=== PATIENT | female | born 1960 | race Caucasian/White ===

== ENCOUNTER 2019-10-14 15:03 | Emergency (ER) | payer MEDICAID ==
[~2019-10-14] VITALS: Ht 167.6 cm; Wt 88.7 kg
[~2019-10-14 15:03] MED LIST: METF500T20 PO; RISP3TAB11 PO
[2019-10-14 16:07] LABS: BASOPHILS % (AUTO) 0.4 % (0-1); EOSINOPHILS # (AUTO) 0.1 X10'3 (0-0.9); EOSINOPHILS % (AUTO) 1.2 % (0-6); HEMATOCRIT 42.4 % (35.0-45.0); HEMOGLOBIN 14.6 g/dl (12.0-16.0); LYMPHOCYTES # (AUTO) 1.1 X10'3 (1.1-4.8); LYMPHOCYTES % (AUTO) 18.8 % (21-51); MEAN CORPUSCULAR HGB CONC 34.6 g/dL (33.0-36.5); MEAN CORPUSCULAR VOLUME 95.5 FL (78-98); MEAN PLATELET VOLUME 7.4 FL (7.4-10.4); MONOCYTES # (AUTO) 0.6 X10'3 (0-0.9); MONOCYTES % (AUTO) 10.5 % (2-12); NEUTROPHILS # (AUTO) 4.2 X10'3 (1.8-7.7); NEUTROPHILS % (AUTO) 69.1 % (42-75); PLATELET COUNT 136 X10'3 (140-440); RED BLOOD COUNT 4.44 X10'6 (4.20-5.60); RED CELL DISTRIBUTION WIDTH 15.5 % (11.5-14.5); WHITE BLOOD COUNT 6.1 X10'3 (4.5-11.0)
[2019-10-14 16:20] LABS: ALANINE AMINOTRANSFERASE 77 U/L (12-78); ALBUMIN 2.4 G/DL (3.4-5.0); ALBUMIN/GLOBULIN RATIO 0.4 (1.1-1.5); ALKALINE PHOSPHATASE 77 IU/L (46-116); ANION GAP 5 (8-16); ASPARTATE AMINO TRANSFERASE 58 U/L (10-37); BILIRUBIN,TOTAL 1.5 MG/DL (0.1-1.0); BLOOD UREA NITROGEN 15 MG/DL (7-18); BUN/CREATININE RATIO 17.9 (6.6-38.0); CALCIUM 8.3 MG/DL (8.5-10.1); CHLORIDE 100 MMOL/L (99-107); CREATININE 0.84 MG/DL (0.40-0.90); LIPASE 269 U/L (73-393); POTASSIUM 4.6 MMOL/L (3.5-5.1); SODIUM 134 MMOL/L (135-145); TOTAL CARBON DIOXIDE 28.6 MMOL/L (24-32); eGFR 69 ML/MIN
[2019-10-14 16:23] LABS: GLUCOSE 351 MG/DL (70-104)
--- NOTE | 2019-10-14 19:22 | NUR ---
patient tolerated procedure well , patient in bed eyes closed rr even un labored no observable s/s of acute stress or sob at this time will continue to monitor.
--- NOTE | 2019-10-14 20:00 | NUR ---
patients catheter stopped draining after 2 bottles md child aware, waiting for orders
--- NOTE | 2019-10-14 21:18 | NUR ---
dr. steele verbalized to greg paracrickyis catheter
[2019-10-14 21:22] LABS: CLARITY,URINE SLIGHTLY CLOUDY (Clear); COLOR,URINE YELLOW (Yellow); GLUCOSE, URINE >=1000 mg/dl (Neg); KETONES,URINE NEGATIVE (Neg); LEUKOCYTE ESTERASE ,URINE SMALL (Neg); NITRITES, URINE NEGATIVE (Neg); OCCULT BLOOD,URINE SMALL (Neg); PROTEIN,URINE NEGATIVE (Neg); UROBILINOGEN,URINE 0.2 E.U/dL (0.2-1.0)
[2019-10-14 21:33] LABS: UA COLLECTION TYPE CLN CATCH MIDSTREAM
[2019-10-14 21:36] LABS: BACTERIA,URINE 1+ /HPF (Neg); RBC,URINE 0-2 /HPF (0-2); SQUAMOUS EPITHELIAL CELL,UR MANY /LPF (FEW); WBC,URINE 20-30 /HPF (0-4)
[2019-10-14 21:52] VITALS: BP 106/69
== END 2019-10-14 21:56 | disposition home or self-care (01) ==
LOC: ER 15:04
DX: R18.8 Other ascites (principal); K72.90 Hepatic failure, unspecified without coma; E11.9 Type 2 diabetes mellitus without complications; F32.9 Major depressive disorder, single episode, unspecified; F17.200 Nicotine dependence, unspecified, uncomplicated; Z90.49 Acquired absence of other specified parts of digestive tract; Z98.890 Other specified postprocedural states; Z88.0 Allergy status to penicillin; Z88.5 Allergy status to narcotic agent; Z88.8 Allergy status to other drugs, medicaments and biological substances; Z79.899 Other long term (current) drug therapy
CPT/HCPCS: 36415; 49083; 80053; 81001; 83690; 85025; 99285

== ENCOUNTER 2019-10-18 16:34 | Emergency (ER) | payer MEDICAID ==
[~2019-10-18] VITALS: Ht 167.6 cm; Wt 87.0 kg
[2019-10-18 17:52] LABS: BASOPHILS % (AUTO) 0.7 % (0-1); EOSINOPHILS # (AUTO) 0.1 X10'3 (0-0.9); HEMATOCRIT 42.3 % (35.0-45.0); HEMOGLOBIN 14.7 g/dl (12.0-16.0); LYMPHOCYTES # (AUTO) 0.9 X10'3 (1.1-4.8); LYMPHOCYTES % (AUTO) 13.2 % (21-51); MEAN CORPUSCULAR HEMOGLOBIN 33.1 PG (27.0-31.0); MEAN CORPUSCULAR HGB CONC 34.7 g/dL (33.0-36.5); MEAN CORPUSCULAR VOLUME 95.3 FL (78-98); MEAN PLATELET VOLUME 7.6 FL (7.4-10.4); MONOCYTES # (AUTO) 0.6 X10'3 (0-0.9); MONOCYTES % (AUTO) 9.4 % (2-12); NEUTROPHILS # (AUTO) 5.1 X10'3 (1.8-7.7); NEUTROPHILS % (AUTO) 75.7 % (42-75); PLATELET COUNT 153 X10'3 (140-440); RED BLOOD COUNT 4.44 X10'6 (4.20-5.60); RED CELL DISTRIBUTION WIDTH 15.6 % (11.5-14.5); WHITE BLOOD COUNT 6.8 X10'3 (4.5-11.0)
[2019-10-18] MEDS ORDERED: LIDOcaine 1% W/epiNEPHrine 1:200,000 10ml vial IJ ONE (18:20)
[2019-10-18 18:48] LABS: ANION GAP 4 (8-16); BILIRUBIN,TOTAL 1.6 MG/DL (0.1-1.0); BLOOD UREA NITROGEN 13 MG/DL (7-18); BUN/CREATININE RATIO 14.6 (6.6-38.0); CALCIUM 8.1 MG/DL (8.5-10.1); CHLORIDE 97 MMOL/L (99-107); CREATININE 0.89 MG/DL (0.40-0.90); SODIUM 130 MMOL/L (135-145); TOTAL CARBON DIOXIDE 29.5 MMOL/L (24-32); TOTAL PROTEIN 7.6 G/DL (6.4-8.2); eGFR 64 ML/MIN
[2019-10-18 18:49] LABS: ALANINE AMINOTRANSFERASE 74 U/L (12-78); ALBUMIN 2.2 G/DL (3.4-5.0); ALBUMIN/GLOBULIN RATIO 0.4 (1.1-1.5); ALKALINE PHOSPHATASE 85 IU/L (46-116); ASPARTATE AMINO TRANSFERASE 55 U/L (10-37); GLUCOSE 425 MG/DL (70-104); POTASSIUM 4.6 MMOL/L (3.5-5.1)
[2019-10-18] MEDS ORDERED: morphine 2 MG/ML inj. syringe IV ONE (20:45)
--- NOTE | 2019-10-18 21:36 | NUR ---
SAUMYA CARRANZA AT BEDSIDE FOR PARACENTESIS.
[2019-10-18 22:21] VITALS: BP 94/71
== END 2019-10-18 22:25 | disposition home or self-care (01) ==
LOC: ER 16:34
DX: R18.8 Other ascites (principal); E11.9 Type 2 diabetes mellitus without complications; F17.200 Nicotine dependence, unspecified, uncomplicated; Z90.49 Acquired absence of other specified parts of digestive tract; Z98.890 Other specified postprocedural states; Z88.0 Allergy status to penicillin; Z88.5 Allergy status to narcotic agent; Z88.6 Allergy status to analgesic agent
CPT/HCPCS: 36415; 49083; 80053; 85025; 96374; 99285; J2270

== ENCOUNTER 2019-10-25 17:41 | Emergency (ER) | payer MEDICAID ==
[~2019-10-25] VITALS: Ht 170.2 cm; Wt 72.7 kg
--- NOTE | 2019-10-25 18:18 | NUR ---
per md de oliveira, no IV is needed at the moment prior to paracentesis
[2019-10-25] MEDS ORDERED: LIDOcaine 1% W/epiNEPHrine 1:200,000 10ml vial IJ ONE (18:20)
[2019-10-25] MEDS ORDERED: iohexol 300mg/ml 100ml inj. ONE (19:10)
[2019-10-25 19:23] LABS: BASOPHILS # (AUTO) 0.1 X10'3 (0-0.2); BASOPHILS % (AUTO) 1.6 % (0-1); EOSINOPHILS # (AUTO) 0.1 X10'3 (0-0.9); EOSINOPHILS % (AUTO) 1.5 % (0-6); HEMATOCRIT 42.2 % (35.0-45.0); HEMOGLOBIN 14.6 g/dl (12.0-16.0); LYMPHOCYTES # (AUTO) 0.8 X10'3 (1.1-4.8); LYMPHOCYTES % (AUTO) 13.6 % (21-51); MEAN CORPUSCULAR HEMOGLOBIN 33.1 PG (27.0-31.0); MEAN CORPUSCULAR HGB CONC 34.7 g/dL (33.0-36.5); MEAN CORPUSCULAR VOLUME 95.4 FL (78-98); MEAN PLATELET VOLUME 7.6 FL (7.4-10.4); MONOCYTES # (AUTO) 0.6 X10'3 (0-0.9); MONOCYTES % (AUTO) 10.9 % (2-12); NEUTROPHILS # (AUTO) 4.3 X10'3 (1.8-7.7); NEUTROPHILS % (AUTO) 72.4 % (42-75); PLATELET COUNT 133 X10'3 (140-440); RED BLOOD COUNT 4.42 X10'6 (4.20-5.60); RED CELL DISTRIBUTION WIDTH 15.5 % (11.5-14.5); WHITE BLOOD COUNT 5.9 X10'3 (4.5-11.0)
[2019-10-25 19:34] LABS: ALANINE AMINOTRANSFERASE 60 U/L (12-78); ALBUMIN/GLOBULIN RATIO 0.4 (1.1-1.5); ALKALINE PHOSPHATASE 80 IU/L (46-116); ANION GAP 5 (8-16); ASPARTATE AMINO TRANSFERASE 41 U/L (10-37); BILIRUBIN,TOTAL 0.9 MG/DL (0.1-1.0); BLOOD UREA NITROGEN 20 MG/DL (7-18); BUN/CREATININE RATIO 24.4 (6.6-38.0); CALCIUM 8.4 MG/DL (8.5-10.1); CHLORIDE 99 MMOL/L (99-107); CREATININE 0.82 MG/DL (0.40-0.90); GLUCOSE 437 MG/DL (70-104); POTASSIUM 4.5 MMOL/L (3.5-5.1); SODIUM 133 MMOL/L (135-145); TOTAL CARBON DIOXIDE 28.9 MMOL/L (24-32); TOTAL PROTEIN 7.2 G/DL (6.4-8.2); eGFR 71 ML/MIN
--- NOTE | 2019-10-25 19:45 | NUR ---
PT TO CT
--- NOTE | 2019-10-25 19:56 | NUR ---
PT BACK FROM CY. PT UP OUT OF BED AND ABULATED TO THE BATHROOM.
[2019-10-25 20:29] LABS: AMYLASE,BODY FLUID 20 U/L; GLUCOSE,BODY FLUID 491 MG/DL; LDH,BODY FLUID 28 U/L
[2019-10-25 20:35] LABS: BF MESOTHELIAL CELLS FEW; BF RBC COUNT 33 /CU MM; BF WBC COUNT 66 /CU MM (0-1000); BFAPPEAR HAZY; BFCOLOR YELLOW; BFVOLUME 20 ML; LYMPHOCYTES,BODY FLUID 65 %; MONOCYTES,BODY FLUID 12 %; NEUTROPHILS,BODY FLUID 23 %
[2019-10-25 20:41] LABS: ALBUMIN,BODY FLUID < 0.6 G/DL; TOTAL PROTEIN,BODY FLUID < 2.0 G/DL
--- NOTE | 2019-10-25 21:19 | NUR ---
PT AMBULATING WITH [facility] TECH PER CHANO CARRANZA ORDERS
[2019-10-25] MEDS ORDERED: traMADol 50MG tablet PO ONE (21:55)
[2019-10-25] MEDS ORDERED: SIMETHICONE 125 MG CAPSULE PO SCH (21:55)
[2019-10-25 22:14] VITALS: BP 148/99
[2019-10-26] MEDS ORDERED: MESSAGE TO NURSING PO NR (10:00)
[2019-10-27] MEDS ORDERED: METF-436 PO (20:24)
[2019-10-27] MEDS ORDERED: ALBU17AE26 PO (20:25)
[2019-10-27] MEDS ORDERED: FURO20TA4 PO (20:25)
[2019-10-27] MEDS ORDERED: SPIR25TA5 PO (20:25)
== END 2019-10-25 22:16 | disposition home or self-care (01) ==
LOC: ER 17:42
DX: R18.8 Other ascites (principal); J45.909 Unspecified asthma, uncomplicated; E11.9 Type 2 diabetes mellitus without complications; F32.9 Major depressive disorder, single episode, unspecified; F17.200 Nicotine dependence, unspecified, uncomplicated; F10.99 Alcohol use, unspecified with unspecified alcohol-induced disorder; Z86.19 Personal history of other infectious and parasitic diseases; Z90.49 Acquired absence of other specified parts of digestive tract; Z88.0 Allergy status to penicillin; Z88.5 Allergy status to narcotic agent; Z88.8 Allergy status to other drugs, medicaments and biological substances; Z79.84 Long term (current) use of oral hypoglycemic drugs; Z79.899 Other long term (current) drug therapy; Y90.9 Presence of alcohol in blood, level not specified
CPT/HCPCS: 36415; 49083; 74177; 80053; 82042; 82150; 82945; 83605; 83615; 84157; 85025; 85610; 87040; 87070; 89051; 99285; Q9967

== ENCOUNTER 2019-11-04 17:10 | Inpatient (IN) | payer MEDICAID ==
[~2019-11-04] VITALS: Ht 168.9 cm; Wt 88.0 kg
[~2019-11-04 17:10] MED LIST changes: +ALBU17AE26 PO; +FURO20TA4 PO; +LACT10SO32 PO; +LEVO500T2 PO; +METF-436 PO; -METF500T20 PO; +RIFA550T PO; -RISP3TAB11 PO; +SPIR25TA5 PO
[2019-11-04 18:01] LABS: BASOPHILS # (AUTO) 0.1 X10'3 (0-0.2); BASOPHILS % (AUTO) 0.8 % (0-1); EOSINOPHILS # (AUTO) 0.1 X10'3 (0-0.9); HEMATOCRIT 42.7 % (35.0-45.0); HEMOGLOBIN 14.8 g/dl (12.0-16.0); LYMPHOCYTES % (AUTO) 14.9 % (21-51); MEAN CORPUSCULAR HEMOGLOBIN 32.9 PG (27.0-31.0); MEAN CORPUSCULAR HGB CONC 34.7 g/dL (33.0-36.5); MEAN CORPUSCULAR VOLUME 94.9 FL (78-98); MEAN PLATELET VOLUME 7.5 FL (7.4-10.4); MONOCYTES # (AUTO) 0.7 X10'3 (0-0.9); MONOCYTES % (AUTO) 10.6 % (2-12); NEUTROPHILS # (AUTO) 4.7 X10'3 (1.8-7.7); NEUTROPHILS % (AUTO) 72.7 % (42-75); PLATELET COUNT 152 X10'3 (140-440); RED CELL DISTRIBUTION WIDTH 15.4 % (11.5-14.5); WHITE BLOOD COUNT 6.4 X10'3 (4.5-11.0)
[2019-11-04 18:14] LABS: ALANINE AMINOTRANSFERASE 72 U/L (12-78); ALBUMIN 2.1 G/DL (3.4-5.0); ALBUMIN/GLOBULIN RATIO 0.4 (1.1-1.5); ALKALINE PHOSPHATASE 89 IU/L (46-116); ANION GAP 4 (8-16); ASPARTATE AMINO TRANSFERASE 61 U/L (10-37); BILIRUBIN,TOTAL 1.3 MG/DL (0.1-1.0); BLOOD UREA NITROGEN 16 MG/DL (7-18); BUN/CREATININE RATIO 19.3 (6.6-38.0); CALCIUM 8.4 MG/DL (8.5-10.1); CHLORIDE 100 MMOL/L (99-107); CREATININE 0.83 MG/DL (0.40-0.90); GLUCOSE 384 MG/DL (70-104); LIPASE 493 U/L (73-393); POTASSIUM 4.3 MMOL/L (3.5-5.1); SODIUM 130 MMOL/L (135-145); TOTAL CARBON DIOXIDE 26.2 MMOL/L (24-32); TOTAL PROTEIN 7.5 G/DL (6.4-8.2); eGFR 70 ML/MIN
[2019-11-04] MEDS ORDERED: morphine IR (immed. release) 30mg tablet PO ONE (20:15)
[2019-11-04] MEDS ORDERED: TRAM50TA2 PO (21:41)
[2019-11-04] MEDS ORDERED: magnesium 4gm in 100ml NS 100 ML IV PRN (22:20)
[2019-11-04] MEDS ORDERED: acetaminophen 325mg tablet PO PRN (22:20)
[2019-11-04] MEDS ORDERED: dextrose 50%-water 50ml dispensing syringe IV PRN ×2 (22:20)
[2019-11-04] MEDS ORDERED: potassium CL 10mEq/100ml bag 100 ML IV PRN ×2 (22:20)
[2019-11-04] MEDS ORDERED: mag hydrox/Alum hydrox/simeth 30ml oral suspension PO PRN (22:20)
[2019-11-04] MEDS ORDERED: potassium Cl 20 mEq SR tablet PO PRN ×2 (22:20)
[2019-11-04] MEDS ORDERED: glucagon, human recombinant 1mg kit SUBCUT PRN (22:20)
[2019-11-04] MEDS ORDERED: dextrose ORAL solution 15 GM/59 ML bottle PO PRN ×2 (22:20)
[2019-11-04] MEDS ORDERED: ondansetron/PF 4mg/2ml inj IV PRN (22:20)
[2019-11-04] MEDS ORDERED: MESSAGE TO PHARMACY PO ONE (22:20)
[2019-11-04] MEDS ORDERED: albuterol 1.25 MG/3 ML (1/2 strength) nebule NEB PRN (22:20)
[2019-11-04] MEDS ORDERED: magnesium 2GM in 50ml NS 50 ML IV PRN (22:20)
[2019-11-04] MEDS ORDERED: magnesium hydroxide 30ml (MOM) UD suspension PO PRN (22:20)
--- NOTE | 2019-11-04 22:58 | NUR ---
pt placed on hospital bed for comfort.
[2019-11-04 23:37] LABS: CLARITY,URINE CLEAR (Clear); COLOR,URINE YELLOW (Yellow); GLUCOSE, URINE >=1000 mg/dl (Neg); KETONES,URINE NEGATIVE (Neg); LEUKOCYTE ESTERASE ,URINE NEGATIVE (Neg); NITRITES, URINE NEGATIVE (Neg); OCCULT BLOOD,URINE NEGATIVE (Neg); PROTEIN,URINE NEGATIVE (Neg); UROBILINOGEN,URINE 0.2 E.U/dL (0.2-1.0)
[2019-11-04 23:49] LABS: UA COLLECTION TYPE OTHER
[2019-11-04 23:51] LABS: BACTERIA,URINE NONE SEEN /HPF (Neg); RBC,URINE NONE SEEN /HPF (0-2); SQUAMOUS EPITHELIAL CELL,UR MANY /LPF (FEW); WBC,URINE 0-4 /HPF (0-4)
--- NOTE | 2019-11-05 01:04 | NUR ---
HOURLY ROUNDING ON PT, NO NEEDS AT THIS TIME, UPDATTED ON PLAN OF CARE. PT RESTING COMFORTABLY IN BED. WILL CONTINUE TO MONITOR
--- NOTE | 2019-11-05 07:05 | NUR ---
Patient in room YANETH 349. I have received report from Micaela KWONG and had the opportunity to ask questions and assume patient care.
[2019-11-05 07:37] VITALS: BP 108/64
[2019-11-05] MEDS ORDERED: furosemide 20MG tablet PO SCH (08:00)
[2019-11-05] MEDS ORDERED: spironolactone 25 MG tablet PO SCH (08:00)
[2019-11-05] MEDS ORDERED: K and/or MAG REPLACEMENT MC SCH (08:00)
[2019-11-05] MEDS: lactulose 20gm/30ml cup PO SCH ×2 (09:01→12:58)
[2019-11-05] MEDS: insulin Lispro (HumaLOG) vial - multi-dose SQ SCH ×2 (10:13→14:56)
[2019-11-05 10:18] LABS: BASOPHILS # (AUTO) 0.1 X10'3 (0-0.2); BASOPHILS % (AUTO) 1.2 % (0-1); EOSINOPHILS # (AUTO) 0.2 X10'3 (0-0.9); EOSINOPHILS % (AUTO) 2.6 % (0-6); HEMATOCRIT 39.8 % (35.0-45.0); LYMPHOCYTES # (AUTO) 0.8 X10'3 (1.1-4.8); LYMPHOCYTES % (AUTO) 13.1 % (21-51); MEAN CORPUSCULAR HEMOGLOBIN 33.3 PG (27.0-31.0); MEAN CORPUSCULAR HGB CONC 35.1 g/dL (33.0-36.5); MEAN PLATELET VOLUME 7.3 FL (7.4-10.4); MONOCYTES # (AUTO) 0.7 X10'3 (0-0.9); MONOCYTES % (AUTO) 10.8 % (2-12); NEUTROPHILS # (AUTO) 4.7 X10'3 (1.8-7.7); NEUTROPHILS % (AUTO) 72.3 % (42-75); PLATELET COUNT 140 X10'3 (140-440); RED BLOOD COUNT 4.19 X10'6 (4.20-5.60); RED CELL DISTRIBUTION WIDTH 15.8 % (11.5-14.5); WHITE BLOOD COUNT 6.5 X10'3 (4.5-11.0)
[2019-11-05 10:37] LABS: ALANINE AMINOTRANSFERASE 70 U/L (12-78); ALBUMIN 1.9 G/DL (3.4-5.0); ALBUMIN/GLOBULIN RATIO 0.4 (1.1-1.5); ALKALINE PHOSPHATASE 76 IU/L (46-116); ANION GAP 3 (8-16); ASPARTATE AMINO TRANSFERASE 62 U/L (10-37); BILIRUBIN,TOTAL 1.1 MG/DL (0.1-1.0); BLOOD UREA NITROGEN 15 MG/DL (7-18); BUN/CREATININE RATIO 18.1 (6.6-38.0); CALCIUM 8.3 MG/DL (8.5-10.1); CHLORIDE 101 MMOL/L (99-107); CREATININE 0.83 MG/DL (0.40-0.90); GLUCOSE 347 MG/DL (70-104); MAGNESIUM 1.4 MG/DL (1.5-2.4); SODIUM 132 MMOL/L (135-145); TOTAL CARBON DIOXIDE 27.6 MMOL/L (24-32); eGFR 70 ML/MIN
[2019-11-05] MEDS ORDERED: magnesium 4gm in 100ml NS 100 ML IV PRN (11:10)
[2019-11-05] MEDS ORDERED: magnesium Cl slow-release 64mg tablet PO PRN (11:10)
[2019-11-05 11:28] VITALS: BP 109/68
--- NOTE | 2019-11-05 13:10 | NUR ---
here to take pt home for discharge. disagrees with discharge, stating, "Nothing was done for her, her belly is still huge and she is still SOB. I want to talk to the myself." SaO2 91% on RA. Ambulated pt 600ft, pt did not appear to be SOB. paged. Awaiting MD to talk to pt/.
--- NOTE | 2019-11-05 14:49 | NUR ---
Pt with ascites Addendum: 11/05/19 at 1451 by Clarence Cunningham STUDENT -NU Amended: Links added.
--- NOTE | 2019-11-05 15:03 | NUR ---
Student documentation: I have reviewed all interventions, assessments performed and documented by Clarence QUIROZ.
--- NOTE | 2019-11-05 15:05 | NUR ---
Pt's Naif talked to Dr. Decker over the phone to discuss discharge. Pt is still to be discharged. Patient is accepting of discharge, is still upset. Discharge paperwork gone over with pt and signed. IV taken out. W/C to front lobby. Pt sent home with all belongings.
--- NOTE | 2019-11-05 15:17 | NUR ---
DM consult: Pt with A1c 10.0 seen at bedside. Pt reports she checks her BG levels twice a day with resulting numbers generally in the 160s however recently up to 300-340. Pt states she takes her DM medications per rx however hasn't been able to see her PCP d/t transportation issues however reports she is trying to establish a new MD. Pt provided with written and verbal DM education with referral to outpatient DM class. Pt was able to provide teach back method and appears to have a good understanding about education. Pt very emotional during RD interview and expresses desire to better manage her diabetes and overall health. All of patient's questions were answered at this time. RD contact information provided. Pt endorses a good appetite and denies difficulty chewing/swallowing. Will continue to follow. Addendum: 11/05/19 at [address] Amended: Links added.
[2019-11-05] MEDS ORDERED: insulin glargine (Lantus) pen - multi-dose SQ SCH (21:00)
== END 2019-11-05 15:14 | disposition home or self-care (01) | DRG 280 ==
LOC: ER 17:10 → ED HOLD 22:17 → UNDOADMOB 22:47 → ED HOLD 22:47 → EDBEDREQ 11-05 06:31 → ED HOLD 11-05 07:58 → SUR 3N 11-05 07:58 → OBSVTOIN 11-05 08:00
PROVIDERS: ADMIT Family Medicine; ATTEND Family Medicine
DX: K70.31 Alcoholic cirrhosis of liver with ascites (principal); E87.1 Hypo-osmolality and hyponatremia; B18.2 Chronic viral hepatitis C; E11.9 Type 2 diabetes mellitus without complications; F31.9 Bipolar disorder, unspecified; F17.290 Nicotine dependence, other tobacco product, uncomplicated; F12.90 Cannabis use, unspecified, uncomplicated; J44.9 Chronic obstructive pulmonary disease, unspecified; Z82.49 Family history of ischemic heart disease and other diseases of the circulatory system; Z83.3 Family history of diabetes mellitus; Z85.850 Personal history of malignant neoplasm of thyroid; Z88.0 Allergy status to penicillin; Z88.5 Allergy status to narcotic agent; Z90.49 Acquired absence of other specified parts of digestive tract; Z88.8 Allergy status to other drugs, medicaments and biological substances; Z79.899 Other long term (current) drug therapy; Z80.3 Family history of malignant neoplasm of breast
CPT/HCPCS: 36415; 49083; 74176; 76705; 80053; 81001; 82948; 83690; 83735; 85025; 87081; 94760; 99285; G0378; J1815

== ENCOUNTER 2019-11-07 14:12 | Emergency (ER) | payer MEDICAID ==
[~2019-11-07] VITALS: Ht 167.6 cm; Wt 86.4 kg
[~2019-11-07 14:12] MED LIST changes: +TRAM50TA2 PO
[2019-11-07] MEDS ORDERED: LIDOcaine 1% W/epiNEPHrine 1:100,000 20ml vial SQ ONE (17:00)
[2019-11-07] MEDS ORDERED: LORazepam 2 mg/ml vial IV ONE (17:00)
[2019-11-07 17:19] LABS: BASOPHILS % (AUTO) 0.5 % (0-1); EOSINOPHILS # (AUTO) 0.1 X10'3 (0-0.9); EOSINOPHILS % (AUTO) 0.9 % (0-6); HEMATOCRIT 42.3 % (35.0-45.0); HEMOGLOBIN 14.5 g/dl (12.0-16.0); LYMPHOCYTES # (AUTO) 0.7 X10'3 (1.1-4.8); LYMPHOCYTES % (AUTO) 12.7 % (21-51); MEAN CORPUSCULAR HGB CONC 34.3 g/dL (33.0-36.5); MEAN CORPUSCULAR VOLUME 96.2 FL (78-98); MEAN PLATELET VOLUME 7.4 FL (7.4-10.4); MONOCYTES # (AUTO) 0.5 X10'3 (0-0.9); MONOCYTES % (AUTO) 8.8 % (2-12); NEUTROPHILS # (AUTO) 4.6 X10'3 (1.8-7.7); NEUTROPHILS % (AUTO) 77.1 % (42-75); PLATELET COUNT 134 X10'3 (140-440); RED BLOOD COUNT 4.39 X10'6 (4.20-5.60); RED CELL DISTRIBUTION WIDTH 15.4 % (11.5-14.5); WHITE BLOOD COUNT 5.9 X10'3 (4.5-11.0)
[2019-11-07 17:35] LABS: ALANINE AMINOTRANSFERASE 68 U/L (12-78); ALBUMIN 1.9 G/DL (3.4-5.0); ALBUMIN/GLOBULIN RATIO 0.4 (1.1-1.5); ALKALINE PHOSPHATASE 80 IU/L (46-116); ANION GAP 3 (8-16); ASPARTATE AMINO TRANSFERASE 57 U/L (10-37); BILIRUBIN,TOTAL 1.2 MG/DL (0.1-1.0); BLOOD UREA NITROGEN 14 MG/DL (7-18); BUN/CREATININE RATIO 14.6 (6.6-38.0); CALCIUM 8.2 MG/DL (8.5-10.1); CHLORIDE 99 MMOL/L (99-107); CREATININE 0.96 MG/DL (0.40-0.90); GLUCOSE 381 MG/DL (70-104); POTASSIUM 4.4 MMOL/L (3.5-5.1); SODIUM 131 MMOL/L (135-145); TOTAL CARBON DIOXIDE 29.4 MMOL/L (24-32); eGFR 59 ML/MIN
[2019-11-07 20:13] LABS: LDH,BODY FLUID 30 U/L
[2019-11-07 20:16] VITALS: BP 105/61
[2019-11-07 20:36] LABS: BFAPPEAR HAZY; BFCOLOR YELLOW
[2019-11-07 20:37] LABS: BF MESOTHELIAL CELLS MODERATE; BF WBC COUNT 53 /CU MM (0-1000); BFVOLUME 10 ML; LYMPHOCYTES,BODY FLUID 75 %; MONOCYTES,BODY FLUID 9 %; NEUTROPHILS,BODY FLUID 16 %
[2019-11-07 20:38] LABS: BF RBC COUNT 127 /CU MM
[2019-11-07 21:09] LABS: TOTAL PROTEIN,BODY FLUID < 2.0 G/DL
== END 2019-11-07 20:24 | disposition home or self-care (01) ==
LOC: ER 14:14
DX: R18.8 Other ascites (principal); R10.9 Unspecified abdominal pain; J45.909 Unspecified asthma, uncomplicated; E11.9 Type 2 diabetes mellitus without complications; F32.9 Major depressive disorder, single episode, unspecified; Z90.49 Acquired absence of other specified parts of digestive tract; Z88.0 Allergy status to penicillin; Z88.5 Allergy status to narcotic agent; Z88.8 Allergy status to other drugs, medicaments and biological substances; Z79.2 Long term (current) use of antibiotics; Z79.899 Other long term (current) drug therapy; Z72.89 Other problems related to lifestyle
CPT/HCPCS: 36415; 49083; 80053; 83615; 84157; 85025; 85610; 87070; 89051; 96374; 99285; J2060

== ENCOUNTER 2019-11-10 06:50 | Day surgery (SDC) | payer MEDICAID ==
[~2019-11-10] VITALS: Ht 167.6 cm; Wt 87.8 kg
[~2019-11-10 06:50] MED LIST changes: -LEVO500T2 PO
[2019-11-10 07:09] VITALS: BP 115/85
[2019-11-10] MEDS ORDERED: LACT10SO PO (07:21)
[2019-11-10 08:47] VITALS: BP 113/75
[2019-11-10 09:02] VITALS: BP 96/58
[2019-11-10 09:30] VITALS: BP 101/62
[2019-11-10 09:35] VITALS: BP 101/76
[2019-11-10 09:50] VITALS: BP 98/60
== END 2019-11-10 09:55 | disposition home or self-care (01) ==
LOC: SSTAY O 06:50
PROVIDERS: ATTEND Radiology Diagnostic Radiology
DX: R18.8 Other ascites (principal); K74.60 Unspecified cirrhosis of liver; J44.9 Chronic obstructive pulmonary disease, unspecified; E11.9 Type 2 diabetes mellitus without complications; F31.9 Bipolar disorder, unspecified; Z88.0 Allergy status to penicillin; Z88.5 Allergy status to narcotic agent; Z86.19 Personal history of other infectious and parasitic diseases; Z88.8 Allergy status to other drugs, medicaments and biological substances; Z79.84 Long term (current) use of oral hypoglycemic drugs; Z79.899 Other long term (current) drug therapy; Z90.49 Acquired absence of other specified parts of digestive tract
CPT/HCPCS: 49083; C1729; J2001

== ENCOUNTER 2019-11-13 18:02 | Emergency (ER) | payer MEDICAID ==
[~2019-11-13] VITALS: Ht 167.6 cm; Wt 86.4 kg
[~2019-11-13 18:02] MED LIST changes: +LACT10SO PO; -LACT10SO32 PO; -RIFA550T PO
--- NOTE | 2019-11-13 19:20 | NUR ---
ATTEMPTED TO CALL REPORT. BOTH CHARGE AND NURSE TAKINT REPOR WERE TIED UP WITH PATIENTS
[2019-11-13] MEDS ORDERED: LIDOcaine 1% W/epiNEPHrine 1:100,000 20ml vial SQ ONE (19:50)
[2019-11-13 21:06] VITALS: BP 108/66
== END 2019-11-13 21:21 | disposition home or self-care (01) ==
LOC: ER 18:02
DX: R18.8 Other ascites (principal); R14.0 Abdominal distension (gaseous); J45.909 Unspecified asthma, uncomplicated; E11.9 Type 2 diabetes mellitus without complications; Z90.49 Acquired absence of other specified parts of digestive tract; Z98.890 Other specified postprocedural states; Z79.2 Long term (current) use of antibiotics; Z88.0 Allergy status to penicillin; Z88.5 Allergy status to narcotic agent; Z88.6 Allergy status to analgesic agent; Z79.899 Other long term (current) drug therapy
CPT/HCPCS: 49083; 99285

== ENCOUNTER 2019-11-19 08:34 | Day surgery (SDC) | payer MEDICAID ==
[~2019-11-19] VITALS: Ht 167.6 cm; Wt 87.0 kg
[2019-11-19 09:00] VITALS: BP 109/74
[2019-11-19] MEDS ORDERED: albumin 25% 100mL bottle x 1 IV PRN (09:35)
[2019-11-19] MEDS ORDERED: normal saline 1000ml 1,000 ML IV PRN (09:35)
[2019-11-19 09:40] VITALS: BP 122/75
[2019-11-19 10:15] VITALS: BP_SYST 112; BP_SYST 122; BP_DIAS 72; BP_DIAS 75
== END 2019-11-19 10:15 | disposition home or self-care (01) ==
LOC: SSTAY O 08:34
PROVIDERS: ATTEND Radiology Vascular & Interventional Radiology
DX: R18.8 Other ascites (principal); R14.0 Abdominal distension (gaseous); K74.60 Unspecified cirrhosis of liver; J44.9 Chronic obstructive pulmonary disease, unspecified; E11.9 Type 2 diabetes mellitus without complications; F31.9 Bipolar disorder, unspecified; Z86.19 Personal history of other infectious and parasitic diseases; Z88.0 Allergy status to penicillin; Z88.8 Allergy status to other drugs, medicaments and biological substances; Z88.5 Allergy status to narcotic agent; Z79.899 Other long term (current) drug therapy; Z79.84 Long term (current) use of oral hypoglycemic drugs; Z83.3 Family history of diabetes mellitus; Z82.49 Family history of ischemic heart disease and other diseases of the circulatory system; Z80.8 Family history of malignant neoplasm of other organs or systems
CPT/HCPCS: 76705

== ENCOUNTER 2019-11-23 15:24 | Inpatient (IN) | payer MEDICAID ==
[~2019-11-23] VITALS: Ht 167.6 cm; Wt 85.4 kg
[2019-11-23 17:21] LABS: BASOPHILS % (AUTO) 0.4 % (0-1); EOSINOPHILS # (AUTO) 0.1 X10'3 (0-0.9); EOSINOPHILS % (AUTO) 0.7 % (0-6); HEMATOCRIT 45.6 % (35.0-45.0); HEMOGLOBIN 15.7 g/dl (12.0-16.0); LYMPHOCYTES # (AUTO) 0.8 X10'3 (1.1-4.8); LYMPHOCYTES % (AUTO) 10.1 % (21-51); MEAN CORPUSCULAR HEMOGLOBIN 32.8 PG (27.0-31.0); MEAN CORPUSCULAR HGB CONC 34.5 g/dL (33.0-36.5); MEAN PLATELET VOLUME 7.5 FL (7.4-10.4); MONOCYTES # (AUTO) 0.9 X10'3 (0-0.9); MONOCYTES % (AUTO) 11.2 % (2-12); NEUTROPHILS % (AUTO) 77.6 % (42-75); PLATELET COUNT 160 X10'3 (140-440); RED BLOOD COUNT 4.79 X10'6 (4.20-5.60); WHITE BLOOD COUNT 7.8 X10'3 (4.5-11.0)
[2019-11-23 17:38] LABS: ALANINE AMINOTRANSFERASE 76 U/L (12-78); ALBUMIN 2.1 G/DL (3.4-5.0); ALBUMIN/GLOBULIN RATIO 0.4 (1.1-1.5); ALKALINE PHOSPHATASE 101 IU/L (46-116); ANION GAP 3 (8-16); ASPARTATE AMINO TRANSFERASE 52 U/L (10-37); BILIRUBIN,TOTAL 1.2 MG/DL (0.1-1.0); BLOOD UREA NITROGEN 26 MG/DL (7-18); CALCIUM 8.1 MG/DL (8.5-10.1); CHLORIDE 94 MMOL/L (99-107); CREATININE 1.18 MG/DL (0.40-0.90); SODIUM 124 MMOL/L (135-145); TOTAL CARBON DIOXIDE 27.5 MMOL/L (24-32); TOTAL PROTEIN 7.6 G/DL (6.4-8.2); eGFR 47 ML/MIN
[2019-11-23 17:57] LABS: GLUCOSE 506 MG/DL (70-104); LIPASE 1563 U/L (73-393)
--- NOTE | 2019-11-23 18:35 | NUR ---
Israel knowles in [facility] - 11/23/19 at 1924 by BRENDA pt to x ray
--- NOTE | 2019-11-23 18:42 | NUR ---
Israel knowles in [facility] - 11/23/19 at 1924 by ADILIATON pt returned from x ray
[2019-11-23] MEDS ORDERED: calcium chloride inj. 1,000 MG in normal saline 100ml IV soln 90 ML IV ONE (18:50)
[2019-11-23] MEDS ORDERED: insulin regular, human U-100 3ml vial - multi-dose IV ONE (18:50)
[2019-11-23] MEDS ORDERED: normal saline 1000ml 1,000 ML IV ONE (18:55)
--- NOTE | 2019-11-23 19:24 | NUR ---
ASKED PT FOR URINE SPECIMAN PT RESPONDED WITH I DONT HAVE TO GO U BETSY HAVE TO WAIT A LITTLE AWHILE
[2019-11-23] MEDS ORDERED: haloperidol lactate 5mg/ml inj IM PRN (20:35)
[2019-11-23] MEDS ORDERED: mag hydrox/Alum hydrox/simeth 30ml oral suspension PO PRN (20:35)
[2019-11-23] MEDS ORDERED: dextrose 50%-water 50ml dispensing syringe IV PRN (20:35)
[2019-11-23] MEDS ORDERED: magnesium hydroxide 30ml (MOM) UD suspension PO PRN (20:35)
[2019-11-23] MEDS ORDERED: thiamine 100mg/ml 2ml inj. IV ONE (20:35)
[2019-11-23] MEDS ORDERED: diphenhydrAMINE 25mg capsule PO PRN (20:35)
[2019-11-23] MEDS ORDERED: potassium CL 10mEq/100ml bag 100 ML IV PRN ×2 (20:35)
[2019-11-23] MEDS ORDERED: magnesium 2GM in 50ml NS 50 ML IV PRN (20:35)
[2019-11-23] MEDS ORDERED: potassium Cl 20 mEq SR tablet PO PRN ×2 (20:35)
[2019-11-23] MEDS ORDERED: magnesium 4gm in 100ml NS 100 ML IV PRN (20:35)
[2019-11-23] MEDS ORDERED: bisacodyl 10mg suppository rectal RC PRN (20:35)
[2019-11-23] MEDS ORDERED: haloperidol 5mg tablet PO PRN (20:35)
[2019-11-23] MEDS ORDERED: ondansetron/PF 4mg/2ml inj IV PRN (20:35)
--- NOTE | 2019-11-23 21:00 | NUR ---
bedside commode at bedside incouraged pt to void pt refusing at this time " get away from me , i want to sleep "
--- NOTE | 2019-11-23 21:36 | NUR ---
pt puled her iv out undresed herself and was standing at the bedside without her clothing yelling for staff . instructed pt that she nedds to return to bed and get herself dress. envirnomental services called to clean up urine on the floor an dblood from the patient d/c her own iv.
[2019-11-23] MEDS: LORazepam 2 mg/ml vial IV PRN (21:55)
--- NOTE | 2019-11-23 22:02 | NUR ---
Received report from ELENITA Valadez. Awaiting patient arrival to the floor.
--- NOTE | 2019-11-23 22:15 | NUR ---
Patient arrived to the floor via gurney. Placed in room 358B. Awake, but lethargic on room air, in no apparent distress. Denies pain. Irritable and resistive to care. Wants to be left alone. Call light given and items of frequent use within reach. Will continue to monitor.
[2019-11-23 22:20] VITALS: BP 112/75
[2019-11-23] MEDS ORDERED: albuterol 2.5 MG/3 ML nebule NEB PRN (22:40)
--- NOTE | 2019-11-23 23:05 | NUR ---
Patient refused nasal swab; refused to answer admission process DART questions; verbalized "I already answered these questions down there; I need sleep." Skin check only partially done; as patient refused to cooperate; verbalized "I'm COLD! Cover me up and leave me alone" Will continue to monitor.
[2019-11-24] VITALS: BP_SYST 116; BP_SYST 117; BP_DIAS 76; BP_DIAS 80
[2019-11-24] MEDS ORDERED: glucagon, human recombinant 1mg kit SUBCUT PRN (01:50)
[2019-11-24] MEDS ORDERED: MESSAGE TO PHARMACY PO ONE (01:50)
[2019-11-24] MEDS ORDERED: dextrose 50%-water 50ml dispensing syringe IV PRN ×2 (01:50)
[2019-11-24] MEDS ORDERED: dextrose ORAL solution 15 GM/59 ML bottle PO PRN ×2 (01:50)
--- NOTE | 2019-11-24 06:55 | NUR ---
Problems reprioritized. Patient report given, questions answered & plan of care reviewed with ELENITA Bates.
[2019-11-24 07:00] VITALS: BP 104/60
--- NOTE | 2019-11-24 07:11 | NUR ---
Patient in room YANETH 358. I have received report from Fariba KWOGN and had the opportunity to ask questions and assume patient care.
[2019-11-24 07:27] LABS: BASOPHILS # (AUTO) 0.1 X10'3 (0-0.2); BASOPHILS % (AUTO) 0.7 % (0-1); EOSINOPHILS # (AUTO) 0.1 X10'3 (0-0.9); EOSINOPHILS % (AUTO) 1.7 % (0-6); HEMATOCRIT 41.1 % (35.0-45.0); HEMOGLOBIN 14.1 g/dl (12.0-16.0); LYMPHOCYTES % (AUTO) 13.8 % (21-51); MEAN CORPUSCULAR HEMOGLOBIN 32.7 PG (27.0-31.0); MEAN CORPUSCULAR HGB CONC 34.3 g/dL (33.0-36.5); MEAN CORPUSCULAR VOLUME 95.2 FL (78-98); MEAN PLATELET VOLUME 7.4 FL (7.4-10.4); MONOCYTES # (AUTO) 0.9 X10'3 (0-0.9); MONOCYTES % (AUTO) 11.5 % (2-12); NEUTROPHILS # (AUTO) 5.4 X10'3 (1.8-7.7); NEUTROPHILS % (AUTO) 72.3 % (42-75); PLATELET COUNT 147 X10'3 (140-440); RED BLOOD COUNT 4.32 X10'6 (4.20-5.60); RED CELL DISTRIBUTION WIDTH 16.2 % (11.5-14.5); WHITE BLOOD COUNT 7.5 X10'3 (4.5-11.0)
[2019-11-24] MEDS ORDERED: lactulose 20gm/30ml cup PO SCH (08:00)
[2019-11-24] MEDS: K and/or MAG REPLACEMENT MC SCH ×2 (08:00→20:00)
[2019-11-24] MEDS ORDERED: spironolactone 25 MG tablet PO SCH (08:00)
[2019-11-24] MEDS: docusate sod 100mg capsule PO SCH ×2 (08:03→20:52)
[2019-11-24] MEDS: furosemide 10 MG/1 ML 10ml inj IV SCH ×2 (08:04→20:52)
--- NOTE | 2019-11-24 08:09 | NUR ---
Patient is refusing to wear tele and continuously removes it. Pt. educated about the risks. Pt. stated, "i dont care, leave me alone." Will notify .
[2019-11-24 08:21] LABS: ALANINE AMINOTRANSFERASE 67 U/L (12-78); ALBUMIN 1.8 G/DL (3.4-5.0); ALBUMIN/GLOBULIN RATIO 0.4 (1.1-1.5); ALKALINE PHOSPHATASE 93 IU/L (46-116); ANION GAP 5 (8-16); ASPARTATE AMINO TRANSFERASE 50 U/L (10-37); BLOOD UREA NITROGEN 24 MG/DL (7-18); BUN/CREATININE RATIO 24.2 (6.6-38.0); CALCIUM 8.4 MG/DL (8.5-10.1); CHLORIDE 98 MMOL/L (99-107); CREATININE 0.99 MG/DL (0.40-0.90); GLUCOSE 366 MG/DL (70-104); LIPASE 995 U/L (73-393); MAGNESIUM 1.4 MG/DL (1.5-2.4); POTASSIUM 5.3 MMOL/L (3.5-5.1); SODIUM 127 MMOL/L (135-145); TOTAL CARBON DIOXIDE 24.1 MMOL/L (24-32); TOTAL PROTEIN 6.7 G/DL (6.4-8.2); eGFR 57 ML/MIN
[2019-11-24] MEDS: insulin Lispro (HumaLOG) vial - multi-dose SQ SCH ×3 (09:04→18:59)
[2019-11-24] MEDS: magnesium Cl slow-release 64mg tablet PO PRN ×2 (09:47→17:11)
[2019-11-24] MEDS: LORazepam 2 mg/ml vial IV PRN ×2 (09:47→11:33)
[2019-11-24 11:00] VITALS: BP 122/84
[2019-11-24] MEDS ORDERED: sodium polystyrene sulfonate 15gm/60ml oral suspension PO ONE (11:00)
--- NOTE | 2019-11-24 11:40 | NUR ---
New orders for the patient to have a paracentesis done however, she was not following commands and requesting to sit up because she felt she could not breath. At this time, the patient is unable to consent. notified. PRN Ativan given, breathing treatment administered and the patients significant other will be in to consent for her. IR notified. MD aware. New orders for CXR.
--- NOTE | 2019-11-24 11:43 | NUR ---
MD was made aware of her refusals IE: nasal swab, UA, tele monitoring. Eventually, nursing was able to obtain Nasal swab. Pending results.
[2019-11-24] MEDS: lactulose 20gm/30ml cup PO SCH ×2 (15:23→20:52)
--- NOTE | 2019-11-24 15:35 | NUR ---
PAGER ID: [phone] MESSAGE: [id number] - Do you want any cultures drawn prior to 1st dose of Rocephin? Jana KWONGcoffee plantation worker
--- NOTE | 2019-11-24 16:19 | NUR ---
Attempted again to obtain UA via straight cath since she was incontinent on her last void however, pt. became angry and combative with nurse when trying to prep the patient. Nursing trying to avoid Ativan administration to avoid lethargy. Pt. was receptive to taking her Lactulose. Will continue to monitor.
[2019-11-24] MEDS: CefTRIAXone/D5W-Rocephin 1gm 50 ML IV SCH (17:11)
--- NOTE | 2019-11-24 18:07 | NUR ---
Problems reprioritized. Patient report given, questions answered & plan of care reviewed with Fariba KWONG. Patient is resting comfortably, took her last dose of Mag without incident and went back to sleep. Resting on RA at shift change.
--- NOTE | 2019-11-24 18:10 | NUR ---
Patient in room [facility]NAETH 358B. I have received report from ELENITA Bates and had the opportunity to ask questions and assume patient care.
[2019-11-24 20:00] VITALS: BP 108/67
[2019-11-24] MEDS: rifaximin 550mg tablet PO SCH (20:52)
[2019-11-24] MEDS: insulin glargine (Lantus) pen - multi-dose SQ SCH (21:02)
[2019-11-25] VITALS: BP 98/71
[2019-11-25] MEDS: lactulose 20gm/30ml cup PO SCH ×4 (02:46→21:02)
[2019-11-25 05:55] LABS: BASOPHILS # (AUTO) 0.1 X10'3 (0-0.2); BASOPHILS % (AUTO) 1.2 % (0-1); EOSINOPHILS # (AUTO) 0.1 X10'3 (0-0.9); EOSINOPHILS % (AUTO) 1.9 % (0-6); HEMATOCRIT 39.6 % (35.0-45.0); HEMOGLOBIN 13.8 g/dl (12.0-16.0); LYMPHOCYTES % (AUTO) 15.3 % (21-51); MEAN CORPUSCULAR HEMOGLOBIN 33.1 PG (27.0-31.0); MEAN CORPUSCULAR HGB CONC 34.8 g/dL (33.0-36.5); MEAN PLATELET VOLUME 7.5 FL (7.4-10.4); MONOCYTES # (AUTO) 0.8 X10'3 (0-0.9); MONOCYTES % (AUTO) 12.1 % (2-12); NEUTROPHILS # (AUTO) 4.4 X10'3 (1.8-7.7); NEUTROPHILS % (AUTO) 69.5 % (42-75); PLATELET COUNT 136 X10'3 (140-440); RED BLOOD COUNT 4.16 X10'6 (4.20-5.60); WHITE BLOOD COUNT 6.3 X10'3 (4.5-11.0)
--- NOTE | 2019-11-25 06:00 | NUR ---
Patient in room YANETH 358. I have received report from ELENITA Link and had the opportunity to ask questions and assume patient care.
[2019-11-25 06:18] LABS: ALANINE AMINOTRANSFERASE 65 U/L (12-78); ALBUMIN 1.6 G/DL (3.4-5.0); ALBUMIN/GLOBULIN RATIO 0.3 (1.1-1.5); ALKALINE PHOSPHATASE 70 IU/L (46-116); ANION GAP 3 (8-16); ASPARTATE AMINO TRANSFERASE 59 U/L (10-37); BILIRUBIN,TOTAL 1.6 MG/DL (0.1-1.0); BLOOD UREA NITROGEN 22 MG/DL (7-18); BUN/CREATININE RATIO 24.7 (6.6-38.0); CALCIUM 7.9 MG/DL (8.5-10.1); CHLORIDE 100 MMOL/L (99-107); CREATININE 0.89 MG/DL (0.40-0.90); GLUCOSE 190 MG/DL (70-104); MAGNESIUM 1.3 MG/DL (1.5-2.4); POTASSIUM 4.2 MMOL/L (3.5-5.1); SODIUM 130 MMOL/L (135-145); TOTAL CARBON DIOXIDE 27.1 MMOL/L (24-32); TOTAL PROTEIN 6.3 G/DL (6.4-8.2); eGFR 64 ML/MIN
--- NOTE | 2019-11-25 06:35 | NUR ---
Problems reprioritized. Patient report given, questions answered & plan of care reviewed with ELENITA Leal.
[2019-11-25] MEDS: K and/or MAG REPLACEMENT MC SCH ×2 (08:00→20:00)
[2019-11-25] MEDS: docusate sod 100mg capsule PO SCH ×2 (08:00→20:00)
[2019-11-25] MEDS: furosemide 10 MG/1 ML 10ml inj IV SCH ×2 (08:00→20:00)
--- NOTE | 2019-11-25 08:00 | NUR ---
patient refused 8AM vitals.
[2019-11-25] MEDS: insulin Lispro (HumaLOG) vial - multi-dose SQ SCH ×2 (09:17→19:27)
[2019-11-25] MEDS: rifaximin 550mg tablet PO SCH ×2 (09:24→21:03)
--- NOTE | 2019-11-25 10:32 | NUR ---
Pt with A1c 9.0. Pt previously admitted with A1c 10.[address] 11/05 for written and verbal DM education with referral to outpatient CDE course and RD contact information. No further education warranted at this time. Will continue to follow. Addendum: 11/25/19 at [address] Amended: Links added.
[2019-11-25 11:00] VITALS: BP 89/55
[2019-11-25] MEDS: magnesium Cl slow-release 64mg tablet PO PRN ×2 (14:57→21:01)
[2019-11-25] MEDS: CefTRIAXone/D5W-Rocephin 1gm 50 ML IV SCH (14:58)
--- NOTE | 2019-11-25 15:09 | NUR ---
patient resistant to care, refused morning vitals. IV removed and could not provide IV medications until seen by PICC.
[2019-11-25 16:30] VITALS: BP 103/73
[2019-11-25] MEDS ORDERED: albumin (human) 25% 100 ML IV solution IV ONE (17:15)
[2019-11-25 17:21] VITALS: BP 107/62
--- NOTE | 2019-11-25 18:30 | NUR ---
Problems reprioritized. Patient report given, questions answered & plan of care reviewed with ELENITA Betancourt.
[2019-11-25 20:00] VITALS: BP 104/66
[2019-11-25] MEDS ORDERED: LORazepam 2 mg/ml vial IV PRN (20:35)
[2019-11-25] MEDS ORDERED: LORazepam 1 MG tablet PO PRN (20:35)
[2019-11-25] MEDS: lactobacillus rhamnosus 10,000 MMU CELLS/CAPSULE PO SCH (21:04)
[2019-11-25] MEDS: insulin glargine (Lantus) pen - multi-dose SQ SCH (22:04)
[2019-11-26] VITALS: BP 86/54
[2019-11-26] MEDS: lactulose 20gm/30ml cup PO SCH ×3 (02:00→13:50)
[2019-11-26 06:00] VITALS: BP 90/50
[2019-11-26 06:13] LABS: EOSINOPHILS # (AUTO) 0.1 X10'3 (0-0.9); EOSINOPHILS % (AUTO) 2.3 % (0-6); HEMATOCRIT 38.1 % (35.0-45.0); HEMOGLOBIN 13.3 g/dl (12.0-16.0); LYMPHOCYTES # (AUTO) 0.7 X10'3 (1.1-4.8); LYMPHOCYTES % (AUTO) 13.6 % (21-51); MEAN CORPUSCULAR HEMOGLOBIN 32.8 PG (27.0-31.0); MEAN CORPUSCULAR HGB CONC 34.8 g/dL (33.0-36.5); MEAN CORPUSCULAR VOLUME 94.3 FL (78-98); MEAN PLATELET VOLUME 7.2 FL (7.4-10.4); MONOCYTES # (AUTO) 0.6 X10'3 (0-0.9); MONOCYTES % (AUTO) 11.5 % (2-12); NEUTROPHILS # (AUTO) 3.5 X10'3 (1.8-7.7); NEUTROPHILS % (AUTO) 71.6 % (42-75); PLATELET COUNT 114 X10'3 (140-440); RED BLOOD COUNT 4.04 X10'6 (4.20-5.60); RED CELL DISTRIBUTION WIDTH 16.2 % (11.5-14.5); WHITE BLOOD COUNT 4.9 X10'3 (4.5-11.0)
--- NOTE | 2019-11-26 06:16 | NUR ---
Patient in room YANETH 358. I have received report from ELENITA Betancourt and had the opportunity to ask questions and assume patient care.
[2019-11-26 06:32] LABS: ALANINE AMINOTRANSFERASE 58 U/L (12-78); ALBUMIN 2.1 G/DL (3.4-5.0); ALBUMIN/GLOBULIN RATIO 0.5 (1.1-1.5); ALKALINE PHOSPHATASE 64 IU/L (46-116); ANION GAP 3 (8-16); ASPARTATE AMINO TRANSFERASE 53 U/L (10-37); BILIRUBIN,TOTAL 1.9 MG/DL (0.1-1.0); BLOOD UREA NITROGEN 16 MG/DL (7-18); BUN/CREATININE RATIO 22.2 (6.6-38.0); CHLORIDE 101 MMOL/L (99-107); CREATININE 0.72 MG/DL (0.40-0.90); GLUCOSE 174 MG/DL (70-104); MAGNESIUM 1.4 MG/DL (1.5-2.4); PHOSPHORUS 2.7 MG/DL (2.3-4.5); POTASSIUM 3.9 MMOL/L (3.5-5.1); SODIUM 132 MMOL/L (135-145); TOTAL CARBON DIOXIDE 27.6 MMOL/L (24-32); TOTAL PROTEIN 6.2 G/DL (6.4-8.2); eGFR 82 ML/MIN
[2019-11-26] MEDS: K and/or MAG REPLACEMENT MC SCH (06:49)
[2019-11-26] MEDS: furosemide 10 MG/1 ML 10ml inj IV SCH (07:12)
[2019-11-26] MEDS: rifaximin 550mg tablet PO SCH (07:16)
[2019-11-26] MEDS: lactobacillus rhamnosus 10,000 MMU CELLS/CAPSULE PO SCH (07:16)
[2019-11-26] MEDS: docusate sod 100mg capsule PO SCH (07:17)
[2019-11-26] MEDS: magnesium Cl slow-release 64mg tablet PO PRN (07:17)
[2019-11-26] MEDS: insulin Lispro (HumaLOG) vial - multi-dose SQ SCH ×2 (08:31→13:03)
[2019-11-26] MEDS: CefTRIAXone/D5W-Rocephin 1gm 50 ML IV SCH (08:33)
[2019-11-26] MEDS ORDERED: LORazepam 1 MG tablet PO PRN (10:10)
--- NOTE | 2019-11-26 14:40 | NUR ---
Discharged. PIV out. Educated on follow-up, meds, pancreatitis, asicities and hyperkalemia. Patient was wheeled out and left with family member. Stable per Dr Decker for DC.
--- NOTE | 2019-11-26 15:00 | NUR ---
PAGER ID: [phone] MESSAGE: [id number] Karina Rajan: Can you come talk to the he had some concerns. ELENITA Gonzalez Ext [phone] Addendum: 11/26/19 at 1523 by Carlos Carpenter RN Dr Decker gave no new orders. Said it was the same as last DC and if she took her meds and followed up she should be fine. I told the what Dr Decker told me. I said if she gets worse to bring her back to the ER. I explained the diarrhea was from the Lactulose and the lab levels were normal.
[2019-11-27] MEDS ORDERED: LORazepam 2 mg/ml vial IV PRN (20:35)
== END 2019-11-26 14:20 | disposition home or self-care (01) ==
LOC: ER 15:24 → ED HOLD 20:32 → EDBEDREQ 21:35 → SUR 3N 22:10
PROVIDERS: ADMIT Family Medicine; ATTEND Family Medicine
PROC: 0W9G3ZZ Drainage of Peritoneal Cavity, Percutaneous Approach (ICD-10-PCS; principal; 2019-11-25)
DX: R18.8 Other ascites (principal); K85.90 Acute pancreatitis without necrosis or infection, unspecified; K72.90 Hepatic failure, unspecified without coma; E11.65 Type 2 diabetes mellitus with hyperglycemia; K74.60 Unspecified cirrhosis of liver; E87.5 Hyperkalemia; J45.909 Unspecified asthma, uncomplicated; E87.1 Hypo-osmolality and hyponatremia; B19.20 Unspecified viral hepatitis C without hepatic coma; F32.9 Major depressive disorder, single episode, unspecified; Z88.0 Allergy status to penicillin; Z88.5 Allergy status to narcotic agent; Z88.8 Allergy status to other drugs, medicaments and biological substances; Z90.49 Acquired absence of other specified parts of digestive tract; Z79.899 Other long term (current) drug therapy; Z83.3 Family history of diabetes mellitus; Z82.49 Family history of ischemic heart disease and other diseases of the circulatory system
CPT/HCPCS: 36415; 49083; 71045; 76937; 80053; 82140; 82948; 83036; 83690; 83735; 84100; 85025; 87081; 93005; 94640; 94760; 96365; 96375; 97116; 97161; 97530; 99285; G0378; J0696; J1815; J1940; J2060; J3411; J7030; P9047

== ENCOUNTER 2019-11-27 17:18 | Emergency (ER) | payer MEDICAID ==
[~2019-11-27] VITALS: Ht 167.6 cm; Wt 81.8 kg
[2019-11-27 17:37] VITALS: BP 128/72
[2019-11-27 18:49] LABS: BASOPHILS % (AUTO) 0.8 % (0-1); EOSINOPHILS # (AUTO) 0.1 X10'3 (0-0.9); HEMATOCRIT 42.5 % (35.0-45.0); HEMOGLOBIN 14.5 g/dl (12.0-16.0); LYMPHOCYTES # (AUTO) 0.7 X10'3 (1.1-4.8); LYMPHOCYTES % (AUTO) 11.5 % (21-51); MEAN CORPUSCULAR HEMOGLOBIN 32.8 PG (27.0-31.0); MEAN CORPUSCULAR HGB CONC 34.1 g/dL (33.0-36.5); MEAN CORPUSCULAR VOLUME 96.2 FL (78-98); MEAN PLATELET VOLUME 7.2 FL (7.4-10.4); MONOCYTES # (AUTO) 0.8 X10'3 (0-0.9); MONOCYTES % (AUTO) 13.4 % (2-12); NEUTROPHILS # (AUTO) 4.4 X10'3 (1.8-7.7); NEUTROPHILS % (AUTO) 73.3 % (42-75); PLATELET COUNT 122 X10'3 (140-440); RED BLOOD COUNT 4.42 X10'6 (4.20-5.60)
[2019-11-27 19:10] LABS: ALANINE AMINOTRANSFERASE 69 U/L (12-78); ALBUMIN 2.2 G/DL (3.4-5.0); ALBUMIN/GLOBULIN RATIO 0.5 (1.1-1.5); ALKALINE PHOSPHATASE 96 IU/L (46-116); ANION GAP 1 (8-16); ASPARTATE AMINO TRANSFERASE 53 U/L (10-37); BILIRUBIN,TOTAL 1.2 MG/DL (0.1-1.0); BLOOD UREA NITROGEN 15 MG/DL (7-18); BUN/CREATININE RATIO 15.5 (6.6-38.0); CALCIUM 7.8 MG/DL (8.5-10.1); CHLORIDE 97 MMOL/L (99-107); CREATININE 0.97 MG/DL (0.40-0.90); LIPASE 809 U/L (73-393); POTASSIUM 4.9 MMOL/L (3.5-5.1); SODIUM 126 MMOL/L (135-145); TOTAL CARBON DIOXIDE 27.9 MMOL/L (24-32); TOTAL PROTEIN 6.9 G/DL (6.4-8.2); eGFR 58 ML/MIN
[2019-11-27 19:16] LABS: GLUCOSE 489 MG/DL (70-104)
[2019-11-27] MEDS ORDERED: normal saline 1000ML IV soln IVB ONE ×2 (19:20→20:20)
== END 2019-11-27 21:54 | disposition left against medical advice (07) ==
LOC: ER 17:19
DX: R10.9 Unspecified abdominal pain (principal); Z53.21 Procedure and treatment not carried out due to patient leaving prior to being seen by health care provider
CPT/HCPCS: 36415; 80053; 83690; 85025

== ENCOUNTER 2019-12-05 16:37 | Emergency (ER) | payer MEDICAID ==
[~2019-12-05] VITALS: Ht 167.6 cm; Wt 77.3 kg
--- NOTE | 2019-12-05 18:33 | NUR ---
Provider AYAKA Shea is with the patient at this time. Pt is tearful and crying when talking about her situation.
[2019-12-05 19:10] LABS: BASOPHILS # (AUTO) 0.1 X10'3 (0-0.2); BASOPHILS % (AUTO) 0.7 % (0-1); EOSINOPHILS # (AUTO) 0.1 X10'3 (0-0.9); EOSINOPHILS % (AUTO) 1.1 % (0-6); HEMATOCRIT 43.4 % (35.0-45.0); HEMOGLOBIN 14.6 g/dl (12.0-16.0); LYMPHOCYTES # (AUTO) 0.7 X10'3 (1.1-4.8); LYMPHOCYTES % (AUTO) 10.5 % (21-51); MEAN CORPUSCULAR HEMOGLOBIN 32.3 PG (27.0-31.0); MEAN CORPUSCULAR HGB CONC 33.7 g/dL (33.0-36.5); MEAN CORPUSCULAR VOLUME 95.6 FL (78-98); MEAN PLATELET VOLUME 7.4 FL (7.4-10.4); MONOCYTES # (AUTO) 0.8 X10'3 (0-0.9); MONOCYTES % (AUTO) 11.7 % (2-12); NEUTROPHILS # (AUTO) 5.3 X10'3 (1.8-7.7); PLATELET COUNT 115 X10'3 (140-440); RED BLOOD COUNT 4.53 X10'6 (4.20-5.60); RED CELL DISTRIBUTION WIDTH 16.4 % (11.5-14.5)
[2019-12-05 19:15] LABS: ALANINE AMINOTRANSFERASE 48 U/L (12-78); ALBUMIN 1.9 G/DL (3.4-5.0); ALBUMIN/GLOBULIN RATIO 0.4 (1.1-1.5); ALKALINE PHOSPHATASE 85 IU/L (46-116); ANION GAP 5 (8-16); ASPARTATE AMINO TRANSFERASE 37 U/L (10-37); BLOOD UREA NITROGEN 21 MG/DL (7-18); BUN/CREATININE RATIO 25.6 (6.6-38.0); CALCIUM 8.3 MG/DL (8.5-10.1); CHLORIDE 97 MMOL/L (99-107); CREATININE 0.82 MG/DL (0.40-0.90); GLUCOSE 403 MG/DL (70-104); LIPASE 1190 U/L (73-393); POTASSIUM 5.1 MMOL/L (3.5-5.1); SODIUM 127 MMOL/L (135-145); TOTAL CARBON DIOXIDE 25.5 MMOL/L (24-32); TOTAL PROTEIN 6.9 G/DL (6.4-8.2); eGFR 71 ML/MIN
--- NOTE | 2019-12-05 19:17 | NUR ---
PT IN THE ROOM. PT VERY UPSET AND TEARFUL. PT EXPRESSED CONCER THAT HER WOULD LEAVE HER HERE.
--- NOTE | 2019-12-05 19:30 | NUR ---
PT WAS ADAMANT THAT THE PROVIDER TAKE CARE OF HER IMMEDIATELY BECAUSE HER (HER RIDE) NEEDED TO GET HOME AND COULDNT WAIT. PT WAS INFORMED THAT IN THE ER PROVIDERS SAW PATIENTS ACCORDING TO ACUITY. PT STATED SHE UNDERSTOOD, BUT CONTINUED TO ASK STAFF TO TELL THE DOCTOR SHE NEEDED TREATMENT RIGHT AWAY,
--- NOTE | 2019-12-05 19:40 | NUR ---
Explained to Pt and spouse that ED providers did not feel that paracentesis was appropriate at this time. Pt and spouse were encouraged to stay for evaluation by oncoming ED MD for second opinion. Pt and spouse became agitated and stated "nobody is going to do anything. We're going to leave." Pt signed AMA papaerwork and was taken out to POV to care of spouse. Pt was in stable condition upon leaving ED.
[2019-12-05 19:44] VITALS: BP 132/104
== END 2019-12-05 20:00 | disposition left against medical advice (07) ==
LOC: ER 16:39
DX: R18.8 Other ascites (principal); R06.02 Shortness of breath; J45.909 Unspecified asthma, uncomplicated; E11.9 Type 2 diabetes mellitus without complications; F32.9 Major depressive disorder, single episode, unspecified; Z90.49 Acquired absence of other specified parts of digestive tract; Z72.89 Other problems related to lifestyle; Z86.19 Personal history of other infectious and parasitic diseases; Z88.0 Allergy status to penicillin; Z88.5 Allergy status to narcotic agent; Z88.8 Allergy status to other drugs, medicaments and biological substances; Z79.899 Other long term (current) drug therapy
CPT/HCPCS: 36415; 71045; 80053; 82948; 83690; 85025; 99284

== ENCOUNTER 2019-12-07 16:23 | Inpatient (IN) | payer MEDICAID ==
[~2019-12-07] VITALS: Ht 167.6 cm; Wt 77.3 kg
--- NOTE | 2019-12-07 18:32 | NUR ---
PT AWAITING ROOM. PT DEBORA TO HER AND HE STATES "MY IS NOT RIGHT...SHE'S GOT SOMETHING WRONG WITH HER". PA OMAR TALKED WITH HIM AND HE STATED PT USUSLLY GETS HER PARACENTISIS WEEKLY, "BUT SHE FILLS UP BEFORE THE NEXT WEEK...SHE'S NOT ACTING RIGHT...SOMETHING IS REALLY WRONG WITH HER". PA TO ORDER LABS. I WILL UPDATED INDUSTRIAL TRAINER OF PT.
--- NOTE | 2019-12-07 18:40 | NUR ---
TAKEN FOR CXR, NO GETTING LABS DRAWN.
[2019-12-07 19:07] LABS: BASOPHILS % (AUTO) 0.2 % (0-1); EOSINOPHILS % (AUTO) 0.3 % (0-6); HEMATOCRIT 45.4 % (35.0-45.0); HEMOGLOBIN 15.8 g/dl (12.0-16.0); LYMPHOCYTES # (AUTO) 0.6 X10'3 (1.1-4.8); LYMPHOCYTES % (AUTO) 6.4 % (21-51); MEAN CORPUSCULAR HEMOGLOBIN 33.3 PG (27.0-31.0); MEAN CORPUSCULAR HGB CONC 34.8 g/dL (33.0-36.5); MEAN CORPUSCULAR VOLUME 95.8 FL (78-98); MEAN PLATELET VOLUME 7.6 FL (7.4-10.4); MONOCYTES # (AUTO) 0.5 X10'3 (0-0.9); MONOCYTES % (AUTO) 5.1 % (2-12); NEUTROPHILS # (AUTO) 8.9 X10'3 (1.8-7.7); PLATELET COUNT 168 X10'3 (140-440); RED BLOOD COUNT 4.74 X10'6 (4.20-5.60); RED CELL DISTRIBUTION WIDTH 16.7 % (11.5-14.5); WHITE BLOOD COUNT 10.1 X10'3 (4.5-11.0)
[2019-12-07 19:21] LABS: ALANINE AMINOTRANSFERASE 60 U/L (12-78); ALBUMIN 2.1 G/DL (3.4-5.0); ALBUMIN/GLOBULIN RATIO 0.4 (1.1-1.5); ALKALINE PHOSPHATASE 101 IU/L (46-116); ANION GAP 3 (8-16); ASPARTATE AMINO TRANSFERASE 46 U/L (10-37); BILIRUBIN,TOTAL 1.5 MG/DL (0.1-1.0); BLOOD UREA NITROGEN 21 MG/DL (7-18); BUN/CREATININE RATIO 17.9 (6.6-38.0); CALCIUM 8.3 MG/DL (8.5-10.1); CHLORIDE 96 MMOL/L (99-107); CREATININE 1.17 MG/DL (0.40-0.90); ETHANOL < 0.010 GM/DL (0.0-0.010); GLUCOSE 442 MG/DL (70-104); POTASSIUM 5.2 MMOL/L (3.5-5.1); SODIUM 124 MMOL/L (135-145); TOTAL PROTEIN 7.9 G/DL (6.4-8.2); eGFR 47 ML/MIN
[2019-12-07 19:23] LABS: LACTIC SEPSIS 3.9 MMOL/L (0.4-2.0)
[2019-12-07] MEDS ORDERED: lactulose 20gm/30ml cup PO ONE (19:45)
[2019-12-07] MEDS ORDERED: MESSAGE TO PHARMACY PO ONE (19:50)
[2019-12-07] MEDS ORDERED: glucagon, human recombinant 1mg kit SUBCUT PRN (19:50)
[2019-12-07] MEDS ORDERED: mag hydrox/Alum hydrox/simeth 30ml oral suspension PO PRN (19:50)
[2019-12-07] MEDS ORDERED: potassium CL 10mEq/100ml bag 100 ML IV PRN ×2 (19:50)
[2019-12-07] MEDS ORDERED: dextrose ORAL solution 15 GM/59 ML bottle PO PRN ×2 (19:50)
[2019-12-07] MEDS ORDERED: dextrose 50%-water 50ml dispensing syringe IV PRN ×2 (19:50)
[2019-12-07] MEDS ORDERED: magnesium 4gm in 100ml NS 100 ML IV PRN (19:50)
[2019-12-07] MEDS ORDERED: acetaminophen 325mg tablet PO PRN ×2 (19:50)
[2019-12-07] MEDS ORDERED: HYDROcodone/acetaminophen 5mg/325mg tablet PO PRN (19:50)
[2019-12-07] MEDS ORDERED: magnesium 2GM in 50ml NS 50 ML IV PRN (19:50)
[2019-12-07] MEDS ORDERED: HYDROcodone/acetaminophen 10/325mg tab PO PRN (19:50)
[2019-12-07] MEDS ORDERED: ondansetron/PF 4mg/2ml inj IV PRN (19:50)
[2019-12-07] MEDS ORDERED: potassium Cl 20 mEq SR tablet PO PRN ×2 (19:50)
[2019-12-07] MEDS ORDERED: ipratropium/albuterol 3ml nebule NEB PRN (19:50)
--- NOTE | 2019-12-07 19:50 | NUR ---
REJI HAD TO GO HOME TO TEND TO ELDERLY FAMILY MEMBER. IS AVAILABLE BY PHONE # [phone]
[2019-12-07] MEDS: K and/or MAG REPLACEMENT MC SCH (20:00)
[2019-12-07 20:03] LABS: PARTIAL THROMBOPLASTIN TIME 26 SECONDS (22-32)
--- NOTE | 2019-12-07 20:12 | NUR ---
PT BECOMING INCREASINGLY AGITATED AND CONFUSED. TALKED WITH NOA BABCOCK WHO GAVE THIS RN VERBAL ORDER FOR ZYPREXA 5MG IM X1 DOSE NOW. ORDER COMPLETED
[2019-12-07] MEDS ORDERED: OLANZapine **IM** 10 mg inj. IM ONE (20:15)
[2019-12-07] MEDS: lactulose 20gm/30ml cup PO SCH (20:17)
[2019-12-07 20:28] LABS: MAGNESIUM 1.4 MG/DL (1.5-2.4)
--- NOTE | 2019-12-07 20:45 | NUR ---
Received report from BEACH EXPERTELENITA Polanco. Patient to follow shortly.
--- NOTE | 2019-12-07 21:00 | NUR ---
Patient arrived to floor via gurney from ER dept. Pt.transferred over to bed and VS taken.
[2019-12-07 21:45] VITALS: BP 89/55
[2019-12-07] MEDS: insulin Lispro (HumaLOG) vial - multi-dose SQ SCH (22:04)
[2019-12-07] MEDS: insulin glargine (Lantus) pen - multi-dose SQ SCH (22:06)
[2019-12-07] MEDS: normal saline 1000ml 1,000 ML IV SCH (22:08)
[2019-12-08] VITALS (7 sets, daily range): BP systolic 96–158; BP diastolic 56–108
--- NOTE | 2019-12-08 00:14 | NUR ---
Yamileth CARRANZA for restraint order and sitter as patient acting out hitting, kicking, trying to bite and cursing at everyone. Took four people to hold her for dental hygiene teacher to draw blood .
[2019-12-08] MEDS: lactulose 20gm/30ml cup PO SCH ×4 (02:00→19:49)
--- NOTE | 2019-12-08 03:11 | NUR ---
Informed MD of lower BP 89/55. 106 , but unable to get a manual BP as patient too agitated and thrashing out. No new orders for bolus, (patient has NS at 100ml), but lactic lab to be drawn this AM.
--- NOTE | 2019-12-08 03:41 | NUR ---
Patient has been confused and fatigued. Hard to auscultate lungs and abdomen thoroughly d/t agitation on being touched/repositioned. Patient now has restraints PRN for when marlon care needed. Sitter also has been required.
[2019-12-08] MEDS: normal saline 1000ml 1,000 ML IV SCH ×2 (06:50→15:50)
--- NOTE | 2019-12-08 07:06 | NUR ---
Problems reprioritized. Patient report given, questions answered & plan of care reviewed with Brina KWONG.
--- NOTE | 2019-12-08 07:07 | NUR ---
Patient in room YANETH 359. I have received report from Beba KWONG and had the opportunity to ask questions and assume patient care.
--- NOTE | 2019-12-08 07:18 | NUR ---
Patient very confused and combative took 4 Health care workers to change patient who had pooped the bed, Patient tried to bite Lester PCT and was attempting to scratch myself and other PCT Peter. Patient was placed in 3 point restraints per md orders.
[2019-12-08 07:45] LABS: BASOPHILS % (AUTO) 0.4 % (0-1); EOSINOPHILS # (AUTO) 0.1 X10'3 (0-0.9); EOSINOPHILS % (AUTO) 0.8 % (0-6); HEMATOCRIT 41.8 % (35.0-45.0); HEMOGLOBIN 14.3 g/dl (12.0-16.0); LYMPHOCYTES # (AUTO) 0.7 X10'3 (1.1-4.8); LYMPHOCYTES % (AUTO) 8.7 % (21-51); MEAN CORPUSCULAR HEMOGLOBIN 32.7 PG (27.0-31.0); MEAN CORPUSCULAR HGB CONC 34.3 g/dL (33.0-36.5); MEAN CORPUSCULAR VOLUME 95.2 FL (78-98); MEAN PLATELET VOLUME 7.3 FL (7.4-10.4); MONOCYTES # (AUTO) 0.7 X10'3 (0-0.9); MONOCYTES % (AUTO) 8.2 % (2-12); NEUTROPHILS # (AUTO) 6.7 X10'3 (1.8-7.7); NEUTROPHILS % (AUTO) 81.9 % (42-75); PLATELET COUNT 145 X10'3 (140-440); RED BLOOD COUNT 4.39 X10'6 (4.20-5.60); RED CELL DISTRIBUTION WIDTH 16.7 % (11.5-14.5); WHITE BLOOD COUNT 8.2 X10'3 (4.5-11.0)
[2019-12-08] MEDS: K and/or MAG REPLACEMENT MC SCH ×2 (08:00→19:45)
[2019-12-08 08:10] LABS: ALANINE AMINOTRANSFERASE 58 U/L (12-78); ALBUMIN 1.9 G/DL (3.4-5.0); ALBUMIN/GLOBULIN RATIO 0.4 (1.1-1.5); ALKALINE PHOSPHATASE 75 IU/L (46-116); ANION GAP 3 (8-16); ASPARTATE AMINO TRANSFERASE 48 U/L (10-37); BILIRUBIN,TOTAL 2.3 MG/DL (0.1-1.0); BLOOD UREA NITROGEN 20 MG/DL (7-18); BUN/CREATININE RATIO 18.7 (6.6-38.0); CHLORIDE 102 MMOL/L (99-107); CREATININE 1.07 MG/DL (0.40-0.90); GLUCOSE 257 MG/DL (70-104); POTASSIUM 4.6 MMOL/L (3.5-5.1); SODIUM 131 MMOL/L (135-145); TOTAL CARBON DIOXIDE 26.5 MMOL/L (24-32); TOTAL PROTEIN 6.9 G/DL (6.4-8.2); eGFR 52 ML/MIN
--- NOTE | 2019-12-08 08:55 | NUR ---
pt combative. not listening. until to take all vitals Addendum: 12/08/19 at 0856 by Angy Vallecillo RT Amended: Links added.
[2019-12-08] MEDS: insulin Lispro (HumaLOG) vial - multi-dose SQ SCH ×3 (09:47→19:42)
--- NOTE | 2019-12-08 10:00 | NUR ---
Patient very anxious wants a paracentesis patient cant seem to get comfortable. Patient has verbally agreed not to hit, scratch bite staff and I have released her restraints except for her Left lower extremity patient resting better with sitter at bedside will continue to monitor.
--- NOTE | 2019-12-08 10:03 | NUR ---
PAGER ID: [phone] MESSAGE: Brina-[facility] [phone] Re: Rajan [id number] Please call re: anxiety
--- NOTE | 2019-12-08 10:38 | NUR ---
DM consult: Pt recently admitted with A1c 10.[address] 11/05 for written and verbal DM education with referral to outpatient CDE course and RD contact information. Current A1c is 9.0. No further education warranted at this time. Will continue to follow. Addendum: 12/08/19 at [address] Amended: Links added.
[2019-12-08] MEDS: LORazepam 2 mg/ml vial IV PRN ×2 (10:49→19:49)
[2019-12-08] MEDS ORDERED: albumin (human) 25% 100 ML IV solution IV ONE (12:25)
--- NOTE | 2019-12-08 13:00 | NUR ---
Patients restraints are not on at this time patient has sitter at bedside. Patient is appropriate not pulling at lines or being abusive to staff will continue to monitor.
--- NOTE | 2019-12-08 13:16 | NUR ---
PAGER ID: [phone] MESSAGE: Linda_surg [phone] Re: young please call re: Lasix and spironolactone
--- NOTE | 2019-12-08 13:20 | NUR ---
Notified Dr Ang that patients Paracentesis they removed 6600 ml's of fluid, Patients BP was 96/64 and IR ordered 100ml's albumin that was given and now her pressures are 111/[address] Ang ok to given lasix and Spironolactone per orders.
[2019-12-08] MEDS: spironolactone 50 MG tablet PO SCH (13:29)
[2019-12-08] MEDS: furosemide 40mg/4ml inj IV SCH (13:30)
[2019-12-08] MEDS ORDERED: NO HOME MEDS (15:19)
--- NOTE | 2019-12-08 18:40 | NUR ---
Patient in room [facility]AN[facility] 359. I have received report from Brina KWONG and had the opportunity to ask questions and assume patient care.
--- NOTE | 2019-12-08 18:44 | NUR ---
Problems reprioritized. Patient report given, questions answered & plan of care reviewed with Beba KWONG patient sitting up in bed eating dinner sitter at bedside..
[2019-12-08] MEDS: insulin glargine (Lantus) pen - multi-dose SQ SCH (22:00)
[2019-12-08] MEDS ORDERED: HYDROmorphone 1 mg/ml syringe IV PRN (23:45)
[2019-12-09] VITALS: BP 132/61
[2019-12-09] MEDS: normal saline 1000ml 1,000 ML IV SCH (01:32)
[2019-12-09] MEDS: lactulose 20gm/30ml cup PO SCH ×2 (02:00→08:30)
--- NOTE | 2019-12-09 06:08 | NUR ---
Problems reprioritized. Patient report given, questions answered & plan of care reviewed with Amelia Nunn.
--- NOTE | 2019-12-09 06:43 | NUR ---
Patient in room YANETH 359. I have received report from ELENITA Yoder and had the opportunity to ask questions and assume patient care.
[2019-12-09 08:00] VITALS: BP 72/42
[2019-12-09] MEDS: furosemide 40mg/4ml inj IV SCH (08:00)
[2019-12-09] MEDS: spironolactone 50 MG tablet PO SCH (08:30)
[2019-12-09 08:46] LABS: BASOPHILS % (AUTO) 0.6 % (0-1); EOSINOPHILS # (AUTO) 0.1 X10'3 (0-0.9); EOSINOPHILS % (AUTO) 1.3 % (0-6); HEMATOCRIT 38.7 % (35.0-45.0); HEMOGLOBIN 13.3 g/dl (12.0-16.0); LYMPHOCYTES # (AUTO) 0.7 X10'3 (1.1-4.8); LYMPHOCYTES % (AUTO) 9.1 % (21-51); MEAN CORPUSCULAR HGB CONC 34.4 g/dL (33.0-36.5); MEAN PLATELET VOLUME 7.2 FL (7.4-10.4); MONOCYTES # (AUTO) 0.5 X10'3 (0-0.9); NEUTROPHILS # (AUTO) 6.9 X10'3 (1.8-7.7); PLATELET COUNT 133 X10'3 (140-440); RED BLOOD COUNT 4.04 X10'6 (4.20-5.60); RED CELL DISTRIBUTION WIDTH 16.7 % (11.5-14.5); WHITE BLOOD COUNT 8.2 X10'3 (4.5-11.0)
[2019-12-09 08:53] LABS: ALANINE AMINOTRANSFERASE 43 U/L (12-78); ALBUMIN 1.8 G/DL (3.4-5.0); ALBUMIN/GLOBULIN RATIO 0.4 (1.1-1.5); ALKALINE PHOSPHATASE 67 IU/L (46-116); ANION GAP 4 (8-16); ASPARTATE AMINO TRANSFERASE 53 U/L (10-37); BILIRUBIN,TOTAL 1.7 MG/DL (0.1-1.0); BLOOD UREA NITROGEN 19 MG/DL (7-18); BUN/CREATININE RATIO 19.8 (6.6-38.0); CALCIUM 7.5 MG/DL (8.5-10.1); CHLORIDE 105 MMOL/L (99-107); CREATININE 0.96 MG/DL (0.40-0.90); GLUCOSE 125 MG/DL (70-104); MAGNESIUM 1.5 MG/DL (1.5-2.4); POTASSIUM 4.1 MMOL/L (3.5-5.1); SODIUM 135 MMOL/L (135-145); TOTAL CARBON DIOXIDE 26.5 MMOL/L (24-32); TOTAL PROTEIN 6.1 G/DL (6.4-8.2); eGFR 59 ML/MIN
[2019-12-09 10:00] VITALS: BP 97/60
[2019-12-09] MEDS ORDERED: FURO40TA4 PO (11:29)
[2019-12-09] MEDS ORDERED: LACT10SO32 PO (11:29)
[2019-12-09] MEDS ORDERED: SPIR50TA5 PO (11:29)
--- NOTE | 2019-12-09 14:17 | NUR ---
Patient D/C'd home per Dr Ang in stable condition. Medication and discharge instructions given to pt and . Education about disease process and diet given. Pt was escorted to main lobby on w/c. Left the hospital via private vehicle accompanied of .
== END 2019-12-09 12:44 | disposition home or self-care (01) | DRG 279 ==
LOC: ER 16:24 → ED HOLD 19:50 → EDBEDREQ 20:44 → SUR 3N 21:01
PROVIDERS: ADMIT Family Medicine; ATTEND Internal Medicine
PROC: 0W9G3ZZ Drainage of Peritoneal Cavity, Percutaneous Approach (ICD-10-PCS; principal; 2019-12-08)
DX: K72.00 Acute and subacute hepatic failure without coma (principal); E11.649 Type 2 diabetes mellitus with hypoglycemia without coma; R18.8 Other ascites; E87.1 Hypo-osmolality and hyponatremia; K86.1 Other chronic pancreatitis; K74.60 Unspecified cirrhosis of liver; E86.0 Dehydration; B19.20 Unspecified viral hepatitis C without hepatic coma; F32.9 Major depressive disorder, single episode, unspecified; F12.90 Cannabis use, unspecified, uncomplicated; J44.9 Chronic obstructive pulmonary disease, unspecified; Z79.84 Long term (current) use of oral hypoglycemic drugs; Z79.899 Other long term (current) drug therapy; Z82.49 Family history of ischemic heart disease and other diseases of the circulatory system; Z83.3 Family history of diabetes mellitus; Z85.850 Personal history of malignant neoplasm of thyroid; Z91.14 Patient's other noncompliance with medication regimen
CPT/HCPCS: 36415; 49083; 71045; 76705; 80053; 80320; 82140; 82948; 83605; 83690; 83735; 84145; 85025; 85610; 85730; 87040; 87081; 94760; 99285; G0378; J1170; J1815; J1940; J2060; J3475; J3490; J7030; P9047

== ENCOUNTER 2019-12-15 08:54 | Inpatient (IN) | payer MEDICAID ==
[~2019-12-15] VITALS: Ht 167.6 cm; Wt 68.2 kg
[~2019-12-15 08:54] MED LIST changes: -FURO20TA4 PO; +FURO40TA4 PO; -LACT10SO PO; +LACT10SO32 PO; -SPIR25TA5 PO; +SPIR50TA5 PO
[2019-12-15 09:37] LABS: BASOPHILS % (AUTO) 0.3 % (0-1); EOSINOPHILS % (AUTO) 0.4 % (0-6); HEMATOCRIT 43.9 % (35.0-45.0); HEMOGLOBIN 15.1 g/dl (12.0-16.0); LYMPHOCYTES # (AUTO) 0.6 X10'3 (1.1-4.8); LYMPHOCYTES % (AUTO) 5.7 % (21-51); MEAN CORPUSCULAR HEMOGLOBIN 33.1 PG (27.0-31.0); MEAN CORPUSCULAR HGB CONC 34.4 g/dL (33.0-36.5); MEAN CORPUSCULAR VOLUME 96.4 FL (78-98); MEAN PLATELET VOLUME 7.2 FL (7.4-10.4); MONOCYTES # (AUTO) 0.7 X10'3 (0-0.9); NEUTROPHILS # (AUTO) 9.5 X10'3 (1.8-7.7); NEUTROPHILS % (AUTO) 87.6 % (42-75); PLATELET COUNT 180 X10'3 (140-440); RED BLOOD COUNT 4.56 X10'6 (4.20-5.60); RED CELL DISTRIBUTION WIDTH 17.3 % (11.5-14.5); WHITE BLOOD COUNT 10.9 X10'3 (4.5-11.0)
--- NOTE | 2019-12-15 09:40 | NUR ---
provider in room
[2019-12-15] MEDS ORDERED: furosemide 10 MG/1 ML 10ml inj IV ONE (09:45)
--- NOTE | 2019-12-15 09:50 | NUR ---
attempted a straight cath for a UA, unable to obtain, provider made aware
[2019-12-15 09:52] LABS: PARTIAL THROMBOPLASTIN TIME 26 SECONDS (22-32)
[2019-12-15 10:00] LABS: POTASSIUM 4.6 MMOL/L (3.5-5.1); SODIUM 128 MMOL/L (135-145)
[2019-12-15 10:01] LABS: ALANINE AMINOTRANSFERASE 46 U/L (12-78); ALBUMIN 1.9 G/DL (3.4-5.0); ALBUMIN/GLOBULIN RATIO 0.3 (1.1-1.5); ALKALINE PHOSPHATASE 96 IU/L (46-116); ANION GAP 6 (8-16); ASPARTATE AMINO TRANSFERASE 35 U/L (10-37); BILIRUBIN,TOTAL 1.5 MG/DL (0.1-1.0); BLOOD UREA NITROGEN 22 MG/DL (7-18); BUN/CREATININE RATIO 19.8 (6.6-38.0); CALCIUM 8.4 MG/DL (8.5-10.1); CHLORIDE 98 MMOL/L (99-107); CREATININE 1.11 MG/DL (0.40-0.90); TOTAL CARBON DIOXIDE 23.7 MMOL/L (24-32); TOTAL PROTEIN 7.6 G/DL (6.4-8.2); eGFR 50 ML/MIN
[2019-12-15 10:03] LABS: GLUCOSE 459 MG/DL (70-104)
[2019-12-15] MEDS ORDERED: insulin regular, human 10 units/0.1 ml syringe IV ONE (10:45)
[2019-12-15] MEDS ORDERED: insulin regular, human U-100 3ml vial - multi-dose IV ONE (10:50)
--- NOTE | 2019-12-15 12:08 | NUR ---
ct is on hold due to patietn not able to stay still, solution architect talked to provider and is ok with waiting on CT untill pt is more corroperative
[2019-12-15] MEDS ORDERED: mag hydrox/Alum hydrox/simeth 30ml oral suspension PO PRN (12:20)
[2019-12-15] MEDS ORDERED: ondansetron/PF 4mg/2ml inj IV PRN (12:20)
[2019-12-15] MEDS ORDERED: magnesium hydroxide 30ml (MOM) UD suspension PO PRN (12:20)
[2019-12-15] MEDS ORDERED: acetaminophen 325mg tablet PO PRN (12:20)
[2019-12-15] MEDS ORDERED: lactulose 20gm/30ml cup PO ONE (12:20)
[2019-12-15] MEDS: normal saline 1000ml 1,000 ML IV SCH (12:25)
--- NOTE | 2019-12-15 12:36 | NUR ---
checked in on patient started fluids and tried to give lactulose, patient couldnt swallow,awaiting new orders
[2019-12-15] MEDS ORDERED: LACT10SO PO (12:39)
[2019-12-15] MEDS ORDERED: SPIR100T PO (12:39)
[2019-12-15] MEDS ORDERED: FURO20TA4 PO (12:39)
--- NOTE | 2019-12-15 12:49 | NUR ---
PER VIGNESH PARTS SPECIALIST SPOKE WITH HELEN CARRANZA AND IF PT UNABLE TO DRINK LACTULOSE, PLACE NG TUBE AND GIVE LACTULOSE PER ORDERS
--- NOTE | 2019-12-15 13:55 | NUR ---
Discussed pt's agitation with Dr Decker; new order for Ativan 0.5 q4hPRN received.
[2019-12-15] MEDS ORDERED: lactulose 20gm/30ml cup PO SCH (14:00)
[2019-12-15] MEDS: LORazepam 2 mg/ml vial IV PRN ×3 (14:17→23:29)
[2019-12-15 17:00] VITALS: BP 93/61
[2019-12-15] MEDS: lactulose 20gm/30ml cup PO SCH (19:04)
[2019-12-15] MEDS: rifaximin 550mg tablet PO SCH (19:04)
[2019-12-15] MEDS ORDERED: dextrose 50%-water 50ml dispensing syringe IV PRN ×2 (21:40)
[2019-12-15] MEDS ORDERED: MESSAGE TO PHARMACY PO ONE (21:40)
[2019-12-15] MEDS ORDERED: dextrose ORAL solution 15 GM/59 ML bottle PO PRN (21:40)
[2019-12-15] MEDS ORDERED: glucagon, human recombinant 1mg kit SUBCUT PRN (21:40)
[2019-12-15] MEDS: insulin Lispro (HumaLOG) vial - multi-dose SQ SCH (22:23)
[2019-12-15] MEDS: insulin glargine (Lantus) pen - multi-dose SQ SCH (22:24)
[2019-12-16] MEDS: normal saline 1000ml 1,000 ML IV SCH ×3 (01:31→22:01)
[2019-12-16] MEDS: lactulose 20gm/30ml cup PO SCH ×4 (03:19→19:45)
[2019-12-16] MEDS: insulin Lispro (HumaLOG) vial - multi-dose SQ SCH ×4 (03:19→20:24)
[2019-12-16 06:30] LABS: BASOPHILS % (AUTO) 0.2 % (0-1); EOSINOPHILS % (AUTO) 0.4 % (0-6); HEMATOCRIT 38.8 % (35.0-45.0); HEMOGLOBIN 13.3 g/dl (12.0-16.0); LYMPHOCYTES # (AUTO) 0.6 X10'3 (1.1-4.8); LYMPHOCYTES % (AUTO) 4.9 % (21-51); MEAN CORPUSCULAR HEMOGLOBIN 32.6 PG (27.0-31.0); MEAN CORPUSCULAR HGB CONC 34.2 g/dL (33.0-36.5); MEAN CORPUSCULAR VOLUME 95.3 FL (78-98); MEAN PLATELET VOLUME 7.2 FL (7.4-10.4); MONOCYTES # (AUTO) 0.3 X10'3 (0-0.9); MONOCYTES % (AUTO) 2.7 % (2-12); NEUTROPHILS # (AUTO) 11.3 X10'3 (1.8-7.7); NEUTROPHILS % (AUTO) 91.8 % (42-75); PLATELET COUNT 170 X10'3 (140-440); RED BLOOD COUNT 4.07 X10'6 (4.20-5.60); RED CELL DISTRIBUTION WIDTH 17.3 % (11.5-14.5); WHITE BLOOD COUNT 12.3 X10'3 (4.5-11.0)
--- NOTE | 2019-12-16 06:37 | NUR ---
Patient in room [facility] 357. I have received report from ELENITA Zazueta and had the opportunity to ask questions and assume patient care.
[2019-12-16 06:39] LABS: ALANINE AMINOTRANSFERASE 48 U/L (12-78); ALBUMIN 1.7 G/DL (3.4-5.0); ALBUMIN/GLOBULIN RATIO 0.3 (1.1-1.5); ALKALINE PHOSPHATASE 84 IU/L (46-116); ANION GAP 7 (8-16); ASPARTATE AMINO TRANSFERASE 36 U/L (10-37); BILIRUBIN,TOTAL 1.9 MG/DL (0.1-1.0); BLOOD UREA NITROGEN 22 MG/DL (7-18); BUN/CREATININE RATIO 20.4 (6.6-38.0); CALCIUM 8.3 MG/DL (8.5-10.1); CHLORIDE 103 MMOL/L (99-107); CREATININE 1.08 MG/DL (0.40-0.90); GLUCOSE 303 MG/DL (70-104); POTASSIUM 3.7 MMOL/L (3.5-5.1); SODIUM 135 MMOL/L (135-145); TOTAL CARBON DIOXIDE 24.7 MMOL/L (24-32); TOTAL PROTEIN 6.7 G/DL (6.4-8.2); eGFR 52 ML/MIN
[2019-12-16 07:17] VITALS: BP 112/64
[2019-12-16] MEDS: LORazepam 2 mg/ml vial IV PRN ×4 (07:29→23:33)
--- NOTE | 2019-12-16 09:28 | NUR ---
Pt transferred to room 356B from room 357A
[2019-12-16] MEDS: rifaximin 550mg tablet PO SCH ×2 (09:45→19:45)
--- NOTE | 2019-12-16 10:16 | NUR ---
Pt with low Agustin of 11. Per physical assessment pt with BLE 2+ edema and bruising/skin tear to left forearm. Pt admit with hepatic encephalopathy with elevated ammonia of 159 on admit. Pt currently NPO with NG tube in place and receiving Lactulose. Pt with T2DM with A1c 9.0, pt provided with DM education with referral to outpatient CDE course and RD contact information at previous recent admission, no further education warranted at this time. Will continue to follow. Addendum: 12/16/19 at [address] Amended: Links added.
[2019-12-16 11:00] VITALS: BP 118/71
[2019-12-16] MEDS ORDERED: pantoprazole 40 MG vial IV ONE (13:05)
--- NOTE | 2019-12-16 14:52 | NUR ---
Pt not following commands and pulling at NG tube and IV line. Orders received for soft restraints from hospitalist. Restraints applied to bilateral wrists. Will continue to monitor.
--- NOTE | 2019-12-16 18:29 | NUR ---
Patient in room [facility]AN[facility] 356. I have received report from ELENITA Lorenzo and had the opportunity to ask questions and assume patient care. Addendum: 12/16/19 at 1830 by Pallavi Barrientos RN Amended: Links added.
--- NOTE | 2019-12-16 18:45 | NUR ---
Problems reprioritized. Patient report given, questions answered & plan of care reviewed with Chiquis Gonzalez RN.
[2019-12-16 19:00] VITALS: BP 118/87
[2019-12-16] MEDS: lactobacillus rhamnosus 10,000 MMU CELLS/CAPSULE PO SCH (19:45)
[2019-12-16] MEDS: insulin glargine (Lantus) pen - multi-dose SQ SCH (23:08)
[2019-12-17] VITALS: BP 116/77
--- NOTE | 2019-12-17 01:25 | NUR ---
spoke with Dr. parekh about patients fluids which was 100ml/hr, pt was npo, her abdomen was swollen and distended and hasnt had paracentesis, pt is diabetic and on protocol, Dr. Parekh ordered to decrease fluids to 25ml/hr, carried out.
[2019-12-17] MEDS: lactulose 20gm/30ml cup PO SCH ×4 (02:00→20:59)
--- NOTE | 2019-12-17 02:50 | NUR ---
pt pulled NG, lactulose dose not given at this time, will try to put new NG
[2019-12-17] MEDS: LORazepam 2 mg/ml vial IV PRN ×4 (04:56→20:58)
--- NOTE | 2019-12-17 05:32 | NUR ---
NG tube placed on rt. nares
[2019-12-17 06:19] LABS: BASOPHILS % (AUTO) 0.2 % (0-1); EOSINOPHILS # (AUTO) 0.1 X10'3 (0-0.9); EOSINOPHILS % (AUTO) 1.1 % (0-6); HEMATOCRIT 40.3 % (35.0-45.0); HEMOGLOBIN 13.5 g/dl (12.0-16.0); LYMPHOCYTES # (AUTO) 0.8 X10'3 (1.1-4.8); LYMPHOCYTES % (AUTO) 8.4 % (21-51); MEAN CORPUSCULAR HEMOGLOBIN 32.5 PG (27.0-31.0); MEAN CORPUSCULAR HGB CONC 33.6 g/dL (33.0-36.5); MEAN CORPUSCULAR VOLUME 96.8 FL (78-98); MEAN PLATELET VOLUME 7.1 FL (7.4-10.4); MONOCYTES # (AUTO) 0.3 X10'3 (0-0.9); MONOCYTES % (AUTO) 2.9 % (2-12); NEUTROPHILS # (AUTO) 8.6 X10'3 (1.8-7.7); NEUTROPHILS % (AUTO) 87.4 % (42-75); PLATELET COUNT 138 X10'3 (140-440); RED BLOOD COUNT 4.16 X10'6 (4.20-5.60); RED CELL DISTRIBUTION WIDTH 17.4 % (11.5-14.5); WHITE BLOOD COUNT 9.8 X10'3 (4.5-11.0)
--- NOTE | 2019-12-17 06:23 | NUR ---
Problems reprioritized. Patient report given, questions answered & plan of care reviewed with ELENITA Cho.
--- NOTE | 2019-12-17 06:28 | NUR ---
Patient in room YAN[facility] 356. I have received report from Chiquis Gonzalez RN and had the opportunity to ask questions and assume patient care.
[2019-12-17 06:35] LABS: ALANINE AMINOTRANSFERASE 51 U/L (12-78); ALBUMIN 1.7 G/DL (3.4-5.0); ALBUMIN/GLOBULIN RATIO 0.3 (1.1-1.5); ALKALINE PHOSPHATASE 91 IU/L (46-116); ANION GAP 7 (8-16); ASPARTATE AMINO TRANSFERASE 56 U/L (10-37); BLOOD UREA NITROGEN 22 MG/DL (7-18); BUN/CREATININE RATIO 24.4 (6.6-38.0); CALCIUM 8.4 MG/DL (8.5-10.1); CHLORIDE 107 MMOL/L (99-107); GLUCOSE 84 MG/DL (70-104); POTASSIUM 3.7 MMOL/L (3.5-5.1); SODIUM 138 MMOL/L (135-145); TOTAL CARBON DIOXIDE 24.1 MMOL/L (24-32); eGFR 64 ML/MIN
[2019-12-17 07:00] VITALS: BP 108/75
[2019-12-17] MEDS: lactobacillus rhamnosus 10,000 MMU CELLS/CAPSULE PO SCH ×2 (07:56→20:59)
[2019-12-17] MEDS: pantoprazole 40 MG vial IV SCH (07:56)
[2019-12-17] MEDS: rifaximin 550mg tablet PO SCH ×2 (07:56→20:59)
[2019-12-17] MEDS: ketorolac tromethamine 15mg/ml inj. IM PRN ×2 (10:00→19:42)
--- NOTE | 2019-12-17 10:26 | NUR ---
restraint removed from left wrist. skin to left wrist intact and non-reddened. sitter remains at bedside
[2019-12-17] MEDS ORDERED: albuterol 2.5 MG/3 ML nebule NEB PRN (10:55)
[2019-12-17 11:00] VITALS: BP 120/76
--- NOTE | 2019-12-17 11:20 | NUR ---
restraint removed from right wrist. pt is not pulling at NG or IV tubing at this time. sitter remains at bedside. will continue to monitor.
--- NOTE | 2019-12-17 11:32 | NUR ---
IR team to patient bedside for Paracentesis, Patient not in restraints with sitter at bedside not consent able Nurse and charge Nurse at bedside with Patrick MARLEY and informed that paracentesis will not happen today
--- NOTE | 2019-12-17 11:50 | NUR ---
Pt partially pulled NG tube from right nare. NG tube replaced and restraints to bilateral wrists reapplied. Will continue to monitor.
[2019-12-17] MEDS: dextrose ORAL solution 15 GM/59 ML bottle PO PRN (13:48)
--- NOTE | 2019-12-17 13:51 | NUR ---
Blood sugar checked 69. patient given 15gms glucose shot. will continue to monitor.
[2019-12-17 18:00] VITALS: BP 117/68
--- NOTE | 2019-12-17 18:01 | NUR ---
NG tube partially pulled by pt. Replaced by RN. Sitter remains at bedside. Will continue to monitor.
--- NOTE | 2019-12-17 18:44 | NUR ---
Patient in room [facility]AN[facility] 356. I have received report from Tammie KWONG and had the opportunity to ask questions and assume patient care.
--- NOTE | 2019-12-17 18:47 | NUR ---
Problems reprioritized. Patient report given, questions answered & plan of care reviewed with ELENITA Cramer.
[2019-12-18] MEDS: LORazepam 2 mg/ml vial IV PRN ×4 (01:03→21:06)
[2019-12-18] MEDS: lactulose 20gm/30ml cup PO SCH ×4 (02:56→21:14)
[2019-12-18 06:10] LABS: ALANINE AMINOTRANSFERASE 54 U/L (12-78); ALBUMIN 1.6 G/DL (3.4-5.0); ALBUMIN/GLOBULIN RATIO 0.3 (1.1-1.5); ALKALINE PHOSPHATASE 92 IU/L (46-116); ANION GAP 6 (8-16); ASPARTATE AMINO TRANSFERASE 77 U/L (10-37); BILIRUBIN,TOTAL 1.7 MG/DL (0.1-1.0); BLOOD UREA NITROGEN 22 MG/DL (7-18); BUN/CREATININE RATIO 26.2 (6.6-38.0); CALCIUM 8.2 MG/DL (8.5-10.1); CHLORIDE 107 MMOL/L (99-107); CREATININE 0.84 MG/DL (0.40-0.90); GLUCOSE 94 MG/DL (70-104); POTASSIUM 3.6 MMOL/L (3.5-5.1); SODIUM 139 MMOL/L (135-145); TOTAL CARBON DIOXIDE 26.4 MMOL/L (24-32); TOTAL PROTEIN 6.7 G/DL (6.4-8.2); eGFR 69 ML/MIN
[2019-12-18 06:19] LABS: BASOPHILS % (AUTO) 0.4 % (0-1); EOSINOPHILS # (AUTO) 0.1 X10'3 (0-0.9); EOSINOPHILS % (AUTO) 2.3 % (0-6); HEMATOCRIT 39.1 % (35.0-45.0); HEMOGLOBIN 13.4 g/dl (12.0-16.0); LYMPHOCYTES # (AUTO) 0.5 X10'3 (1.1-4.8); LYMPHOCYTES % (AUTO) 10.6 % (21-51); MEAN CORPUSCULAR HGB CONC 34.2 g/dL (33.0-36.5); MEAN CORPUSCULAR VOLUME 96.5 FL (78-98); MEAN PLATELET VOLUME 6.9 FL (7.4-10.4); MONOCYTES # (AUTO) 0.3 X10'3 (0-0.9); MONOCYTES % (AUTO) 5.6 % (2-12); NEUTROPHILS # (AUTO) 4.2 X10'3 (1.8-7.7); NEUTROPHILS % (AUTO) 81.1 % (42-75); PLATELET COUNT 123 X10'3 (140-440); RED BLOOD COUNT 4.05 X10'6 (4.20-5.60); RED CELL DISTRIBUTION WIDTH 17.4 % (11.5-14.5); WHITE BLOOD COUNT 5.2 X10'3 (4.5-11.0)
--- NOTE | 2019-12-18 07:07 | NUR ---
Patient in room [facility]ANETH 356. I have received report from ELENITA Cramer and had the opportunity to ask questions and assume patient care.
[2019-12-18 07:16] VITALS: BP 111/72
[2019-12-18] MEDS: pantoprazole 40 MG vial IV SCH (08:23)
[2019-12-18] MEDS: rifaximin 550mg tablet PO SCH ×2 (08:32→21:09)
[2019-12-18] MEDS: lactobacillus rhamnosus 10,000 MMU CELLS/CAPSULE PO SCH ×2 (08:33→21:08)
[2019-12-18] MEDS ORDERED: albumin (human) 25% 100 ML IV solution IV ONE (09:35)
[2019-12-18 09:37] VITALS: BP 112/73
[2019-12-18 09:38] VITALS: BP 96/61
[2019-12-18 12:15] VITALS: BP 110/72
[2019-12-18] MEDS: normal saline 1000ml 1,000 ML IV SCH (14:12)
[2019-12-18 18:00] VITALS: BP 104/64
--- NOTE | 2019-12-18 18:41 | NUR ---
Problems reprioritized. Patient report given, questions answered & plan of care reviewed with ELENITA Cramer. pt tolerating clear liquid diet well. More alert and talkative this shift. sitter at bedside.
--- NOTE | 2019-12-18 19:36 | NUR ---
Patient in room [facility]AN[facility] 356. I have received report from Gloria KWONG and had the opportunity to ask questions and assume patient care.
[2019-12-18 20:13] LABS: COLOR,URINE YELLOW (Yellow); GLUCOSE, URINE 100 mg/dl (Neg); KETONES,URINE TRACE mg/dl (Neg); LEUKOCYTE ESTERASE ,URINE NEGATIVE (Neg); NITRITES, URINE NEGATIVE (Neg); OCCULT BLOOD,URINE TRACE-INTACT (Neg); PROTEIN,URINE NEGATIVE (Neg)
[2019-12-18 20:21] LABS: CLARITY,URINE SLIGHTLY CLOUDY (Clear); UA COLLECTION TYPE NON-SPECIFIED
[2019-12-18 20:22] LABS: BACTERIA,URINE FEW /HPF (Neg); RBC,URINE 0-2 /HPF (0-2); SQUAMOUS EPITHELIAL CELL,UR FEW /LPF (FEW)
[2019-12-18] MEDS: insulin glargine (Lantus) pen - multi-dose SQ SCH (21:05)
[2019-12-18] MEDS: ketorolac tromethamine 15mg/ml inj. IM PRN (21:07)
[2019-12-18] MEDS: insulin Lispro (HumaLOG) vial - multi-dose SQ SCH (21:08)
[2019-12-19] MEDS: lactulose 20gm/30ml cup PO SCH ×4 (02:00→19:51)
[2019-12-19] MEDS: LORazepam 2 mg/ml vial IV PRN ×3 (04:41→19:51)
[2019-12-19 05:39] LABS: BASOPHILS % (AUTO) 0.5 % (0-1); EOSINOPHILS # (AUTO) 0.1 X10'3 (0-0.9); EOSINOPHILS % (AUTO) 2.1 % (0-6); HEMATOCRIT 39.4 % (35.0-45.0); HEMOGLOBIN 13.4 g/dl (12.0-16.0); LYMPHOCYTES # (AUTO) 0.5 X10'3 (1.1-4.8); LYMPHOCYTES % (AUTO) 11.6 % (21-51); MEAN CORPUSCULAR HEMOGLOBIN 32.7 PG (27.0-31.0); MEAN CORPUSCULAR VOLUME 96.3 FL (78-98); MEAN PLATELET VOLUME 6.9 FL (7.4-10.4); MONOCYTES # (AUTO) 0.3 X10'3 (0-0.9); MONOCYTES % (AUTO) 7.2 % (2-12); NEUTROPHILS # (AUTO) 3.4 X10'3 (1.8-7.7); NEUTROPHILS % (AUTO) 78.6 % (42-75); PLATELET COUNT 124 X10'3 (140-440); RED BLOOD COUNT 4.09 X10'6 (4.20-5.60); RED CELL DISTRIBUTION WIDTH 17.4 % (11.5-14.5); WHITE BLOOD COUNT 4.3 X10'3 (4.5-11.0)
--- NOTE | 2019-12-19 06:30 | NUR ---
Problems reprioritized. Patient report given, questions answered & plan of care reviewed with Gloria KWONG.Patient is now resting. She is restless at times and the sitter is by her bedside.
[2019-12-19 06:33] LABS: ALANINE AMINOTRANSFERASE 64 U/L (12-78); ALBUMIN 1.9 G/DL (3.4-5.0); ALBUMIN/GLOBULIN RATIO 0.4 (1.1-1.5); ALKALINE PHOSPHATASE 94 IU/L (46-116); ANION GAP 7 (8-16); ASPARTATE AMINO TRANSFERASE 85 U/L (10-37); BILIRUBIN,TOTAL 1.8 MG/DL (0.1-1.0); BLOOD UREA NITROGEN 18 MG/DL (7-18); BUN/CREATININE RATIO 17.5 (6.6-38.0); CALCIUM 8.1 MG/DL (8.5-10.1); CHLORIDE 105 MMOL/L (99-107); CREATININE 1.03 MG/DL (0.40-0.90); GLUCOSE 179 MG/DL (70-104); POTASSIUM 3.8 MMOL/L (3.5-5.1); SODIUM 137 MMOL/L (135-145); TOTAL CARBON DIOXIDE 25.3 MMOL/L (24-32); TOTAL PROTEIN 6.8 G/DL (6.4-8.2); eGFR 54 ML/MIN
--- NOTE | 2019-12-19 06:48 | NUR ---
Patient in room [facility]ANETH 356. I have received report from ELENITA Cramer and had the opportunity to ask questions and assume patient care.
[2019-12-19] MEDS: pantoprazole 40 MG vial IV SCH (08:45)
[2019-12-19] MEDS: lactobacillus rhamnosus 10,000 MMU CELLS/CAPSULE PO SCH ×2 (08:49→19:52)
[2019-12-19] MEDS: rifaximin 550mg tablet PO SCH ×2 (08:49→19:52)
[2019-12-19 12:00] VITALS: BP 109/77
[2019-12-19] MEDS: insulin Lispro (HumaLOG) vial - multi-dose SQ SCH ×2 (13:30→18:33)
[2019-12-19 18:00] VITALS: BP 109/67
--- NOTE | 2019-12-19 18:34 | NUR ---
Problems reprioritized. Patient report given, questions answered & plan of care reviewed with ELENITA Cramer.
[2019-12-19] MEDS: ketorolac tromethamine 15mg/ml inj. IM PRN (19:52)
[2019-12-19] MEDS: insulin glargine (Lantus) pen - multi-dose SQ SCH (21:00)
[2019-12-20] MEDS: LORazepam 2 mg/ml vial IV PRN ×4 (00:35→21:00)
[2019-12-20] MEDS: lactulose 20gm/30ml cup PO SCH ×4 (02:00→20:53)
[2019-12-20] MEDS: normal saline 1000ml 1,000 ML IV SCH (05:22)
[2019-12-20 05:32] LABS: BASOPHILS % (AUTO) 0.7 % (0-1); EOSINOPHILS # (AUTO) 0.1 X10'3 (0-0.9); EOSINOPHILS % (AUTO) 2.1 % (0-6); HEMATOCRIT 38.4 % (35.0-45.0); HEMOGLOBIN 13.2 g/dl (12.0-16.0); LYMPHOCYTES # (AUTO) 0.7 X10'3 (1.1-4.8); LYMPHOCYTES % (AUTO) 12.4 % (21-51); MEAN CORPUSCULAR HEMOGLOBIN 32.8 PG (27.0-31.0); MEAN CORPUSCULAR HGB CONC 34.3 g/dL (33.0-36.5); MEAN CORPUSCULAR VOLUME 95.6 FL (78-98); MEAN PLATELET VOLUME 7.3 FL (7.4-10.4); MONOCYTES # (AUTO) 0.5 X10'3 (0-0.9); MONOCYTES % (AUTO) 8.9 % (2-12); NEUTROPHILS % (AUTO) 75.9 % (42-75); PLATELET COUNT 112 X10'3 (140-440); RED BLOOD COUNT 4.02 X10'6 (4.20-5.60); RED CELL DISTRIBUTION WIDTH 17.6 % (11.5-14.5); WHITE BLOOD COUNT 5.3 X10'3 (4.5-11.0)
[2019-12-20 06:18] LABS: ALANINE AMINOTRANSFERASE 63 U/L (12-78); ALBUMIN 1.7 G/DL (3.4-5.0); ALBUMIN/GLOBULIN RATIO 0.4 (1.1-1.5); ALKALINE PHOSPHATASE 90 IU/L (46-116); ANION GAP 6 (8-16); ASPARTATE AMINO TRANSFERASE 72 U/L (10-37); BILIRUBIN,TOTAL 1.5 MG/DL (0.1-1.0); BLOOD UREA NITROGEN 11 MG/DL (7-18); BUN/CREATININE RATIO 13.1 (6.6-38.0); CALCIUM 7.6 MG/DL (8.5-10.1); CHLORIDE 104 MMOL/L (99-107); CREATININE 0.84 MG/DL (0.40-0.90); GLUCOSE 198 MG/DL (70-104); POTASSIUM 3.9 MMOL/L (3.5-5.1); SODIUM 133 MMOL/L (135-145); TOTAL CARBON DIOXIDE 22.8 MMOL/L (24-32); TOTAL PROTEIN 6.4 G/DL (6.4-8.2); eGFR 69 ML/MIN
--- NOTE | 2019-12-20 06:20 | NUR ---
Patient in room [facility] 358. I have received report from ELENITA Cramer and had the opportunity to ask questions and assume patient care.
--- NOTE | 2019-12-20 06:25 | NUR ---
Problems reprioritized. Patient report given, questions answered & plan of care reviewed with Nany RN.
[2019-12-20 06:30] VITALS: BP 94/54
[2019-12-20] MEDS: rifaximin 550mg tablet PO SCH ×2 (09:24→20:54)
[2019-12-20] MEDS: pantoprazole 40 MG vial IV SCH (09:25)
[2019-12-20] MEDS: lactobacillus rhamnosus 10,000 MMU CELLS/CAPSULE PO SCH ×2 (09:25→20:54)
[2019-12-20] MEDS: insulin Lispro (HumaLOG) vial - multi-dose SQ SCH ×3 (09:33→18:36)
[2019-12-20 11:00] VITALS: BP 107/61
[2019-12-20 11:21] VITALS: BP 107/61
--- NOTE | 2019-12-20 17:06 | NUR ---
Initial: Pt admit w/ hepatic encephalopathy, end stage liver disease, hyponatremia, massive ascites s/p 5500ml paracentesis, and thrombocytopenic per MD. PO 100% avg carb controlled/mechanical soft diet meeting needs. LBM 12/18. Will continue to monitor. Rec: 1. continue carb controlled/mechanical soft diet per MD 2. bowel care as needed 3. wt per rx Addendum: 12/20/19 at [address] Amended: Links added.
[2019-12-20] MEDS: dextrose ORAL solution 15 GM/59 ML bottle PO PRN (17:25)
--- NOTE | 2019-12-20 18:40 | NUR ---
Problems reprioritized. Patient report given, questions answered & plan of care reviewed with ELENITA Montejo.
[2019-12-20 19:49] VITALS: BP 133/86
[2019-12-20] MEDS: insulin glargine (Lantus) pen - multi-dose SQ SCH (20:56)
[2019-12-21] VITALS: BP 93/49
[2019-12-21] MEDS: lactulose 20gm/30ml cup PO SCH ×4 (02:41→19:39)
--- NOTE | 2019-12-21 06:30 | NUR ---
I have received report from Gustabo KWONG and had the opportunity to ask questions and assume patient care.
[2019-12-21 07:24] VITALS: BP 88/52
[2019-12-21] MEDS: pantoprazole 40mg Tablet.DR PO SCH (08:03)
[2019-12-21] MEDS: rifaximin 550mg tablet PO SCH ×2 (08:03→19:39)
[2019-12-21] MEDS: lactobacillus rhamnosus 10,000 MMU CELLS/CAPSULE PO SCH ×2 (08:03→19:39)
[2019-12-21] MEDS: insulin Lispro (HumaLOG) vial - multi-dose SQ SCH ×3 (08:25→18:59)
[2019-12-21 13:00] VITALS: BP 103/70
--- NOTE | 2019-12-21 16:49 | NUR ---
Attempted to call patients , no answer.
--- NOTE | 2019-12-21 18:09 | NUR ---
Problems reprioritized. Patient report given, questions answered & plan of care reviewed with Gustabo KWONG.
--- NOTE | 2019-12-21 19:11 | NUR ---
spoke with pt's on phone, answered question about "what can cause her ammonia to go up like that" educate on importance of taken home medication of lactulose as prescribed to have regular BM's to help keep ammonia levels low
[2019-12-21 19:36] VITALS: BP 115/73
[2019-12-21] MEDS: normal saline 1000ml 1,000 ML IV SCH (21:20)
[2019-12-21] MEDS: insulin glargine (Lantus) pen - multi-dose SQ SCH (21:46)
[2019-12-22] MEDS: ketorolac tromethamine 15mg/ml inj. IM PRN (00:10)
[2019-12-22] MEDS: lactulose 20gm/30ml cup PO SCH ×3 (01:32→14:57)
[2019-12-22 06:00] VITALS: BP 95/56
[2019-12-22 06:44] LABS: BASOPHILS # (AUTO) 0.1 X10'3 (0-0.2); BASOPHILS % (AUTO) 0.7 % (0-1); EOSINOPHILS # (AUTO) 0.1 X10'3 (0-0.9); EOSINOPHILS % (AUTO) 1.8 % (0-6); HEMATOCRIT 36.5 % (35.0-45.0); HEMOGLOBIN 12.3 g/dl (12.0-16.0); LYMPHOCYTES # (AUTO) 0.7 X10'3 (1.1-4.8); MEAN CORPUSCULAR HEMOGLOBIN 32.4 PG (27.0-31.0); MEAN CORPUSCULAR HGB CONC 33.7 g/dL (33.0-36.5); MEAN CORPUSCULAR VOLUME 96.1 FL (78-98); MEAN PLATELET VOLUME 7.4 FL (7.4-10.4); MONOCYTES # (AUTO) 0.5 X10'3 (0-0.9); MONOCYTES % (AUTO) 7.5 % (2-12); NEUTROPHILS # (AUTO) 5.9 X10'3 (1.8-7.7); PLATELET COUNT 94 X10'3 (140-440); RED CELL DISTRIBUTION WIDTH 17.4 % (11.5-14.5); WHITE BLOOD COUNT 7.3 X10'3 (4.5-11.0)
[2019-12-22 06:53] LABS: ALANINE AMINOTRANSFERASE 50 U/L (12-78); ALBUMIN 1.6 G/DL (3.4-5.0); ALBUMIN/GLOBULIN RATIO 0.3 (1.1-1.5); ALKALINE PHOSPHATASE 93 IU/L (46-116); ANION GAP 3 (8-16); ASPARTATE AMINO TRANSFERASE 52 U/L (10-37); BILIRUBIN,TOTAL 1.9 MG/DL (0.1-1.0); BLOOD UREA NITROGEN 13 MG/DL (7-18); BUN/CREATININE RATIO 14.1 (6.6-38.0); CALCIUM 7.4 MG/DL (8.5-10.1); CHLORIDE 105 MMOL/L (99-107); CREATININE 0.92 MG/DL (0.40-0.90); POTASSIUM 3.9 MMOL/L (3.5-5.1); SODIUM 134 MMOL/L (135-145); TOTAL CARBON DIOXIDE 25.8 MMOL/L (24-32); TOTAL PROTEIN 6.4 G/DL (6.4-8.2); eGFR 62 ML/MIN
--- NOTE | 2019-12-22 06:53 | NUR ---
Patient in room [facility] 358. I have received report from ELENITA Montejo and had the opportunity to ask questions and assume patient care.
[2019-12-22 06:55] LABS: GLUCOSE 171 MG/DL (70-104)
[2019-12-22] MEDS: rifaximin 550mg tablet PO SCH (08:35)
[2019-12-22] MEDS: lactobacillus rhamnosus 10,000 MMU CELLS/CAPSULE PO SCH (08:35)
[2019-12-22] MEDS: pantoprazole 40mg Tablet.DR PO SCH (08:36)
[2019-12-22] MEDS: insulin Lispro (HumaLOG) vial - multi-dose SQ SCH (08:40)
[2019-12-22] MEDS ORDERED: RIFA550T PO (10:17)
[2019-12-22 11:00] VITALS: BP 105/69
--- NOTE | 2019-12-22 11:19 | NUR ---
PAGER ID: [phone] MESSAGE: pt. [id number]. pt. Karina Rajan. I see the discharge orders are in. do you have an ETA of when you'll see the pt. so I can let the know? thank you. ELENITA Harmon [phone]
--- NOTE | 2019-12-22 15:27 | NUR ---
Problems reprioritized. Patient report given, questions answered & plan of care reviewed with ELENITA Carver.
--- NOTE | 2019-12-22 15:29 | NUR ---
RECEIVED REPORT FROM ELENITA PATRICIA
--- NOTE | 2019-12-22 17:21 | NUR ---
PATIENT STABLE AND APPROPRIATE FOR DISCHARGE, IV TAKEN OUT, ALL BELONGINGS SENT WITH PATIENT, EDUCATION GIVEN TO PATIENT AND SIGNIFICANT OTHER, MEDS E-SCRIPTED TO PREFERRED PHARMACY, PATIENT TAKEN TO LOBBY IN WHEELCHAIR TO AN AWAITING CAR WHERE SIGNIFICANT OTHER WILL TAKE PATIENT HOME
== END 2019-12-22 17:21 | disposition home or self-care (01) | DRG 279 ==
LOC: ER 08:54 → ED HOLD 12:16 → SUR 3N 14:42
PROVIDERS: ADMIT Family Medicine; ATTEND Internal Medicine
PROC: 0W9G3ZZ Drainage of Peritoneal Cavity, Percutaneous Approach (ICD-10-PCS; principal; 2019-12-18)
DX: K72.90 Hepatic failure, unspecified without coma (principal); D69.6 Thrombocytopenia, unspecified; E11.65 Type 2 diabetes mellitus with hyperglycemia; E87.1 Hypo-osmolality and hyponatremia; J44.9 Chronic obstructive pulmonary disease, unspecified; M25.512 Pain in left shoulder; B19.20 Unspecified viral hepatitis C without hepatic coma; F32.9 Major depressive disorder, single episode, unspecified; K70.31 Alcoholic cirrhosis of liver with ascites; Z88.5 Allergy status to narcotic agent; Z88.0 Allergy status to penicillin; Z88.8 Allergy status to other drugs, medicaments and biological substances; Z83.3 Family history of diabetes mellitus; Z82.49 Family history of ischemic heart disease and other diseases of the circulatory system; Z90.49 Acquired absence of other specified parts of digestive tract; Z80.3 Family history of malignant neoplasm of breast; Z80.8 Family history of malignant neoplasm of other organs or systems; Z91.19 Patient's noncompliance with other medical treatment and regimen; Z90.89 Acquired absence of other organs; Z79.4 Long term (current) use of insulin
CPT/HCPCS: 36415; 49083; 71045; 80053; 81001; 82140; 82948; 85025; 85610; 85730; 87081; 87088; 93005; 96374; 96375; 97110; 97116; 97161; 97530; 99285; C9113; G0378; J1815; J1885; J1940; J2060; J7030; P9047

== ENCOUNTER 2019-12-28 07:53 | Day surgery (SDC) | payer MEDICAID ==
[2019-12-28] VITALS (8 sets, daily range): BP systolic 102–127; BP diastolic 52–74
[~2019-12-28] VITALS: Ht 167.6 cm; Wt 84.8 kg
[~2019-12-28 07:53] MED LIST changes: +ALBU17AE26 IH; -ALBU17AE26 PO; +FURO20TA4 PO; -FURO40TA4 PO; +LACT10SO PO; -LACT10SO32 PO; +RIFA550T PO; +SPIR100T PO; -SPIR50TA5 PO
[2019-12-28] MEDS ORDERED: albumin 25% 100mL bottle x 1 IV PRN (08:15)
[2019-12-28] MEDS ORDERED: normal saline 1000ml 1,000 ML IV PRN (08:15)
[2019-12-29] MEDS ORDERED: METF-516 PO (12:22)
== END 2019-12-28 11:00 | disposition home or self-care (01) ==
LOC: SSTAY O 07:53 → MED 3N 07:57 → SSTAY O 11:00
PROVIDERS: ATTEND Radiology Diagnostic Radiology
DX: R18.8 Other ascites (principal); K74.60 Unspecified cirrhosis of liver; K72.90 Hepatic failure, unspecified without coma; E11.9 Type 2 diabetes mellitus without complications; J44.9 Chronic obstructive pulmonary disease, unspecified; Z90.49 Acquired absence of other specified parts of digestive tract; Z98.890 Other specified postprocedural states; B19.20 Unspecified viral hepatitis C without hepatic coma; Z88.5 Allergy status to narcotic agent; Z88.0 Allergy status to penicillin; Z88.8 Allergy status to other drugs, medicaments and biological substances; Z79.899 Other long term (current) drug therapy; Z79.84 Long term (current) use of oral hypoglycemic drugs; Z82.49 Family history of ischemic heart disease and other diseases of the circulatory system; Z83.3 Family history of diabetes mellitus
CPT/HCPCS: 49083; C1729; P9047; 76937

== ENCOUNTER 2019-12-29 05:36 | Inpatient (IN) | payer MEDICAID ==
[~2019-12-29] VITALS: Ht 170.2 cm; Wt 90.9 kg
[~2019-12-29 05:36] MED LIST changes: -LACT10SO PO; -RIFA550T PO
[2019-12-29 06:04] LABS: BASOPHILS % (AUTO) 0.4 % (0-1); EOSINOPHILS # (AUTO) 0.1 X10'3 (0-0.9); EOSINOPHILS % (AUTO) 0.7 % (0-6); HEMOGLOBIN 11.2 g/dl (12.0-16.0); LYMPHOCYTES # (AUTO) 0.6 X10'3 (1.1-4.8); LYMPHOCYTES % (AUTO) 5.9 % (21-51); MEAN CORPUSCULAR HEMOGLOBIN 32.6 PG (27.0-31.0); MEAN PLATELET VOLUME 7.3 FL (7.4-10.4); MONOCYTES # (AUTO) 0.7 X10'3 (0-0.9); MONOCYTES % (AUTO) 7.3 % (2-12); NEUTROPHILS # (AUTO) 8.5 X10'3 (1.8-7.7); NEUTROPHILS % (AUTO) 85.7 % (42-75); PLATELET COUNT 106 X10'3 (140-440); RED BLOOD COUNT 3.43 X10'6 (4.20-5.60); RED CELL DISTRIBUTION WIDTH 18.3 % (11.5-14.5)
[2019-12-29 06:11] LABS: PARTIAL THROMBOPLASTIN TIME 30 SECONDS (22-32)
--- NOTE | 2019-12-29 06:12 | NUR ---
PT ATTEMPTED TO PROVIDE URINE SAMPLE. ASSISTED PT TO BEDSIDE COMMODE. PT UNABLE TO VOID. WILL CONTINUE TO ENCOURAGE UA SAMPLE AND MONITOR PT.
[2019-12-29 06:13] LABS: ALANINE AMINOTRANSFERASE 33 U/L (12-78); ALBUMIN 1.8 G/DL (3.4-5.0); ALBUMIN/GLOBULIN RATIO 0.3 (1.1-1.5); ALKALINE PHOSPHATASE 87 IU/L (46-116); ANION GAP 5 (8-16); ASPARTATE AMINO TRANSFERASE 30 U/L (10-37); BILIRUBIN,TOTAL 1.8 MG/DL (0.1-1.0); BLOOD UREA NITROGEN 11 MG/DL (7-18); BUN/CREATININE RATIO 13.1 (6.6-38.0); CALCIUM 7.6 MG/DL (8.5-10.1); CHLORIDE 100 MMOL/L (99-107); CREATININE 0.84 MG/DL (0.40-0.90); GLUCOSE 356 MG/DL (70-104); LIPASE 350 U/L (73-393); POTASSIUM 3.8 MMOL/L (3.5-5.1); SODIUM 132 MMOL/L (135-145); TOTAL PROTEIN 7.3 G/DL (6.4-8.2); eGFR 69 ML/MIN
[2019-12-29] MEDS ORDERED: CLINDAMYCIN/D5W 900mg/50ml 50 ML IV ONE (06:25)
[2019-12-29] MEDS ORDERED: normal saline 1000ML IV soln IV ONE (06:25)
[2019-12-29] MEDS ORDERED: ketorolac trometh. 30mg/ml inj. IV ONE (08:25)
[2019-12-29] MEDS ORDERED: glucagon, human recombinant 1mg kit SUBCUT PRN (10:40)
[2019-12-29] MEDS ORDERED: dextrose 50%-water 50ml dispensing syringe IV PRN ×2 (10:40)
[2019-12-29] MEDS ORDERED: mag hydrox/Alum hydrox/simeth 30ml oral suspension PO PRN (10:40)
[2019-12-29] MEDS ORDERED: MESSAGE TO PHARMACY PO ONE (10:40)
[2019-12-29] MEDS ORDERED: dextrose ORAL solution 15 GM/59 ML bottle PO PRN (10:40)
[2019-12-29] MEDS ORDERED: magnesium hydroxide 30ml (MOM) UD suspension PO PRN (10:40)
[2019-12-29] MEDS ORDERED: HYDROcodone/acetaminophen 5mg/325mg tablet PO PRN (10:40)
[2019-12-29] MEDS ORDERED: morphine 2 MG/ML inj. syringe IV PRN (10:40)
[2019-12-29] MEDS ORDERED: acetaminophen 325mg tablet PO PRN (10:40)
[2019-12-29] MEDS ORDERED: ondansetron/PF 4mg/2ml inj IV PRN (10:40)
[2019-12-29] MEDS ORDERED: METF-516 PO (12:22)
[2019-12-29] MEDS ORDERED: traMADol 50MG tablet PO PRN (13:00)
[2019-12-29] MEDS: lactulose 20gm/30ml cup PO SCH ×2 (13:35→20:36)
[2019-12-29] MEDS: metroNIDAZOLE 500mg tablet PO SCH ×2 (13:35→20:37)
[2019-12-29] MEDS: HYDROcodone/acetaminophen 10/325mg tab PO PRN ×2 (13:36→20:39)
[2019-12-29] MEDS: CefTRIAXone/D5W-Rocephin 1gm 50 ML IV SCH (14:34)
[2019-12-29] MEDS: insulin Lispro (HumaLOG) vial - multi-dose SQ SCH ×2 (14:38→19:09)
[2019-12-29 15:23] VITALS: BP 103/69
[2019-12-29] MEDS ORDERED: metFORMIN 500mg tablet PO SCH (17:30)
--- NOTE | 2019-12-29 18:03 | NUR ---
Problems reprioritized. Patient report given, questions answered & plan of care reviewed with Chiquis Gonzalez RN.
--- NOTE | 2019-12-29 19:07 | NUR ---
Patient in room [facility]AN[facility] 356. I have received report from ELENITA Jernigan and had the opportunity to ask questions and assume patient care. Addendum: 12/29/19 at 1907 by Pallavi Barrientos RN Amended: Links added.
[2019-12-29 20:00] VITALS: BP 107/65
[2019-12-29] MEDS: insulin glargine (Lantus) pen - multi-dose SQ SCH (21:13)
[2019-12-30] VITALS: BP 116/85
--- NOTE | 2019-12-30 05:35 | NUR ---
RT. FOOT POSTERIO TIBIAL WOUND PICTURE TAKEN
[2019-12-30 06:11] LABS: BASOPHILS % (AUTO) 0.2 % (0-1); EOSINOPHILS # (AUTO) 0.1 X10'3 (0-0.9); EOSINOPHILS % (AUTO) 1.2 % (0-6); HEMATOCRIT 34.2 % (35.0-45.0); HEMOGLOBIN 11.7 g/dl (12.0-16.0); LYMPHOCYTES # (AUTO) 0.8 X10'3 (1.1-4.8); MEAN CORPUSCULAR HEMOGLOBIN 32.9 PG (27.0-31.0); MEAN CORPUSCULAR HGB CONC 34.1 g/dL (33.0-36.5); MEAN CORPUSCULAR VOLUME 96.4 FL (78-98); MEAN PLATELET VOLUME 7.3 FL (7.4-10.4); MONOCYTES # (AUTO) 0.7 X10'3 (0-0.9); MONOCYTES % (AUTO) 7.5 % (2-12); NEUTROPHILS # (AUTO) 7.9 X10'3 (1.8-7.7); NEUTROPHILS % (AUTO) 83.1 % (42-75); PLATELET COUNT 119 X10'3 (140-440); RED BLOOD COUNT 3.55 X10'6 (4.20-5.60); RED CELL DISTRIBUTION WIDTH 18.9 % (11.5-14.5); WHITE BLOOD COUNT 9.5 X10'3 (4.5-11.0)
[2019-12-30 06:29] LABS: ALBUMIN 1.7 G/DL (3.4-5.0); ANION GAP 4 (8-16); BLOOD UREA NITROGEN 15 MG/DL (7-18); CALCIUM 7.9 MG/DL (8.5-10.1); CHLORIDE 102 MMOL/L (99-107); CREATININE 0.79 MG/DL (0.40-0.90); GLUCOSE 164 MG/DL (70-104); POTASSIUM 4.1 MMOL/L (3.5-5.1); SODIUM 134 MMOL/L (135-145); TOTAL CARBON DIOXIDE 27.7 MMOL/L (24-32); eGFR 74 ML/MIN
--- NOTE | 2019-12-30 06:30 | NUR ---
Problems reprioritized. Patient report given, questions answered & plan of care reviewed with ELENITA MEDRANO.
[2019-12-30 07:00] VITALS: BP 115/68
[2019-12-30 07:43] LABS: PLATELET ESTIMATE DECREASED
[2019-12-30 07:46] LABS: ACANTHOCYTES FEW; ANISOCYTOSIS 2+; POLYCHROMASIA FEW
[2019-12-30] MEDS: CefTRIAXone/D5W-Rocephin 1gm 50 ML IV SCH (08:55)
[2019-12-30] MEDS: lactulose 20gm/30ml cup PO SCH ×3 (08:56→21:37)
[2019-12-30] MEDS: furosemide 20MG tablet PO SCH (08:56)
[2019-12-30] MEDS: metroNIDAZOLE 500mg tablet PO SCH ×2 (08:56→21:37)
[2019-12-30] MEDS: spironolactone 25 MG tablet PO SCH (08:56)
[2019-12-30] MEDS: HYDROcodone/acetaminophen 10/325mg tab PO PRN ×3 (08:57→16:52)
[2019-12-30] MEDS: insulin Lispro (HumaLOG) vial - multi-dose SQ SCH ×3 (09:13→18:57)
[2019-12-30] MEDS: morphine 2 MG/ML inj. syringe IV PRN ×2 (10:35→18:03)
[2019-12-30] MEDS ORDERED: vancomycin/NS 1 GM ADD-VANTAGE 250 ML IV SCH (11:35)
[2019-12-30 12:00] VITALS: BP 113/77
[2019-12-30] MEDS: VANCOmycin 1250MG/NS 250ml Bag 250 ML IV SCH (12:38)
[2019-12-30] MEDS: albuterol 2.5 MG/3 ML nebule NEB PRN (17:17)
[2019-12-30 18:00] VITALS: BP 133/82
--- NOTE | 2019-12-30 18:55 | NUR ---
Gave report to Carlita KWONG.
[2019-12-30] MEDS: insulin glargine (Lantus) pen - multi-dose SQ SCH (21:34)
[2019-12-30] MEDS: lactobacillus rhamnosus 10,000 MMU CELLS/CAPSULE PO SCH (21:37)
[2019-12-31] VITALS: BP 90/57
[2019-12-31] MEDS: VANCOmycin 1250MG/NS 250ml Bag 250 ML IV SCH ×3 (01:25→23:52)
[2019-12-31 06:12] LABS: BASOPHILS # (AUTO) 0.1 X10'3 (0-0.2); BASOPHILS % (AUTO) 0.7 % (0-1); EOSINOPHILS # (AUTO) 0.1 X10'3 (0-0.9); EOSINOPHILS % (AUTO) 1.4 % (0-6); HEMOGLOBIN 11.4 g/dl (12.0-16.0); LYMPHOCYTES # (AUTO) 0.7 X10'3 (1.1-4.8); LYMPHOCYTES % (AUTO) 9.1 % (21-51); MEAN CORPUSCULAR HEMOGLOBIN 33.5 PG (27.0-31.0); MEAN CORPUSCULAR HGB CONC 34.6 g/dL (33.0-36.5); MEAN CORPUSCULAR VOLUME 96.7 FL (78-98); MEAN PLATELET VOLUME 7.4 FL (7.4-10.4); MONOCYTES # (AUTO) 0.8 X10'3 (0-0.9); MONOCYTES % (AUTO) 10.3 % (2-12); NEUTROPHILS # (AUTO) 6.1 X10'3 (1.8-7.7); NEUTROPHILS % (AUTO) 78.5 % (42-75); PLATELET COUNT 120 X10'3 (140-440); RED BLOOD COUNT 3.41 X10'6 (4.20-5.60); RED CELL DISTRIBUTION WIDTH 18.7 % (11.5-14.5); WHITE BLOOD COUNT 7.8 X10'3 (4.5-11.0)
[2019-12-31 06:15] LABS: ALBUMIN 1.5 G/DL (3.4-5.0); ANION GAP 1 (8-16); BLOOD UREA NITROGEN 17 MG/DL (7-18); BUN/CREATININE RATIO 19.3 (6.6-38.0); CALCIUM 7.6 MG/DL (8.5-10.1); CHLORIDE 102 MMOL/L (99-107); CREATININE 0.88 MG/DL (0.40-0.90); GLUCOSE 216 MG/DL (70-104); POTASSIUM 4.1 MMOL/L (3.5-5.1); SODIUM 131 MMOL/L (135-145); TOTAL CARBON DIOXIDE 28.5 MMOL/L (24-32); eGFR 65 ML/MIN
--- NOTE | 2019-12-31 06:44 | NUR ---
Patient in room [facility]. I have received report from ELENITA Zazueta and had the opportunity to ask questions and assume patient care.
[2019-12-31] MEDS: HYDROcodone/acetaminophen 10/325mg tab PO PRN ×2 (06:52→17:07)
[2019-12-31 07:02] VITALS: BP 131/95
[2019-12-31 07:19] LABS: ANISOCYTOSIS 2+; PLATELET ESTIMATE DECREASED
[2019-12-31] MEDS: lactobacillus rhamnosus 10,000 MMU CELLS/CAPSULE PO SCH ×2 (08:09→19:42)
[2019-12-31] MEDS: metroNIDAZOLE 500mg tablet PO SCH ×2 (08:09→19:42)
[2019-12-31] MEDS: furosemide 20MG tablet PO SCH (08:09)
[2019-12-31] MEDS: spironolactone 25 MG tablet PO SCH (08:10)
[2019-12-31] MEDS: lactulose 20gm/30ml cup PO SCH ×3 (08:14→20:29)
[2019-12-31] MEDS: CefTRIAXone/D5W-Rocephin 1gm 50 ML IV SCH (08:14)
[2019-12-31] MEDS: insulin Lispro (HumaLOG) vial - multi-dose SQ SCH ×3 (08:14→19:02)
[2019-12-31] MEDS: morphine 2 MG/ML inj. syringe IV PRN ×3 (09:40→22:00)
[2019-12-31 11:00] VITALS: BP 101/57
--- NOTE | 2019-12-31 17:25 | NUR ---
Dressing to right lower extremity changed per written orders
--- NOTE | 2019-12-31 18:00 | NUR ---
Patient in room [facility] 354. I have received report from Tammie KWONG and had the opportunity to ask questions and assume patient care.
--- NOTE | 2019-12-31 18:50 | NUR ---
Problems reprioritized. Patient report given, questions answered & plan of care reviewed with ELENITA Shipman.
[2019-12-31 20:00] VITALS: BP 101/44
[2019-12-31] MEDS: insulin glargine (Lantus) pen - multi-dose SQ SCH (21:50)
[2019-12-31] MEDS ORDERED: VANCOMYCIN LEVEL IV ONE (23:30)
[2020-01-01] VITALS (9 sets, daily range): BP systolic 91–121; BP diastolic 52–78
--- NOTE | 2020-01-01 06:00 | NUR ---
Patient in room [facility] 354. I have received report from ELENITA Patton and had the opportunity to ask questions and assume patient care.
[2020-01-01 06:04] LABS: ALBUMIN 1.5 G/DL (3.4-5.0); ANION GAP 3 (8-16); BLOOD UREA NITROGEN 17 MG/DL (7-18); BUN/CREATININE RATIO 18.1 (6.6-38.0); CALCIUM 8.1 MG/DL (8.5-10.1); CHLORIDE 100 MMOL/L (99-107); CREATININE 0.94 MG/DL (0.40-0.90); POTASSIUM 4.2 MMOL/L (3.5-5.1); SODIUM 131 MMOL/L (135-145); TOTAL CARBON DIOXIDE 28.4 MMOL/L (24-32); eGFR 61 ML/MIN
[2020-01-01 06:05] LABS: BASOPHILS % (AUTO) 0.7 % (0-1); EOSINOPHILS # (AUTO) 0.1 X10'3 (0-0.9); EOSINOPHILS % (AUTO) 1.7 % (0-6); HEMATOCRIT 33.2 % (35.0-45.0); HEMOGLOBIN 11.3 g/dl (12.0-16.0); LYMPHOCYTES # (AUTO) 0.6 X10'3 (1.1-4.8); LYMPHOCYTES % (AUTO) 8.7 % (21-51); MEAN CORPUSCULAR HEMOGLOBIN 33.2 PG (27.0-31.0); MEAN CORPUSCULAR HGB CONC 34.1 g/dL (33.0-36.5); MEAN CORPUSCULAR VOLUME 97.4 FL (78-98); MONOCYTES # (AUTO) 0.8 X10'3 (0-0.9); MONOCYTES % (AUTO) 11.2 % (2-12); NEUTROPHILS # (AUTO) 5.7 X10'3 (1.8-7.7); NEUTROPHILS % (AUTO) 77.7 % (42-75); PLATELET COUNT 118 X10'3 (140-440); RED BLOOD COUNT 3.41 X10'6 (4.20-5.60); RED CELL DISTRIBUTION WIDTH 19.4 % (11.5-14.5); WHITE BLOOD COUNT 7.3 X10'3 (4.5-11.0)
--- NOTE | 2020-01-01 06:13 | NUR ---
Problems reprioritized. Patient report given, questions answered & plan of care reviewed with Elvis KWONG.
[2020-01-01 06:15] LABS: GLUCOSE 215 MG/DL (70-104)
[2020-01-01] MEDS: CefTRIAXone/D5W-Rocephin 1gm 50 ML IV SCH (07:24)
[2020-01-01] MEDS: spironolactone 25 MG tablet PO SCH (07:25)
[2020-01-01] MEDS: HYDROcodone/acetaminophen 10/325mg tab PO PRN ×2 (07:25→15:40)
[2020-01-01] MEDS: lactobacillus rhamnosus 10,000 MMU CELLS/CAPSULE PO SCH ×2 (07:25→19:49)
[2020-01-01] MEDS: furosemide 20MG tablet PO SCH (07:25)
[2020-01-01] MEDS: lactulose 20gm/30ml cup PO SCH ×3 (07:26→21:09)
[2020-01-01] MEDS: metroNIDAZOLE 500mg tablet PO SCH ×2 (07:26→19:49)
[2020-01-01] MEDS: albuterol 2.5 MG/3 ML nebule NEB PRN ×2 (07:41)
[2020-01-01 07:47] LABS: ANISOCYTOSIS 2+; PLATELET ESTIMATE DECREASED
[2020-01-01] MEDS: insulin Lispro (HumaLOG) vial - multi-dose SQ SCH ×3 (09:43→19:53)
[2020-01-01] MEDS ORDERED: albumin (human) 25% 100 ML IV solution IV ONE (10:55)
[2020-01-01] MEDS: morphine 2 MG/ML inj. syringe IV PRN ×3 (11:14→22:17)
--- NOTE | 2020-01-01 12:43 | NUR ---
Initial: Pt admitted with RLE cellulitis. Per [facility] notes pt with necrotic venous ulcer to right calf and DM ulcer to right great toe with stable soft black eschar. Pt currently on a CHO controlled diet and receiving double protein TID documented with 100% PO intake throughout LOS meeting nutrient needs with adequate protein to support wound healing and skin integrity. Pt with hx ESLD and cirrhosis, currently documented with ascites. Pt s/p paracentesis 12/27 with 5000 mL fluid removed and 12/31 with 6050 mL fluid removed. Wt likely to fluctuate d/t changes in fluid status. Pt with hx T2DM, most recent A1c is 9.0%. Pt previously admitted with A1c of 10.0% and was seen by RD for written and verbal DM education with referral to outpatient CDE course and RD contact information. No further education warranted at this time. LBM 12/30. Pt receiving routine Lactulose which may cause diarrhea. Will continue to follow. Recommendations: 1) Continue CHO controlled diet 2) Double eggs q breakfast, double meat BIDLD 3) Wt per rx Addendum: 01/01/20 at [address] Amended: Links added.
--- NOTE | 2020-01-01 18:00 | NUR ---
Problems reprioritized. Patient report given, questions answered & plan of care reviewed with ELENITA Amin.
--- NOTE | 2020-01-01 18:10 | NUR ---
Patient in room [facility]. I have received report from Elvis KWONG and had the opportunity to ask questions and assume patient care.
[2020-01-01] MEDS: insulin glargine (Lantus) pen - multi-dose SQ SCH (21:15)
[2020-01-01] MEDS: LORazepam 2 mg/ml vial IV PRN (22:42)
[2020-01-02] VITALS: BP 94/53
[2020-01-02] MEDS: morphine 2 MG/ML inj. syringe IV PRN ×2 (05:45→10:17)
[2020-01-02 06:30] VITALS: BP 112/71
--- NOTE | 2020-01-02 06:30 | NUR ---
Dr. Shields notified of patients Arterial Ultrasound showing 100 % arterial occlusion. MD stated to report to morning .
--- NOTE | 2020-01-02 06:51 | NUR ---
Problems reprioritized. Patient report given, questions answered & plan of care reviewed with Miya KWONG.
[2020-01-02] MEDS: albuterol 2.5 MG/3 ML nebule NEB PRN (07:25)
[2020-01-02 07:46] LABS: BASOPHILS # (AUTO) 0.1 X10'3 (0-0.2); BASOPHILS % (AUTO) 0.8 % (0-1); EOSINOPHILS # (AUTO) 0.1 X10'3 (0-0.9); EOSINOPHILS % (AUTO) 1.3 % (0-6); HEMOGLOBIN 11.8 g/dl (12.0-16.0); LYMPHOCYTES # (AUTO) 0.6 X10'3 (1.1-4.8); LYMPHOCYTES % (AUTO) 9.1 % (21-51); MEAN CORPUSCULAR HGB CONC 33.8 g/dL (33.0-36.5); MEAN CORPUSCULAR VOLUME 97.8 FL (78-98); MONOCYTES # (AUTO) 0.8 X10'3 (0-0.9); MONOCYTES % (AUTO) 11.5 % (2-12); NEUTROPHILS # (AUTO) 5.5 X10'3 (1.8-7.7); NEUTROPHILS % (AUTO) 77.3 % (42-75); PLATELET COUNT 125 X10'3 (140-440); RED BLOOD COUNT 3.58 X10'6 (4.20-5.60); RED CELL DISTRIBUTION WIDTH 19.7 % (11.5-14.5); WHITE BLOOD COUNT 7.1 X10'3 (4.5-11.0)
[2020-01-02 07:50] LABS: ALBUMIN 1.8 G/DL (3.4-5.0); ANION GAP -2 (8-16); BLOOD UREA NITROGEN 19 MG/DL (7-18); BUN/CREATININE RATIO 19.6 (6.6-38.0); CALCIUM 7.8 MG/DL (8.5-10.1); CHLORIDE 100 MMOL/L (99-107); CREATININE 0.97 MG/DL (0.40-0.90); GLUCOSE 187 MG/DL (70-104); POTASSIUM 4.5 MMOL/L (3.5-5.1); SODIUM 131 MMOL/L (135-145); TOTAL CARBON DIOXIDE 33.2 MMOL/L (24-32); eGFR 58 ML/MIN
[2020-01-02] MEDS: CefTRIAXone/D5W-Rocephin 1gm 50 ML IV SCH (07:59)
[2020-01-02] MEDS: lactulose 20gm/30ml cup PO SCH ×3 (07:59→21:42)
[2020-01-02] MEDS: metroNIDAZOLE 500mg tablet PO SCH ×2 (07:59→19:31)
[2020-01-02] MEDS: furosemide 20MG tablet PO SCH (07:59)
[2020-01-02] MEDS: lactobacillus rhamnosus 10,000 MMU CELLS/CAPSULE PO SCH ×2 (07:59→19:31)
[2020-01-02] MEDS: HYDROcodone/acetaminophen 10/325mg tab PO PRN (08:00)
[2020-01-02] MEDS: spironolactone 25 MG tablet PO SCH (08:00)
[2020-01-02] MEDS: insulin Lispro (HumaLOG) vial - multi-dose SQ SCH ×3 (08:12→19:35)
--- NOTE | 2020-01-02 10:10 | NUR ---
PAGER ID: [phone] MESSAGE: PANCHITO ANDREW 354A PT. HAS 2 100% ARTERIAL OCCLUSIONS IN R LEG. PT. PAIN UNCONTROLED WITH NORCO 10 AND MS 2MG. 07/02 PAIN. PATRICK [id number]
--- NOTE | 2020-01-02 10:18 | NUR ---
DM consult: Pt with A1c 9.0% which has already been addressed by RD, see below. Initial: Pt admitted with RLE cellulitis. Per [facility] notes pt with necrotic venous ulcer to right calf and DM ulcer to right great toe with stable soft black eschar. Pt currently on a CHO controlled diet and receiving double protein TID documented with 100% PO intake throughout LOS meeting nutrient needs with adequate protein to support wound healing and skin integrity. Pt with hx ESLD and cirrhosis, currently documented with ascites. Pt s/p paracentesis 12/27 with 5000 mL fluid removed and 12/31 with 6050 mL fluid removed. Wt likely to fluctuate d/t changes in fluid status. Pt with hx T2DM, most recent A1c is 9.0%. Pt previously admitted with A1c of 10.0% and was seen by RD for written and verbal DM education with referral to outpatient CDE course and RD contact information. No further education warranted at this time. LBM 12/30. Pt receiving routine Lactulose which may cause diarrhea. Will continue to follow. Recommendations: 1) Continue CHO controlled diet 2) Double eggs q breakfast, double meat BIDLD 3) Wt per rx Addendum: 01/02/20 at [address] Amended: Links added.
[2020-01-02 11:00] VITALS: BP 95/58
[2020-01-02] MEDS: VANCOMYCIN 1,500MG inj. 1,500 MG in normal saline 500ml IV soln 500 ML IV SCH (12:05)
[2020-01-02] MEDS: HYDROmorphone inj. 0.5 MG/0.5 ML DISP.SYRIN IV PRN ×2 (12:06→21:25)
--- NOTE | 2020-01-02 14:45 | NUR ---
Patient in room [facility]. I have received report from ELENITA Holliday and had the opportunity to ask questions and assume patient care.
--- NOTE | 2020-01-02 15:26 | NUR ---
Gave report to Nany RN.
--- NOTE | 2020-01-02 18:15 | NUR ---
Problems reprioritized. Patient report given, questions answered & plan of care reviewed with ELENITA Amin.
--- NOTE | 2020-01-02 18:33 | NUR ---
Patient in room [facility]. I have received report from Nany KWONG and had the opportunity to ask questions and assume patient care.
[2020-01-02 20:00] VITALS: BP 116/83
[2020-01-02] MEDS: insulin glargine (Lantus) pen - multi-dose SQ SCH (21:44)
--- NOTE | 2020-01-02 22:30 | NUR ---
Clarified with Nursing Catalyst Unit Operator Michele that patient does is not scheduled for surgery tomorrow. Addendum: 01/03/20 at 0504 by Eloisa Johnson RN Incorrect patient.
[2020-01-02] MEDS: LORazepam 2 mg/ml vial IV PRN (22:50)
[2020-01-02] MEDS ORDERED: VANCOMYCIN LEVEL IV ONE (23:30)
[2020-01-03] VITALS: BP 91/56
[2020-01-03] MEDS: VANCOMYCIN 1,500MG inj. 1,500 MG in normal saline 500ml IV soln 500 ML IV SCH (00:34)
[2020-01-03 05:18] LABS: ALBUMIN 1.6 G/DL (3.4-5.0); ANION GAP 2 (8-16); BLOOD UREA NITROGEN 20 MG/DL (7-18); BUN/CREATININE RATIO 24.1 (6.6-38.0); CALCIUM 7.3 MG/DL (8.5-10.1); CHLORIDE 100 MMOL/L (99-107); CREATININE 0.83 MG/DL (0.40-0.90); POTASSIUM 4.3 MMOL/L (3.5-5.1); SODIUM 131 MMOL/L (135-145); TOTAL CARBON DIOXIDE 29.3 MMOL/L (24-32); eGFR 70 ML/MIN
[2020-01-03 05:19] LABS: GLUCOSE 159 MG/DL (70-104)
[2020-01-03 05:30] LABS: BASOPHILS % (AUTO) 0.5 % (0-1); EOSINOPHILS # (AUTO) 0.1 X10'3 (0-0.9); HEMOGLOBIN 10.8 g/dl (12.0-16.0); LYMPHOCYTES # (AUTO) 0.7 X10'3 (1.1-4.8); LYMPHOCYTES % (AUTO) 9.9 % (21-51); MEAN CORPUSCULAR HEMOGLOBIN 33.3 PG (27.0-31.0); MEAN CORPUSCULAR HGB CONC 33.7 g/dL (33.0-36.5); MEAN CORPUSCULAR VOLUME 98.9 FL (78-98); MEAN PLATELET VOLUME 7.2 FL (7.4-10.4); MONOCYTES # (AUTO) 0.9 X10'3 (0-0.9); MONOCYTES % (AUTO) 12.4 % (2-12); NEUTROPHILS # (AUTO) 5.5 X10'3 (1.8-7.7); NEUTROPHILS % (AUTO) 75.2 % (42-75); PLATELET COUNT 119 X10'3 (140-440); RED BLOOD COUNT 3.23 X10'6 (4.20-5.60); RED CELL DISTRIBUTION WIDTH 20.1 % (11.5-14.5); WHITE BLOOD COUNT 7.3 X10'3 (4.5-11.0)
--- NOTE | 2020-01-03 06:53 | NUR ---
Problems reprioritized. Patient report given, questions answered & plan of care reviewed with Roselyn KWONG.
--- NOTE | 2020-01-03 06:54 | NUR ---
Patient in room [facility]. I have received report from Eloisa KWONG and had the opportunity to ask questions and assume patient care.
[2020-01-03 07:00] VITALS: BP 103/75
[2020-01-03 07:14] LABS: PLATELET ESTIMATE DECREASED
[2020-01-03 07:15] LABS: ANISOCYTOSIS 3+; BURR CELLS 2+; HYPOCHROMASIA 1+; POLYCHROMASIA 1+
[2020-01-03] MEDS: lactulose 20gm/30ml cup PO SCH ×3 (07:49→21:00)
[2020-01-03] MEDS: lactobacillus rhamnosus 10,000 MMU CELLS/CAPSULE PO SCH ×2 (07:49→19:30)
[2020-01-03] MEDS: metroNIDAZOLE 500mg tablet PO SCH ×2 (07:49→19:30)
[2020-01-03] MEDS: spironolactone 25 MG tablet PO SCH (07:50)
[2020-01-03] MEDS: LORazepam 2 mg/ml vial IV PRN (07:50)
[2020-01-03] MEDS: furosemide 20MG tablet PO SCH (07:50)
[2020-01-03] MEDS: CefTRIAXone/D5W-Rocephin 1gm 50 ML IV SCH (07:56)
[2020-01-03] MEDS: HYDROcodone/acetaminophen 10/325mg tab PO PRN ×2 (09:06→13:46)
[2020-01-03] MEDS: insulin Lispro (HumaLOG) vial - multi-dose SQ SCH ×3 (09:14→19:29)
[2020-01-03] MEDS: HYDROmorphone inj. 0.5 MG/0.5 ML DISP.SYRIN IV PRN ×2 (09:43→17:35)
[2020-01-03] MEDS ORDERED: heparin 10,000 units/1 ML INJ IV ONE (16:20)
[2020-01-03] MEDS: heparin 25,000 UNIT/250ml bag 250 ML IV SCH (17:25)
[2020-01-03] MEDS: VANCOmycin 1250MG/NS 250ml Bag 250 ML IV SCH ×2 (17:40→23:57)
[2020-01-03 18:00] VITALS: BP 109/66
--- NOTE | 2020-01-03 19:17 | NUR ---
Much time spent with patient. Seen by DR Azul, heparin drip ordered. Labs drawn. Heparin drip initiated 1724. patient also seen by DR Ang, Pictures done of wounds, redressed. Dilaudid and norco given for pain with effect. Good caplllary refil in right foot, but very swollen and painful.
--- NOTE | 2020-01-03 19:19 | NUR ---
Problems reprioritized. Patient report given, questions answered & plan of care reviewed with Fariba KWONG.
[2020-01-03] MEDS: insulin glargine (Lantus) pen - multi-dose SQ SCH (21:04)
[2020-01-03 21:06] LABS: PARTIAL THROMBOPLASTIN TIME 31 SECONDS (22-32)
[2020-01-03] MEDS ORDERED: VANCOMYCIN LEVEL IV ONE (23:30)
[2020-01-04] VITALS (12 sets, daily range): BP systolic 83–119; BP diastolic 56–84
--- NOTE | 2020-01-04 00:20 | NUR ---
Critical DVT PTT: 133. Lab advised to redraw PTT. Heparin infusion stopped to redraw at this moment.
--- NOTE | 2020-01-04 01:16 | NUR ---
Critical DVT PTT 139. Heparin infusion stopped per protocol.
[2020-01-04] MEDS: HYDROmorphone inj. 0.5 MG/0.5 ML DISP.SYRIN IV PRN ×2 (02:06→12:20)
[2020-01-04] MEDS: heparin 25,000 UNIT/250ml bag 250 ML IV SCH ×2 (04:01→16:54)
[2020-01-04 04:18] LABS: BASOPHILS # (AUTO) 0.1 X10'3 (0-0.2); BASOPHILS % (AUTO) 0.7 % (0-1); EOSINOPHILS # (AUTO) 0.2 X10'3 (0-0.9); HEMATOCRIT 35.5 % (35.0-45.0); LYMPHOCYTES # (AUTO) 0.9 X10'3 (1.1-4.8); LYMPHOCYTES % (AUTO) 10.8 % (21-51); MEAN CORPUSCULAR HEMOGLOBIN 33.1 PG (27.0-31.0); MEAN CORPUSCULAR HGB CONC 33.8 g/dL (33.0-36.5); MEAN PLATELET VOLUME 7.1 FL (7.4-10.4); MONOCYTES # (AUTO) 1.1 X10'3 (0-0.9); MONOCYTES % (AUTO) 12.7 % (2-12); NEUTROPHILS # (AUTO) 6.2 X10'3 (1.8-7.7); NEUTROPHILS % (AUTO) 73.8 % (42-75); PLATELET COUNT 151 X10'3 (140-440); RED BLOOD COUNT 3.63 X10'6 (4.20-5.60); RED CELL DISTRIBUTION WIDTH 20.4 % (11.5-14.5); WHITE BLOOD COUNT 8.4 X10'3 (4.5-11.0)
[2020-01-04 04:57] LABS: ANISOCYTOSIS 3+; PLATELET ESTIMATE NORMAL; POLYCHROMASIA 1+
--- NOTE | 2020-01-04 06:15 | NUR ---
Problems reprioritized. Patient report given, questions answered & plan of care reviewed with ELENITA Beal.
[2020-01-04] MEDS: heparin 10,000 units/1 ML INJ IV PRN (07:27)
[2020-01-04] MEDS: lactulose 20gm/30ml cup PO SCH ×3 (08:00→20:18)
[2020-01-04] MEDS: CefTRIAXone/D5W-Rocephin 1gm 50 ML IV SCH (08:00)
[2020-01-04] MEDS: furosemide 20MG tablet PO SCH (08:00)
[2020-01-04] MEDS: VANCOmycin 1250MG/NS 250ml Bag 250 ML IV SCH ×3 (08:07→23:10)
[2020-01-04] MEDS: lactobacillus rhamnosus 10,000 MMU CELLS/CAPSULE PO SCH ×2 (08:42→20:18)
[2020-01-04] MEDS: metroNIDAZOLE 500mg tablet PO SCH ×2 (08:42→20:18)
[2020-01-04] MEDS: spironolactone 25 MG tablet PO SCH (08:44)
[2020-01-04] MEDS: LORazepam 2 mg/ml vial IV PRN (08:44)
[2020-01-04] MEDS: HYDROcodone/acetaminophen 10/325mg tab PO PRN (10:33)
--- NOTE | 2020-01-04 13:55 | NUR ---
Critical calue aPtt of 122. Protocol followed, heparin stopped, will be restarted at 1600 <3units/kg. New rate at 1100units/hr. Charge nurse notified of critical.
[2020-01-04] MEDS ORDERED: midazolam 2 mg/2 ml injection IV PRN (14:35)
[2020-01-04] MEDS ORDERED: LIDOcaine 1%/PF 5ML 10 MG/ML VIAL SQ ONE (14:35)
[2020-01-04] MEDS ORDERED: heparin 1,000 UNITS/NS 500ml 500 ML ICATH ONE (14:35)
[2020-01-04] MEDS ORDERED: fentaNYL/PF 50MCG/1 ML 2ML syringe IV PRN (14:35)
--- NOTE | 2020-01-04 14:45 | NUR ---
Pt going to IR for intervention, attempting to remove DVT on right leg. Pt NPO since midnight, pt very upset because of it. Dr Ang aware of the issues with pt. Pt cussing, angry and threatening to leave. Jaime ly IR came to get her for procedure. Pt A & O x4.
--- NOTE | 2020-01-04 16:45 | NUR ---
Pr returning from IR, pt's DVT too large to remove, Dr Cordova will do the consult for the surgery. Pt can eat and must lay flat for [address] Ang called and he is aware of events.
--- NOTE | 2020-01-04 18:17 | NUR ---
Received report from ELENITA Beal. Patient resting comfortably on room air, in no apparent distress. Call light and items of frequent use within reach. Will continue to monitor.
--- NOTE | 2020-01-04 18:20 | NUR ---
Problems reprioritized. Patient report given, questions answered & plan of care reviewed with Fariba KWONG.
[2020-01-04] MEDS: insulin Lispro (HumaLOG) vial - multi-dose SQ SCH (18:43)
[2020-01-04] MEDS: insulin glargine (Lantus) pen - multi-dose SQ SCH (20:26)
--- NOTE | 2020-01-04 23:20 | NUR ---
PTT result 53; within therapeutic range. No changes made on Heparin infusion. Will continue to monitor.
[2020-01-05] VITALS: BP 93/52
[2020-01-05] MEDS: HYDROmorphone inj. 0.5 MG/0.5 ML DISP.SYRIN IV PRN ×3 (02:37→14:01)
[2020-01-05 05:52] LABS: BASOPHILS # (AUTO) 0.1 X10'3 (0-0.2); BASOPHILS % (AUTO) 1.3 % (0-1); EOSINOPHILS # (AUTO) 0.1 X10'3 (0-0.9); EOSINOPHILS % (AUTO) 1.5 % (0-6); HEMATOCRIT 32.4 % (35.0-45.0); LYMPHOCYTES # (AUTO) 0.7 X10'3 (1.1-4.8); LYMPHOCYTES % (AUTO) 10.5 % (21-51); MEAN CORPUSCULAR HEMOGLOBIN 32.9 PG (27.0-31.0); MEAN CORPUSCULAR HGB CONC 33.8 g/dL (33.0-36.5); MEAN CORPUSCULAR VOLUME 97.1 FL (78-98); MEAN PLATELET VOLUME 7.1 FL (7.4-10.4); MONOCYTES # (AUTO) 0.8 X10'3 (0-0.9); MONOCYTES % (AUTO) 11.9 % (2-12); NEUTROPHILS % (AUTO) 74.8 % (42-75); PLATELET COUNT 148 X10'3 (140-440); RED BLOOD COUNT 3.33 X10'6 (4.20-5.60); RED CELL DISTRIBUTION WIDTH 20.2 % (11.5-14.5); WHITE BLOOD COUNT 6.7 X10'3 (4.5-11.0)
[2020-01-05] MEDS: heparin 10,000 units/1 ML INJ IV PRN (06:34)
[2020-01-05] MEDS: heparin 25,000 UNIT/250ml bag 250 ML IV SCH ×3 (06:36→18:23)
--- NOTE | 2020-01-05 06:38 | NUR ---
Patient in room [facility]. I have received report from ELENITA Link and had the opportunity to ask questions and assume patient care.
--- NOTE | 2020-01-05 06:40 | NUR ---
Problems reprioritized. Patient report given, questions answered & plan of care reviewed with ELENITA Lopez.
[2020-01-05] MEDS: VANCOmycin 1250MG/NS 250ml Bag 250 ML IV SCH ×3 (07:32→23:17)
[2020-01-05 07:33] LABS: ANISOCYTOSIS 3+; PLATELET ESTIMATE NORMAL
[2020-01-05] MEDS: lactulose 20gm/30ml cup PO SCH ×3 (07:33→21:03)
[2020-01-05] MEDS: spironolactone 25 MG tablet PO SCH (07:33)
[2020-01-05] MEDS: furosemide 20MG tablet PO SCH (07:33)
[2020-01-05] MEDS: lactobacillus rhamnosus 10,000 MMU CELLS/CAPSULE PO SCH ×2 (07:33→19:19)
[2020-01-05] MEDS: metroNIDAZOLE 500mg tablet PO SCH ×2 (07:33→19:19)
[2020-01-05 07:35] LABS: POLYCHROMASIA FEW
[2020-01-05 08:00] VITALS: BP 122/84
[2020-01-05] MEDS: insulin Lispro (HumaLOG) vial - multi-dose SQ SCH ×3 (08:52→18:37)
--- NOTE | 2020-01-05 10:00 | NUR ---
Paged Dr Agn to find out if patient can eat breakfast or is she having a procedure today. Per Dr Ang call Dr Jorgensen to see what the plan is. Called Dr Jorgensen he will be by to see patient today ok to let her eat. Dr Jorgensen aware patient threatening to leave AMA if she does not get to eat.
[2020-01-05] MEDS: CefTRIAXone/D5W-Rocephin 1gm 50 ML IV SCH (10:19)
[2020-01-05 11:27] VITALS: BP 111/77
[2020-01-05] MEDS: LORazepam 2 mg/ml vial IV PRN (12:06)
--- NOTE | 2020-01-05 12:38 | NUR ---
WOUND INFECTION EDUCATION PROVIDED BY WOUND CARE 1. Patient instructed to call their primary doctor, or go the ED immediately if any of the following symptoms occur: * Increased pain in wound * Increase in drainage from the wound * Redness in the skin surrounding the wound * Warmth in the skin surrounding the wound * Bleeding from the wound * Temperature of 101 or greater 2. If any of these occur while in the hospital tell a nurse immediately. Addendum: 01/05/20 at 1238 by Lawrence Helms RN Amended: Links added.
--- NOTE | 2020-01-05 14:14 | NUR ---
DM Consult: Pt placed on 2g Na restriction in addition to carb controlled diet, requests double proteins TIDWM, and carb controlled snacks between meals. Pt is receiving double proteins TIDWM meeting nutrient needs w/ 100% PO intake and requesting snacks. 01/02 consuming 2140kcals and 135g protein meeting RD recs below. Pt is noted to have wounds making lower carb strawberry Roland smoothie ONS supplementation appropriate at this time; to send BIDBL once approved and could serve as carb controlled snacks. MD notified. Floor pantry contains sugar free snack and protein options which can be provided to pt on PRN basis if continues requesting additional foods. LBM 01/03. No nutrition concerns at this time. Will continue to monitor. Pt DM has already been addressed; see prior RD note. Recommendations: 1) Continue CHO controlled/2 gram Na-restricted diet per MD 2) Double eggs q breakfast, double meat BIDLD 3) [place] Roland smoothie BIDBL; pending MD verification 4) bowel care as needed 5) Wt per rx Addendum: 01/05/20 at [address] Amended: Links added.
[2020-01-05] MEDS: Dakins solution (1/4 strength) 473ml solution TP SCH (17:06)
--- NOTE | 2020-01-05 18:24 | NUR ---
Problems reprioritized. Patient report given, questions answered & plan of care reviewed with ELENITA Link.
--- NOTE | 2020-01-05 18:25 | NUR ---
Received report from ELENITA Lopez. Patient awake and alert on room air, in no apparent distress. Call light and items of frequent use within reach. Will continue to monitor.
[2020-01-05] MEDS: HYDROcodone/acetaminophen 10/325mg tab PO PRN (19:23)
--- NOTE | 2020-01-05 19:47 | NUR ---
Heparin DVT PTT 45. Within therapeutic range. Will continue to monitor.
[2020-01-05 20:00] VITALS: BP 111/65
[2020-01-05] MEDS: insulin glargine (Lantus) pen - multi-dose SQ SCH (21:01)
--- NOTE | 2020-01-05 21:40 | NUR ---
Dr Smith at bedside
[2020-01-05] MEDS ORDERED: metoprolol tartrate 1mg/ml inj IV PRN (21:50)
[2020-01-05] MEDS ORDERED: aminophylline 250mg/10ml inj. IV PRN (21:50)
[2020-01-05] MEDS ORDERED: nitroGLYCERIN 0.4mg SUBLingual tab SL PRN (21:50)
[2020-01-05] MEDS ORDERED: regadenoson 0.4mg/5ml syringe IV ONE (21:50)
--- NOTE | 2020-01-05 23:00 | NUR ---
Attempted calling back; did not pick up man.
[2020-01-06] VITALS (11 sets, daily range): BP systolic 86–121; BP diastolic 47–89
--- NOTE | 2020-01-06 00:45 | NUR ---
Patient refused to have wound care done on right posterior knee.
[2020-01-06 01:31] LABS: BASOPHILS % (AUTO) 0.3 % (0-1); EOSINOPHILS # (AUTO) 0.1 X10'3 (0-0.9); EOSINOPHILS % (AUTO) 1.7 % (0-6); HEMOGLOBIN 10.2 g/dl (12.0-16.0); LYMPHOCYTES # (AUTO) 0.9 X10'3 (1.1-4.8); MEAN CORPUSCULAR HEMOGLOBIN 33.7 PG (27.0-31.0); MEAN PLATELET VOLUME 6.8 FL (7.4-10.4); MONOCYTES # (AUTO) 0.8 X10'3 (0-0.9); MONOCYTES % (AUTO) 10.7 % (2-12); NEUTROPHILS # (AUTO) 5.3 X10'3 (1.8-7.7); NEUTROPHILS % (AUTO) 74.3 % (42-75); PLATELET COUNT 147 X10'3 (140-440); RED BLOOD COUNT 3.03 X10'6 (4.20-5.60); RED CELL DISTRIBUTION WIDTH 20.5 % (11.5-14.5); WHITE BLOOD COUNT 7.1 X10'3 (4.5-11.0)
--- NOTE | 2020-01-06 01:35 | NUR ---
Heparin DVT PTT result 54. Within therapeutic range. No Heparin infusion rate change needed. Will continue to monitor.
[2020-01-06 03:54] LABS: PLATELET ESTIMATE NORMAL
[2020-01-06 03:55] LABS: ANISOCYTOSIS 2+
--- NOTE | 2020-01-06 04:20 | NUR ---
Walked in to patient's room as she was screaming "help!" Upon asking, patient said she wants to drink something. Reminded her again that she is NPO for a procedure in the morning (she has been asking for food and drinks almost every hour, and she is aware that she is NPO past midnight). Patient tried to convince me that Dr. Smith okayed her to have drinks, but that is not true as his orders said she is to be NPO. I was present in the room whole time Luis was at bedside. Noticed that her wound dressings and linens are soiled. Informed her I need to change the dressings and linens and that its not good for her to stay soiled. Patient blatantly refused saying " I dont want nothing. No drinks, no changing, nothing. Leave me alone!" Will continue to monitor.
[2020-01-06] MEDS: HYDROmorphone inj. 0.5 MG/0.5 ML DISP.SYRIN IV PRN ×4 (04:30→21:51)
--- NOTE | 2020-01-06 06:24 | NUR ---
Problems reprioritized. Patient report given, questions answered & plan of care reviewed with ELENITA Briseno.
[2020-01-06] MEDS: JUVEN Smoothie Arginine/Glut./Ca2+Bmb (Juven 19.3pkt) 240ml cup PO SCH ×2 (07:30→12:30)
[2020-01-06] MEDS: CefTRIAXone/D5W-Rocephin 1gm 50 ML IV SCH (07:40)
[2020-01-06] MEDS: metroNIDAZOLE 500mg tablet PO SCH ×2 (07:40→21:27)
[2020-01-06 07:49] LABS: ALBUMIN 1.6 G/DL (3.4-5.0); ANION GAP 1 (8-16); BLOOD UREA NITROGEN 16 MG/DL (7-18); BUN/CREATININE RATIO 15.1 (6.6-38.0); CHLORIDE 100 MMOL/L (99-107); CREATININE 1.06 MG/DL (0.40-0.90); POTASSIUM 4.7 MMOL/L (3.5-5.1); SODIUM 132 MMOL/L (135-145); TOTAL CARBON DIOXIDE 31.3 MMOL/L (24-32); eGFR 53 ML/MIN
[2020-01-06 07:52] LABS: GLUCOSE 133 MG/DL (70-104)
[2020-01-06] MEDS: lactobacillus rhamnosus 10,000 MMU CELLS/CAPSULE PO SCH ×2 (07:53→21:26)
[2020-01-06] MEDS: lactulose 20gm/30ml cup PO SCH ×3 (07:53→21:26)
[2020-01-06] MEDS: spironolactone 25 MG tablet PO SCH (09:02)
[2020-01-06] MEDS: furosemide 20MG tablet PO SCH (09:02)
[2020-01-06] MEDS: Dakins solution (1/4 strength) 473ml solution TP SCH ×2 (09:06→21:26)
[2020-01-06] MEDS: VANCOmycin 1250MG/NS 250ml Bag 250 ML IV SCH ×2 (09:06→16:14)
[2020-01-06] MEDS: insulin Lispro (HumaLOG) vial - multi-dose SQ SCH ×3 (09:37→19:32)
[2020-01-06] MEDS ORDERED: morphine 4 MG/ML inj SYRINge IV PRN (10:20)
[2020-01-06] MEDS: LORazepam 2 mg/ml vial IV PRN (15:21)
--- NOTE | 2020-01-06 18:30 | NUR ---
Patient in room [facility]. I have received report from ELENITA Briseno and had the opportunity to ask questions and assume patient care. Addendum: 01/07/20 at 0153 by Mike Caal RN Amended: Links added.
--- NOTE | 2020-01-06 18:30 | NUR ---
all dressing changed by ARLINE Briseno @ [phone], per Arline Briseno Addendum: 01/07/20 at 0154 by Mike Caal RN Amended: Links added.
--- NOTE | 2020-01-06 19:33 | NUR ---
TURNS SELF, LABS DRAWN, PT EATING SECOND DINNER. Addendum: 01/06/20 at 1934 by Mike Caal RN Amended: Links added.
[2020-01-06] MEDS: insulin glargine (Lantus) pen - multi-dose SQ SCH (21:34)
[2020-01-06] MEDS: heparin 25,000 UNIT/250ml bag 250 ML IV SCH ×2 (21:38→22:24)
[2020-01-06] MEDS: albuterol 2.5 MG/3 ML nebule NEB PRN (23:14)
[2020-01-07] MEDS: VANCOmycin 1250MG/NS 250ml Bag 250 ML IV SCH ×3 (00:28→16:27)
[2020-01-07 00:30] VITALS: BP 110/72
[2020-01-07 02:03] LABS: BASOPHILS # (AUTO) 0.1 X10'3 (0-0.2); BASOPHILS % (AUTO) 1.5 % (0-1); EOSINOPHILS # (AUTO) 0.1 X10'3 (0-0.9); EOSINOPHILS % (AUTO) 1.6 % (0-6); HEMATOCRIT 32.5 % (35.0-45.0); LYMPHOCYTES % (AUTO) 11.8 % (21-51); MEAN CORPUSCULAR HEMOGLOBIN 33.6 PG (27.0-31.0); MEAN CORPUSCULAR HGB CONC 33.9 g/dL (33.0-36.5); MEAN CORPUSCULAR VOLUME 99.3 FL (78-98); MEAN PLATELET VOLUME 6.8 FL (7.4-10.4); MONOCYTES # (AUTO) 1.1 X10'3 (0-0.9); MONOCYTES % (AUTO) 13.1 % (2-12); NEUTROPHILS # (AUTO) 6.1 X10'3 (1.8-7.7); PLATELET COUNT 188 X10'3 (140-440); RED BLOOD COUNT 3.27 X10'6 (4.20-5.60); RED CELL DISTRIBUTION WIDTH 20.5 % (11.5-14.5); WHITE BLOOD COUNT 8.4 X10'3 (4.5-11.0)
[2020-01-07 03:06] LABS: PLATELET ESTIMATE NORMAL
[2020-01-07 03:08] LABS: ANISOCYTOSIS 2+
[2020-01-07] MEDS: HYDROmorphone inj. 0.5 MG/0.5 ML DISP.SYRIN IV PRN ×4 (05:00→23:14)
--- NOTE | 2020-01-07 05:00 | NUR ---
awake c/o pain, crying, dilauded iv given poc with pillows. pt refuses to turn with nursing, states turns self. Addendum: 01/07/20 at 0521 by Mike Caal RN Amended: Links added.
--- NOTE | 2020-01-07 06:23 | NUR ---
Problems reprioritized. Patient report given, questions answered & plan of care reviewed with ELENITA Briseno. Addendum: 01/07/20 at 0624 by Mike Caal RN Amended: Links added.
[2020-01-07] MEDS: albuterol 2.5 MG/3 ML nebule NEB PRN ×2 (06:49→11:14)
[2020-01-07 07:00] VITALS: BP 107/64
[2020-01-07] MEDS: spironolactone 25 MG tablet PO SCH (07:59)
[2020-01-07] MEDS: furosemide 20MG tablet PO SCH (07:59)
[2020-01-07] MEDS: CefTRIAXone/D5W-Rocephin 1gm 50 ML IV SCH (07:59)
[2020-01-07] MEDS: metroNIDAZOLE 500mg tablet PO SCH ×2 (07:59→19:23)
[2020-01-07] MEDS: lactobacillus rhamnosus 10,000 MMU CELLS/CAPSULE PO SCH ×2 (07:59→19:23)
[2020-01-07] MEDS: lactulose 20gm/30ml cup PO SCH ×3 (07:59→19:29)
[2020-01-07] MEDS: Dakins solution (1/4 strength) 473ml solution TP SCH ×2 (08:00→19:35)
[2020-01-07] MEDS: insulin Lispro (HumaLOG) vial - multi-dose SQ SCH ×3 (09:16→19:27)
[2020-01-07 12:00] VITALS: BP 112/65
[2020-01-07] MEDS: JUVEN Smoothie Arginine/Glut./Ca2+Bmb (Juven 19.3pkt) 240ml cup PO SCH (12:30)
[2020-01-07] MEDS: LORazepam 2 mg/ml vial IV PRN (18:05)
--- NOTE | 2020-01-07 18:30 | NUR ---
Patient in room [facility]. I have received report from ELENITA BRAN and had the opportunity to ask questions and assume patient care. Addendum: 01/07/20 at 1902 by Mike Caal RN Amended: Links added.
[2020-01-07 19:00] VITALS: BP 109/70
--- NOTE | 2020-01-07 19:03 | NUR ---
PT STILL EATING DINNER, TALKING ON PHONE, HAD REQ EXTRA FOOD. UNABLE TO GIVE INSULIN AT THIS TIME. Addendum: 01/07/20 at 1903 by Mike Caal RN Amended: Links added.
--- NOTE | 2020-01-07 19:30 | NUR ---
PT HAS VEIN MAPPING BILAT LEGS, SLIGHT FADED UPPER THIGHS, PT HAS BEEN INC OF URINE. Addendum: 01/08/20 at 0159 by Mike Caal RN Amended: Links added.
--- NOTE | 2020-01-07 19:30 | NUR ---
PT TAKES OXYGEN OFF. Addendum: 01/08/20 at 0217 by Mike Caal RN Amended: Links added.
--- NOTE | 2020-01-07 19:30 | NUR ---
UNABLE TO LOCATE DOPPLER TO ASSESS PEDAL PULSE. Addendum: 01/08/20 at 0217 by Mike Caal RN Amended: Links added.
--- NOTE | 2020-01-07 20:36 | NUR ---
found pt sleeping on room air. Pt did not appear to be in distress. I did vitals check and SpO2 was 78%. I awoke pt who was groggy and became emotional. Pt was placed on 4L NC and saturations climbed to 94%. I educated pt on the risks of not wearing O2 and asked if she wears O2 at home. She states that she does not but would like home O2 before falling back to sleep. Pt has moderate/severe digital clubbing
[2020-01-07] MEDS: insulin glargine (Lantus) pen - multi-dose SQ SCH (21:46)
[2020-01-07] MEDS: heparin 25,000 UNIT/250ml bag 250 ML IV SCH (22:49)
--- NOTE | 2020-01-07 23:00 | NUR ---
PRE OP BATH GIVEN, VEIN MAPPING REMAINS UNCHANGED. Addendum: 01/08/20 at 0104 by Mike Caal RN Amended: Links added.
[2020-01-08] VITALS: BP 90/57
[2020-01-08] MEDS: VANCOmycin 1250MG/NS 250ml Bag 250 ML IV SCH ×3 (00:37→16:35)
[2020-01-08 02:28] LABS: BASOPHILS # (AUTO) 0.1 X10'3 (0-0.2); BASOPHILS % (AUTO) 1.2 % (0-1); EOSINOPHILS # (AUTO) 0.2 X10'3 (0-0.9); EOSINOPHILS % (AUTO) 2.2 % (0-6); HEMATOCRIT 30.1 % (35.0-45.0); HEMOGLOBIN 10.3 g/dl (12.0-16.0); LYMPHOCYTES # (AUTO) 0.8 X10'3 (1.1-4.8); LYMPHOCYTES % (AUTO) 10.6 % (21-51); MEAN CORPUSCULAR HEMOGLOBIN 33.9 PG (27.0-31.0); MEAN CORPUSCULAR HGB CONC 34.3 g/dL (33.0-36.5); MEAN CORPUSCULAR VOLUME 98.8 FL (78-98); MONOCYTES # (AUTO) 1.1 X10'3 (0-0.9); MONOCYTES % (AUTO) 14.2 % (2-12); NEUTROPHILS # (AUTO) 5.5 X10'3 (1.8-7.7); NEUTROPHILS % (AUTO) 71.8 % (42-75); PLATELET COUNT 177 X10'3 (140-440); RED BLOOD COUNT 3.05 X10'6 (4.20-5.60); WHITE BLOOD COUNT 7.6 X10'3 (4.5-11.0)
[2020-01-08 03:04] LABS: PLATELET ESTIMATE NORMAL
[2020-01-08 03:06] LABS: ANISOCYTOSIS 2+
--- NOTE | 2020-01-08 04:30 | NUR ---
PT YELLED AND SWUNG ARM WHEN IV FLUSHED, STATES TO "LEAVE IT ALONE", YELLING WHEN NOT TOUCHED AND STATES IT HURTS. EXPLAINED TO PT IF IT IS NOT WORKING WE NEED TO TAKE IT OUT, PT REFUSES TO HAVE REMOVED OR ASSESSED AT THIS TIME. Addendum: 01/08/20 at 0507 by Mike Caal RN Amended: Links added.
[2020-01-08] MEDS: HYDROmorphone inj. 0.5 MG/0.5 ML DISP.SYRIN IV PRN ×3 (04:31→18:39)
--- NOTE | 2020-01-08 06:28 | NUR ---
Problems reprioritized. Patient report given, questions answered & plan of care reviewed with ELENITA BRAN. Addendum: 01/08/20 at 0629 by Mike Caal RN Amended: Links added.
[2020-01-08 08:00] VITALS: BP 92/59
[2020-01-08] MEDS: Dakins solution (1/4 strength) 473ml solution TP SCH ×2 (08:00→19:37)
[2020-01-08] MEDS: furosemide 20MG tablet PO SCH (08:00)
[2020-01-08] MEDS: lactulose 20gm/30ml cup PO SCH ×3 (08:54→21:10)
[2020-01-08] MEDS: metroNIDAZOLE 500mg tablet PO SCH ×2 (08:54→19:37)
[2020-01-08] MEDS: lactobacillus rhamnosus 10,000 MMU CELLS/CAPSULE PO SCH ×2 (08:54→19:37)
[2020-01-08] MEDS: spironolactone 25 MG tablet PO SCH (08:54)
[2020-01-08] MEDS: insulin Lispro (HumaLOG) vial - multi-dose SQ SCH ×2 (09:27→18:52)
[2020-01-08 12:00] VITALS: BP 115/69
[2020-01-08] MEDS: CefTRIAXone/D5W-Rocephin 1gm 50 ML IV SCH (12:00)
[2020-01-08] MEDS: heparin 25,000 UNIT/250ml bag 250 ML IV SCH ×2 (12:58→22:07)
[2020-01-08] MEDS ORDERED: ringers solution, lacted 1,000 ML IV ONE (14:12)
[2020-01-08] MEDS: LORazepam 2 mg/ml vial IV PRN ×2 (14:21→21:28)
[2020-01-08] MEDS: JUVEN Smoothie Arginine/Glut./Ca2+Bmb (Juven 19.3pkt) 240ml cup PO SCH ×2 (14:22→14:23)
--- NOTE | 2020-01-08 17:22 | NUR ---
patient has removed wound care dressings x2 today. Educated patient on the importance or proper wound care. She stated that she did not care she was going to scratch her wounds.
--- NOTE | 2020-01-08 18:30 | NUR ---
Received report from primary care nurse Suzanna KWONG. Assumed patient care with Justyna KWONG. Patient is awake and alert on room air. In no apparent distress eating her dinner. Call light and items of frequent use within reach. Will continue to monitor for changes.
[2020-01-08 19:01] VITALS: BP 100/65
[2020-01-08] MEDS: insulin glargine (Lantus) pen - multi-dose SQ SCH (21:00)
--- NOTE | 2020-01-08 21:05 | NUR ---
Patient with blood sugar of 66 followed protocol and per MD Amin. Hold lantus
[2020-01-08] MEDS: dextrose ORAL solution 15 GM/59 ML bottle PO PRN ×2 (21:10→21:23)
[2020-01-09] VITALS (18 sets, daily range): BP systolic 90–140; BP diastolic 46–72
[2020-01-09] MEDS: HYDROmorphone inj. 0.5 MG/0.5 ML DISP.SYRIN IV PRN ×2 (00:02→05:53)
[2020-01-09] MEDS: VANCOmycin 1250MG/NS 250ml Bag 250 ML IV SCH ×4 (01:22→23:51)
--- NOTE | 2020-01-09 06:33 | NUR ---
Patient in room [facility]. I have received report from ELENITA Jacob and had the opportunity to ask questions and assume patient care.
[2020-01-09] MEDS: CefTRIAXone/D5W-Rocephin 1gm 50 ML IV SCH (07:21)
[2020-01-09] MEDS: metroNIDAZOLE 500mg tablet PO SCH ×2 (07:21→20:53)
[2020-01-09] MEDS: JUVEN Smoothie Arginine/Glut./Ca2+Bmb (Juven 19.3pkt) 240ml cup PO SCH ×2 (07:30→14:31)
[2020-01-09 07:32] LABS: BASOPHILS # (AUTO) 0.1 X10'3 (0-0.2); BASOPHILS % (AUTO) 1.4 % (0-1); EOSINOPHILS # (AUTO) 0.1 X10'3 (0-0.9); EOSINOPHILS % (AUTO) 1.1 % (0-6); HEMATOCRIT 33.1 % (35.0-45.0); LYMPHOCYTES # (AUTO) 0.5 X10'3 (1.1-4.8); LYMPHOCYTES % (AUTO) 8.5 % (21-51); MEAN CORPUSCULAR HEMOGLOBIN 33.1 PG (27.0-31.0); MEAN CORPUSCULAR HGB CONC 33.2 g/dL (33.0-36.5); MEAN CORPUSCULAR VOLUME 99.6 FL (78-98); MEAN PLATELET VOLUME 6.9 FL (7.4-10.4); MONOCYTES # (AUTO) 0.7 X10'3 (0-0.9); MONOCYTES % (AUTO) 11.2 % (2-12); NEUTROPHILS # (AUTO) 4.9 X10'3 (1.8-7.7); NEUTROPHILS % (AUTO) 77.8 % (42-75); PLATELET COUNT 178 X10'3 (140-440); RED BLOOD COUNT 3.32 X10'6 (4.20-5.60); RED CELL DISTRIBUTION WIDTH 21.3 % (11.5-14.5); WHITE BLOOD COUNT 6.3 X10'3 (4.5-11.0)
[2020-01-09 07:35] LABS: ALBUMIN 1.6 G/DL (3.4-5.0); BLOOD UREA NITROGEN 20 MG/DL (7-18); CHLORIDE 100 MMOL/L (99-107); CREATININE 1.33 MG/DL (0.40-0.90); POTASSIUM 5.2 MMOL/L (3.5-5.1); eGFR 41 ML/MIN
[2020-01-09 07:40] LABS: SODIUM 130 MMOL/L (135-145); TOTAL CARBON DIOXIDE 32.3 MMOL/L (24-32)
[2020-01-09 07:41] LABS: GLUCOSE 178 MG/DL (70-104)
[2020-01-09 07:45] LABS: ANION GAP -2 (8-16)
[2020-01-09] MEDS: lactulose 20gm/30ml cup PO SCH ×3 (08:00→20:53)
[2020-01-09] MEDS: Dakins solution (1/4 strength) 473ml solution TP SCH ×2 (08:00→20:53)
[2020-01-09] MEDS: spironolactone 25 MG tablet PO SCH (08:00)
[2020-01-09] MEDS: lactobacillus rhamnosus 10,000 MMU CELLS/CAPSULE PO SCH ×2 (08:00→20:53)
[2020-01-09] MEDS: furosemide 20MG tablet PO SCH (08:00)
[2020-01-09] MEDS ORDERED: fentaNYL /PF 50mcg/ml 5ml ampule ONE (08:04)
[2020-01-09] MEDS ORDERED: MIDAZolam 5mg/5ml vial ONE (08:04)
[2020-01-09] MEDS ORDERED: rocuronium 10mg/ml inj IV ONE ×4 (08:06→09:24)
[2020-01-09] MEDS ORDERED: albumin (Human) 5% 250ml 250 ML IV ONE ×5 (08:06→17:55)
[2020-01-09] MEDS ORDERED: etomidate 2mg/ml inj. ONE (08:06)
[2020-01-09] MEDS ORDERED: ringers solution, lacted 1,000 ML IV SCH ×2 (08:14→11:30)
[2020-01-09] MEDS ORDERED: morphine 4 MG/ML inj SYRINge IV PRN ×2 (08:15→11:30)
[2020-01-09] MEDS ORDERED: ondansetron/PF 4mg/2ml inj IV PRN ×2 (08:15→11:30)
[2020-01-09] MEDS ORDERED: fentaNYL/PF 50MCG/1 ML 2ML syringe IV PRN ×4 (08:15→11:30)
[2020-01-09] MEDS ORDERED: enalaprilat dihydrate 2.5mg/2ml vial IV PRN ×2 (08:15→11:30)
[2020-01-09] MEDS ORDERED: labetalol 20mg/4ml (5mg/ml) syringe IV PRN ×2 (08:15→11:30)
[2020-01-09] MEDS ORDERED: morphine 2 MG/ML inj. syringe IV PRN ×2 (08:15→11:30)
--- NOTE | 2020-01-09 08:16 | NUR ---
Pt transported to OR via hospital bed. All belongings sent to ICU. notified per pt request.
--- NOTE | 2020-01-09 08:20 | NUR ---
Report called to OR
[2020-01-09] MEDS ORDERED: heparin 1,000 units/ml 10ml inj ONE (08:30)
[2020-01-09] MEDS ORDERED: sevoflurane 250ml liquid IH ONE (08:30)
[2020-01-09] MEDS ORDERED: phenylephrine 10mg/ml inj. ONE (08:30)
[2020-01-09] MEDS ORDERED: DOPamine/D5W 400mg/250ml bag IV ONE (08:30)
[2020-01-09] MEDS ORDERED: FENTANYL-0.9 % NACL/PF 100 ML IV PRN (10:05)
[2020-01-09] MEDS ORDERED: midazolam 100mg in NS 100ml 100 ML IV SCH (10:05)
[2020-01-09 10:16] LABS: PARTIAL THROMBOPLASTIN TIME 32 SECONDS (22-32)
[2020-01-09 12:45] LABS: PARTIAL THROMBOPLASTIN TIME > 139 SECONDS (22-32)
--- NOTE | 2020-01-09 12:57 | NUR ---
4+ PITTING EDEMA B LE'S, DOPPLERS TO BILAT DP AND PT ALL + AND MARKED. VAC AT 75 MM HG RIGHT LE. LARGE, ROUND AND DISTENDED. VENT ON AND TUBE IN PER ANESTHESIA. MEDICATED FOR PAIN. APPROPRIATE WITH HEAD NODS TO QUESTIONING. Addendum: 01/09/20 at 1259 by Vern Bird RN, RN Amended: Links added.
[2020-01-09 13:06] LABS: ABG BASE EXCESS 3.4 mmol/L (-2.0-3.0); ABG HCO3 29.2 mmol/L (22.0-26.0); ABG OXYGEN SATURATION 96.5 % (95-98); ABG PCO2 (T) 50.2 mmHg (35.0-45.0); ABG PH (T) 7.383 (7.350-7.450); ABG PO2 (T) 91.6 mmHg (83-108); FCOHb 0.5 % (0.5-1.5); FMetHb 0.3 % (0.3-1.12); FO2Hb 95.7 % (94-100); PEEP 5 cm H2O; RESPIRATORY RATE 16 b/min; TIDAL VOLUME 450 mL; TOTAL HEMOGLOBIN 11.3 G/dl (12.0-16.0)
--- NOTE | 2020-01-09 13:12 | NUR ---
REPORT GIVEN TO NURSE GENERAL DUTYELENITA BUSTAMANTE, IV INTACT TO RIGHT NECK. VSS. DRIPS RUNNING. PATIENT MAINTAINING SATURATIONS ON VENT AND PAIN CONTROLLED VIA DRIP. BP WNL. VAC PULLING WITH NO AUDIBLE LEAKS, SILVER FOAM ON RIGHT LE IS SUCTIONED DOWN AT 75 MM HG. REPORT GIVEN TO ROBBY KWONG. ALL QUESTIONS ANSWERED. Addendum: 01/09/20 at 1331 by Vern Bird RN, RN Amended: Links added.
[2020-01-09 14:58] LABS: PARTIAL THROMBOPLASTIN TIME 62 SECONDS (22-32)
[2020-01-09] MEDS ORDERED: DOPamine 400mg/D5W 250ml 250 ML IV PRN (14:59)
--- NOTE | 2020-01-09 20:25 | NUR ---
RN Note -MD Communication Called September Edgar regarding insulin coverage now that pt is NPO. OK to start pt back at level 2 coverage and 12 units of Lantus
[2020-01-09] MEDS: insulin glargine (Lantus) pen - multi-dose SQ SCH (21:20)
[2020-01-10] VITALS (24 sets, daily range): BP systolic 83–127; BP diastolic 47–106
[2020-01-10] MEDS ORDERED: midazolam 100mg in NS 100ml 100 ML IV SCH (01:30)
[2020-01-10] MEDS ORDERED: FENTANYL-0.9 % NACL/PF 100 ML IV PRN ×2 (01:30→10:05)
[2020-01-10 03:12] LABS: BASOPHILS % (AUTO) 0.6 % (0-1); EOSINOPHILS # (AUTO) 0.1 X10'3 (0-0.9); EOSINOPHILS % (AUTO) 1.5 % (0-6); HEMATOCRIT 27.4 % (35.0-45.0); HEMOGLOBIN 9.3 g/dl (12.0-16.0); LYMPHOCYTES # (AUTO) 0.4 X10'3 (1.1-4.8); LYMPHOCYTES % (AUTO) 6.8 % (21-51); MEAN CORPUSCULAR HEMOGLOBIN 33.6 PG (27.0-31.0); MEAN CORPUSCULAR HGB CONC 33.8 g/dL (33.0-36.5); MEAN CORPUSCULAR VOLUME 99.5 FL (78-98); MEAN PLATELET VOLUME 6.9 FL (7.4-10.4); MONOCYTES # (AUTO) 0.7 X10'3 (0-0.9); MONOCYTES % (AUTO) 10.7 % (2-12); NEUTROPHILS # (AUTO) 5.1 X10'3 (1.8-7.7); NEUTROPHILS % (AUTO) 80.4 % (42-75); PLATELET COUNT 152 X10'3 (140-440); RED BLOOD COUNT 2.75 X10'6 (4.20-5.60); RED CELL DISTRIBUTION WIDTH 21.4 % (11.5-14.5); WHITE BLOOD COUNT 6.4 X10'3 (4.5-11.0)
[2020-01-10 03:27] LABS: ALBUMIN 2.1 G/DL (3.4-5.0); ANION GAP 0 (8-16); BLOOD UREA NITROGEN 17 MG/DL (7-18); BUN/CREATININE RATIO 17.9 (6.6-38.0); CALCIUM 8.4 MG/DL (8.5-10.1); CHLORIDE 102 MMOL/L (99-107); CREATININE 0.95 MG/DL (0.40-0.90); GLUCOSE 139 MG/DL (70-104); POTASSIUM 4.5 MMOL/L (3.5-5.1); SODIUM 133 MMOL/L (135-145); TOTAL CARBON DIOXIDE 31.2 MMOL/L (24-32); eGFR 60 ML/MIN
[2020-01-10 03:50] LABS: ABG BASE EXCESS 4.3 mmol/L (-2.0-3.0); ABG HCO3 28.3 mmol/L (22.0-26.0); ABG OXYGEN SATURATION 93.3 % (95-98); ABG PCO2 (T) 41.9 mmHg (35.0-45.0); ABG PH (T) 7.452 (7.350-7.450); ABG PO2 (T) 72.2 mmHg (83-108); FCOHb 0.5 % (0.5-1.5); FMetHb 0.1 % (0.3-1.12); FO2Hb 92.7 % (94-100); PEEP 5 cm H2O; RESPIRATORY RATE 16 b/min; TIDAL VOLUME 500 mL; TOTAL HEMOGLOBIN 10.3 G/dl (12.0-16.0)
[2020-01-10] MEDS ORDERED: VANCOMYCIN LEVEL IV ONE ×2 (07:30→15:30)
[2020-01-10] MEDS: JUVEN Smoothie Arginine/Glut./Ca2+Bmb (Juven 19.3pkt) 240ml cup PO SCH ×2 (07:30→12:30)
[2020-01-10] MEDS: VANCOmycin 1250MG/NS 250ml Bag 250 ML IV SCH (07:57)
[2020-01-10] MEDS: lactobacillus rhamnosus 10,000 MMU CELLS/CAPSULE PO SCH ×2 (08:05→20:24)
[2020-01-10] MEDS: furosemide 20MG tablet PO SCH (08:05)
[2020-01-10] MEDS: metroNIDAZOLE 500mg tablet PO SCH ×2 (08:05→20:25)
[2020-01-10] MEDS: spironolactone 25 MG tablet PO SCH (08:06)
[2020-01-10] MEDS: lactulose 20gm/30ml cup PO SCH ×3 (08:06→20:25)
[2020-01-10] MEDS: insulin Lispro (HumaLOG) vial - multi-dose SQ SCH ×3 (08:17→20:37)
[2020-01-10] MEDS: CefTRIAXone/D5W-Rocephin 1gm 50 ML IV SCH (08:18)
[2020-01-10] MEDS: Dakins solution (1/4 strength) 473ml solution TP SCH ×2 (08:18→20:25)
[2020-01-10] MEDS: nicotine 14mg patch - 24hr TD SCH (10:25)
[2020-01-10] MEDS: HYDROmorphone 1 mg/ml syringe IV PRN ×4 (12:17→23:41)
[2020-01-10] MEDS ORDERED: albumin (Human) 5% 250ml 250 ML IV ONE ×2 (13:25→14:25)
[2020-01-10] MEDS ORDERED: HYDROcodone/acetaminophen 10/325mg tab PO PRN (13:45)
--- NOTE | 2020-01-10 15:30 | NUR ---
Vanc Trough 34.4, pharmacy updated.
[2020-01-10] MEDS: furosemide 10 MG/1 ML 10ml inj IV SCH ×2 (16:17→23:42)
--- NOTE | 2020-01-10 18:23 | NUR ---
Problems reprioritized. Patient report given Ranulfo, questions answered & plan of care reviewed with .
[2020-01-10] MEDS: HYDROcodone/acetaminophen 10/325mg tab PO PRN (20:25)
[2020-01-10] MEDS: insulin glargine (Lantus) pen - multi-dose SQ SCH (20:40)
[2020-01-10] MEDS: vancomycin/NS 1 GM ADD-VANTAGE 250 ML X 1 DOSE IV SCH (23:47)
[2020-01-11] VITALS (24 sets, daily range): BP systolic 90–111; BP diastolic 48–80
[2020-01-11 04:20] LABS: BASOPHILS # (AUTO) 0.1 X10'3 (0-0.2); BASOPHILS % (AUTO) 1.5 % (0-1); EOSINOPHILS # (AUTO) 0.1 X10'3 (0-0.9); EOSINOPHILS % (AUTO) 2.1 % (0-6); HEMATOCRIT 28.9 % (35.0-45.0); HEMOGLOBIN 9.7 g/dl (12.0-16.0); LYMPHOCYTES # (AUTO) 0.4 X10'3 (1.1-4.8); LYMPHOCYTES % (AUTO) 6.9 % (21-51); MEAN CORPUSCULAR HGB CONC 33.7 g/dL (33.0-36.5); MEAN CORPUSCULAR VOLUME 100.9 FL (78-98); MEAN PLATELET VOLUME 6.7 FL (7.4-10.4); MONOCYTES # (AUTO) 0.7 X10'3 (0-0.9); MONOCYTES % (AUTO) 10.9 % (2-12); NEUTROPHILS % (AUTO) 78.6 % (42-75); PLATELET COUNT 137 X10'3 (140-440); RED BLOOD COUNT 2.87 X10'6 (4.20-5.60); RED CELL DISTRIBUTION WIDTH 21.7 % (11.5-14.5); WHITE BLOOD COUNT 6.4 X10'3 (4.5-11.0)
[2020-01-11 04:25] LABS: CREATININE 0.87 MG/DL (0.40-0.90); eGFR 66 ML/MIN
[2020-01-11] MEDS: HYDROmorphone 1 mg/ml syringe IV PRN ×2 (04:45→22:18)
--- NOTE | 2020-01-11 06:30 | NUR ---
Patient in room ICU 2044. I have received report from ELENITA Winchester and had the opportunity to ask questions and assume patient care.
[2020-01-11 07:05] LABS: ALBUMIN 2.2 G/DL (3.4-5.0); ANION GAP 5 (8-16); BLOOD UREA NITROGEN 15 MG/DL (7-18); BUN/CREATININE RATIO 17.2 (6.6-38.0); CALCIUM 8.3 MG/DL (8.5-10.1); CHLORIDE 102 MMOL/L (99-107); GLUCOSE 120 MG/DL (70-104); MAGNESIUM 1.2 MG/DL (1.5-2.4); PHOSPHORUS 3.1 MG/DL (2.3-4.5); POTASSIUM 3.8 MMOL/L (3.5-5.1); SODIUM 138 MMOL/L (135-145); TOTAL CARBON DIOXIDE 31.5 MMOL/L (24-32)
[2020-01-11] MEDS: JUVEN Smoothie Arginine/Glut./Ca2+Bmb (Juven 19.3pkt) 240ml cup PO SCH ×2 (08:03→12:45)
[2020-01-11] MEDS: CefTRIAXone/D5W-Rocephin 1gm 50 ML IV SCH (08:04)
[2020-01-11] MEDS: clopidogrel 75mg tablet PO SCH (08:06)
[2020-01-11] MEDS: lactulose 20gm/30ml cup PO SCH ×3 (08:06→20:19)
[2020-01-11] MEDS: metroNIDAZOLE 500mg tablet PO SCH ×2 (08:06→20:18)
[2020-01-11] MEDS: spironolactone 25 MG tablet PO SCH (08:07)
[2020-01-11] MEDS: lactobacillus rhamnosus 10,000 MMU CELLS/CAPSULE PO SCH ×2 (08:07→20:17)
[2020-01-11] MEDS: nicotine 14mg patch - 24hr TD SCH (08:09)
[2020-01-11] MEDS: Dakins solution (1/4 strength) 473ml solution TP SCH ×2 (08:09→20:20)
[2020-01-11] MEDS: furosemide 10 MG/1 ML 10ml inj IV SCH (08:09)
[2020-01-11] MEDS: vancomycin/NS 1 GM ADD-VANTAGE 250 ML X 1 DOSE IV SCH ×2 (08:45→16:13)
[2020-01-11] MEDS: insulin Lispro (HumaLOG) vial - multi-dose SQ SCH ×2 (08:49→13:35)
[2020-01-11] MEDS: HYDROcodone/acetaminophen 10/325mg tab PO PRN ×3 (10:54→20:19)
--- NOTE | 2020-01-11 11:55 | NUR ---
PAGED PT, ORDER RENEWED PER DR. ALVAREZ.
[2020-01-11] MEDS: nystatin 15 GM powder TP SCH ×2 (12:55→20:19)
[2020-01-11] MEDS: albuterol 2.5 MG/3 ML nebule NEB PRN (16:54)
--- NOTE | 2020-01-11 18:00 | NUR ---
Problems reprioritized. Patient report given, questions answered & plan of care reviewed with ELENITA Gaming.
[2020-01-11] MEDS: insulin glargine (Lantus) pen - multi-dose SQ SCH (20:28)
[2020-01-11] MEDS: furosemide 40mg/4ml inj IV SCH (20:34)
[2020-01-11] MEDS ORDERED: VANCOMYCIN LEVEL IV ONE (23:30)
[2020-01-12] VITALS (25 sets, daily range): BP systolic 89–107; BP diastolic 42–81
[2020-01-12] MEDS: vancomycin/NS 1 GM ADD-VANTAGE 250 ML X 1 DOSE IV SCH
[2020-01-12] MEDS: HYDROcodone/acetaminophen 10/325mg tab PO PRN ×4 (00:29→20:24)
[2020-01-12 03:12] LABS: BASOPHILS # (AUTO) 0.1 X10'3 (0-0.2); EOSINOPHILS # (AUTO) 0.1 X10'3 (0-0.9); MONOCYTES # (AUTO) 0.7 X10'3 (0-0.9); PARTIAL THROMBOPLASTIN TIME 33 SECONDS (22-32); PLATELET COUNT 137 X10'3 (140-440); RED BLOOD COUNT 2.72 X10'6 (4.20-5.60); WHITE BLOOD COUNT 5.8 X10'3 (4.5-11.0)
[2020-01-12 03:14] LABS: BASOPHILS % (AUTO) 2.6 % (0-1); EOSINOPHILS % (AUTO) 1.6 % (0-6); HEMATOCRIT 27.2 % (35.0-45.0); HEMOGLOBIN 9.2 g/dl (12.0-16.0); LYMPHOCYTES # (AUTO) 0.6 X10'3 (1.1-4.8); LYMPHOCYTES % (AUTO) 9.8 % (21-51); MEAN CORPUSCULAR HEMOGLOBIN 33.8 PG (27.0-31.0); MEAN CORPUSCULAR HGB CONC 33.8 g/dL (33.0-36.5); MEAN PLATELET VOLUME 7.1 FL (7.4-10.4); MONOCYTES % (AUTO) 11.9 % (2-12); NEUTROPHILS # (AUTO) 4.3 X10'3 (1.8-7.7); NEUTROPHILS % (AUTO) 74.1 % (42-75); RED CELL DISTRIBUTION WIDTH 21.2 % (11.5-14.5)
[2020-01-12 03:18] LABS: ALANINE AMINOTRANSFERASE 17 U/L (12-78); ALBUMIN/GLOBULIN RATIO 0.5 (1.1-1.5); ALKALINE PHOSPHATASE 66 IU/L (46-116); ANION GAP 1 (8-16); ASPARTATE AMINO TRANSFERASE 47 U/L (10-37); BLOOD UREA NITROGEN 17 MG/DL (7-18); BUN/CREATININE RATIO 14.5 (6.6-38.0); CALCIUM 7.7 MG/DL (8.5-10.1); CHLORIDE 100 MMOL/L (99-107); CREATININE 1.17 MG/DL (0.40-0.90); MAGNESIUM 1.2 MG/DL (1.5-2.4); PHOSPHORUS 3.4 MG/DL (2.3-4.5); SODIUM 133 MMOL/L (135-145); TOTAL PROTEIN 6.4 G/DL (6.4-8.2); eGFR 47 ML/MIN
[2020-01-12 03:20] LABS: GLUCOSE 169 MG/DL (70-104)
[2020-01-12 04:27] LABS: PLATELET ESTIMATE DECREASED
[2020-01-12 04:28] LABS: ANISOCYTOSIS 2+
--- NOTE | 2020-01-12 06:10 | NUR ---
Patient in room ICU 2044. I have received report from ELENITA Gaming and had the opportunity to ask questions and assume patient care.
[2020-01-12] MEDS: JUVEN Smoothie Arginine/Glut./Ca2+Bmb (Juven 19.3pkt) 240ml cup PO SCH ×2 (07:30→12:40)
[2020-01-12] MEDS: CefTRIAXone/D5W-Rocephin 1gm 50 ML IV SCH (07:37)
[2020-01-12] MEDS: lactulose 20gm/30ml cup PO SCH ×3 (07:37→20:24)
[2020-01-12] MEDS: nystatin 15 GM powder TP SCH ×3 (07:37→20:25)
[2020-01-12] MEDS: metroNIDAZOLE 500mg tablet PO SCH ×2 (07:40→20:24)
[2020-01-12] MEDS: nicotine 14mg patch - 24hr TD SCH (07:40)
[2020-01-12] MEDS: spironolactone 25 MG tablet PO SCH (07:41)
[2020-01-12] MEDS: pantoprazole 40mg Tablet.DR PO SCH (07:41)
[2020-01-12] MEDS: clopidogrel 75mg tablet PO SCH (07:41)
[2020-01-12] MEDS: lactobacillus rhamnosus 10,000 MMU CELLS/CAPSULE PO SCH ×2 (07:42→20:24)
[2020-01-12] MEDS: furosemide 40mg/4ml inj IV SCH ×2 (07:44→20:24)
[2020-01-12] MEDS: Dakins solution (1/4 strength) 473ml solution TP SCH ×2 (08:00→20:25)
[2020-01-12] MEDS: insulin Lispro (HumaLOG) vial - multi-dose SQ SCH ×3 (09:33→19:06)
[2020-01-12] MEDS ORDERED: albumin (human) 25% 100 ML IV solution IV ONE (10:20)
--- NOTE | 2020-01-12 12:50 | NUR ---
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 Intubated post-op and now extubated advanced to pureed/carb controlled/heart healthy diet per MD. Pt previously tolerating solids w/ 100% meals prior to surgery and reports eats solids at home. Receiving Roland ONS for wound healing needs BIDBL. RD recommended OBSTETRICAL NURSE BSS to determine proper consistency and liquid recs. Pt PO 100% meals meeting needs. LBM 01/10. No nutrition concerns at this time. Will continue to monitor. Recommendations: 1) Continue CHO controlled/heart healthy diet per MD; texture per OBSTETRICAL NURSE recs 2) Double eggs q breakfast, double meat BIDLD 3) [place] Roland smoothie BIDBL; pending MD verification 4) bowel care as needed 5) Wt per rx Addendum: 01/12/20 at [address] Amended: Links added.
--- NOTE | 2020-01-12 14:35 | NUR ---
Attempts made for Swapna Hendricks, on ICU bed 2044. Needs PIV to transfer to med/surg. Very Difficult stick. Thank you, Darryn Callahan RN [phone]
--- NOTE | 2020-01-12 15:00 | NUR ---
New PIV placed by the PICC nurse. Right IJk central line d/c. Patient tolerated well.
--- NOTE | 2020-01-12 18:21 | NUR ---
Problems reprioritized. Patient report given, questions answered & plan of care reviewed with ELENITA Chapa.
[2020-01-12] MEDS: insulin glargine (Lantus) pen - multi-dose SQ SCH (20:36)
--- NOTE | 2020-01-12 21:45 | NUR ---
pt arrived to PCU unit from ICU, pt is alert and oriented, pt does not seem to be in any respiratory distress, wound vac suction hooked up, will cotinue to monitor
[2020-01-13] VITALS (7 sets, daily range): BP systolic 86–117; BP diastolic 48–73
[2020-01-13] MEDS: HYDROcodone/acetaminophen 10/325mg tab PO PRN ×3 (02:52→10:53)
[2020-01-13] MEDS ORDERED: VANCOMYCIN LEVEL IV ONE (03:00)
[2020-01-13 05:45] LABS: HEMATOCRIT 27.8 % (35.0-45.0); HEMOGLOBIN 9.4 g/dl (12.0-16.0); MEAN CORPUSCULAR VOLUME 101.4 FL (78-98); MEAN PLATELET VOLUME 6.9 FL (7.4-10.4); RED BLOOD COUNT 2.74 X10'6 (4.20-5.60)
[2020-01-13 05:48] LABS: MEAN CORPUSCULAR HEMOGLOBIN 34.4 PG (27.0-31.0); MEAN CORPUSCULAR HGB CONC 33.9 g/dL (33.0-36.5); PLATELET COUNT 131 X10'3 (140-440); RED CELL DISTRIBUTION WIDTH 21.7 % (11.5-14.5); WHITE BLOOD COUNT 3.9 X10'3 (4.5-11.0)
[2020-01-13 06:02] LABS: PARTIAL THROMBOPLASTIN TIME 33 SECONDS (22-32)
[2020-01-13 06:33] LABS: ALANINE AMINOTRANSFERASE 24 U/L (12-78); ALBUMIN 2.2 G/DL (3.4-5.0); ALBUMIN/GLOBULIN RATIO 0.5 (1.1-1.5); ALKALINE PHOSPHATASE 57 IU/L (46-116); ANION GAP 2 (8-16); ASPARTATE AMINO TRANSFERASE 47 U/L (10-37); BILIRUBIN,TOTAL 1.6 MG/DL (0.1-1.0); BLOOD UREA NITROGEN 18 MG/DL (7-18); BUN/CREATININE RATIO 15.4 (6.6-38.0); CHLORIDE 102 MMOL/L (99-107); CREATININE 1.17 MG/DL (0.40-0.90); GLUCOSE 134 MG/DL (70-104); MAGNESIUM 1.3 MG/DL (1.5-2.4); PHOSPHORUS 3.3 MG/DL (2.3-4.5); POTASSIUM 3.9 MMOL/L (3.5-5.1); SODIUM 136 MMOL/L (135-145); TOTAL CARBON DIOXIDE 31.9 MMOL/L (24-32); TOTAL PROTEIN 6.6 G/DL (6.4-8.2); VANCOMYCIN,RANDOM 15.2 UG/ML; eGFR 47 ML/MIN
--- NOTE | 2020-01-13 06:33 | NUR ---
Problems reprioritized. Patient report given, questions answered & plan of care reviewed with Naldo KWONG.
[2020-01-13 06:55] LABS: ANISOCYTOSIS 3+; PLATELET ESTIMATE DECREASED; TOTAL CELLS COUNTED 100
[2020-01-13 06:56] LABS: HYPOCHROMASIA 1+
[2020-01-13] MEDS: lactobacillus rhamnosus 10,000 MMU CELLS/CAPSULE PO SCH ×2 (07:19→19:43)
[2020-01-13] MEDS: lactulose 20gm/30ml cup PO SCH ×3 (07:19→20:31)
[2020-01-13] MEDS: metroNIDAZOLE 500mg tablet PO SCH ×2 (07:19→19:43)
[2020-01-13] MEDS: pantoprazole 40mg Tablet.DR PO SCH (07:20)
[2020-01-13] MEDS: spironolactone 25 MG tablet PO SCH (07:20)
[2020-01-13] MEDS: clopidogrel 75mg tablet PO SCH (07:20)
[2020-01-13] MEDS: nystatin 15 GM powder TP SCH ×3 (07:21→20:12)
[2020-01-13] MEDS: nicotine 14mg patch - 24hr TD SCH (07:21)
[2020-01-13] MEDS: JUVEN Smoothie Arginine/Glut./Ca2+Bmb (Juven 19.3pkt) 240ml cup PO SCH ×2 (07:42→12:30)
[2020-01-13] MEDS: CefTRIAXone/D5W-Rocephin 1gm 50 ML IV SCH (08:10)
[2020-01-13] MEDS: insulin Lispro (HumaLOG) vial - multi-dose SQ SCH ×2 (08:31→19:48)
[2020-01-13] MEDS: furosemide 40mg/4ml inj IV SCH ×2 (09:10→19:44)
[2020-01-13] MEDS ORDERED: magnesium 2GM in 50ml NS 50 ML IV PRN (09:30)
[2020-01-13] MEDS ORDERED: magnesium 4gm in 100ml NS 100 ML IV PRN (09:30)
[2020-01-13] MEDS: magnesium Cl slow-release 64mg tablet PO PRN ×2 (09:39→19:43)
[2020-01-13] MEDS: vancomycin inj 500 MG in normal saline 100ml IV soln 100 ML IV SCH ×2 (10:43→20:32)
--- NOTE | 2020-01-13 11:40 | NUR ---
Patient had new onset seizure, called.
[2020-01-13] MEDS: LORazepam 2 mg/ml vial IV PRN (11:45)
--- NOTE | 2020-01-13 11:50 | NUR ---
Called [facility] on patient.
--- NOTE | 2020-01-13 12:00 | NUR ---
Patient back to baseline.
--- NOTE | 2020-01-13 12:00 | NUR ---
MD Decker arrived, ordered for ammonia level and EEG
--- NOTE | 2020-01-13 12:10 | NUR ---
Paged EEG, EEG ordered per MD Decker
--- NOTE | 2020-01-13 15:24 | NUR ---
Paged MD Decker PAGER ID: [phone] MESSAGE: 22 Patricia Rajan- Patient BP low 86/48 Map 64, HR 77, 93% 2L, 97.6. Alicia [phone]
--- NOTE | 2020-01-13 18:27 | NUR ---
Problems reprioritized. Patient report given, questions answered & plan of care reviewed with Sadie KWONG.
--- NOTE | 2020-01-13 18:36 | NUR ---
Patient in room PCU 3022. I have received report from Alicia KWONG and had the opportunity to ask questions and assume patient care.
[2020-01-13] MEDS: albuterol 2.5 MG/3 ML nebule NEB PRN (20:04)
[2020-01-13] MEDS: insulin glargine (Lantus) pen - multi-dose SQ SCH (21:24)
[2020-01-14] MEDS: HYDROcodone/acetaminophen 10/325mg tab PO PRN (01:15)
[2020-01-14 02:00] VITALS: BP 104/60
[2020-01-14 05:53] LABS: WHITE BLOOD COUNT 4.1 X10'3 (4.5-11.0)
[2020-01-14 05:55] LABS: HEMATOCRIT 26.4 % (35.0-45.0); MEAN CORPUSCULAR HEMOGLOBIN 34.4 PG (27.0-31.0); MEAN CORPUSCULAR VOLUME 101.3 FL (78-98); PLATELET COUNT 128 X10'3 (140-440); RED BLOOD COUNT 2.61 X10'6 (4.20-5.60); RED CELL DISTRIBUTION WIDTH 20.9 % (11.5-14.5)
[2020-01-14 06:00] VITALS: BP 88/55
[2020-01-14 06:07] LABS: ALANINE AMINOTRANSFERASE 22 U/L (12-78); ALBUMIN/GLOBULIN RATIO 0.4 (1.1-1.5); ALKALINE PHOSPHATASE 62 IU/L (46-116); ANION GAP -1 (8-16); ASPARTATE AMINO TRANSFERASE 38 U/L (10-37); BILIRUBIN,TOTAL 0.9 MG/DL (0.1-1.0); BLOOD UREA NITROGEN 19 MG/DL (7-18); BUN/CREATININE RATIO 16.8 (6.6-38.0); CALCIUM 8.1 MG/DL (8.5-10.1); CHLORIDE 103 MMOL/L (99-107); CREATININE 1.13 MG/DL (0.40-0.90); GLUCOSE 234 MG/DL (70-104); MAGNESIUM 1.7 MG/DL (1.5-2.4); PHOSPHORUS 3.2 MG/DL (2.3-4.5); SODIUM 134 MMOL/L (135-145); TOTAL PROTEIN 6.5 G/DL (6.4-8.2); eGFR 49 ML/MIN
[2020-01-14 06:08] LABS: PARTIAL THROMBOPLASTIN TIME 31 SECONDS (22-32)
--- NOTE | 2020-01-14 06:19 | NUR ---
Problems reprioritized. Patient report given, questions answered & plan of care reviewed with SHRADDHA KWONG.
--- NOTE | 2020-01-14 06:41 | NUR ---
Patient in room PCU 3022. I have received report from CLAUDY KWONG and had the opportunity to ask questions and assume patient care.
[2020-01-14 07:21] LABS: ANISOCYTOSIS 3+; PLATELET ESTIMATE DECREASED; TOTAL CELLS COUNTED 100
[2020-01-14] MEDS: lactulose 20gm/30ml cup PO SCH ×2 (07:35→13:21)
[2020-01-14] MEDS: pantoprazole 40mg Tablet.DR PO SCH (07:35)
[2020-01-14] MEDS: metroNIDAZOLE 500mg tablet PO SCH (07:36)
[2020-01-14] MEDS: lactobacillus rhamnosus 10,000 MMU CELLS/CAPSULE PO SCH (07:36)
[2020-01-14] MEDS: nicotine 14mg patch - 24hr TD SCH (07:36)
[2020-01-14] MEDS: clopidogrel 75mg tablet PO SCH (07:36)
[2020-01-14] MEDS: spironolactone 25 MG tablet PO SCH (07:37)
[2020-01-14] MEDS: CefTRIAXone/D5W-Rocephin 1gm 50 ML IV SCH (07:38)
[2020-01-14] MEDS: nystatin 15 GM powder TP SCH ×2 (07:38→13:21)
[2020-01-14] MEDS: LORazepam 2 mg/ml vial IV PRN (07:39)
[2020-01-14] MEDS: furosemide 40mg/4ml inj IV SCH (08:00)
[2020-01-14] MEDS: JUVEN Smoothie Arginine/Glut./Ca2+Bmb (Juven 19.3pkt) 240ml cup PO SCH ×2 (08:03→12:46)
[2020-01-14] MEDS: vancomycin inj 500 MG in normal saline 100ml IV soln 100 ML IV SCH (09:39)
[2020-01-14] MEDS: insulin Lispro (HumaLOG) vial - multi-dose SQ SCH ×3 (09:47→18:52)
[2020-01-14 11:00] VITALS: BP 121/87
--- NOTE | 2020-01-14 11:23 | NUR ---
PAGER ID: [phone] MESSAGE: [phone] Pete Rajan Found random surgical staple on R calf. Attempted to remove but it is firmly wedged into skin. OK to proceed with removal? Keke [phone]
--- NOTE | 2020-01-14 12:46 | NUR ---
PAGER ID: [phone] MESSAGE: [phone] Rissa Rajan for the miscommunication doctor, I intended to inform you that the does not want an update from me, rather he wants it from the doctor. It seems he got a hold of Melanie and she asks that you call him. [phone]
[2020-01-14 15:00] VITALS: BP 97/61
[2020-01-14 18:00] VITALS: BP 98/49
--- NOTE | 2020-01-14 18:32 | NUR ---
Patient in room PCU 3022. I have received report from ELENITA Davies and had the opportunity to ask questions and assume patient care.
--- NOTE | 2020-01-14 18:37 | NUR ---
Problems reprioritized. Patient report given, questions answered & plan of care reviewed with Machelle KWONG.
--- NOTE | 2020-01-14 19:00 | NUR ---
Two [facility] ambulance personnel have left with the patient who was stable for transfer. Patient was transferred to [facility] with SL PIV, Wound Vac, and Garcia Cath.
[2020-01-14] MEDS ORDERED: VANCOMYCIN LEVEL IV ONE (20:30)
== END 2020-01-14 19:00 | DRG 181 ==
LOC: ER 05:36 → ED HOLD 10:37 → SUR 3N 15:22 → ICU 2S 01-09 11:11 → PCU 3S 01-12 21:20
PROVIDERS: ADMIT Internal Medicine; ATTEND Internal Medicine
PROC: 0W9G3ZZ Drainage of Peritoneal Cavity, Percutaneous Approach (ICD-10-PCS; 2020-01-01)
PROC: 4A02XM4 Measurement of Cardiac Total Activity, External Approach (ICD-10-PCS; 2020-01-06)
PROC: 3E033HZ Introduction of Radioactive Substance into Peripheral Vein, Percutaneous Approach (ICD-10-PCS; 2020-01-06)
PROC: 06BP0ZZ Excision of Right Saphenous Vein, Open Approach (ICD-10-PCS; 2020-01-09)
PROC: 04CR0ZZ Extirpation of Matter from Right Posterior Tibial Artery, Open Approach (ICD-10-PCS; 2020-01-09)
PROC: 04CT0ZZ Extirpation of Matter from Right Peroneal Artery, Open Approach (ICD-10-PCS; 2020-01-09)
PROC: 02HV33Z Insertion of Infusion Device into Superior Vena Cava, Percutaneous Approach (ICD-10-PCS; 2020-01-09)
PROC: B548ZZA Ultrasonography of Superior Vena Cava, Guidance (ICD-10-PCS; 2020-01-09)
PROC: 041 Lower Arteries, Bypass (ICD-10-PCS; principal; 2020-01-09 08:30)
PROC: 0W9G3ZZ Drainage of Peritoneal Cavity, Percutaneous Approach (ICD-10-PCS; 2020-01-12)
PROC: 4A00X4Z Measurement of Central Nervous Electrical Activity, External Approach (ICD-10-PCS; 2020-01-13)
DX: E11.52 Type 2 diabetes mellitus with diabetic peripheral angiopathy with gangrene (principal); J96.90 Respiratory failure, unspecified, unspecified whether with hypoxia or hypercapnia; I96 Gangrene, not elsewhere classified; G93.89 Other specified disorders of brain; R18.8 Other ascites; L03.115 Cellulitis of right lower limb; E87.1 Hypo-osmolality and hyponatremia; R56.9 Unspecified convulsions; F12.90 Cannabis use, unspecified, uncomplicated; J44.9 Chronic obstructive pulmonary disease, unspecified; K74.60 Unspecified cirrhosis of liver; I70.291 Other atherosclerosis of native arteries of extremities, right leg; S91.301A Unspecified open wound, right foot, initial encounter; Z72.0 Tobacco use; Z82.49 Family history of ischemic heart disease and other diseases of the circulatory system; Z88.0 Allergy status to penicillin; Z83.3 Family history of diabetes mellitus; X58.XXXA Exposure to other specified factors, initial encounter; Y93.89 Activity, other specified; Y92.89 Other specified places as the place of occurrence of the external cause; Y99.8 Other external cause status
CPT/HCPCS: 36245; 36415; 36600; 49083; 70450; 71045; 75710; 76937; 78452; 80048; 80053; 80202; 82140; 82803; 82948; 83605; 83690; 83735; 83880; 84100; 84145; 85018; 85025; 85610; 85730; 86885; 86900; 86901; 87040; 87070; 87075; 87081; 87102; 92508; 92616; 93005; 93017; 93306; 93925; 93970; 93971; 94002; 94003; 94640; 94760; 95816; 96365; 96375; 97110; 97112; 97116; 97161; 97162; 97530; 97535; 99152; 99153; 99285; A4618; A6213; A6258; A6455; A6550; A7000; A9500; C1757; C1758; C1760; C1769; C1894; G0269; G0378; J0696; J1170; J1265; J1644; J1815; J1885; J1940; J2060; J2250; J2270; J2370; J2405; J2785; J3010; J3370; J3490; J7030; J7040; J7120; P9045; P9047; Q9967

== ENCOUNTER 2020-02-01 17:28 | Emergency (ER) | payer MEDICAID ==
[~2020-02-01] VITALS: Ht 167.6 cm; Wt 60.0 kg
[~2020-02-01 17:28] MED LIST changes: -METF-436 PO; +METF-516 PO
[2020-02-01 17:36] VITALS: BP 135/97
--- NOTE | 2020-02-01 18:59 | NUR ---
REJI /[facility] [id number]
--- NOTE | 2020-02-01 19:11 | NUR ---
Patient stated that she needed to go talk to her about, "going to the radiation oncology nurse shop" to get her toe removed. I asked the patient to wait in her room so that she could be seen by the provider as no decisions about her toe had been made yet. She insisted that she go speak with him. I offered to go speak to him on her behalf and she declines. Patient left out the front of the ER lobby despite warning that she could potentially . Eloisa Cespedes notified and an attempt was made to contact the patient. The phone numbers listed were not functioning. Patient to be left on the ER tracker for a short time in case she does return.
== END 2020-02-01 19:55 | disposition left against medical advice (07) ==
LOC: ER 17:29
DX: M79.676 Pain in unspecified toe(s) (principal); J45.909 Unspecified asthma, uncomplicated; E11.9 Type 2 diabetes mellitus without complications; F32.9 Major depressive disorder, single episode, unspecified; Z90.49 Acquired absence of other specified parts of digestive tract; Z53.21 Procedure and treatment not carried out due to patient leaving prior to being seen by health care provider; Z86.19 Personal history of other infectious and parasitic diseases; Z72.89 Other problems related to lifestyle; Z88.0 Allergy status to penicillin; Z88.5 Allergy status to narcotic agent; Z88.8 Allergy status to other drugs, medicaments and biological substances; Z79.899 Other long term (current) drug therapy

== ENCOUNTER 2020-02-07 17:41 | Emergency (ER) | payer MEDICAID ==
[~2020-02-07] VITALS: Ht 198.1 cm; Wt 67.0 kg
[2020-02-07 17:55] VITALS: BP 133/82
--- NOTE | 2020-02-07 18:06 | NUR ---
PT WAS UNCOOPERATIVE AND DIFFICULT IN TRIAGE, NOT WANTING TO STAY AND BE TREATED. PT WAS OBSERVED AMBULATING OUT OF THE ER LOBBY BY SCREENER.
--- NOTE | 2020-02-07 19:45 | NUR ---
Patient Returned to ED with after falling outside.Patient was agitated and couldn't understand why patient discharged in her condition. The was advised of the patient's rights when she is aox4 which she still was upon her return. The patient was advised that it would be in her best interest to be treated, but she refused. the verbalized understanding of her rights by stating that he wish she would , "be foolish". patient left before triage.
[2020-02-07] MEDS ORDERED: UNABLE TO OBTAIN (23:26)
[2020-02-08] MEDS ORDERED: RIFA550T PO (07:57)
[2020-02-08] MEDS ORDERED: LACT10SO74 PO (07:57)
== END 2020-02-07 18:21 | disposition left against medical advice (07) ==
LOC: ER 17:42
DX: M79.674 Pain in right toe(s) (principal); Z53.21 Procedure and treatment not carried out due to patient leaving prior to being seen by health care provider
CPT/HCPCS: 82948

== ENCOUNTER 2020-02-07 20:02 | Inpatient (IN) | payer MEDICAID ==
[~2020-02-07] VITALS: Ht 167.6 cm; Wt 72.7 kg
--- NOTE | 2020-02-07 21:04 | NUR ---
PT REF EKG, PT WOULDNT ROLL OVER ONTO HER BACK FOR TEST AND YELLED AT STAFF "COVER ME UP!" WHEN WE UNCOVERED HER FOR AN EKG
[2020-02-07 21:40] LABS: BASOPHILS % (AUTO) 0.4 % (0-1); EOSINOPHILS % (AUTO) 0.1 % (0-6); HEMATOCRIT 31.1 % (35.0-45.0); HEMOGLOBIN 10.6 g/dl (12.0-16.0); LYMPHOCYTES # (AUTO) 0.5 X10'3 (1.1-4.8); LYMPHOCYTES % (AUTO) 5.7 % (21-51); MEAN CORPUSCULAR HEMOGLOBIN 33.9 PG (27.0-31.0); MEAN CORPUSCULAR VOLUME 99.5 FL (78-98); MEAN PLATELET VOLUME 7.9 FL (7.4-10.4); MONOCYTES # (AUTO) 0.3 X10'3 (0-0.9); MONOCYTES % (AUTO) 3.8 % (2-12); NEUTROPHILS # (AUTO) 7.8 X10'3 (1.8-7.7); PLATELET COUNT 121 X10'3 (140-440); RED BLOOD COUNT 3.13 X10'6 (4.20-5.60); RED CELL DISTRIBUTION WIDTH 16.7 % (11.5-14.5); WHITE BLOOD COUNT 8.6 X10'3 (4.5-11.0)
[2020-02-07 21:48] LABS: PARTIAL THROMBOPLASTIN TIME 27 SECONDS (22-32)
[2020-02-07 22:04] LABS: ALANINE AMINOTRANSFERASE 31 U/L (12-78); ALBUMIN 2.6 G/DL (3.4-5.0); ALBUMIN/GLOBULIN RATIO 0.4 (1.1-1.5); ALKALINE PHOSPHATASE 90 IU/L (46-116); ANION GAP 8 (8-16); ASPARTATE AMINO TRANSFERASE 39 U/L (10-37); BLOOD UREA NITROGEN 14 MG/DL (7-18); BUN/CREATININE RATIO 13.7 (6.6-38.0); CALCIUM 8.2 MG/DL (8.5-10.1); CHLORIDE 99 MMOL/L (99-107); CREATININE 1.02 MG/DL (0.40-0.90); ETHANOL < 0.010 GM/DL (0.0-0.010); MAGNESIUM 1.4 MG/DL (1.5-2.4); POTASSIUM 4.1 MMOL/L (3.5-5.1); SODIUM 132 MMOL/L (135-145); TOTAL CARBON DIOXIDE 25.3 MMOL/L (24-32); TOTAL PROTEIN 8.4 G/DL (6.4-8.2); eGFR 55 ML/MIN
[2020-02-07 22:06] LABS: GLUCOSE 335 MG/DL (70-104)
[2020-02-07] MEDS ORDERED: normal saline 1000ml 1,000 ML IV ONE (22:10)
--- NOTE | 2020-02-07 22:41 | NUR ---
PTS , REJI, . HE REPORTS THAT THE PT WAS JUST DISCHARGED FROM [facility] AND THAT SHE HAD SPENT 2 WEEKS THERE AND WAS DISCHARGED FROM OUR HOS[facility] DIRECTLY TO [facility]. I AWOKE PT TO HAVE HER SPEAK TO HER BUT SHE WAS IRRITABLE AND WOULD NOT OPEN HER EYES AND SAID THAT SHE DID NOT WANT TO TALK TO HIM. REJI REPORTS SHE WAS MAD AT HIM BECAUSE HE MADE HER COME TO THE HOSPITAL. HE IS CONCERNED ABOUT HER GANGRENOUOS LEFT GREAT TOE. STATES PT WALKS ON IT FINE WITHOUT PAIN. BUT THAT PT IS A FALL RISK.
[2020-02-07] MEDS ORDERED: vancomycin/NS 1 GM ADD-VANTAGE 250 ML IV ONE (23:10)
[2020-02-07] MEDS ORDERED: glucagon, human recombinant 1mg kit SUBCUT PRN (23:20)
[2020-02-07] MEDS ORDERED: dextrose ORAL solution 15 GM/59 ML bottle PO PRN ×2 (23:20)
[2020-02-07] MEDS ORDERED: docusate sod 100mg capsule PO PRN (23:20)
[2020-02-07] MEDS ORDERED: acetaminophen 325mg tablet PO PRN (23:20)
[2020-02-07] MEDS ORDERED: MESSAGE TO PHARMACY PO ONE (23:20)
[2020-02-07] MEDS ORDERED: ipratropium/albuterol 3ml nebule NEB PRN (23:20)
[2020-02-07] MEDS ORDERED: ondansetron/PF 4mg/2ml inj IV PRN (23:20)
[2020-02-07] MEDS ORDERED: potassium CL 10mEq/100ml bag 100 ML IV PRN ×2 (23:20)
[2020-02-07] MEDS ORDERED: magnesium 4gm in 100ml NS 100 ML IV PRN (23:20)
[2020-02-07] MEDS ORDERED: dextrose 50%-water 50ml dispensing syringe IV PRN ×2 (23:20)
[2020-02-07] MEDS ORDERED: magnesium 2GM in 50ml NS 50 ML IV PRN (23:20)
[2020-02-07] MEDS ORDERED: potassium Cl 20 mEq SR tablet PO PRN ×2 (23:20)
[2020-02-07] MEDS ORDERED: UNABLE TO OBTAIN (23:26)
[2020-02-08] MEDS: normal saline 1000ml 1,000 ML IV SCH ×4 (00:09→23:30)
--- NOTE | 2020-02-08 00:13 | NUR ---
temp 101.6, tylenol suppository ordered as pt lethargic and will not stay awake to take any oral meds. dr. ivey notified of temp. pt has had episode of incontinence of stool. Has room assignment now.
[2020-02-08] MEDS ORDERED: acetaminophen 650mg rectal suppository RC ONE (00:15)
[2020-02-08] MEDS ORDERED: acetaminophen 1,000mg/100ml IV 100 ML IV PRN (00:55)
[2020-02-08] MEDS: heparin, porcine 5000 units/ml vial SQ SCH ×4 (01:17→23:36)
--- NOTE | 2020-02-08 01:30 | NUR ---
Received patient report from Yoli. Pt brought to floor. 2 RN skin assessment done and pictures taken for chart. Pt is hard to arouse and will not wake up for assessment or to answer any questions. She does not appear to be in any distress. Patient is sleeping and does not want to wake up.
[2020-02-08 01:34] VITALS: BP 95/50
--- NOTE | 2020-02-08 02:06 | NUR ---
Could not get left arm skin tear wound care pictures. All other pictures taken and printed for chart.
--- NOTE | 2020-02-08 04:07 | NUR ---
Patient woke up and tried to get out of bed. Told patient that she is in the hospital and needed to stay in the bed and she said she was going to go home. Patient laid back down after and fell asleep. Tabs alarm on patient.
--- NOTE | 2020-02-08 04:15 | NUR ---
Patient got out of bed and started walking out into the hallway. IV was pulled out. Patient redirected back into her room. Switched patients bed to a sammamish bed so that she would have a bed alarm.
[2020-02-08 06:24] LABS: EOSINOPHILS % (AUTO) 0.2 % (0-6); LYMPHOCYTES # (AUTO) 0.7 X10'3 (1.1-4.8)
--- NOTE | 2020-02-08 06:32 | NUR ---
Problems reprioritized. Patient report given, questions answered & plan of care reviewed with Milli KWONG.
[2020-02-08 06:40] LABS: BASOPHILS % (AUTO) 0.2 % (0-1); HEMATOCRIT 29.5 % (35.0-45.0); HEMOGLOBIN 10.2 g/dl (12.0-16.0); LYMPHOCYTES % (AUTO) 7.8 % (21-51); MEAN CORPUSCULAR HGB CONC 34.7 g/dL (33.0-36.5); MEAN CORPUSCULAR VOLUME 98.1 FL (78-98); MEAN PLATELET VOLUME 7.5 FL (7.4-10.4); MONOCYTES # (AUTO) 0.8 X10'3 (0-0.9); MONOCYTES % (AUTO) 8.2 % (2-12); NEUTROPHILS % (AUTO) 83.6 % (42-75); PLATELET COUNT 97 X10'3 (140-440); RED BLOOD COUNT 3.01 X10'6 (4.20-5.60); RED CELL DISTRIBUTION WIDTH 16.1 % (11.5-14.5); WHITE BLOOD COUNT 9.6 X10'3 (4.5-11.0)
[2020-02-08 06:50] LABS: ALANINE AMINOTRANSFERASE 29 U/L (12-78); ALBUMIN 2.3 G/DL (3.4-5.0); ALBUMIN/GLOBULIN RATIO 0.5 (1.1-1.5); ALKALINE PHOSPHATASE 70 IU/L (46-116); ANION GAP 5 (8-16); ASPARTATE AMINO TRANSFERASE 34 U/L (10-37); BILIRUBIN,TOTAL 2.5 MG/DL (0.1-1.0); BLOOD UREA NITROGEN 13 MG/DL (7-18); BUN/CREATININE RATIO 14.8 (6.6-38.0); CALCIUM 7.5 MG/DL (8.5-10.1); CHLORIDE 103 MMOL/L (99-107); CREATININE 0.88 MG/DL (0.40-0.90); MAGNESIUM 1.3 MG/DL (1.5-2.4); POTASSIUM 3.4 MMOL/L (3.5-5.1); SODIUM 133 MMOL/L (135-145); TOTAL CARBON DIOXIDE 24.9 MMOL/L (24-32); TOTAL PROTEIN 7.2 G/DL (6.4-8.2); eGFR 65 ML/MIN
[2020-02-08 06:51] LABS: GLUCOSE 201 MG/DL (70-104)
[2020-02-08 07:00] VITALS: BP 90/46
[2020-02-08] MEDS ORDERED: LACT10SO74 PO (07:57)
[2020-02-08] MEDS ORDERED: RIFA550T PO (07:57)
[2020-02-08 08:00] VITALS: BP 90/46
[2020-02-08] MEDS: K and/or MAG REPLACEMENT MC SCH ×2 (08:00→20:00)
[2020-02-08] MEDS: nicotine 21mg patch - 24 hr TD SCH (08:00)
[2020-02-08] MEDS ORDERED: vancomycin/NS 1 GM ADD-VANTAGE 250 ML IV SCH (08:00)
[2020-02-08] MEDS: lactulose 20gm/30ml cup PO SCH ×2 (08:00→20:00)
--- NOTE | 2020-02-08 09:21 | NUR ---
Patient refused IV and all medication. Told us to "shut up and get the out. The doctor is aware of the patient's refusal.
--- NOTE | 2020-02-08 09:38 | NUR ---
Patient stated that she wants to go home. Patient. told us to get the F%^k out of her room she wants her to come get her. informed Dr. Decker of the situation
--- NOTE | 2020-02-08 09:38 | NUR ---
Patient refused all mediction and will not let us put a new IV inb her
--- NOTE | 2020-02-08 11:04 | NUR ---
Patient in room [facility] 340. I have received report from Milli KWONG and had the opportunity to ask questions and assume patient care.
--- NOTE | 2020-02-08 11:06 | NUR ---
Gave report to Mary KWONG
[2020-02-08] MEDS: cefepime 1GM in D5W 50mL 50 ML IV SCH ×2 (11:50→20:07)
[2020-02-08] MEDS ORDERED: magnesium Cl slow-release 64mg tablet PO PRN (12:30)
--- NOTE | 2020-02-08 12:35 | NUR ---
Cardiac Diet Consult: Likely supposed to be DM consult w/ A1C 7.7 down from 9.0 in November and no lipid panel at this time. Pt advanced to pureed/thin/carb controlled meals r/t lack of teeth per FIELD ARTILLERY SENIOR SERGEANT/MD hx homeless as well as PVD s/p prior fem-pop bypass last admit December 2019 per MD. Pt admit w/ metabolic encephalopathy AOx2 drowsy and not appropriate for DM ed at this time. 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 PO pending at this time. Agustin 13 w/ no current open wounds but necrotic toe. Ensure high protein TIDWM added given pt additional protein needs given DX and hx; MD notified. Will continue to monitor for additional protein needs this admit. Rec: 1. continue carb controlled/pureed/thin liquid diet per FIELD ARTILLERY SENIOR SERGEANT/MD 2. ensure high protein TIDWM; MD notified 3. routine bowel care 4. monitor for additional protein needs 5. weekly wts Addendum: 02/08/20 at [address] Amended: Links added.
[2020-02-08 12:38] VITALS: BP 92/53
[2020-02-08] MEDS: vancomycin/NS 1 GM ADD-VANTAGE 250 ML IV SCH (13:13)
[2020-02-08] MEDS: insulin Lispro (HumaLOG) vial - multi-dose SQ SCH ×2 (14:18→20:36)
--- NOTE | 2020-02-08 15:52 | NUR ---
IR to bedside to chicken picker patient for ultrasound guided seroma drainage. Patient climbing out of bed and refusing to get back in bed to be taken downstairs. Patient uncooperative, refusing to follow basic commands. Appears to be agitated and intermittently confused. Patient does not appear to be safe for the procedure at this time. Dr Somers notified, and stated that this procedure is not emergent and can be reevaluated tomorrow.
[2020-02-08] MEDS ORDERED: non-formulary drug (Albuterol 2 PUFFS) IH PRN (16:10)
[2020-02-08] MEDS ORDERED: metFORMIN 500mg tablet PO SCH (17:30)
--- NOTE | 2020-02-08 19:10 | NUR ---
Problems reprioritized. Patient report given, questions answered & plan of care reviewed with Helen KWONG.
--- NOTE | 2020-02-08 19:12 | NUR ---
Patient in room [facility] 340. I have received report from CICI KWONG and had the opportunity to ask questions and assume patient care.
[2020-02-08 20:00] VITALS: BP 101/61
[2020-02-08] MEDS ORDERED: lactulose 20gm/30ml cup PO SCH (20:00)
[2020-02-08] MEDS: rifaximin 550mg tablet PO SCH (20:28)
[2020-02-08] MEDS: lactobacillus rhamnosus 10,000 MMU CELLS/CAPSULE PO SCH (20:28)
[2020-02-08] MEDS: insulin glargine (Lantus) pen - multi-dose SQ SCH (22:23)
[2020-02-08] MEDS: traMADol 50MG tablet PO PRN (23:17)
[2020-02-09] VITALS (11 sets, daily range): BP systolic 85–118; BP diastolic 59–79
[2020-02-09] MEDS: vancomycin/NS 1 GM ADD-VANTAGE 250 ML IV SCH ×2 (01:01→14:38)
[2020-02-09 06:08] LABS: BASOPHILS % (AUTO) 0.3 % (0-1); EOSINOPHILS # (AUTO) 0.1 X10'3 (0-0.9); EOSINOPHILS % (AUTO) 1.3 % (0-6); HEMATOCRIT 27.3 % (35.0-45.0); HEMOGLOBIN 9.5 g/dl (12.0-16.0); LYMPHOCYTES # (AUTO) 0.7 X10'3 (1.1-4.8); LYMPHOCYTES % (AUTO) 9.1 % (21-51); MEAN CORPUSCULAR HGB CONC 34.6 g/dL (33.0-36.5); MEAN PLATELET VOLUME 7.5 FL (7.4-10.4); MONOCYTES # (AUTO) 0.8 X10'3 (0-0.9); MONOCYTES % (AUTO) 9.4 % (2-12); NEUTROPHILS # (AUTO) 6.5 X10'3 (1.8-7.7); NEUTROPHILS % (AUTO) 79.9 % (42-75); PLATELET COUNT 94 X10'3 (140-440); RED BLOOD COUNT 2.78 X10'6 (4.20-5.60); RED CELL DISTRIBUTION WIDTH 16.3 % (11.5-14.5); WHITE BLOOD COUNT 8.1 X10'3 (4.5-11.0)
[2020-02-09 06:23] LABS: ALANINE AMINOTRANSFERASE 25 U/L (12-78); ALBUMIN/GLOBULIN RATIO 0.4 (1.1-1.5); ALKALINE PHOSPHATASE 65 IU/L (46-116); ANION GAP 6 (8-16); ASPARTATE AMINO TRANSFERASE 31 U/L (10-37); BILIRUBIN,TOTAL 1.8 MG/DL (0.1-1.0); BLOOD UREA NITROGEN 14 MG/DL (7-18); BUN/CREATININE RATIO 18.2 (6.6-38.0); CALCIUM 7.3 MG/DL (8.5-10.1); CHLORIDE 104 MMOL/L (99-107); CREATININE 0.77 MG/DL (0.40-0.90); MAGNESIUM 1.4 MG/DL (1.5-2.4); POTASSIUM 3.5 MMOL/L (3.5-5.1); SODIUM 135 MMOL/L (135-145); TOTAL CARBON DIOXIDE 24.7 MMOL/L (24-32); eGFR 76 ML/MIN
[2020-02-09 06:26] LABS: GLUCOSE 104 MG/DL (70-104)
--- NOTE | 2020-02-09 06:30 | NUR ---
Problems reprioritized. Patient report given, questions answered & plan of care reviewed with SHANEL KWONG.
[2020-02-09] MEDS: heparin, porcine 5000 units/ml vial SQ SCH ×2 (06:49→14:30)
[2020-02-09] MEDS: lactulose 20gm/30ml cup PO SCH ×3 (07:03→21:33)
[2020-02-09] MEDS: lactobacillus rhamnosus 10,000 MMU CELLS/CAPSULE PO SCH ×2 (07:03→18:57)
[2020-02-09] MEDS: rifaximin 550mg tablet PO SCH ×2 (07:03→18:57)
[2020-02-09] MEDS: furosemide 20MG tablet PO SCH (07:03)
[2020-02-09] MEDS: spironolactone 25 MG tablet PO SCH (07:03)
[2020-02-09] MEDS: nicotine 21mg patch - 24 hr TD SCH (07:03)
[2020-02-09] MEDS: K and/or MAG REPLACEMENT MC SCH ×2 (07:04→18:39)
--- NOTE | 2020-02-09 07:12 | NUR ---
PAGER ID: [phone] MESSAGE: Swapna MORALES 340A: REQUESTING PAIN MEDICATION 07/02. NO PRN ORDERS. ERIC [id number]
[2020-02-09] MEDS: cefepime 1GM in D5W 50mL 50 ML IV SCH ×2 (08:07→20:29)
[2020-02-09] MEDS ORDERED: fentaNYL/PF 50MCG/1 ML 2ML syringe ONE (08:26)
[2020-02-09] MEDS ORDERED: midazolam 2 mg/2 ml injection ONE (08:26)
--- NOTE | 2020-02-09 10:26 | NUR ---
PAGER ID: [phone] MESSAGE: Satinder B 340A: para and seroma drainage completed can patient eat? jakub [phone]
[2020-02-09] MEDS ORDERED: iohexol 350MG/ML 100ml bottle IV ONE (11:20)
[2020-02-09] MEDS ORDERED: VANCOMYCIN LEVEL IV ONE (12:30)
[2020-02-09] MEDS: normal saline 1000ml 1,000 ML IV SCH (13:27)
[2020-02-09 14:15] LABS: PARTIAL THROMBOPLASTIN TIME 30 SECONDS (22-32)
[2020-02-09] MEDS ORDERED: MESSAGE TO NURSING PO ONE (14:15)
--- NOTE | 2020-02-09 15:31 | NUR ---
PAGER ID: [phone] MESSAGE: Swapna Rajan 360A: CTA has resulted can patient eat dinner ? jakub [phone]
--- NOTE | 2020-02-09 18:20 | NUR ---
Problems reprioritized. Patient report given, questions answered & plan of care reviewed with ELENITA Cervantes.
--- NOTE | 2020-02-09 18:30 | NUR ---
Patient in room [facility] 340. I have received report from SHANEL KWONG and had the opportunity to ask questions and assume patient care.
[2020-02-09] MEDS: traMADol 50MG tablet PO PRN (18:57)
[2020-02-09] MEDS: insulin Lispro (HumaLOG) vial - multi-dose SQ SCH ×2 (19:15→20:43)
[2020-02-09] MEDS: insulin glargine (Lantus) pen - multi-dose SQ SCH (20:42)
[2020-02-09] MEDS: HYDROcodone/acetaminophen 5mg/325mg tablet PO PRN (21:32)
[2020-02-10] VITALS (20 sets, daily range): BP systolic 85–132; BP diastolic 50–74
[2020-02-10] MEDS: vancomycin/NS 1 GM ADD-VANTAGE 250 ML IV SCH (01:00)
[2020-02-10] MEDS: VANCOmycin 1250MG/NS 250ml Bag 250 ML IV SCH ×2 (01:45→15:15)
[2020-02-10] MEDS: traMADol 50MG tablet PO PRN ×2 (02:42→23:26)
[2020-02-10] MEDS: normal saline 1000ml 1,000 ML IV SCH ×2 (04:32→11:17)
[2020-02-10 06:19] LABS: BASOPHILS % (AUTO) 0.9 % (0-1); EOSINOPHILS # (AUTO) 0.1 X10'3 (0-0.9); EOSINOPHILS % (AUTO) 2.6 % (0-6); HEMATOCRIT 27.3 % (35.0-45.0); HEMOGLOBIN 9.3 g/dl (12.0-16.0); LYMPHOCYTES # (AUTO) 0.5 X10'3 (1.1-4.8); LYMPHOCYTES % (AUTO) 11.8 % (21-51); MEAN CORPUSCULAR HEMOGLOBIN 33.8 PG (27.0-31.0); MEAN CORPUSCULAR HGB CONC 34.2 g/dL (33.0-36.5); MEAN CORPUSCULAR VOLUME 99.1 FL (78-98); MEAN PLATELET VOLUME 7.8 FL (7.4-10.4); MONOCYTES # (AUTO) 0.6 X10'3 (0-0.9); MONOCYTES % (AUTO) 12.3 % (2-12); NEUTROPHILS # (AUTO) 3.3 X10'3 (1.8-7.7); NEUTROPHILS % (AUTO) 72.4 % (42-75); PLATELET COUNT 97 X10'3 (140-440); RED BLOOD COUNT 2.75 X10'6 (4.20-5.60); RED CELL DISTRIBUTION WIDTH 16.6 % (11.5-14.5); WHITE BLOOD COUNT 4.5 X10'3 (4.5-11.0)
[2020-02-10 06:28] LABS: ALANINE AMINOTRANSFERASE 25 U/L (12-78); ALBUMIN 1.9 G/DL (3.4-5.0); ALBUMIN/GLOBULIN RATIO 0.4 (1.1-1.5); ALKALINE PHOSPHATASE 73 IU/L (46-116); ANION GAP 2 (8-16); ASPARTATE AMINO TRANSFERASE 33 U/L (10-37); BILIRUBIN,TOTAL 1.3 MG/DL (0.1-1.0); BLOOD UREA NITROGEN 20 MG/DL (7-18); BUN/CREATININE RATIO 23.5 (6.6-38.0); CALCIUM 7.2 MG/DL (8.5-10.1); CHLORIDE 107 MMOL/L (99-107); CREATININE 0.85 MG/DL (0.40-0.90); GLUCOSE 276 MG/DL (70-104); MAGNESIUM 1.8 MG/DL (1.5-2.4); POTASSIUM 3.7 MMOL/L (3.5-5.1); SODIUM 137 MMOL/L (135-145); TOTAL CARBON DIOXIDE 27.9 MMOL/L (24-32); TOTAL PROTEIN 6.9 G/DL (6.4-8.2); eGFR 68 ML/MIN
--- NOTE | 2020-02-10 06:30 | NUR ---
Problems reprioritized. Patient report given, questions answered & plan of care reviewed with JUAN KWONG.
[2020-02-10] MEDS: K and/or MAG REPLACEMENT MC SCH ×2 (08:00→20:00)
[2020-02-10] MEDS: rifaximin 550mg tablet PO SCH ×2 (08:00→20:25)
[2020-02-10] MEDS: lactulose 20gm/30ml cup PO SCH ×3 (08:00→20:26)
[2020-02-10] MEDS: nicotine 21mg patch - 24 hr TD SCH (08:00)
[2020-02-10] MEDS: cefepime 1GM in D5W 50mL 50 ML IV SCH ×2 (08:21→20:26)
[2020-02-10] MEDS: spironolactone 25 MG tablet PO SCH (08:22)
[2020-02-10] MEDS: furosemide 20MG tablet PO SCH (08:23)
[2020-02-10] MEDS: lactobacillus rhamnosus 10,000 MMU CELLS/CAPSULE PO SCH ×2 (08:28→20:25)
[2020-02-10] MEDS: HYDROcodone/acetaminophen 5mg/325mg tablet PO PRN ×2 (08:35→20:25)
--- NOTE | 2020-02-10 10:30 | NUR ---
Reassessment: Pt with cellulitis and abscess of right thigh and calf per MD notes. Pt with active diet order however NPO at this time, per BIOMATERIALS ENGINEER notes pt pending TMA to right foot today. Pt documented as A/O x 4 however agitated and resistive to care at times. Pt would benefit from protein education as well as DM education s/p surgery once appropriate. Pt s/p paracentesis 02/08 with 1450 cc fluid removed. Noted that pureed diet order was completed by RN despite recommending pureed diet, d/w RN recommendation to resume pureed diet per recs and that pt may benefit from f/u BSS. Pt documented with 100% PO intake meeting nutrient needs. LBM 02/08. Will continue to follow closely. Rec: 1. continue carb controlled/pureed/thin liquid diet per recs; may benefit from f/u BSS 2. ensure high protein TIDWM; pending MD verification, MD notified 3. routine bowel care 4. monitor for additional protein needs 5. DM and protein educations once stable 6. Scaled wt per rx Addendum: 02/10/20 at [address] Amended: Links added.
[2020-02-10] MEDS ORDERED: ringers solution, lacted 1,000 ML IV SCH (14:16)
[2020-02-10] MEDS ORDERED: fentaNYL/PF 50MCG/1 ML 2ML syringe IV PRN ×2 (14:20)
[2020-02-10] MEDS ORDERED: morphine 2 MG/ML inj. syringe IV PRN ×3 (14:20→22:20)
[2020-02-10] MEDS ORDERED: ondansetron/PF 4mg/2ml inj IV PRN (14:20)
[2020-02-10] MEDS ORDERED: morphine 4 MG/ML inj SYRINge IV PRN ×2 (14:20→21:50)
[2020-02-10] MEDS ORDERED: labetalol 20mg/4ml (5mg/ml) syringe IV PRN (14:20)
[2020-02-10] MEDS ORDERED: hydrALAZINE 20mg/ml inj. IV PRN (14:20)
--- NOTE | 2020-02-10 14:30 | NUR ---
Report called to Wen KWONG and all questions answered.
[2020-02-10] MEDS ORDERED: ceFAZolin 1000mg inj ONE (15:24)
[2020-02-10] MEDS ORDERED: MIDAZolam 1mg/ml 10ml vial ONE (15:44)
[2020-02-10] MEDS ORDERED: fentaNYL/PF 50MCG/1 ML 2ML syringe ONE (15:44)
[2020-02-10] MEDS ORDERED: phenylephrine 10mg/ml inj. ONE (15:50)
[2020-02-10] MEDS ORDERED: albumin (Human) 5% 250ml 250 ML IV ONE ×2 (16:12→16:35)
--- NOTE | 2020-02-10 17:49 | NUR ---
Report called to receiving nurse. Transferred via surgical bed. Belongings remain in patient room. Pt continues to state she is in no pain and does not want pain meds at this time. Special Issues communicated to receiving nurse who is at bedside to receive patient. Reviewed wounds/dressings/wound vac with RN. Post op VS stable.
--- NOTE | 2020-02-10 18:30 | NUR ---
Patient in room [facility] 340. I have received report from JUAN KWONG and had the opportunity to ask questions and assume patient care.
[2020-02-10] MEDS: insulin glargine (Lantus) pen - multi-dose SQ SCH (21:53)
[2020-02-10] MEDS: insulin Lispro (HumaLOG) vial - multi-dose SQ SCH (21:54)
[2020-02-11] VITALS: BP 95/56
[2020-02-11] MEDS: HYDROcodone/acetaminophen 5mg/325mg tablet PO PRN (00:41)
[2020-02-11] MEDS: VANCOmycin 1250MG/NS 250ml Bag 250 ML IV SCH ×2 (00:44→12:47)
[2020-02-11] MEDS: morphine 4 MG/ML inj SYRINge IV PRN ×2 (03:44→08:24)
[2020-02-11 04:22] LABS: BASOPHILS % (AUTO) 1.1 % (0-1); EOSINOPHILS # (AUTO) 0.1 X10'3 (0-0.9); HEMATOCRIT 26.3 % (35.0-45.0); LYMPHOCYTES # (AUTO) 0.6 X10'3 (1.1-4.8); LYMPHOCYTES % (AUTO) 13.7 % (21-51); MEAN CORPUSCULAR HGB CONC 34.3 g/dL (33.0-36.5); MEAN CORPUSCULAR VOLUME 99.2 FL (78-98); MEAN PLATELET VOLUME 7.5 FL (7.4-10.4); MONOCYTES # (AUTO) 0.6 X10'3 (0-0.9); MONOCYTES % (AUTO) 13.7 % (2-12); NEUTROPHILS % (AUTO) 68.5 % (42-75); PLATELET COUNT 106 X10'3 (140-440); RED BLOOD COUNT 2.65 X10'6 (4.20-5.60); WHITE BLOOD COUNT 4.3 X10'3 (4.5-11.0)
[2020-02-11 04:37] LABS: ALANINE AMINOTRANSFERASE 15 U/L (12-78); ALBUMIN 2.3 G/DL (3.4-5.0); ALBUMIN/GLOBULIN RATIO 0.5 (1.1-1.5); ALKALINE PHOSPHATASE 81 IU/L (46-116); ANION GAP 5 (8-16); ASPARTATE AMINO TRANSFERASE 54 U/L (10-37); BILIRUBIN,TOTAL 1.2 MG/DL (0.1-1.0); BLOOD UREA NITROGEN 14 MG/DL (7-18); BUN/CREATININE RATIO 17.7 (6.6-38.0); CALCIUM 7.2 MG/DL (8.5-10.1); CHLORIDE 106 MMOL/L (99-107); CREATININE 0.79 MG/DL (0.40-0.90); GLUCOSE 228 MG/DL (70-104); MAGNESIUM 1.6 MG/DL (1.5-2.4); POTASSIUM 3.7 MMOL/L (3.5-5.1); SODIUM 138 MMOL/L (135-145); TOTAL CARBON DIOXIDE 26.7 MMOL/L (24-32); eGFR 74 ML/MIN
--- NOTE | 2020-02-11 06:15 | NUR ---
Patient in room [facility] 340. I have received report from JAMES RAMIREZ RN and had the opportunity to ask questions and assume patient care.
--- NOTE | 2020-02-11 06:30 | NUR ---
Problems reprioritized. Patient report given, questions answered & plan of care reviewed with UJAN KWONG.
[2020-02-11 07:00] VITALS: BP 109/72
[2020-02-11] MEDS: nicotine 21mg patch - 24 hr TD SCH (08:00)
[2020-02-11] MEDS: lactulose 20gm/30ml cup PO SCH (08:00)
[2020-02-11] MEDS: furosemide 20MG tablet PO SCH (08:00)
[2020-02-11] MEDS ORDERED: FLUoxetine 20mg capsule PO SCH (08:00)
[2020-02-11] MEDS: K and/or MAG REPLACEMENT MC SCH (08:00)
[2020-02-11] MEDS: lactobacillus rhamnosus 10,000 MMU CELLS/CAPSULE PO SCH (08:02)
[2020-02-11] MEDS: rifaximin 550mg tablet PO SCH (08:04)
[2020-02-11] MEDS: cefepime 1GM in D5W 50mL 50 ML IV SCH (08:04)
[2020-02-11] MEDS: spironolactone 25 MG tablet PO SCH (08:04)
[2020-02-11] MEDS: insulin Lispro (HumaLOG) vial - multi-dose SQ SCH ×2 (10:34→13:01)
[2020-02-11 11:00] VITALS: BP 105/69
--- NOTE | 2020-02-11 11:46 | NUR ---
WOUND VAC EDUCATION PROVIDED BY WOUND CARE 1. Patient instructed to call the Wound Center or their Home Health Agency immediately if: * They notice a change in the color or amount of the fluid in the canister. * Their wound looks more red than usual or has a foul smell. * The skin around their wound looks reddened or irritated. * The dressing feels loose or appears to be loose. * They experience any increase or changes in their pain. * The alarm will not turn off. 2. Patient instructed that they should not be disconnected from suction for more than 2 hours at a time. * If they are not able to get the suction back on, they need to remove the dressing and take all of the foam out of the wound. * Then moisten sterile gauze with normal saline and place on/in the wound. * Change the dressing once a day until arrangements have been made to replace the wound vac dressing. 3. Patient instructed to turn the wound vac machine OFF and call 911 or go to the ED immediately if their canister fills rapidly with blood. 4. If any of these occur while in the hospital tell a nurse immediately. Addendum: 02/11/20 at 1147 by Clary Funez RN Amended: Links added.
[2020-02-11] MEDS ORDERED: VANCOMYCIN LEVEL IV ONE (12:30)
[2020-02-11] MEDS ORDERED: LINE600T12 PO (13:07)
[2020-02-11] MEDS ORDERED: LACT1CAP26 PO (13:07)
--- NOTE | 2020-02-11 13:23 | NUR ---
Reassessment: Pt seen by RD for written/verbal high protein/DM diet eds w/ RD contact information provided. PO mostly 100% avg heart healthy/carb controlled meals s/p R great toe 1st ray resection per MD w/ wound vac present. Pt is agreeable to double meats BIDLD and eggs at breakfast for additional proteins and dislikes fish; dietary notified. Pt reports has no teeth but is able to "gum" all foods and declines texture modifications. LBM 02/08. No nutrition concerns at this time. Will continue to monitor. Rec: 1. continue carb controlled/heart healthy diet pending further GANG INVESTIGATOR recs 2. double eggs at breakfast; double meats BIDLD 3. routine bowel care 4. Scaled wt per rx Addendum: 02/11/20 at [address] Amended: Links added.
--- NOTE | 2020-02-11 16:50 | NUR ---
PATIENT STABLE AND APPROPRIATE FOR DISCHARGE, IV TAKEN OUT, EDUCATION GIVEN, PORTABLE WOUND VAC SENT WITH PATIENT, PRESCRIPTION E-SCRIPTED TO PREFERRED PHARMACY, ALL BELONGINGS SENT WITH PATIENT, PATIENT TAKEN TO LOBBY BY WHEELCHAIR TO AN AWAITING CAR WHERE WILL TAKE PATIENT HOME
== END 2020-02-11 17:03 | disposition home health service (06) | DRG 305 ==
LOC: ER 20:03 → ED HOLD 23:17 → SUR 3N 02-08 01:30
PROVIDERS: ADMIT Family Medicine; ATTEND Family Medicine
PROC: 0W9G3ZZ Drainage of Peritoneal Cavity, Percutaneous Approach (ICD-10-PCS; 2020-02-09)
PROC: 0S993ZX Drainage of Right Hip Joint, Percutaneous Approach, Diagnostic (ICD-10-PCS; 2020-02-09)
PROC: 0Y6M0Z9 Detachment at Right Foot, Partial 1st Ray, Open Approach (ICD-10-PCS; principal; 2020-02-10 15:50)
DX: L03.115 Cellulitis of right lower limb (principal); E11.52 Type 2 diabetes mellitus with diabetic peripheral angiopathy with gangrene; G93.41 Metabolic encephalopathy; R18.8 Other ascites; E11.65 Type 2 diabetes mellitus with hyperglycemia; E83.42 Hypomagnesemia; E87.1 Hypo-osmolality and hyponatremia; K72.90 Hepatic failure, unspecified without coma; D64.9 Anemia, unspecified; L02.415 Cutaneous abscess of right lower limb; F17.210 Nicotine dependence, cigarettes, uncomplicated; J44.9 Chronic obstructive pulmonary disease, unspecified; K74.60 Unspecified cirrhosis of liver; X58.XXXA Exposure to other specified factors, initial encounter; S09.8XXA Other specified injuries of head, initial encounter; Z91.19 Patient's noncompliance with other medical treatment and regimen; Z89.411 Acquired absence of right great toe; Z83.3 Family history of diabetes mellitus; Z82.49 Family history of ischemic heart disease and other diseases of the circulatory system; Y93.89 Activity, other specified; Y92.89 Other specified places as the place of occurrence of the external cause; Y99.8 Other external cause status
CPT/HCPCS: 10160; 36415; 49083; 70450; 71045; 73630; 73700; 73706; 76937; 80053; 80202; 80320; 82140; 82948; 83036; 83605; 83735; 84145; 85025; 85610; 85730; 87040; 87070; 87081; 92508; 92616; 93005; 93922; 94760; 97110; 97116; 97161; 97162; 97530; 99152; 99153; 99285; A4215; A6253; A6446; A6449; A7000; G0378; J0131; J0690; J0692; J1644; J1815; J2250; J2270; J2370; J3010; J3370; J3475; J7030; P9045; Q9967

== ENCOUNTER 2020-02-12 15:30 | Day surgery (SDC) | payer MEDICAID ==
[~2020-02-12 15:30] MED LIST changes: +LACT10SO74 PO; +LACT1CAP26 PO; +LINE600T12 PO; +RIFA550T PO
[2020-02-12] MEDS ORDERED: LIDOcaine 2% 5ml jelly ONE (16:04)
== END 2020-02-12 17:12 | disposition home or self-care (01) ==
LOC: WOUND CARE 15:30
PROVIDERS: ATTEND Nurse Practitioner
DX: T87.89 Other complications of amputation stump (principal); E11.621 Type 2 diabetes mellitus with foot ulcer; L97.513 Non-pressure chronic ulcer of other part of right foot with necrosis of muscle; L97.812 Non-pressure chronic ulcer of other part of right lower leg with fat layer exposed; E11.622 Type 2 diabetes mellitus with other skin ulcer; L97.111 Non-pressure chronic ulcer of right thigh limited to breakdown of skin; E11.52 Type 2 diabetes mellitus with diabetic peripheral angiopathy with gangrene; I96 Gangrene, not elsewhere classified; E11.65 Type 2 diabetes mellitus with hyperglycemia; J44.9 Chronic obstructive pulmonary disease, unspecified; F32.9 Major depressive disorder, single episode, unspecified; Z72.0 Tobacco use; Z90.49 Acquired absence of other specified parts of digestive tract; Z89.411 Acquired absence of right great toe; Z88.5 Allergy status to narcotic agent; Z88.8 Allergy status to other drugs, medicaments and biological substances; Z88.0 Allergy status to penicillin; Z79.899 Other long term (current) drug therapy; Z79.84 Long term (current) use of oral hypoglycemic drugs; Z98.890 Other specified postprocedural states; Z79.4 Long term (current) use of insulin; Y83.5 Amputation of limb(s) as the cause of abnormal reaction of the patient, or of later complication, without mention of misadventure at the time of the procedure
CPT/HCPCS: 36416; 82948; 97597; 97605

== ENCOUNTER 2020-02-16 13:10 | Inpatient (IN) | payer MEDICAID ==
[~2020-02-16] VITALS: Ht 167.6 cm; Wt 72.7 kg
--- NOTE | 2020-02-16 16:00 | NUR ---
Patient in room [facility] 360. I have received report from ELENITA Hinojosa and had the opportunity to ask questions and assume patient care.
--- NOTE | 2020-02-16 17:00 | NUR ---
Patient arrived on unit, in room 360B. No s/sx of distress. Resting comfortably.
[2020-02-16 17:34] VITALS: BP 113/66
[2020-02-16] MEDS ORDERED: dextrose ORAL solution 15 GM/59 ML bottle PO PRN (18:15)
[2020-02-16] MEDS ORDERED: magnesium 2GM in 50ml NS 50 ML IV PRN (18:15)
[2020-02-16] MEDS ORDERED: HYDROcodone/acetaminophen 5mg/325mg tablet PO PRN (18:15)
[2020-02-16] MEDS ORDERED: acetaminophen 325mg tablet PO PRN ×2 (18:15)
[2020-02-16] MEDS ORDERED: magnesium 4gm in 100ml NS 100 ML IV PRN (18:15)
[2020-02-16] MEDS ORDERED: potassium CL 10mEq/100ml bag 100 ML IV PRN ×2 (18:15)
[2020-02-16] MEDS ORDERED: mag hydrox/Alum hydrox/simeth 30ml oral suspension PO PRN (18:15)
[2020-02-16] MEDS ORDERED: bisacodyl 10mg suppository rectal RC PRN (18:15)
[2020-02-16] MEDS ORDERED: potassium Cl 20 mEq SR tablet PO PRN ×2 (18:15)
[2020-02-16] MEDS ORDERED: magnesium hydroxide 30ml (MOM) UD suspension PO PRN (18:15)
[2020-02-16] MEDS ORDERED: diphenhydrAMINE 25mg capsule PO PRN (18:15)
[2020-02-16] MEDS ORDERED: ondansetron/PF 4mg/2ml inj IV PRN (18:15)
[2020-02-16] MEDS ORDERED: morphine 2 MG/ML inj. syringe IV PRN (18:15)
[2020-02-16] MEDS ORDERED: dextrose 50%-water 50ml dispensing syringe IV PRN ×2 (18:15)
[2020-02-16] MEDS ORDERED: acetaminophen 650mg rectal suppository RC PRN (18:15)
[2020-02-16] MEDS ORDERED: glucagon, human recombinant 1mg kit SUBCUT PRN (18:15)
[2020-02-16] MEDS ORDERED: MESSAGE TO PHARMACY PO ONE (18:15)
--- NOTE | 2020-02-16 18:15 | NUR ---
Patient in room [facility] 360. I have received report from Anai KWONG and had the opportunity to ask questions and assume patient care.
--- NOTE | 2020-02-16 18:25 | NUR ---
Problems reprioritized. Patient report given, questions answered & plan of care reviewed with ELENITA Patton.
[2020-02-16 18:49] LABS: BASOPHILS # (AUTO) 0.1 X10'3 (0-0.2); BASOPHILS % (AUTO) 1.1 % (0-1); EOSINOPHILS # (AUTO) 0.1 X10'3 (0-0.9); EOSINOPHILS % (AUTO) 1.7 % (0-6); HEMATOCRIT 29.1 % (35.0-45.0); LYMPHOCYTES # (AUTO) 0.7 X10'3 (1.1-4.8); MEAN CORPUSCULAR HEMOGLOBIN 33.8 PG (27.0-31.0); MEAN CORPUSCULAR HGB CONC 34.3 g/dL (33.0-36.5); MEAN CORPUSCULAR VOLUME 98.6 FL (78-98); MEAN PLATELET VOLUME 6.5 FL (7.4-10.4); MONOCYTES # (AUTO) 0.5 X10'3 (0-0.9); MONOCYTES % (AUTO) 7.9 % (2-12); NEUTROPHILS # (AUTO) 4.4 X10'3 (1.8-7.7); NEUTROPHILS % (AUTO) 77.3 % (42-75); PLATELET COUNT 112 X10'3 (140-440); RED BLOOD COUNT 2.95 X10'6 (4.20-5.60); WHITE BLOOD COUNT 5.7 X10'3 (4.5-11.0)
[2020-02-16] MEDS: normal saline 1000ml 1,000 ML IV SCH (18:49)
[2020-02-16] MEDS: cefepime 1GM in D5W 50mL 50 ML IV SCH (18:50)
[2020-02-16 19:05] LABS: ALANINE AMINOTRANSFERASE 30 U/L (12-78); ALBUMIN 2.4 G/DL (3.4-5.0); ALBUMIN/GLOBULIN RATIO 0.4 (1.1-1.5); ALKALINE PHOSPHATASE 93 IU/L (46-116); ANION GAP 3 (8-16); ASPARTATE AMINO TRANSFERASE 28 U/L (10-37); BILIRUBIN,TOTAL 1.3 MG/DL (0.1-1.0); BLOOD UREA NITROGEN 11 MG/DL (7-18); BUN/CREATININE RATIO 11.7 (6.6-38.0); CALCIUM 8.2 MG/DL (8.5-10.1); CHLORIDE 102 MMOL/L (99-107); CREATININE 0.94 MG/DL (0.40-0.90); GLUCOSE 412 MG/DL (70-104); MAGNESIUM 1.4 MG/DL (1.5-2.4); PHOSPHORUS 3.1 MG/DL (2.3-4.5); POTASSIUM 3.6 MMOL/L (3.5-5.1); SODIUM 135 MMOL/L (135-145); TOTAL CARBON DIOXIDE 29.6 MMOL/L (24-32); eGFR 61 ML/MIN
[2020-02-16] MEDS ORDERED: traMADol 50MG tablet PO PRN (19:10)
[2020-02-16] MEDS ORDERED: albuterol 2.5 MG/3 ML nebule NEB PRN (19:20)
[2020-02-16 20:00] VITALS: BP 116/95
[2020-02-16] MEDS ORDERED: lactulose 20gm/30ml cup PO SCH (20:00)
[2020-02-16] MEDS: K and/or MAG REPLACEMENT MC SCH (20:00)
[2020-02-16] MEDS: insulin Lispro (HumaLOG) vial - multi-dose SQ SCH ×2 (20:01→21:29)
[2020-02-16] MEDS: heparin, porcine 5000 units/ml vial SQ SCH (20:04)
[2020-02-16] MEDS: vancomycin/NS 1 GM ADD-VANTAGE 250 ML IV SCH (21:18)
[2020-02-16] MEDS: insulin glargine (Lantus) pen - multi-dose SQ SCH (21:20)
[2020-02-16] MEDS: rifaximin 550mg tablet PO SCH (21:25)
[2020-02-16] MEDS: HYDROcodone/acetaminophen 10/325mg tab PO PRN (21:26)
[2020-02-16] MEDS: lactulose 20gm/30ml cup PO SCH (22:22)
[2020-02-17] VITALS: BP 97/54
[2020-02-17] MEDS: cefepime 1GM in D5W 50mL 50 ML IV SCH ×3 (00:07→15:43)
[2020-02-17] MEDS: morphine 2 MG/ML inj. syringe IV PRN ×3 (00:24→23:19)
--- NOTE | 2020-02-17 06:00 | NUR ---
Patient in room [facility] 360. I have received report from ELENITA Patton and had the opportunity to ask questions and assume patient care.
--- NOTE | 2020-02-17 06:05 | NUR ---
Problems reprioritized. Patient report given, questions answered & plan of care reviewed with Elvis KWONG.
[2020-02-17 07:28] LABS: BASOPHILS # (AUTO) 0.1 X10'3 (0-0.2); BASOPHILS % (AUTO) 0.6 % (0-1); EOSINOPHILS # (AUTO) 0.2 X10'3 (0-0.9); EOSINOPHILS % (AUTO) 2.1 % (0-6); HEMATOCRIT 27.4 % (35.0-45.0); HEMOGLOBIN 9.5 g/dl (12.0-16.0); LYMPHOCYTES # (AUTO) 0.7 X10'3 (1.1-4.8); LYMPHOCYTES % (AUTO) 7.8 % (21-51); MEAN CORPUSCULAR HEMOGLOBIN 34.3 PG (27.0-31.0); MEAN CORPUSCULAR HGB CONC 34.7 g/dL (33.0-36.5); MEAN CORPUSCULAR VOLUME 98.6 FL (78-98); MEAN PLATELET VOLUME 6.7 FL (7.4-10.4); MONOCYTES # (AUTO) 0.7 X10'3 (0-0.9); MONOCYTES % (AUTO) 7.6 % (2-12); NEUTROPHILS # (AUTO) 7.3 X10'3 (1.8-7.7); NEUTROPHILS % (AUTO) 81.9 % (42-75); PLATELET COUNT 119 X10'3 (140-440); RED BLOOD COUNT 2.78 X10'6 (4.20-5.60); RED CELL DISTRIBUTION WIDTH 15.9 % (11.5-14.5); WHITE BLOOD COUNT 8.9 X10'3 (4.5-11.0)
[2020-02-17 07:37] LABS: ALANINE AMINOTRANSFERASE 27 U/L (12-78); ALBUMIN 2.1 G/DL (3.4-5.0); ALBUMIN/GLOBULIN RATIO 0.4 (1.1-1.5); ALKALINE PHOSPHATASE 84 IU/L (46-116); ANION GAP 3 (8-16); ASPARTATE AMINO TRANSFERASE 34 U/L (10-37); BILIRUBIN,TOTAL 1.4 MG/DL (0.1-1.0); BLOOD UREA NITROGEN 9 MG/DL (7-18); BUN/CREATININE RATIO 10.5 (6.6-38.0); CALCIUM 7.6 MG/DL (8.5-10.1); CHLORIDE 103 MMOL/L (99-107); CREATININE 0.86 MG/DL (0.40-0.90); MAGNESIUM 1.5 MG/DL (1.5-2.4); PHOSPHORUS 2.8 MG/DL (2.3-4.5); POTASSIUM 3.9 MMOL/L (3.5-5.1); SODIUM 135 MMOL/L (135-145); TOTAL CARBON DIOXIDE 28.8 MMOL/L (24-32); TOTAL PROTEIN 7.3 G/DL (6.4-8.2); eGFR 67 ML/MIN
[2020-02-17 07:41] LABS: GLUCOSE 329 MG/DL (70-104)
[2020-02-17] MEDS: rifaximin 550mg tablet PO SCH ×2 (07:42→20:50)
[2020-02-17] MEDS: lactulose 20gm/30ml cup PO SCH ×4 (07:42→20:00)
[2020-02-17] MEDS: heparin, porcine 5000 units/ml vial SQ SCH (07:42)
[2020-02-17] MEDS: spironolactone 25 MG tablet PO SCH (07:43)
[2020-02-17 08:00] VITALS: BP 111/70
[2020-02-17] MEDS: K and/or MAG REPLACEMENT MC SCH ×2 (08:00→20:00)
[2020-02-17] MEDS: insulin Lispro (HumaLOG) vial - multi-dose SQ SCH ×3 (08:09→18:57)
--- NOTE | 2020-02-17 10:59 | NUR ---
DM consult: Pt admitted with right foot amputation site infection with possible underlying osteomyelitis. Pt with A1c 7.7% recently admitted and seen by RD 02/10 for written and verbal protein and DM educations and RD contact information. No further education warranted at this time. Pt currently on a heart healthy CHO controlled diet, mechanical soft grind all per ST recs, pending documentation of PO intake. At last visit pt agreed to double protein TID and states she dislikes fish. Recommend continuing double protein for increased protein needs, d/w dietary. LBM 02/15 documented as diarrhea, likely r/t Lactulose. Will continue to follow and monitor need for further nutrition intervention. Recommendations: 1) Continue heart healthy CHO controlled diet, mechanical soft grind all per ST recs 2) Double eggs q breakfast, double protein BIDLD 3) Bowel care PRN 4) Scaled wt per rx Addendum: 02/17/20 at [address] Amended: Links added.
[2020-02-17 11:00] VITALS: BP 120/75
[2020-02-17] MEDS: vancomycin/NS 1 GM ADD-VANTAGE 250 ML IV SCH ×2 (11:52→20:48)
[2020-02-17] MEDS: furosemide 20MG tablet PO SCH (11:52)
[2020-02-17] MEDS: metroNIDAZOLE 500mg tablet PO SCH ×2 (13:19→20:50)
[2020-02-17] MEDS: Dakins solution (1/4 strength) 473ml solution TP SCH ×2 (15:44→20:00)
--- NOTE | 2020-02-17 18:00 | NUR ---
Problems reprioritized. Patient report given, questions answered & plan of care reviewed with ELENITA Cloud.
--- NOTE | 2020-02-17 18:30 | NUR ---
Patient in room [facility] 360. I have received report from ELENITA Leal and had the opportunity to ask questions and assume patient care with ELENITA Jansen. Addendum: 02/17/20 at 1940 by Mike Caal RN Amended: Links added.
--- NOTE | 2020-02-17 18:46 | NUR ---
Patient in room [facility] 360. I have received report from Jarad RN and had the opportunity to ask questions and assume patient care.
[2020-02-17 20:00] VITALS: BP 94/58
[2020-02-17] MEDS: lactobacillus rhamnosus 10,000 MMU CELLS/CAPSULE PO SCH (20:49)
[2020-02-17] MEDS: HYDROcodone/acetaminophen 10/325mg tab PO PRN (20:50)
[2020-02-17] MEDS: insulin glargine (Lantus) pen - multi-dose SQ SCH (20:53)
--- NOTE | 2020-02-17 22:30 | NUR ---
called to check on his . He said his was "very upset and the told her she was going to ." I told the i was not there when the MD came earlier in the day and the pt was not upset when I had checked on her earlier. Checked on the pt and she was upset. Pt calmed down and was given a bed bath. the pt did not want to talk to her .
[2020-02-18] VITALS: BP 98/55
--- NOTE | 2020-02-18 | NUR ---
pt linens were soiled. I tried to change the linens but the pt refused because she stated she "was sleeping". I also tried to change the pts dressing on right foot and right knee but pt also refused. She stated she "wanted to change the dressings in the morning because she wanted to sleep." and she stated she "wouldnt if they werent changed tonight"
[2020-02-18] MEDS: cefepime 1GM in D5W 50mL 50 ML IV SCH ×3 (01:19→16:23)
[2020-02-18] MEDS: lactulose 20gm/30ml cup PO SCH ×4 (02:20→19:34)
--- NOTE | 2020-02-18 06:33 | NUR ---
Agree with nursing assessment Addendum: 02/18/20 at 0633 by Mike Caal RN Amended: Links added.
--- NOTE | 2020-02-18 06:33 | NUR ---
Problems reprioritized. Patient report given, questions answered & plan of care reviewed with Jasmin RN.
[2020-02-18] MEDS ORDERED: VANCOMYCIN LEVEL IV ONE (07:30)
[2020-02-18 08:00] VITALS: BP 93/49
[2020-02-18] MEDS: K and/or MAG REPLACEMENT MC SCH ×2 (08:00→20:00)
[2020-02-18 08:29] LABS: BASOPHILS # (AUTO) 0.1 X10'3 (0-0.2); BASOPHILS % (AUTO) 1.1 % (0-1); EOSINOPHILS # (AUTO) 0.1 X10'3 (0-0.9); EOSINOPHILS % (AUTO) 2.3 % (0-6); HEMATOCRIT 26.8 % (35.0-45.0); HEMOGLOBIN 9.2 g/dl (12.0-16.0); LYMPHOCYTES # (AUTO) 0.6 X10'3 (1.1-4.8); LYMPHOCYTES % (AUTO) 10.9 % (21-51); MEAN CORPUSCULAR HEMOGLOBIN 33.8 PG (27.0-31.0); MEAN CORPUSCULAR HGB CONC 34.2 g/dL (33.0-36.5); MEAN CORPUSCULAR VOLUME 98.9 FL (78-98); MEAN PLATELET VOLUME 6.8 FL (7.4-10.4); MONOCYTES # (AUTO) 0.5 X10'3 (0-0.9); MONOCYTES % (AUTO) 8.5 % (2-12); NEUTROPHILS # (AUTO) 4.6 X10'3 (1.8-7.7); NEUTROPHILS % (AUTO) 77.2 % (42-75); PLATELET COUNT 108 X10'3 (140-440); RED BLOOD COUNT 2.71 X10'6 (4.20-5.60); WHITE BLOOD COUNT 5.9 X10'3 (4.5-11.0)
[2020-02-18 08:30] VITALS: BP 109/75
[2020-02-18 08:47] LABS: ALANINE AMINOTRANSFERASE 25 U/L (12-78); ALBUMIN 1.9 G/DL (3.4-5.0); ALBUMIN/GLOBULIN RATIO 0.4 (1.1-1.5); ALKALINE PHOSPHATASE 77 IU/L (46-116); ANION GAP 2 (8-16); ASPARTATE AMINO TRANSFERASE 41 U/L (10-37); BILIRUBIN,TOTAL 0.9 MG/DL (0.1-1.0); BLOOD UREA NITROGEN 12 MG/DL (7-18); BUN/CREATININE RATIO 13.6 (6.6-38.0); CALCIUM 7.3 MG/DL (8.5-10.1); CHLORIDE 102 MMOL/L (99-107); CREATININE 0.88 MG/DL (0.40-0.90); GLUCOSE 223 MG/DL (70-104); MAGNESIUM 1.4 MG/DL (1.5-2.4); PHOSPHORUS 3.1 MG/DL (2.3-4.5); POTASSIUM 3.7 MMOL/L (3.5-5.1); SODIUM 134 MMOL/L (135-145); TOTAL CARBON DIOXIDE 30.5 MMOL/L (24-32); TOTAL PROTEIN 6.7 G/DL (6.4-8.2); VANCOMYCIN,TROUGH 11.9 UG/ML (6.0-14.0); eGFR 65 ML/MIN
[2020-02-18] MEDS: metroNIDAZOLE 500mg tablet PO SCH ×3 (09:19→22:45)
[2020-02-18] MEDS: lactobacillus rhamnosus 10,000 MMU CELLS/CAPSULE PO SCH ×2 (09:20→19:34)
[2020-02-18] MEDS: spironolactone 25 MG tablet PO SCH (09:20)
[2020-02-18] MEDS: rifaximin 550mg tablet PO SCH ×2 (09:20→19:34)
[2020-02-18] MEDS: morphine 2 MG/ML inj. syringe IV PRN ×4 (09:21→23:56)
[2020-02-18] MEDS: furosemide 20MG tablet PO SCH (09:29)
[2020-02-18] MEDS: insulin Lispro (HumaLOG) vial - multi-dose SQ SCH ×3 (09:37→19:37)
[2020-02-18] MEDS: Dakins solution (1/4 strength) 473ml solution TP SCH ×2 (10:35→20:00)
[2020-02-18] MEDS: VANCOmycin 1250MG/NS 250ml Bag 250 ML IV SCH ×2 (11:28→22:44)
[2020-02-18 12:00] VITALS: BP 141/80
[2020-02-18] MEDS: magnesium Cl slow-release 64mg tablet PO PRN ×2 (13:08→23:57)
[2020-02-18 18:00] VITALS: BP 113/76
--- NOTE | 2020-02-18 18:35 | NUR ---
Patient in room [facility] 360. I have received report from SHAVONNE KWONG and had the opportunity to ask questions and assume patient care.
--- NOTE | 2020-02-18 18:37 | NUR ---
Problems reprioritized. Patient report given, questions answered & plan of care reviewed with ELENITA Jansen.
--- NOTE | 2020-02-18 21:30 | NUR ---
pt wanted me to call her . I called and spoke to her , he stated he would like to know when pt will be discharged to [facility].
[2020-02-18] MEDS: dextrose ORAL solution 15 GM/59 ML bottle PO PRN ×3 (21:50→22:41)
[2020-02-18] MEDS: normal saline 1000ml 1,000 ML IV SCH (22:30)
[2020-02-18] MEDS: insulin glargine (Lantus) pen - multi-dose SQ SCH (23:45)
[2020-02-19] VITALS: BP 99/46
--- NOTE | 2020-02-19 | NUR ---
pt BG was checked at 150 and was 58. pt was symptomatic. pt was treated with DEX4 X3 until BG was. MD was notified and Natalee was help per MD orders.
[2020-02-19] MEDS: cefepime 1GM in D5W 50mL 50 ML IV SCH ×2 (01:59→08:37)
[2020-02-19] MEDS: lactulose 20gm/30ml cup PO SCH ×2 (02:00→08:37)
[2020-02-19] MEDS: HYDROcodone/acetaminophen 10/325mg tab PO PRN ×2 (02:51→10:57)
[2020-02-19 06:09] LABS: BASOPHILS % (AUTO) 0.6 % (0-1); EOSINOPHILS # (AUTO) 0.1 X10'3 (0-0.9); HEMATOCRIT 28.8 % (35.0-45.0); HEMOGLOBIN 9.9 g/dl (12.0-16.0); LYMPHOCYTES # (AUTO) 0.6 X10'3 (1.1-4.8); LYMPHOCYTES % (AUTO) 8.7 % (21-51); MEAN CORPUSCULAR HEMOGLOBIN 33.9 PG (27.0-31.0); MEAN CORPUSCULAR HGB CONC 34.4 g/dL (33.0-36.5); MEAN CORPUSCULAR VOLUME 98.5 FL (78-98); MEAN PLATELET VOLUME 6.7 FL (7.4-10.4); MONOCYTES # (AUTO) 0.5 X10'3 (0-0.9); MONOCYTES % (AUTO) 7.2 % (2-12); NEUTROPHILS # (AUTO) 5.3 X10'3 (1.8-7.7); NEUTROPHILS % (AUTO) 82.5 % (42-75); PLATELET COUNT 112 X10'3 (140-440); RED BLOOD COUNT 2.93 X10'6 (4.20-5.60); WHITE BLOOD COUNT 6.4 X10'3 (4.5-11.0)
[2020-02-19 06:26] LABS: ALANINE AMINOTRANSFERASE 26 U/L (12-78); ALBUMIN/GLOBULIN RATIO 0.4 (1.1-1.5); ALKALINE PHOSPHATASE 80 IU/L (46-116); ANION GAP 3 (8-16); ASPARTATE AMINO TRANSFERASE 42 U/L (10-37); BLOOD UREA NITROGEN 16 MG/DL (7-18); CHLORIDE 100 MMOL/L (99-107); GLUCOSE 304 MG/DL (70-104); MAGNESIUM 1.4 MG/DL (1.5-2.4); PHOSPHORUS 3.1 MG/DL (2.3-4.5); SODIUM 132 MMOL/L (135-145); TOTAL CARBON DIOXIDE 29.5 MMOL/L (24-32); TOTAL PROTEIN 7.5 G/DL (6.4-8.2); eGFR 56 ML/MIN
--- NOTE | 2020-02-19 06:28 | NUR ---
Problems reprioritized. Patient report given, questions answered & plan of care reviewed with Nany RN.
[2020-02-19 06:30] VITALS: BP 114/74
--- NOTE | 2020-02-19 06:50 | NUR ---
Patient in room [facility] 360. I have received report from Justyna RN & Ro RN and had the opportunity to ask questions and assume patient care.
[2020-02-19] MEDS: K and/or MAG REPLACEMENT MC SCH (08:16)
[2020-02-19] MEDS: magnesium Cl slow-release 64mg tablet PO PRN (08:37)
[2020-02-19] MEDS: rifaximin 550mg tablet PO SCH (08:37)
[2020-02-19] MEDS: lactobacillus rhamnosus 10,000 MMU CELLS/CAPSULE PO SCH (08:38)
[2020-02-19] MEDS: spironolactone 25 MG tablet PO SCH (08:38)
[2020-02-19] MEDS: metroNIDAZOLE 500mg tablet PO SCH ×2 (08:38→13:27)
[2020-02-19] MEDS: furosemide 20MG tablet PO SCH (08:38)
[2020-02-19] MEDS: Dakins solution (1/4 strength) 473ml solution TP SCH (08:52)
[2020-02-19] MEDS: insulin Lispro (HumaLOG) vial - multi-dose SQ SCH (08:52)
[2020-02-19] MEDS: VANCOmycin 1250MG/NS 250ml Bag 250 ML IV SCH (10:58)
[2020-02-19 11:00] VITALS: BP 118/73
--- NOTE | 2020-02-19 14:15 | NUR ---
Pt transferred to [facility] via EMS. IV DC'd, tip intact. Pt refused wound care & photos. All belongings sent w/pt.
[2020-02-19] MEDS ORDERED: VANCOMYCIN LEVEL IV ONE (20:30)
== END 2020-02-19 14:14 | DRG 349 ==
LOC: WOUND CARE 13:10 → UNDOADMIN 16:50 → SUR 3N 16:50
PROVIDERS: ADMIT Family Medicine; ATTEND Family Medicine
PROC: 0JBQ0ZZ Excision of Right Foot Subcutaneous Tissue and Fascia, Open Approach (ICD-10-PCS; principal; 2020-02-18)
DX: T87.43 Infection of amputation stump, right lower extremity (principal); E43 Unspecified severe protein-calorie malnutrition; D69.6 Thrombocytopenia, unspecified; E11.621 Type 2 diabetes mellitus with foot ulcer; E11.51 Type 2 diabetes mellitus with diabetic peripheral angiopathy without gangrene; E11.69 Type 2 diabetes mellitus with other specified complication; K76.6 Portal hypertension; R18.8 Other ascites; B18.2 Chronic viral hepatitis C; D53.9 Nutritional anemia, unspecified; F17.200 Nicotine dependence, unspecified, uncomplicated; J44.9 Chronic obstructive pulmonary disease, unspecified; K72.90 Hepatic failure, unspecified without coma; K74.60 Unspecified cirrhosis of liver; M86.8X7 Other osteomyelitis, ankle and foot; L97.519 Non-pressure chronic ulcer of other part of right foot with unspecified severity; Y83.5 Amputation of limb(s) as the cause of abnormal reaction of the patient, or of later complication, without mention of misadventure at the time of the procedure; Z82.49 Family history of ischemic heart disease and other diseases of the circulatory system; Z89.411 Acquired absence of right great toe; Z91.14 Patient's other noncompliance with medication regimen; Z91.19 Patient's noncompliance with other medical treatment and regimen; Y92.89 Other specified places as the place of occurrence of the external cause; Z90.49 Acquired absence of other specified parts of digestive tract; Z88.0 Allergy status to penicillin; Z88.5 Allergy status to narcotic agent; Z68.25 Body mass index [BMI] 25.0-25.9, adult
CPT/HCPCS: 36415; 36416; 76705; 80053; 80202; 82948; 83605; 83735; 84100; 84145; 85025; 87040; 87070; 87075; 87076; 87077; 87081; 87185; 87186; 92508; 92616; 94640; 94760; 97110; 97116; 97161; 97530; 97535; G0378; G0463; J0692; J1644; J1815; J2270; J3370; J3490; J7030

== ENCOUNTER 2020-04-15 07:15 | Day surgery (SDC) | payer MEDICAID ==
[~2020-04-15] VITALS: Ht 167.6 cm; Wt 70.3 kg
[~2020-04-15 07:15] MED LIST changes: -LACT1CAP26 PO; -LINE600T12 PO
[2020-04-15] MEDS ORDERED: normal saline 1000ml 1,000 ML IV PRN (07:40)
[2020-04-15] MEDS ORDERED: albumin 25% 100mL bottle x 1 IV PRN (07:40)
[2020-04-15 08:00] VITALS: BP 92/66
[2020-04-15] MEDS ORDERED: FURO40TA4 PO (08:44)
--- NOTE | 2020-04-15 09:00 | NUR ---
ULTRASOUND DONE BY Niecy Browning NO PARACENTESIS DONE PER Niecy Browning WAITING FOR HER RIDE HOME AT THIS TIME
== END 2020-04-15 10:20 | disposition home or self-care (01) ==
LOC: SSTAY O 07:15
PROVIDERS: ATTEND Radiology Vascular & Interventional Radiology
DX: R18.8 Other ascites (principal); R14.0 Abdominal distension (gaseous); K74.60 Unspecified cirrhosis of liver; Z89.421 Acquired absence of other right toe(s); Z86.19 Personal history of other infectious and parasitic diseases; J44.9 Chronic obstructive pulmonary disease, unspecified; E11.9 Type 2 diabetes mellitus without complications; K72.90 Hepatic failure, unspecified without coma; Z88.0 Allergy status to penicillin; Z88.5 Allergy status to narcotic agent; Z88.8 Allergy status to other drugs, medicaments and biological substances; Z98.890 Other specified postprocedural states; Z90.49 Acquired absence of other specified parts of digestive tract; Z79.84 Long term (current) use of oral hypoglycemic drugs; Z79.899 Other long term (current) drug therapy; Z80.8 Family history of malignant neoplasm of other organs or systems; Z82.49 Family history of ischemic heart disease and other diseases of the circulatory system; Z83.3 Family history of diabetes mellitus
CPT/HCPCS: 76705

== ENCOUNTER 2020-04-29 06:55 | Day surgery (SDC) | payer MEDICAID ==
[~2020-04-29] VITALS: Ht 167.6 cm; Wt 68.9 kg
[~2020-04-29 06:55] MED LIST changes: -FURO20TA4 PO; +FURO40TA4 PO; -METF-516 PO
[2020-04-29] MEDS ORDERED: normal saline 1000ml 1,000 ML IV PRN (07:15)
[2020-04-29 07:16] VITALS: BP 103/68
== END 2020-04-29 09:40 | disposition home or self-care (01) ==
LOC: SSTAY O 06:55
PROVIDERS: ATTEND Radiology Vascular & Interventional Radiology
DX: R18.8 Other ascites (principal); E11.9 Type 2 diabetes mellitus without complications; K72.90 Hepatic failure, unspecified without coma; J44.9 Chronic obstructive pulmonary disease, unspecified; Z88.0 Allergy status to penicillin; Z88.5 Allergy status to narcotic agent; Z88.8 Allergy status to other drugs, medicaments and biological substances; Z86.19 Personal history of other infectious and parasitic diseases; Z90.49 Acquired absence of other specified parts of digestive tract; Z98.890 Other specified postprocedural states; Z83.3 Family history of diabetes mellitus; Z82.49 Family history of ischemic heart disease and other diseases of the circulatory system; Z80.8 Family history of malignant neoplasm of other organs or systems
CPT/HCPCS: 76705

== ENCOUNTER 2020-05-20 18:38 | Emergency (ER) | payer MEDICAID ==
[~2020-05-20] VITALS: Ht 167.6 cm; Wt 145.0 kg
[2020-05-20 18:57] VITALS: BP 129/81
== END 2020-05-20 22:05 | disposition left against medical advice (07) ==
LOC: ER 18:39
DX: M79.671 Pain in right foot (principal); M79.89 Other specified soft tissue disorders; Z53.21 Procedure and treatment not carried out due to patient leaving prior to being seen by health care provider

== ENCOUNTER 2020-05-22 14:26 | Emergency (ER) | payer MEDICAID ==
[~2020-05-22] VITALS: Ht 167.6 cm; Wt 67.7 kg
[2020-05-22] MEDS ORDERED: CLIN-97 PO (15:59)
[2020-05-22 16:15] VITALS: BP 121/70
== END 2020-05-22 16:32 | disposition home or self-care (01) ==
LOC: ER 14:26
DX: L03.115 Cellulitis of right lower limb (principal); J45.909 Unspecified asthma, uncomplicated; E11.9 Type 2 diabetes mellitus without complications; F32.9 Major depressive disorder, single episode, unspecified; Z90.49 Acquired absence of other specified parts of digestive tract; Z98.890 Other specified postprocedural states; Z88.0 Allergy status to penicillin; Z88.5 Allergy status to narcotic agent; Z88.8 Allergy status to other drugs, medicaments and biological substances; Z79.2 Long term (current) use of antibiotics; Z79.899 Other long term (current) drug therapy
CPT/HCPCS: 99284

== ENCOUNTER 2020-05-26 19:49 | Inpatient (IN) | payer MEDICAID ==
[~2020-05-26] VITALS: Ht 167.6 cm; Wt 75.0 kg
[~2020-05-26 19:49] MED LIST changes: +CLIN-97 PO
[2020-05-26] MEDS ORDERED: fentaNYL/PF 50MCG/1 ML 2ML syringe IV ONE (23:00)
[2020-05-26] MEDS ORDERED: normal saline 1000ML IV soln IVB ONE (23:00)
[2020-05-26] MEDS ORDERED: ondansetron/PF 4mg/2ml inj IV ONE (23:00)
[2020-05-26 23:24] LABS: BASOPHILS # (AUTO) 0.1 X10'3 (0-0.2); BASOPHILS % (AUTO) 0.8 % (0-1); EOSINOPHILS % (AUTO) 0.4 % (0-6); HEMATOCRIT 33.1 % (35.0-45.0); HEMOGLOBIN 11.3 g/dl (12.0-16.0); LYMPHOCYTES # (AUTO) 0.6 X10'3 (1.1-4.8); LYMPHOCYTES % (AUTO) 7.5 % (21-51); MEAN CORPUSCULAR HEMOGLOBIN 31.3 PG (27.0-31.0); MEAN CORPUSCULAR HGB CONC 34.3 g/dL (33.0-36.5); MEAN CORPUSCULAR VOLUME 91.3 FL (78-98); MEAN PLATELET VOLUME 7.2 FL (7.4-10.4); MONOCYTES # (AUTO) 0.6 X10'3 (0-0.9); MONOCYTES % (AUTO) 7.8 % (2-12); NEUTROPHILS # (AUTO) 6.5 X10'3 (1.8-7.7); NEUTROPHILS % (AUTO) 83.5 % (42-75); PLATELET COUNT 141 X10'3 (140-440); RED BLOOD COUNT 3.62 X10'6 (4.20-5.60); RED CELL DISTRIBUTION WIDTH 16.9 % (11.5-14.5); WHITE BLOOD COUNT 7.8 X10'3 (4.5-11.0)
[2020-05-26 23:32] LABS: ALANINE AMINOTRANSFERASE 37 U/L (12-78); ALBUMIN/GLOBULIN RATIO 0.3 (1.1-1.5); ALKALINE PHOSPHATASE 83 IU/L (46-116); ANION GAP 3 (8-16); ASPARTATE AMINO TRANSFERASE 40 U/L (10-37); BILIRUBIN,TOTAL 1.2 MG/DL (0.1-1.0); BLOOD UREA NITROGEN 13 MG/DL (7-18); BUN/CREATININE RATIO 14.6 (6.6-38.0); CALCIUM 7.4 MG/DL (8.5-10.1); CHLORIDE 94 MMOL/L (99-107); CREATININE 0.89 MG/DL (0.40-0.90); POTASSIUM 4.3 MMOL/L (3.5-5.1); SODIUM 126 MMOL/L (135-145); TOTAL CARBON DIOXIDE 28.9 MMOL/L (24-32); TOTAL PROTEIN 7.9 G/DL (6.4-8.2); eGFR 64 ML/MIN
[2020-05-26 23:35] LABS: CREATINE KINASE 71 U/L (26-192); TROPONIN I < 0.04 NG/ML (0.0-0.05)
[2020-05-26 23:36] LABS: GLUCOSE 410 MG/DL (70-104)
[2020-05-27] VITALS (11 sets, daily range): BP systolic 97–151; BP diastolic 52–97
[2020-05-27 00:38] LABS: CLARITY,URINE CLEAR (Clear); COLOR,URINE YELLOW (Yellow); GLUCOSE, URINE >=1000 mg/dl (Neg); KETONES,URINE NEGATIVE (Neg); LEUKOCYTE ESTERASE ,URINE NEGATIVE (Neg); NITRITES, URINE NEGATIVE (Neg); OCCULT BLOOD,URINE MODERATE (Neg); PROTEIN,URINE NEGATIVE (Neg)
[2020-05-27 00:39] LABS: UA COLLECTION TYPE FOLEY CATH
[2020-05-27 00:45] LABS: BACTERIA,URINE NONE SEEN /HPF (Neg); SQUAMOUS EPITHELIAL CELL,UR FEW /LPF (FEW); WBC,URINE NONE SEEN /HPF (0-4)
[2020-05-27] MEDS: normal saline 1000ml 1,000 ML IV SCH (01:27)
[2020-05-27] MEDS ORDERED: potassium Cl 20 mEq SR tablet PO PRN ×2 (01:30)
[2020-05-27] MEDS ORDERED: acetaminophen 325mg tablet PO PRN (01:30)
[2020-05-27] MEDS ORDERED: magnesium 4gm in 100ml NS 100 ML IV PRN (01:30)
[2020-05-27] MEDS ORDERED: potassium CL 10mEq/100ml bag 100 ML IV PRN ×2 (01:30)
[2020-05-27] MEDS ORDERED: magnesium 2GM in 50ml NS 50 ML IV PRN (01:30)
[2020-05-27] MEDS ORDERED: magnesium Cl slow-release 64mg tablet PO PRN (01:30)
[2020-05-27] MEDS ORDERED: ondansetron/PF 4mg/2ml inj IV PRN ×2 (01:30→21:10)
--- NOTE | 2020-05-27 01:33 | NUR ---
Lola and I went in to clean up the patients periarea and change her bedsheets. She did not appreciate it. It hurt. Immediately when done she said she was hot. She started to pull off her gown. Assisted the pt and placed a wet cool washclothe to her head. She fell asleep. Lights dimmed.
--- NOTE | 2020-05-27 01:35 | NUR ---
pt has a large scab to her right deltoid area. Her marlon area is red.
[2020-05-27] MEDS: morphine 2 MG/ML inj. syringe IV PRN ×2 (01:44→04:51)
--- NOTE | 2020-05-27 05:01 | NUR ---
Pt screaming out in pain, adm. morphine. Covered her up with 2 warmed blankets per her request. IV infusing WNLs and dukes is draining. She fell asleep immediately again.
--- NOTE | 2020-05-27 05:56 | NUR ---
she had her oxygen off and under her chin. This is the second time I have found this. Her spo2 was 91%, replaced it to her nares and her sat went up.
[2020-05-27] MEDS: K and/or MAG REPLACEMENT MC SCH ×2 (07:21→20:00)
[2020-05-27] MEDS ORDERED: dextrose 50%-water 50ml dispensing syringe IV PRN ×2 (08:45)
[2020-05-27] MEDS ORDERED: MESSAGE TO PHARMACY PO ONE (08:45)
[2020-05-27] MEDS ORDERED: glucagon, human recombinant 1mg kit SUBCUT PRN (08:45)
[2020-05-27] MEDS ORDERED: dextrose ORAL solution 15 GM/59 ML bottle PO PRN ×2 (08:45)
[2020-05-27] MEDS ORDERED: LACT10SO PO (08:46)
[2020-05-27] MEDS ORDERED: FURO-150 PO (08:46)
[2020-05-27] MEDS: insulin Lispro (HumaLOG) vial - multi-dose SQ SCH ×2 (13:02→17:43)
[2020-05-27] MEDS ORDERED: CLIN300C63 PO (14:04)
[2020-05-27] MEDS ORDERED: INSU100C10 SQ (14:13)
[2020-05-27] MEDS ORDERED: INSU100V9 SQ (14:13)
[2020-05-27] MEDS ORDERED: ARIP2TAB37 PO (14:13)
[2020-05-27 14:25] LABS: ALBUMIN 1.8 G/DL (3.4-5.0); ANION GAP 1 (8-16); BLOOD UREA NITROGEN 11 MG/DL (7-18); BUN/CREATININE RATIO 14.9 (6.6-38.0); CALCIUM 7.3 MG/DL (8.5-10.1); CHLORIDE 98 MMOL/L (99-107); CREATININE 0.74 MG/DL (0.40-0.90); GLUCOSE 297 MG/DL (70-104); POTASSIUM 4.2 MMOL/L (3.5-5.1); SODIUM 128 MMOL/L (135-145); TOTAL CARBON DIOXIDE 29.4 MMOL/L (24-32); eGFR 80 ML/MIN
[2020-05-27 14:42] LABS: PARTIAL THROMBOPLASTIN TIME 28 SECONDS (22-32)
[2020-05-27] MEDS ORDERED: albuterol 2.5 MG/3 ML nebule NEB PRN (16:50)
[2020-05-27] MEDS ORDERED: LORazepam 2 mg/ml vial IV ONE (16:55)
--- NOTE | 2020-05-27 17:06 | NUR ---
Called OR to let them know patient ate some food that she snuck in her bag. Patient will not let us go through her bag.
--- NOTE | 2020-05-27 18:07 | NUR ---
Problems reprioritized. Patient report given, questions answered & plan of care reviewed with ELENITA Pabon.
--- NOTE | 2020-05-27 18:24 | NUR ---
Patient in room [facility] 4022. I have received report from geno KWONG and had the opportunity to ask questions and assume patient care.
--- NOTE | 2020-05-27 19:06 | NUR ---
Patient being taken to surgery now.
[2020-05-27] MEDS: rifaximin 550mg tablet PO SCH (20:00)
[2020-05-27] MEDS: lactulose 20gm/30ml cup PO SCH (20:00)
[2020-05-27] MEDS ORDERED: midazolam 2 mg/2 ml injection ONE (20:05)
[2020-05-27] MEDS ORDERED: tranexamic acid 1gm/0.7% sal. 100 ML IV ONE (20:45)
[2020-05-27] MEDS ORDERED: LIDOcaine 2% (20mg/ml) 5ml vial ONE (20:48)
[2020-05-27] MEDS ORDERED: LIDOcaine 2% 5ml jelly ONE (20:48)
[2020-05-27] MEDS ORDERED: fentaNYL /PF 50mcg/ml 5ml ampule ONE (20:48)
[2020-05-27] MEDS ORDERED: ceFAZolin 1000mg inj ONE ×3 (20:48→21:07)
[2020-05-27] MEDS ORDERED: vancomycin 1,000mg inj ONE ×2 (20:48→21:45)
[2020-05-27] MEDS ORDERED: rocuronium 10mg/ml inj IV ONE (20:48)
[2020-05-27] MEDS ORDERED: propofol inj 20 ML IV ONE (20:48)
[2020-05-27] MEDS ORDERED: ringers solution, lacted 1,000 ML IV SCH (21:08)
[2020-05-27] MEDS ORDERED: meperidine/PF 25mg/ml syringe IV PRN ×3 (21:10)
[2020-05-27] MEDS ORDERED: morphine 4 MG/ML inj SYRINge IV PRN (21:10)
[2020-05-27] MEDS ORDERED: proCHLORperazine 10 MG/2 ml inj IV PRN (21:10)
[2020-05-27] MEDS ORDERED: morphine 2 MG/ML inj. syringe IV PRN (21:10)
[2020-05-27] MEDS ORDERED: morphine 10mg/ml inj. ONE (21:29)
[2020-05-27] MEDS ORDERED: dexamethasone sod phosphate 4mg/ml inj. ONE (21:30)
[2020-05-27] MEDS ORDERED: ondansetron/PF 4mg/2ml inj ONE (21:30)
[2020-05-27] MEDS ORDERED: neostigmine methylsulfate 1 MG/ML 10ml vial ONE (22:01)
[2020-05-27] MEDS ORDERED: glycopyrrolate 0.2mg/ml inj ONE (22:02)
--- NOTE | 2020-05-27 22:30 | NUR ---
ADMITTED TO PACU FROM OR ACCOMPANIED BY ANESTHESIA. INTIAL PHYSICAL ASSESSMENT DONE AND RECORDED. REPORT RECEIVED FROM ANESTHESIA.
--- NOTE | 2020-05-27 23:23 | NUR ---
Received report from Nuris KWONG in recovery, patient being brought to ortho floor.
--- NOTE | 2020-05-27 23:30 | NUR ---
PACU DISCHARGE CRITERIA MET, REPORT GIVEN TO FLOOR. DENIES PAIN OR DISCOMFORT, TRANSFERRED TO ROOM IN STABLE GOOD CONDITION.
[2020-05-28] VITALS (9 sets, daily range): BP systolic 115–145; BP diastolic 69–96
[2020-05-28] MEDS: insulin glargine (Lantus) pen - multi-dose SQ SCH ×2 (00:05→20:55)
--- NOTE | 2020-05-28 00:30 | NUR ---
Insulin given late due to patient being in the OR. Checked BG when patient got back from surgery and covered her with insulin.
[2020-05-28] MEDS: lactulose 20gm/30ml cup PO SCH ×4 (01:44→19:03)
[2020-05-28] MEDS: morphine 2 MG/ML inj. syringe IV PRN (04:53)
--- NOTE | 2020-05-28 06:23 | NUR ---
Patient in room [facility] 4022. I have received report from ELENITA Pabon and had the opportunity to ask questions and assume patient care.
--- NOTE | 2020-05-28 06:27 | NUR ---
Problems reprioritized. Patient report given, questions answered & plan of care reviewed with Carlos KWONG.
[2020-05-28] MEDS: normal saline 1000ml 1,000 ML IV SCH ×2 (07:28→20:21)
[2020-05-28 07:38] LABS: BASOPHILS % (AUTO) 0.2 % (0-1); EOSINOPHILS % (AUTO) 0 % (0-6); HEMATOCRIT 35.4 % (35.0-45.0); HEMOGLOBIN 11.8 g/dl (12.0-16.0); LYMPHOCYTES # (AUTO) 0.6 X10'3 (1.1-4.8); LYMPHOCYTES % (AUTO) 6.1 % (21-51); MEAN CORPUSCULAR HEMOGLOBIN 30.9 PG (27.0-31.0); MEAN CORPUSCULAR HGB CONC 33.4 g/dL (33.0-36.5); MEAN CORPUSCULAR VOLUME 92.2 FL (78-98); MEAN PLATELET VOLUME 7.3 FL (7.4-10.4); MONOCYTES # (AUTO) 0.1 X10'3 (0-0.9); MONOCYTES % (AUTO) 1.3 % (2-12); NEUTROPHILS # (AUTO) 9.7 X10'3 (1.8-7.7); NEUTROPHILS % (AUTO) 92.4 % (42-75); PLATELET COUNT 114 X10'3 (140-440); RED BLOOD COUNT 3.83 X10'6 (4.20-5.60); WHITE BLOOD COUNT 10.5 X10'3 (4.5-11.0)
[2020-05-28 07:57] LABS: ALBUMIN 1.8 G/DL (3.4-5.0); ANION GAP 3 (8-16); BLOOD UREA NITROGEN 15 MG/DL (7-18); BUN/CREATININE RATIO 21.7 (6.6-38.0); CALCIUM 7.6 MG/DL (8.5-10.1); CHLORIDE 99 MMOL/L (99-107); CREATININE 0.69 MG/DL (0.40-0.90); MAGNESIUM 1.5 MG/DL (1.5-2.4); SODIUM 130 MMOL/L (135-145); TOTAL CARBON DIOXIDE 27.9 MMOL/L (24-32); eGFR 86 ML/MIN
[2020-05-28 07:58] LABS: GLUCOSE 322 MG/DL (70-104); POTASSIUM 5.2 MMOL/L (3.5-5.1)
[2020-05-28] MEDS ORDERED: lactulose 20gm/30ml cup PO SCH ×2 (08:00→14:00)
[2020-05-28] MEDS ORDERED: spironolactone 25 MG tablet PO SCH (08:00)
[2020-05-28] MEDS: K and/or MAG REPLACEMENT MC SCH ×2 (08:00→19:03)
[2020-05-28] MEDS: rifaximin 550mg tablet PO SCH ×2 (08:08→19:03)
[2020-05-28] MEDS: furosemide 20MG tablet PO SCH (08:08)
[2020-05-28] MEDS ORDERED: vancomycin/NS 1 GM ADD-VANTAGE 250 ML IV ONE (09:00)
[2020-05-28] MEDS: insulin Lispro (HumaLOG) vial - multi-dose SQ SCH ×3 (09:02→18:50)
[2020-05-28] MEDS ORDERED: HYDROcodone/acetaminophen 5mg/325mg tablet PO PRN (12:15)
[2020-05-28] MEDS: HYDROcodone/acetaminophen 10/325mg tab PO PRN ×2 (12:41→18:46)
[2020-05-28] MEDS: LORazepam 0.5 MG tablet PO PRN ×2 (13:20→19:03)
--- NOTE | 2020-05-28 15:05 | NUR ---
DM consult: Pt with A1c 9.9%, up from 7.7% in January of this year per records. Pt s/p SIGIFREDO this admit. Attempted visit with pt at bedside however pt sleeping and did not wake with verbal cues. Written DM and protein educations left at bedside with RD contact information. Pt provided with DM education on multiple occasions at past admits. Patient's diet has been advanced to regular and pt documented with 100% PO intake. D/w RN recommendation for diet change to CHO controlled with physician approval given hx DM and elevated BG levels since admit. D/w dietary to send double protein TID for increased protein needs and satiety, which pt has agreed to at most past visits. Recommend BSS with ST since PO diet has been advanced and pt has required texture modifications in the past. D/w dietary to send mechanical soft grind all food in the mean time given ST recs at last admit 02/16. Will continue to follow and monitor need for f/u verbal educations. Addendum: 05/28/20 at [address] Amended: Links added.
--- NOTE | 2020-05-28 18:07 | NUR ---
Patient in room [facility] 4022. I have received report from Carlos KWONG and had the opportunity to ask questions and assume patient care.
--- NOTE | 2020-05-28 18:18 | NUR ---
Problems reprioritized. Patient report given, questions answered & plan of care reviewed with ELENITA Pabon.
--- NOTE | 2020-05-28 21:25 | NUR ---
PAGER ID: [phone] MESSAGE: Pepper Beth. Pt Rajan in [id number]. Dr. Gong said for hospitalist to address right foot cellulitis as it is not related to her surgery. She had her right toe amputated 1 month ago and her foot is red & swollen. Not currently on antibiotics
--- NOTE | 2020-05-28 21:46 | NUR ---
Dr. Gong came in and saw patient at bedside. No new orders or concerns in regards to the patients hip at this time. In regards to her right foot being red and swollen he stated for the hospitalist to follow that because it is not related to her hip surgery. Contacted Dr. Griffin and got an order for a wound culture and to start the patient on vanco.
[2020-05-28] MEDS: vancomycin/NS 1 GM ADD-VANTAGE 250 ML IV SCH (21:56)
[2020-05-29] MEDS: HYDROcodone/acetaminophen 10/325mg tab PO PRN ×3 (00:13→19:38)
[2020-05-29] MEDS: lactulose 20gm/30ml cup PO SCH ×4 (01:46→19:37)
[2020-05-29 02:00] VITALS: BP 127/74
[2020-05-29] MEDS: LORazepam 0.5 MG tablet PO PRN (05:33)
[2020-05-29 06:00] VITALS: BP 125/68
--- NOTE | 2020-05-29 06:32 | NUR ---
Problems reprioritized. Patient report given, questions answered & plan of care reviewed with Rachael KWONG.
[2020-05-29 06:53] LABS: BASOPHILS % (AUTO) 0.1 % (0-1); EOSINOPHILS # (AUTO) 0.1 X10'3 (0-0.9); EOSINOPHILS % (AUTO) 0.6 % (0-6); HEMATOCRIT 30.3 % (35.0-45.0); LYMPHOCYTES # (AUTO) 0.8 X10'3 (1.1-4.8); LYMPHOCYTES % (AUTO) 6.8 % (21-51); MEAN CORPUSCULAR HEMOGLOBIN 30.3 PG (27.0-31.0); MEAN CORPUSCULAR HGB CONC 33.1 g/dL (33.0-36.5); MEAN CORPUSCULAR VOLUME 91.5 FL (78-98); MEAN PLATELET VOLUME 6.8 FL (7.4-10.4); MONOCYTES # (AUTO) 0.8 X10'3 (0-0.9); MONOCYTES % (AUTO) 7.4 % (2-12); NEUTROPHILS # (AUTO) 9.6 X10'3 (1.8-7.7); NEUTROPHILS % (AUTO) 85.1 % (42-75); PLATELET COUNT 151 X10'3 (140-440); RED BLOOD COUNT 3.31 X10'6 (4.20-5.60); RED CELL DISTRIBUTION WIDTH 17.1 % (11.5-14.5); WHITE BLOOD COUNT 11.3 X10'3 (4.5-11.0)
[2020-05-29 07:17] LABS: ALBUMIN 1.8 G/DL (3.4-5.0); ANION GAP 2 (8-16); BLOOD UREA NITROGEN 16 MG/DL (7-18); BUN/CREATININE RATIO 20.5 (6.6-38.0); CALCIUM 7.8 MG/DL (8.5-10.1); CHLORIDE 101 MMOL/L (99-107); CREATININE 0.78 MG/DL (0.40-0.90); GLUCOSE 309 MG/DL (70-104); MAGNESIUM 1.7 MG/DL (1.5-2.4); POTASSIUM 4.4 MMOL/L (3.5-5.1); SODIUM 132 MMOL/L (135-145); TOTAL CARBON DIOXIDE 28.6 MMOL/L (24-32); eGFR 75 ML/MIN
[2020-05-29] MEDS: K and/or MAG REPLACEMENT MC SCH ×2 (08:00→20:00)
[2020-05-29] MEDS: furosemide 20MG tablet PO SCH (08:00)
[2020-05-29] MEDS: rifaximin 550mg tablet PO SCH ×2 (08:00→19:38)
[2020-05-29 10:00] VITALS: BP 138/85
[2020-05-29] MEDS: vancomycin/NS 1 GM ADD-VANTAGE 250 ML IV SCH (10:00)
[2020-05-29] MEDS: insulin Lispro (HumaLOG) vial - multi-dose SQ SCH ×2 (13:51→19:49)
[2020-05-29 18:00] VITALS: BP 120/80
--- NOTE | 2020-05-29 18:30 | NUR ---
Patient in room [facility] 4022. I have received report from Rachael KWONG and had the opportunity to ask questions and assume patient care.
[2020-05-29] MEDS: CefTRIAXone 2gm/D5W 50ml 50 ML IV SCH (19:36)
[2020-05-29] MEDS: lactobacillus rhamnosus 10,000 MMU CELLS/CAPSULE PO SCH (19:38)
[2020-05-29] MEDS: insulin glargine (Lantus) pen - multi-dose SQ SCH (21:38)
[2020-05-30] MEDS: vancomycin/NS 1 GM ADD-VANTAGE 250 ML IV SCH ×2 (00:36→09:50)
[2020-05-30] MEDS: lactulose 20gm/30ml cup PO SCH ×4 (03:39→19:18)
[2020-05-30] MEDS: LORazepam 0.5 MG tablet PO PRN ×2 (04:11→21:36)
[2020-05-30] MEDS: HYDROcodone/acetaminophen 10/325mg tab PO PRN ×4 (04:11→23:23)
[2020-05-30 06:00] VITALS: BP 108/63
--- NOTE | 2020-05-30 06:21 | NUR ---
Problems reprioritized. Patient report given, questions answered & plan of care reviewed with Rachael KWONG.
[2020-05-30 06:24] LABS: BASOPHILS % (AUTO) 0.3 % (0-1); EOSINOPHILS # (AUTO) 0.1 X10'3 (0-0.9); EOSINOPHILS % (AUTO) 0.8 % (0-6); HEMATOCRIT 28.8 % (35.0-45.0); HEMOGLOBIN 9.8 g/dl (12.0-16.0); LYMPHOCYTES # (AUTO) 0.7 X10'3 (1.1-4.8); LYMPHOCYTES % (AUTO) 7.7 % (21-51); MEAN CORPUSCULAR HEMOGLOBIN 31.2 PG (27.0-31.0); MEAN CORPUSCULAR HGB CONC 34.1 g/dL (33.0-36.5); MEAN CORPUSCULAR VOLUME 91.4 FL (78-98); MEAN PLATELET VOLUME 6.6 FL (7.4-10.4); MONOCYTES # (AUTO) 0.7 X10'3 (0-0.9); NEUTROPHILS # (AUTO) 7.9 X10'3 (1.8-7.7); NEUTROPHILS % (AUTO) 84.2 % (42-75); PLATELET COUNT 133 X10'3 (140-440); RED BLOOD COUNT 3.15 X10'6 (4.20-5.60); RED CELL DISTRIBUTION WIDTH 17.2 % (11.5-14.5); WHITE BLOOD COUNT 9.4 X10'3 (4.5-11.0)
[2020-05-30 06:38] LABS: ALBUMIN 1.7 G/DL (3.4-5.0); ANION GAP 1 (8-16); BLOOD UREA NITROGEN 13 MG/DL (7-18); BUN/CREATININE RATIO 21.7 (6.6-38.0); CALCIUM 8.3 MG/DL (8.5-10.1); CHLORIDE 101 MMOL/L (99-107); GLUCOSE 142 MG/DL (70-104); MAGNESIUM 1.4 MG/DL (1.5-2.4); POTASSIUM 4.1 MMOL/L (3.5-5.1); SODIUM 132 MMOL/L (135-145); TOTAL CARBON DIOXIDE 30.3 MMOL/L (24-32); eGFR > 90 ML/MIN
[2020-05-30] MEDS: K and/or MAG REPLACEMENT MC SCH ×3 (08:00→20:00)
[2020-05-30] MEDS: furosemide 20MG tablet PO SCH (09:16)
[2020-05-30] MEDS: rifaximin 550mg tablet PO SCH ×2 (09:16→19:18)
[2020-05-30] MEDS: lactobacillus rhamnosus 10,000 MMU CELLS/CAPSULE PO SCH ×2 (09:16→19:18)
[2020-05-30] MEDS: CefTRIAXone 2gm/D5W 50ml 50 ML IV SCH (09:28)
[2020-05-30] MEDS ORDERED: VANCOMYCIN LEVEL IV ONE (09:30)
[2020-05-30] MEDS: insulin Lispro (HumaLOG) vial - multi-dose SQ SCH ×3 (09:39→21:43)
[2020-05-30 10:00] VITALS: BP 118/71
[2020-05-30] MEDS ORDERED: potassium Cl 20 mEq SR tablet PO PRN ×2 (15:00)
[2020-05-30] MEDS ORDERED: potassium CL 10mEq/100ml bag 100 ML IV PRN (15:00)
[2020-05-30] MEDS ORDERED: magnesium 4gm in 100ml NS 100 ML IV PRN (15:00)
[2020-05-30] MEDS: magnesium Cl slow-release 64mg tablet PO PRN ×2 (15:08→23:26)
--- NOTE | 2020-05-30 18:30 | NUR ---
Patient in room [facility] 4022. I have received report from Rachael KWONG and had the opportunity to ask questions and assume patient care.
[2020-05-30] MEDS: insulin glargine (Lantus) pen - multi-dose SQ SCH (21:41)
[2020-05-30 22:00] VITALS: BP 114/72
[2020-05-30] MEDS: VANCOmycin 1250MG/NS 250ml Bag 250 ML IV SCH (22:00)
[2020-05-31] MEDS: lactulose 20gm/30ml cup PO SCH ×4 (02:00→19:46)
[2020-05-31 05:47] LABS: BASOPHILS % (AUTO) 0.5 % (0-1); EOSINOPHILS # (AUTO) 0.1 X10'3 (0-0.9); EOSINOPHILS % (AUTO) 2.2 % (0-6); HEMATOCRIT 26.8 % (35.0-45.0); HEMOGLOBIN 9.3 g/dl (12.0-16.0); LYMPHOCYTES # (AUTO) 0.7 X10'3 (1.1-4.8); LYMPHOCYTES % (AUTO) 10.8 % (21-51); MEAN CORPUSCULAR HEMOGLOBIN 31.6 PG (27.0-31.0); MEAN CORPUSCULAR HGB CONC 34.7 g/dL (33.0-36.5); MEAN CORPUSCULAR VOLUME 91.1 FL (78-98); MEAN PLATELET VOLUME 6.7 FL (7.4-10.4); MONOCYTES # (AUTO) 0.6 X10'3 (0-0.9); MONOCYTES % (AUTO) 8.8 % (2-12); NEUTROPHILS # (AUTO) 5.1 X10'3 (1.8-7.7); NEUTROPHILS % (AUTO) 77.7 % (42-75); PLATELET COUNT 124 X10'3 (140-440); RED BLOOD COUNT 2.94 X10'6 (4.20-5.60); RED CELL DISTRIBUTION WIDTH 17.4 % (11.5-14.5); WHITE BLOOD COUNT 6.5 X10'3 (4.5-11.0)
[2020-05-31 05:57] LABS: ALBUMIN 1.6 G/DL (3.4-5.0); ANION GAP 0 (8-16); BLOOD UREA NITROGEN 12 MG/DL (7-18); BUN/CREATININE RATIO 18.2 (6.6-38.0); CALCIUM 8.1 MG/DL (8.5-10.1); CHLORIDE 102 MMOL/L (99-107); CREATININE 0.66 MG/DL (0.40-0.90); GLUCOSE 134 MG/DL (70-104); MAGNESIUM 1.5 MG/DL (1.5-2.4); SODIUM 134 MMOL/L (135-145); TOTAL CARBON DIOXIDE 32.3 MMOL/L (24-32); eGFR > 90 ML/MIN
[2020-05-31] MEDS: HYDROcodone/acetaminophen 10/325mg tab PO PRN ×3 (05:57→22:13)
[2020-05-31 06:00] VITALS: BP 104/64
[2020-05-31] MEDS: K and/or MAG REPLACEMENT MC SCH ×4 (08:00→20:00)
[2020-05-31] MEDS: CefTRIAXone 2gm/D5W 50ml 50 ML IV SCH (09:56)
[2020-05-31] MEDS: insulin Lispro (HumaLOG) vial - multi-dose SQ SCH ×4 (10:14→22:31)
[2020-05-31] MEDS: rifaximin 550mg tablet PO SCH ×2 (10:20→19:45)
[2020-05-31] MEDS: lactobacillus rhamnosus 10,000 MMU CELLS/CAPSULE PO SCH ×2 (10:22→19:45)
[2020-05-31] MEDS: furosemide 20MG tablet PO SCH (10:22)
[2020-05-31] MEDS: VANCOmycin 1250MG/NS 250ml Bag 250 ML IV SCH ×2 (10:54→22:34)
[2020-05-31 11:07] VITALS: BP 120/71
[2020-05-31 18:00] VITALS: BP 120/84
[2020-05-31] MEDS: LORazepam 0.5 MG tablet PO PRN (19:46)
[2020-05-31 22:00] VITALS: BP 120/84
[2020-05-31] MEDS: insulin glargine (Lantus) pen - multi-dose SQ SCH (22:30)
[2020-05-31] MEDS: piperacillin/tazo 3.375gm/50ml 50 ML IV SCH (23:52)
[2020-06-01] VITALS (19 sets, daily range): BP systolic 111–159; BP diastolic 65–95
[2020-06-01] MEDS: lactulose 20gm/30ml cup PO SCH ×4 (02:00→19:59)
[2020-06-01] MEDS: HYDROcodone/acetaminophen 10/325mg tab PO PRN ×3 (06:01→20:13)
[2020-06-01 06:05] LABS: ALBUMIN 1.6 G/DL (3.4-5.0); ANION GAP 3 (8-16); BLOOD UREA NITROGEN 12 MG/DL (7-18); BUN/CREATININE RATIO 19.7 (6.6-38.0); CALCIUM 8.1 MG/DL (8.5-10.1); CHLORIDE 101 MMOL/L (99-107); CREATININE 0.61 MG/DL (0.40-0.90); GLUCOSE 244 MG/DL (70-104); MAGNESIUM 1.4 MG/DL (1.5-2.4); POTASSIUM 4.2 MMOL/L (3.5-5.1); SODIUM 133 MMOL/L (135-145); TOTAL CARBON DIOXIDE 28.8 MMOL/L (24-32); eGFR > 90 ML/MIN
[2020-06-01 06:10] LABS: BASOPHILS % (AUTO) 0.7 % (0-1); EOSINOPHILS # (AUTO) 0.1 X10'3 (0-0.9); EOSINOPHILS % (AUTO) 2.7 % (0-6); HEMATOCRIT 28.3 % (35.0-45.0); HEMOGLOBIN 9.5 g/dl (12.0-16.0); LYMPHOCYTES # (AUTO) 0.6 X10'3 (1.1-4.8); LYMPHOCYTES % (AUTO) 10.9 % (21-51); MEAN CORPUSCULAR HEMOGLOBIN 31.1 PG (27.0-31.0); MEAN CORPUSCULAR HGB CONC 33.7 g/dL (33.0-36.5); MEAN CORPUSCULAR VOLUME 92.4 FL (78-98); MEAN PLATELET VOLUME 7.1 FL (7.4-10.4); MONOCYTES # (AUTO) 0.5 X10'3 (0-0.9); MONOCYTES % (AUTO) 9.1 % (2-12); NEUTROPHILS # (AUTO) 4.1 X10'3 (1.8-7.7); NEUTROPHILS % (AUTO) 76.6 % (42-75); PLATELET COUNT 117 X10'3 (140-440); RED BLOOD COUNT 3.06 X10'6 (4.20-5.60); RED CELL DISTRIBUTION WIDTH 17.8 % (11.5-14.5); WHITE BLOOD COUNT 5.3 X10'3 (4.5-11.0)
--- NOTE | 2020-06-01 06:19 | NUR ---
Problems reprioritized. Patient report given, questions answered & plan of care reviewed with Katarzyna KWONG.
[2020-06-01] MEDS: K and/or MAG REPLACEMENT MC SCH ×3 (08:00→20:00)
[2020-06-01] MEDS: rifaximin 550mg tablet PO SCH ×2 (08:10→20:00)
[2020-06-01] MEDS: lactobacillus rhamnosus 10,000 MMU CELLS/CAPSULE PO SCH ×2 (08:11→20:00)
[2020-06-01] MEDS: furosemide 20MG tablet PO SCH (08:11)
[2020-06-01] MEDS: piperacillin/tazo 3.375gm/50ml 50 ML IV SCH ×3 (08:15→23:43)
[2020-06-01] MEDS: magnesium Cl slow-release 64mg tablet PO PRN ×2 (08:39→20:00)
[2020-06-01] MEDS ORDERED: VANCOMYCIN LEVEL IV ONE (09:30)
[2020-06-01] MEDS: insulin Lispro (HumaLOG) vial - multi-dose SQ SCH ×2 (09:54→19:54)
[2020-06-01 10:50] LABS: PARTIAL THROMBOPLASTIN TIME 29 SECONDS (22-32)
[2020-06-01] MEDS: VANCOmycin 1250MG/NS 250ml Bag 250 ML IV SCH ×2 (11:45→22:02)
[2020-06-01] MEDS ORDERED: lactose-reduced food (Ensure High Protein) 237ml bottle PO SCH (13:00)
[2020-06-01] MEDS ORDERED: ceFAZolin 1000mg inj ONE (13:27)
[2020-06-01] MEDS ORDERED: bacitracin 15gm ointment TP ONE (13:27)
--- NOTE | 2020-06-01 13:30 | NUR ---
Called report to Malu in recovery
[2020-06-01] MEDS ORDERED: fentaNYL/PF 50MCG/1 ML 2ML syringe ONE ×2 (14:04→14:41)
[2020-06-01] MEDS ORDERED: etomidate 2mg/ml inj. ONE (14:05)
[2020-06-01] MEDS ORDERED: succinylcholine 20mg/ml inj IV ONE (14:05)
[2020-06-01] MEDS ORDERED: sevoflurane 250ml liquid IH ONE (14:08)
[2020-06-01] MEDS ORDERED: ringers solution, lacted 1,000 ML IV SCH (14:08)
[2020-06-01] MEDS ORDERED: morphine 2 MG/ML inj. syringe IV PRN (14:10)
[2020-06-01] MEDS ORDERED: labetalol 20mg/4ml (5mg/ml) syringe IV PRN (14:10)
[2020-06-01] MEDS ORDERED: ondansetron/PF 4mg/2ml inj IV PRN (14:10)
[2020-06-01] MEDS ORDERED: morphine 4 MG/ML inj SYRINge IV PRN (14:10)
[2020-06-01] MEDS ORDERED: hydrALAZINE 20mg/ml inj. IV PRN (14:10)
[2020-06-01] MEDS ORDERED: fentaNYL/PF 50MCG/1 ML 2ML syringe IV PRN ×2 (14:10)
[2020-06-01] MEDS ORDERED: albumin (Human) 5% 250ml 250 ML IV ONE (14:27)
[2020-06-01] MEDS ORDERED: vancomycin 1,000mg inj ONE (15:04)
--- NOTE | 2020-06-01 15:24 | NUR ---
Initial: Pt PO 75-100% avg MM5/regular diet per AIRPORT PLANNER recs. DX R leg/foot cellulitis w/ R foot abscess, cirrhosis, hyponatremia improving per MD and SOCIAL SERVICES ANALYST notes. Pending I&D R foot abscess currently NPO today. Glu remains high 200's not on carb controlled diet w/ hx DM; BARBER d/w RN regarding carb controlled diet this admit if MD agreeable given DM hx. Receiving electrolyte replacement per protocol. PO 75-100% avg meals though RD recommended ensure high protein TIDWM for additional protein needs given wound healing; SOCIAL SERVICES ANALYST notified. Will continue to monitor. Rec: 1. carb controlled/MM5 diet per AIRPORT PLANNER/MD recs 2. ensure high protein TIDWM for wound 3. routine bowel care 4. wt per rx Addendum: 06/01/20 at [address] Amended: Links added.
--- NOTE | 2020-06-01 16:43 | NUR ---
Report called to receiving nurse. Transferred via BED, NO Belongings, RECEIVING RN AT BEDSIDE TO RECEIVE PT, BLL, CALL LIGHT GIVEN, SIDE RAILS UP X 2. Special Issues communicated to receiving nurse. YES. Addendum: 06/01/20 at 1705 by Malu Bravo RN Amended: Links added.
--- NOTE | 2020-06-01 17:24 | NUR ---
Sent SOC request for tele neuro follow up
--- NOTE | 2020-06-01 18:37 | NUR ---
Problems reprioritized. Patient report given, questions answered & plan of care reviewed with Pooja KWONG.
--- NOTE | 2020-06-01 18:41 | NUR ---
Spoke with Dr. Gong about patient saturated right hip dressing and lack of accumulation in the TANJA drain. Per Dr. Gong change TANJA to a hemovac drainage canister and change dressing PRN soiled.
--- NOTE | 2020-06-01 18:48 | NUR ---
Celso Patton RN of new orders received from
--- NOTE | 2020-06-01 18:54 | NUR ---
Patient in room [facility]TH[facility] 4022. I have received report from Alicia KWONG and had the opportunity to ask questions and assume patient care.
[2020-06-01] MEDS: LORazepam 0.5 MG tablet PO PRN (22:02)
[2020-06-01] MEDS: insulin glargine (Lantus) pen - multi-dose SQ SCH (22:02)
[2020-06-02] VITALS (7 sets, daily range): BP systolic 111–130; BP diastolic 63–76
[2020-06-02] MEDS: lactulose 20gm/30ml cup PO SCH ×5 (02:00→19:03)
[2020-06-02] MEDS: HYDROcodone/acetaminophen 10/325mg tab PO PRN ×5 (04:56→23:40)
--- NOTE | 2020-06-02 06:15 | NUR ---
Problems reprioritized. Patient report given, questions answered & plan of care reviewed with Patria KWONG.
[2020-06-02] MEDS: K and/or MAG REPLACEMENT MC SCH ×2 (08:00→19:03)
[2020-06-02] MEDS: insulin Lispro (HumaLOG) vial - multi-dose SQ SCH ×3 (08:43→18:58)
[2020-06-02] MEDS: piperacillin/tazo 3.375gm/50ml 50 ML IV SCH (08:55)
[2020-06-02] MEDS: furosemide 20MG tablet PO SCH (08:56)
[2020-06-02] MEDS: rifaximin 550mg tablet PO SCH ×2 (08:56→19:03)
[2020-06-02] MEDS: lactobacillus rhamnosus 10,000 MMU CELLS/CAPSULE PO SCH ×2 (08:56→19:03)
[2020-06-02] MEDS ORDERED: VANCOMYCIN LEVEL IV ONE (09:30)
--- NOTE | 2020-06-02 15:09 | NUR ---
REMOVED DRAIN PER DR HUMPHREYS'S ORDER. PT TOLERATED WELL. WOUND CARE AT BEDSIDE TO FIX THE WOUND VAC TO COVER THE DRAIN SITE.
[2020-06-02] MEDS: LORazepam 0.5 MG tablet PO PRN ×2 (17:33→23:40)
[2020-06-02] MEDS: insulin glargine (Lantus) pen - multi-dose SQ SCH (21:06)
[2020-06-03] MEDS: lactulose 20gm/30ml cup PO SCH ×4 (01:49→19:16)
[2020-06-03] MEDS: HYDROcodone/acetaminophen 10/325mg tab PO PRN ×4 (05:15→22:15)
[2020-06-03] MEDS: LORazepam 0.5 MG tablet PO PRN ×3 (05:15→19:13)
[2020-06-03 06:00] VITALS: BP 106/67
--- NOTE | 2020-06-03 06:10 | NUR ---
Problems reprioritized. Patient report given, questions answered & plan of care reviewed with Alicia KWONG.
[2020-06-03] MEDS: rifaximin 550mg tablet PO SCH ×2 (07:25→19:13)
[2020-06-03] MEDS: furosemide 20MG tablet PO SCH (07:26)
[2020-06-03] MEDS: lactobacillus rhamnosus 10,000 MMU CELLS/CAPSULE PO SCH ×2 (07:26→19:14)
[2020-06-03] MEDS: levoFLOXACIN 500mg tablet PO SCH (07:26)
[2020-06-03] MEDS: K and/or MAG REPLACEMENT MC SCH ×2 (08:00→19:16)
[2020-06-03] MEDS: insulin Lispro (HumaLOG) vial - multi-dose SQ SCH ×3 (08:47→19:12)
[2020-06-03 09:51] VITALS: BP 98/55
[2020-06-03 18:00] VITALS: BP 117/67
--- NOTE | 2020-06-03 18:16 | NUR ---
Problems reprioritized. Patient report given, questions answered & plan of care reviewed with Pepper KWONG.
--- NOTE | 2020-06-03 18:19 | NUR ---
Patient in room [facility]TH[facility] 4022. I have received report from Alicia KWONG and had the opportunity to ask questions and assume patient care.
[2020-06-03] MEDS: insulin glargine (Lantus) pen - multi-dose SQ SCH (21:15)
[2020-06-03 22:00] VITALS: BP 131/84
[2020-06-04] MEDS: lactulose 20gm/30ml cup PO SCH ×4 (02:00→19:09)
[2020-06-04] MEDS: LORazepam 0.5 MG tablet PO PRN ×3 (03:00→20:09)
[2020-06-04] MEDS: HYDROcodone/acetaminophen 10/325mg tab PO PRN ×3 (03:01→21:12)
[2020-06-04 06:00] VITALS: BP 120/57
--- NOTE | 2020-06-04 06:37 | NUR ---
Problems reprioritized. Patient report given, questions answered & plan of care reviewed with Gloria KWONG.
--- NOTE | 2020-06-04 07:04 | NUR ---
Patient in room [facility]TH[facility] 4022. I have received report from bridger Pabon and had the opportunity to ask questions and assume patient care.
[2020-06-04] MEDS: K and/or MAG REPLACEMENT MC SCH ×2 (08:00→20:00)
[2020-06-04] MEDS: levoFLOXACIN 500mg tablet PO SCH (08:03)
[2020-06-04] MEDS: lactobacillus rhamnosus 10,000 MMU CELLS/CAPSULE PO SCH ×2 (08:03→19:09)
[2020-06-04] MEDS: rifaximin 550mg tablet PO SCH ×2 (08:03→19:09)
[2020-06-04] MEDS: furosemide 20MG tablet PO SCH (08:03)
[2020-06-04] MEDS: insulin Lispro (HumaLOG) vial - multi-dose SQ SCH ×3 (08:15→18:50)
[2020-06-04 10:33] VITALS: BP 128/83
[2020-06-04] MEDS ORDERED: PHENYLEPH/MIN OIL/PETROLAT hemorrhoid oint 57GM tube RC PRN (14:30)
[2020-06-04 18:00] VITALS: BP 106/64
--- NOTE | 2020-06-04 18:15 | NUR ---
Problems reprioritized. Patient report given, questions answered & plan of care reviewed with ELENITA Silver.
--- NOTE | 2020-06-04 19:57 | NUR ---
Paged Dr. Tran. PAGER ID: [phone] MESSAGE: This is ELENITA Silver from Ortho. Pt is 4022A Rajan, B. 59 F Dx Right hip Fx has Mg level of 1.4. Would you like to order a Mag supplement (Slow-Mag)? Thanks! x [phone]
--- NOTE | 2020-06-04 20:19 | NUR ---
Lab for Mg was 06/01. No new order received.
[2020-06-04] MEDS: insulin glargine (Lantus) pen - multi-dose SQ SCH (21:22)
[2020-06-04 22:00] VITALS: BP 115/67
[2020-06-05] MEDS: lactulose 20gm/30ml cup PO SCH ×4 (01:23→20:43)
[2020-06-05] MEDS: HYDROcodone/acetaminophen 10/325mg tab PO PRN ×4 (01:54→23:07)
[2020-06-05] MEDS: LORazepam 0.5 MG tablet PO PRN ×3 (05:38→18:54)
[2020-06-05 06:00] VITALS: BP 125/71
--- NOTE | 2020-06-05 06:17 | NUR ---
Problems reprioritized. Patient report given, questions answered & plan of care reviewed with ELENITA Rooney.
--- NOTE | 2020-06-05 06:25 | NUR ---
Patient in room ORTHO 4022A. I have received report from ELENITA Hollingsworth and had the opportunity to ask questions and assume patient care.
[2020-06-05] MEDS: K and/or MAG REPLACEMENT MC SCH ×2 (08:00→20:00)
[2020-06-05] MEDS: rifaximin 550mg tablet PO SCH (08:19)
[2020-06-05] MEDS: levoFLOXACIN 500mg tablet PO SCH (08:19)
[2020-06-05] MEDS: furosemide 20MG tablet PO SCH (08:19)
[2020-06-05] MEDS: lactobacillus rhamnosus 10,000 MMU CELLS/CAPSULE PO SCH ×2 (08:19→20:44)
[2020-06-05] MEDS: insulin Lispro (HumaLOG) vial - multi-dose SQ SCH ×3 (09:06→18:50)
[2020-06-05 10:00] VITALS: BP 122/72
--- NOTE | 2020-06-05 11:19 | NUR ---
Student documentation: I have reviewed all interventions, assessments performed and documented by Neal Campos
[2020-06-05 12:05] LABS: ALBUMIN 1.8 G/DL (3.4-5.0); ANION GAP 1 (8-16); BLOOD UREA NITROGEN 19 MG/DL (7-18); BUN/CREATININE RATIO 24.7 (6.6-38.0); CALCIUM 8.1 MG/DL (8.5-10.1); CHLORIDE 101 MMOL/L (99-107); CREATININE 0.77 MG/DL (0.40-0.90); GLUCOSE 118 MG/DL (70-104); POTASSIUM 3.8 MMOL/L (3.5-5.1); SODIUM 133 MMOL/L (135-145); TOTAL CARBON DIOXIDE 30.7 MMOL/L (24-32); eGFR 76 ML/MIN
--- NOTE | 2020-06-05 12:37 | NUR ---
Reassessment: Pt PO 100% avg meals w/ double proteins TID per pt request meeting needs. ONS not verified though given good PO hx likely not indicated at this time; BARBER d/w RN. Pending labs this AM. LBM 06/05 refusing lactulose this AM. Will continue to monitor. Rec: 1. carb controlled/MM5 diet per OFFICE SYSTEMS TECHNOLOGY INSTRUCTOR/MD recs 2. double proteins TIDWM per pt request 3. routine bowel care 4. wt per rx Addendum: 06/05/20 at [address] Amended: Links added.
--- NOTE | 2020-06-05 15:17 | NUR ---
Page Sent PAGER ID: [phone] MESSAGE: SHEYLA 5430-RE: PANCHITO MORALES 1302A...PTS LABIA IS RED, SWOLLEN, & ITCHY. CAN I GET AN ORDER FOR NYSTATIN CREAM OR POWDER?
--- NOTE | 2020-06-05 17:13 | NUR ---
Student documentation: I have reviewed assessments performed and documented by Yani QUIROZ [facility].
[2020-06-05 18:00] VITALS: BP 109/73
--- NOTE | 2020-06-05 18:01 | NUR ---
Went into pts room, smelled like cigarette smoke, asked pt, stated she has some in purse, pt gave me the cigarettes and I put them into the med room with a furnace caretaker.
--- NOTE | 2020-06-05 18:28 | NUR ---
Problems reprioritized. Patient report given, questions answered & plan of care reviewed with bridger Marsh.
[2020-06-05] MEDS: insulin glargine (Lantus) pen - multi-dose SQ SCH (20:43)
[2020-06-05] MEDS: nystatin 15 GM powder TP SCH (20:44)
[2020-06-05 22:00] VITALS: BP 120/81
[2020-06-06] MEDS: LORazepam 0.5 MG tablet PO PRN ×3 (00:38→20:06)
[2020-06-06] MEDS: lactulose 20gm/30ml cup PO SCH ×4 (02:00→20:06)
[2020-06-06] MEDS: HYDROcodone/acetaminophen 10/325mg tab PO PRN ×3 (05:58→21:47)
--- NOTE | 2020-06-06 06:00 | NUR ---
Patient in room ORTHO 4022. I have received report from [facility] nurse with Nevin and had the opportunity to ask questions and assume patient care.
--- NOTE | 2020-06-06 06:27 | NUR ---
Problems reprioritized. Patient report given, questions answered & plan of care reviewed with ELENITA CARRION.
--- NOTE | 2020-06-06 06:44 | NUR ---
Patient in room ORTHO 4022A. I have received report from ELENITA Marsh and had the opportunity to ask questions and assume patient care.
[2020-06-06 07:09] LABS: BASOPHILS # (AUTO) 0.1 X10'3 (0-0.2); EOSINOPHILS # (AUTO) 0.1 X10'3 (0-0.9); HEMOGLOBIN 9.2 g/dl (12.0-16.0); LYMPHOCYTES # (AUTO) 0.7 X10'3 (1.1-4.8); MONOCYTES # (AUTO) 0.6 X10'3 (0-0.9); NEUTROPHILS # (AUTO) 2.3 X10'3 (1.8-7.7)
[2020-06-06 07:11] LABS: BASOPHILS % (AUTO) 1.8 % (0-1); EOSINOPHILS % (AUTO) 3.2 % (0-6); MEAN CORPUSCULAR HEMOGLOBIN 31.6 PG (27.0-31.0); MEAN PLATELET VOLUME 6.7 FL (7.4-10.4); MONOCYTES % (AUTO) 15.3 % (2-12); NEUTROPHILS % (AUTO) 60.7 % (42-75); PLATELET COUNT 139 X10'3 (140-440); WHITE BLOOD COUNT 3.7 X10'3 (4.5-11.0)
[2020-06-06] MEDS: lactobacillus rhamnosus 10,000 MMU CELLS/CAPSULE PO SCH ×2 (07:43→20:06)
[2020-06-06] MEDS: furosemide 20MG tablet PO SCH (07:44)
[2020-06-06] MEDS: levoFLOXACIN 500mg tablet PO SCH (07:44)
[2020-06-06] MEDS: nystatin 15 GM powder TP SCH ×3 (07:50→20:15)
[2020-06-06] MEDS: K and/or MAG REPLACEMENT MC SCH ×2 (08:00→20:00)
[2020-06-06 09:53] LABS: ANISOCYTOSIS 2+; PLATELET ESTIMATE DECREASED; TOTAL CELLS COUNTED 100
[2020-06-06] MEDS: insulin Lispro (HumaLOG) vial - multi-dose SQ SCH ×3 (10:38→20:17)
--- NOTE | 2020-06-06 11:00 | NUR ---
NOVOLOG, INSULIN WAS GIVEN LATE DUE TO NOT ENOUGH INSULIN IN OMNICELL. HAD TO WAIT FOR MORE FROM PHARMACY.
--- NOTE | 2020-06-06 12:01 | NUR ---
Problems reprioritized. Patient report given, questions answered & plan of care reviewed with
[2020-06-06 13:38] LABS: ALBUMIN 1.7 G/DL (3.4-5.0); ANION GAP 1 (8-16); BLOOD UREA NITROGEN 18 MG/DL (7-18); CHLORIDE 101 MMOL/L (99-107); CREATININE 0.72 MG/DL (0.40-0.90); GLUCOSE 165 MG/DL (70-104); SODIUM 135 MMOL/L (135-145); TOTAL CARBON DIOXIDE 32.8 MMOL/L (24-32); eGFR 82 ML/MIN
--- NOTE | 2020-06-06 15:43 | NUR ---
call to Dr. Gong Re: wound vac. no output in 24 hrs. orders: DC wound vac and place dressing on incision site. If no drainage tomorrow, pt can go home.
[2020-06-06 18:00] VITALS: BP 106/70
--- NOTE | 2020-06-06 18:30 | NUR ---
Patient in room ORTHO 4022. I have received report from Nevin KWONG and had the opportunity to ask questions and assume patient care.
--- NOTE | 2020-06-06 18:59 | NUR ---
Problems reprioritized. Patient report given, questions answered & plan of care reviewed with ELENITA Castro.
[2020-06-06] MEDS: insulin glargine (Lantus) pen - multi-dose SQ SCH (21:52)
[2020-06-06 22:00] VITALS: BP 125/67
[2020-06-07] MEDS: lactulose 20gm/30ml cup PO SCH ×3 (02:20→13:31)
[2020-06-07] MEDS: HYDROcodone/acetaminophen 10/325mg tab PO PRN ×2 (02:20→09:03)
[2020-06-07 06:42] VITALS: BP 107/60
--- NOTE | 2020-06-07 06:51 | NUR ---
Problems reprioritized. Patient report given, questions answered & plan of care reviewed with Jasmin RN.
--- NOTE | 2020-06-07 06:53 | NUR ---
Patient in room ORTHO 4022. I have received report from Mo ARNDT RN and had the opportunity to ask questions and assume patient care.
[2020-06-07 06:56] LABS: BASOPHILS # (AUTO) 0.1 X10'3 (0-0.2); BASOPHILS % (AUTO) 1.4 % (0-1); EOSINOPHILS # (AUTO) 0.1 X10'3 (0-0.9); HEMATOCRIT 27.1 % (35.0-45.0); HEMOGLOBIN 9.1 g/dl (12.0-16.0); LYMPHOCYTES # (AUTO) 0.7 X10'3 (1.1-4.8); MEAN CORPUSCULAR HEMOGLOBIN 31.2 PG (27.0-31.0); MEAN CORPUSCULAR HGB CONC 33.6 g/dL (33.0-36.5); MEAN CORPUSCULAR VOLUME 93.1 FL (78-98); MEAN PLATELET VOLUME 6.5 FL (7.4-10.4); MONOCYTES # (AUTO) 0.5 X10'3 (0-0.9); MONOCYTES % (AUTO) 12.8 % (2-12); NEUTROPHILS # (AUTO) 2.9 X10'3 (1.8-7.7); NEUTROPHILS % (AUTO) 67.8 % (42-75); PLATELET COUNT 132 X10'3 (140-440); RED BLOOD COUNT 2.91 X10'6 (4.20-5.60); WHITE BLOOD COUNT 4.3 X10'3 (4.5-11.0)
[2020-06-07] MEDS: K and/or MAG REPLACEMENT MC SCH (08:00)
[2020-06-07] MEDS: levoFLOXACIN 500mg tablet PO SCH (08:04)
[2020-06-07] MEDS: lactobacillus rhamnosus 10,000 MMU CELLS/CAPSULE PO SCH (08:05)
[2020-06-07] MEDS: furosemide 20MG tablet PO SCH (08:06)
[2020-06-07] MEDS: nystatin 15 GM powder TP SCH ×2 (08:07→13:30)
[2020-06-07 08:12] LABS: ALBUMIN 1.7 G/DL (3.4-5.0); ANION GAP 1 (8-16); BLOOD UREA NITROGEN 17 MG/DL (7-18); BUN/CREATININE RATIO 18.5 (6.6-38.0); CALCIUM 7.9 MG/DL (8.5-10.1); CHLORIDE 101 MMOL/L (99-107); CREATININE 0.92 MG/DL (0.40-0.90); GLUCOSE 149 MG/DL (70-104); POTASSIUM 3.8 MMOL/L (3.5-5.1); SODIUM 135 MMOL/L (135-145); TOTAL CARBON DIOXIDE 32.7 MMOL/L (24-32); eGFR 62 ML/MIN
[2020-06-07] MEDS: insulin Lispro (HumaLOG) vial - multi-dose SQ SCH ×2 (09:00→13:37)
[2020-06-07 09:34] LABS: ANISOCYTOSIS 2+; PLATELET ESTIMATE DECREASED; POLYCHROMASIA 1+
[2020-06-07 09:35] LABS: MICROCYTOSIS FEW; POIKILOCYTOSIS FEW
[2020-06-07 10:42] VITALS: BP 94/66
[2020-06-07] MEDS: LORazepam 0.5 MG tablet PO PRN (11:08)
--- NOTE | 2020-06-07 11:55 | NUR ---
Problems reprioritized. Patient report given, questions answered & plan of care reviewed with Jasmin Freeman
--- NOTE | 2020-06-07 11:58 | NUR ---
Student Medication Administration:For this medication-pass time frame 7820-4029, all medications were reviewed, dispensed, administered and documented per hospital policy by Atul Maldonado. Student documentation:I have reviewed and agree with all interventions, assessments performed and documented by Atul Maldonado.
[2020-06-07] MEDS ORDERED: FURO-150 PO (15:56)
[2020-06-07] MEDS ORDERED: LACT1CAP26 PO (15:56)
[2020-06-07] MEDS ORDERED: LEVO500T89 PO (15:56)
--- NOTE | 2020-06-07 17:20 | NUR ---
Instructed patient on her antibiotic and probiotic discharge medications, and patient understands to pick them up from her pharmacy before going home. Went over pt's A1C OF 9.9, and foods to stay away from/low sugar low carb diet. Patient understands to follow up with her primary care doctor within a week, and that she will receive home health and to come to wound care clinic for care for her foot. ALL belongings sent with patient upon discharge. IV taken out.
== END 2020-06-07 17:00 | disposition home health service (06) | DRG 301 ==
LOC: ER 19:50 → ED HOLD 05-27 01:27 → ORTHO 4S 05-27 07:08
PROVIDERS: ADMIT Internal Medicine; ATTEND Internal Medicine
PROC: 0SRR019 Replacement of Right Hip Joint, Femoral Surface with Metal Synthetic Substitute, Cemented, Open Approach (ICD-10-PCS; principal; 2020-05-27 20:12)
PROC: 0JBQ0ZZ Excision of Right Foot Subcutaneous Tissue and Fascia, Open Approach (ICD-10-PCS; 2020-06-01)
PROC: 0S990ZZ Drainage of Right Hip Joint, Open Approach (ICD-10-PCS; 2020-06-01)
DX: S72.001A Fracture of unspecified part of neck of right femur, initial encounter for closed fracture (principal); E87.5 Hyperkalemia; J45.909 Unspecified asthma, uncomplicated; K74.60 Unspecified cirrhosis of liver; W07.XXXA Fall from chair, initial encounter; F17.210 Nicotine dependence, cigarettes, uncomplicated; E87.1 Hypo-osmolality and hyponatremia; M85.80 Other specified disorders of bone density and structure, unspecified site; L03.115 Cellulitis of right lower limb; D62 Acute posthemorrhagic anemia; F41.9 Anxiety disorder, unspecified; B19.20 Unspecified viral hepatitis C without hepatic coma; B96.1 Klebsiella pneumoniae [K. pneumoniae] as the cause of diseases classified elsewhere; F32.9 Major depressive disorder, single episode, unspecified; E11.621 Type 2 diabetes mellitus with foot ulcer; L02.611 Cutaneous abscess of right foot; L97.519 Non-pressure chronic ulcer of other part of right foot with unspecified severity; R18.8 Other ascites; Y92.230 Patient room in hospital as the place of occurrence of the external cause; M96.840 Postprocedural hematoma of a musculoskeletal structure following a musculoskeletal system procedure; Y79.3 Surgical instruments, materials and orthopedic devices (including sutures) associated with adverse incidents; Z82.49 Family history of ischemic heart disease and other diseases of the circulatory system; Z83.3 Family history of diabetes mellitus; Y93.89 Activity, other specified; Y92.89 Other specified places as the place of occurrence of the external cause; Y99.8 Other external cause status; Z88.0 Allergy status to penicillin; Z88.5 Allergy status to narcotic agent; Z88.8 Allergy status to other drugs, medicaments and biological substances; Z90.49 Acquired absence of other specified parts of digestive tract; Z79.899 Other long term (current) drug therapy
CPT/HCPCS: 36415; 70450; 71045; 72125; 73502; 73630; 76705; 80048; 80053; 80202; 81001; 82550; 82948; 83036; 83735; 84145; 84484; 85007; 85008; 85025; 85610; 85730; 87070; 87075; 87077; 87081; 87186; 92508; 92616; 93005; 97110; 97161; 97164; 97530; 97535; 99285; A4215; A4618; A6253; A6258; A6266; A6446; A6449; A7000; C1713; C1776; G0378; J0330; J0690; J0696; J1100; J1815; J2001; J2060; J2250; J2270; J2405; J2543; J2704; J2710; J3010; J3370; J3490; J7030; J7120; P9045

== ENCOUNTER 2020-06-08 19:17 | Emergency (ER) | payer MEDICAID ==
[~2020-06-08] VITALS: Ht 167.6 cm; Wt 86.4 kg
[~2020-06-08 19:17] MED LIST changes: +ARIP2TAB37 PO; -CLIN-97 PO; +FURO-150 PO; -FURO40TA4 PO; +INSU100C10 SQ; +INSU100V9 SQ; +LACT1CAP26 PO; +LEVO500T89 PO; -TRAM50TA2 PO
[2020-06-08 20:11] LABS: ALANINE AMINOTRANSFERASE 51 U/L (12-78); ALBUMIN 2.1 G/DL (3.4-5.0); ALBUMIN/GLOBULIN RATIO 0.4 (1.1-1.5); ALKALINE PHOSPHATASE 259 IU/L (46-116); ANION GAP 5 (8-16); ASPARTATE AMINO TRANSFERASE 67 U/L (10-37); BASOPHILS # (AUTO) 0.1 X10'3 (0-0.2); BASOPHILS % (AUTO) 1.2 % (0-1); BILIRUBIN,TOTAL 1.8 MG/DL (0.1-1.0); BLOOD UREA NITROGEN 20 MG/DL (7-18); BUN/CREATININE RATIO 23.3 (6.6-38.0); CHLORIDE 98 MMOL/L (99-107); CREATININE 0.86 MG/DL (0.40-0.90); EOSINOPHILS # (AUTO) 0.1 X10'3 (0-0.9); EOSINOPHILS % (AUTO) 1.1 % (0-6); GLUCOSE 283 MG/DL (70-104); HEMATOCRIT 30.7 % (35.0-45.0); HEMOGLOBIN 10.1 g/dl (12.0-16.0); LIPASE 157 U/L (73-393); LYMPHOCYTES # (AUTO) 0.6 X10'3 (1.1-4.8); LYMPHOCYTES % (AUTO) 13.4 % (21-51); MEAN CORPUSCULAR HEMOGLOBIN 30.2 PG (27.0-31.0); MEAN CORPUSCULAR HGB CONC 32.8 g/dL (33.0-36.5); MEAN CORPUSCULAR VOLUME 91.9 FL (78-98); MEAN PLATELET VOLUME 6.7 FL (7.4-10.4); MONOCYTES # (AUTO) 0.6 X10'3 (0-0.9); MONOCYTES % (AUTO) 13.2 % (2-12); NEUTROPHILS # (AUTO) 3.4 X10'3 (1.8-7.7); NEUTROPHILS % (AUTO) 71.1 % (42-75); PLATELET COUNT 161 X10'3 (140-440); POTASSIUM 3.6 MMOL/L (3.5-5.1); RED BLOOD COUNT 3.35 X10'6 (4.20-5.60); RED CELL DISTRIBUTION WIDTH 18.5 % (11.5-14.5); SODIUM 133 MMOL/L (135-145); TOTAL CARBON DIOXIDE 30.1 MMOL/L (24-32); TOTAL PROTEIN 7.9 G/DL (6.4-8.2); WHITE BLOOD COUNT 4.8 X10'3 (4.5-11.0); eGFR 67 ML/MIN
[2020-06-08] MEDS ORDERED: LORazepam 1 MG tablet PO ONE (20:55)
[2020-06-08 22:00] VITALS: BP 132/80
--- NOTE | 2020-06-08 22:41 | NUR ---
vasc at bedside
--- NOTE | 2020-06-08 23:41 | NUR ---
spoke with about DC. will be in about 30 minutes
--- NOTE | 2020-06-09 08:36 | NUR ---
RECEIVED AN E.D. REFERRAL REQUESTING ASSISTANCE WITH WOUND CARE CLINIC REFERRAL. I CALLED 2 CONTACT NUMBERS, AND LEFT VM WITH WOUND CARE CLINIC CONTACT NUMBER, AND ASKING THEM TO CALL. MESSAGES LEFT WITH SPOUSE, REJI, [phone], AND DAUGHTER, PEDRO, [phone]. I CALLED PHILL AT WOUND CLINIC, AND GAVE THEM THESE NUMBERS. SHE WILL ATTEMPT TO REACH PATIENT TO MAKE APPOINTMENT.
== END 2020-06-09 00:33 | disposition home or self-care (01) ==
LOC: ER 19:18
DX: K70.31 Alcoholic cirrhosis of liver with ascites (principal); M79.89 Other specified soft tissue disorders; L97.519 Non-pressure chronic ulcer of other part of right foot with unspecified severity; J45.909 Unspecified asthma, uncomplicated; E11.9 Type 2 diabetes mellitus without complications; F32.9 Major depressive disorder, single episode, unspecified; Z86.19 Personal history of other infectious and parasitic diseases; Z90.49 Acquired absence of other specified parts of digestive tract; Z72.89 Other problems related to lifestyle; Z88.0 Allergy status to penicillin; Z88.5 Allergy status to narcotic agent; Z88.8 Allergy status to other drugs, medicaments and biological substances; Z79.4 Long term (current) use of insulin; Z79.2 Long term (current) use of antibiotics; Z79.899 Other long term (current) drug therapy
CPT/HCPCS: 36415; 80053; 82948; 83690; 85025; 93971; 99284

== ENCOUNTER 2020-06-18 17:00 | Inpatient (IN) | payer MEDICAID ==
[~2020-06-18] VITALS: Ht 168.9 cm; Wt 94.6 kg
--- NOTE | 2020-06-18 17:25 | NUR ---
Rayray Bonilla PA at triage to eval pt, will order sepsis protocol
[2020-06-18 18:39] LABS: BASOPHILS % (AUTO) 0.8 % (0-1); EOSINOPHILS # (AUTO) 0.1 X10'3 (0-0.9); HEMOGLOBIN 10.3 g/dl (12.0-16.0); MEAN PLATELET VOLUME 7.6 FL (7.4-10.4); MONOCYTES # (AUTO) 0.6 X10'3 (0-0.9); NEUTROPHILS # (AUTO) 2.2 X10'3 (1.8-7.7); PLATELET COUNT 128 X10'3 (140-440)
[2020-06-18 18:41] LABS: EOSINOPHILS % (AUTO) 1.9 % (0-6); LYMPHOCYTES # (AUTO) 0.4 X10'3 (1.1-4.8); LYMPHOCYTES % (AUTO) 13.5 % (21-51); MEAN CORPUSCULAR HEMOGLOBIN 30.7 PG (27.0-31.0); MEAN CORPUSCULAR HGB CONC 34.5 g/dL (33.0-36.5); MEAN CORPUSCULAR VOLUME 89.2 FL (78-98); MONOCYTES % (AUTO) 17.2 % (2-12); NEUTROPHILS % (AUTO) 66.6 % (42-75); RED BLOOD COUNT 3.36 X10'6 (4.20-5.60); WHITE BLOOD COUNT 3.2 X10'3 (4.5-11.0)
[2020-06-18 18:48] LABS: ALANINE AMINOTRANSFERASE 42 U/L (12-78); ALBUMIN 1.8 G/DL (3.4-5.0); ALBUMIN/GLOBULIN RATIO 0.3 (1.1-1.5); ALKALINE PHOSPHATASE 187 IU/L (46-116); ANION GAP 2 (8-16); ASPARTATE AMINO TRANSFERASE 63 U/L (10-37); BILIRUBIN,TOTAL 1.6 MG/DL (0.1-1.0); BLOOD UREA NITROGEN 21 MG/DL (7-18); BUN/CREATININE RATIO 23.9 (6.6-38.0); CALCIUM 7.8 MG/DL (8.5-10.1); CHLORIDE 98 MMOL/L (99-107); CREATININE 0.88 MG/DL (0.40-0.90); GLUCOSE 380 MG/DL (70-104); POTASSIUM 4.6 MMOL/L (3.5-5.1); SODIUM 130 MMOL/L (135-145); TOTAL CARBON DIOXIDE 30.2 MMOL/L (24-32); eGFR 65 ML/MIN
[2020-06-18] MEDS ORDERED: iohexol 300mg/ml 100ml inj. ONE (19:12)
[2020-06-18] MEDS ORDERED: normal saline 1000ML IV soln IV ONE (19:25)
[2020-06-18] MEDS: [UNRECOGNIZED DRUG - REMARK] PO NR (19:30)
[2020-06-18] MEDS ORDERED: albuterol 2.5 MG/3 ML nebule NEB PRN (20:45)
[2020-06-18] MEDS ORDERED: normal saline 1000ml 1,000 ML IV SCH (20:47)
[2020-06-18] MEDS ORDERED: dextrose 50%-water 50ml dispensing syringe IV PRN ×2 (20:50)
[2020-06-18] MEDS ORDERED: glucagon, human recombinant 1mg kit SUBCUT PRN (20:50)
[2020-06-18] MEDS ORDERED: magnesium 4gm in 100ml NS 100 ML IV PRN (20:50)
[2020-06-18] MEDS ORDERED: acetaminophen 325mg tablet PO PRN (20:50)
[2020-06-18] MEDS ORDERED: MESSAGE TO PHARMACY PO ONE (20:50)
[2020-06-18] MEDS ORDERED: magnesium 2GM in 50ml NS 50 ML IV PRN (20:50)
[2020-06-18] MEDS ORDERED: potassium Cl 20 mEq SR tablet PO PRN ×2 (20:50)
[2020-06-18] MEDS ORDERED: ondansetron/PF 4mg/2ml inj IV PRN (20:50)
[2020-06-18] MEDS ORDERED: potassium CL 10mEq/100ml bag 100 ML IV PRN ×2 (20:50)
[2020-06-18] MEDS ORDERED: dextrose ORAL solution 15 GM/59 ML bottle PO PRN (20:50)
[2020-06-18] MEDS ORDERED: magnesium hydroxide 30ml (MOM) UD suspension PO PRN (20:50)
[2020-06-18] MEDS ORDERED: vancomycin/NS 1 GM ADD-VANTAGE 250 ML IV ONE (21:50)
[2020-06-18] MEDS ORDERED: CefTRIAXone/D5W-Rocephin 1gm 50 ML IV ONE (21:50)
[2020-06-18 22:06] LABS: CLARITY,URINE CLEAR (Clear); COLOR,URINE YELLOW (Yellow); GLUCOSE, URINE >=1000 mg/dl (Neg); KETONES,URINE NEGATIVE (Neg); LEUKOCYTE ESTERASE ,URINE NEGATIVE (Neg); NITRITES, URINE NEGATIVE (Neg); OCCULT BLOOD,URINE MODERATE (Neg); PH,URINE 6.5 (4.8-8.0); PROTEIN,URINE NEGATIVE (Neg)
[2020-06-18 22:09] LABS: UA COLLECTION TYPE URINAL
[2020-06-18 22:12] LABS: WBC,URINE 0-4 /HPF (0-4)
[2020-06-18 22:13] LABS: BACTERIA,URINE FEW /HPF (Neg); MUCUS STRANDS NONE SEEN /LPF (Neg); SQUAMOUS EPITHELIAL CELL,UR MODERATE /LPF (FEW)
[2020-06-18 22:23] LABS: TOTAL CELLS COUNTED 100
[2020-06-18 22:24] LABS: ANISOCYTOSIS 1+; PLATELET ESTIMATE DECREASED
[2020-06-18 22:40] VITALS: BP 103/60
[2020-06-18] MEDS: insulin glargine (Lantus) pen - multi-dose SQ SCH (23:18)
[2020-06-18] MEDS: insulin Lispro (HumaLOG) vial - multi-dose SQ SCH (23:20)
[2020-06-19] MEDS ORDERED: lactulose 20gm/30ml cup PO SCH (02:00)
[2020-06-19] MEDS: ipratropium/albuterol 3ml nebule NEB PRN (04:42)
[2020-06-19 05:07] LABS: ALANINE AMINOTRANSFERASE 36 U/L (12-78); ALBUMIN 1.6 G/DL (3.4-5.0); ALBUMIN/GLOBULIN RATIO 0.3 (1.1-1.5); ALKALINE PHOSPHATASE 162 IU/L (46-116); ANION GAP 3 (8-16); ASPARTATE AMINO TRANSFERASE 52 U/L (10-37); BILIRUBIN,TOTAL 1.3 MG/DL (0.1-1.0); BLOOD UREA NITROGEN 16 MG/DL (7-18); BUN/CREATININE RATIO 21.9 (6.6-38.0); CALCIUM 7.4 MG/DL (8.5-10.1); CHLORIDE 101 MMOL/L (99-107); CREATININE 0.73 MG/DL (0.40-0.90); GLUCOSE 301 MG/DL (70-104); MAGNESIUM 1.4 MG/DL (1.5-2.4); POTASSIUM 4.1 MMOL/L (3.5-5.1); SODIUM 133 MMOL/L (135-145); TOTAL CARBON DIOXIDE 28.9 MMOL/L (24-32); TOTAL PROTEIN 6.3 G/DL (6.4-8.2); eGFR 81 ML/MIN
[2020-06-19 05:11] LABS: EOSINOPHILS # (AUTO) 0.1 X10'3 (0-0.9); HEMOGLOBIN 9.5 g/dl (12.0-16.0); NEUTROPHILS # (AUTO) 2.1 X10'3 (1.8-7.7)
[2020-06-19 05:13] LABS: BASOPHILS % (AUTO) 0.8 % (0-1); EOSINOPHILS % (AUTO) 3.5 % (0-6); HEMATOCRIT 28.1 % (35.0-45.0); LYMPHOCYTES # (AUTO) 0.5 X10'3 (1.1-4.8); LYMPHOCYTES % (AUTO) 13.6 % (21-51); MEAN CORPUSCULAR HEMOGLOBIN 30.7 PG (27.0-31.0); MEAN CORPUSCULAR HGB CONC 33.9 g/dL (33.0-36.5); MEAN CORPUSCULAR VOLUME 90.5 FL (78-98); MEAN PLATELET VOLUME 7.5 FL (7.4-10.4); MONOCYTES # (AUTO) 0.7 X10'3 (0-0.9); MONOCYTES % (AUTO) 20.4 % (2-12); NEUTROPHILS % (AUTO) 61.7 % (42-75); PLATELET COUNT 119 X10'3 (140-440); RED BLOOD COUNT 3.11 X10'6 (4.20-5.60); RED CELL DISTRIBUTION WIDTH 18.2 % (11.5-14.5); WHITE BLOOD COUNT 3.4 X10'3 (4.5-11.0)
--- NOTE | 2020-06-19 06:45 | NUR ---
Patient in room YANETH 358. I have received report from Nidia KWONG and had the opportunity to ask questions and assume patient care.
[2020-06-19 06:56] LABS: ANISOCYTOSIS 2+; LARGE PLATELETS FEW; PLATELET ESTIMATE DECREASED; TOTAL CELLS COUNTED 100
[2020-06-19 07:00] VITALS: BP 101/59
[2020-06-19] MEDS: HYDROcodone/acetaminophen 5mg/325mg tablet PO PRN (07:54)
[2020-06-19] MEDS: lactulose 20gm/30ml cup PO SCH ×3 (07:58→19:05)
[2020-06-19] MEDS ORDERED: METRONIDAZOLE VG SCH (08:00)
[2020-06-19] MEDS: K and/or MAG REPLACEMENT MC SCH ×2 (08:00→19:02)
[2020-06-19] MEDS ORDERED: CefTRIAXone/D5W-Rocephin 1gm 50 ML IV SCH (08:00)
[2020-06-19] MEDS: insulin Lispro (HumaLOG) vial - multi-dose SQ SCH ×2 (08:12→13:09)
[2020-06-19] MEDS: miconazole nitrate 2% 45gm VAG cream VG SCH (08:17)
--- NOTE | 2020-06-19 10:25 | NUR ---
PAGER ID: [phone] MESSAGE: re: [id number], Karina Rajan. Pt refused Lactulose this a.m., will continue to try to give. Need order for PO Mag replacement per protocol. Thank you, Anna [phone]
[2020-06-19 11:00] VITALS: BP 121/80
--- NOTE | 2020-06-19 11:08 | NUR ---
attempted phone call to [facility] to find out when Paracentesis is today- no answer. Sent page. will continue to monitor.
[2020-06-19] MEDS: vancomycin/NS 1 GM ADD-VANTAGE 250 ML IV SCH (12:14)
[2020-06-19] MEDS: magnesium Cl slow-release 64mg tablet PO PRN ×2 (13:00→19:04)
[2020-06-19] MEDS: HYDROcodone/acetaminophen 10/325mg tab PO PRN ×2 (13:01→19:04)
[2020-06-19] MEDS: furosemide 40mg tablet PO SCH (15:10)
[2020-06-19] MEDS: morphine 2 MG/ML inj. syringe IV PRN ×2 (15:11→21:41)
--- NOTE | 2020-06-19 16:10 | NUR ---
KENNETH/Agustin Consults: Agustin 12; skin intact besides prior R hip surgical site. Hx DM A1C 8.3 down from 9.9 05/27 admit. Pt provided w/ DM/high protein eds during that admit. Received double proteins TIDWM prior admit; will send again this admit and monitor for PO hx DX RLE cellulitis per EMR. Will f/u 06/23 for initial assessment. Addendum: 06/19/20 at [address] Amended: Links added.
--- NOTE | 2020-06-19 16:23 | NUR ---
Received a phone call from Marily ([facility] dept) confirming to me that patient going for paracentesis tomorrow. She requesting Lovenox dose for tonight to be held. Primary nurse Anna notified about this
--- NOTE | 2020-06-19 17:00 | NUR ---
Pt has been resistive to care, teaching, and nursing interventions throughout shift. printer slotter helper notified as well as MD throughout shift PRN. Will continue to monitor.
--- NOTE | 2020-06-19 17:11 | NUR ---
PAGER ID: [phone] MESSAGE: RE: [id number], Satinder, Karina + blood culture, aerobic bottle, gram neg rods.
--- NOTE | 2020-06-19 18:15 | NUR ---
Problems reprioritized. Patient report given, questions answered & plan of care reviewed with Nevin KWONG.
--- NOTE | 2020-06-19 18:36 | NUR ---
Patient in room YANETH 358. I have received report from Anna KWONG and had the opportunity to ask questions and assume patient care. Py sitting up eating dinner, feeding herself. No signs of distress, will continue to monitor.
--- NOTE | 2020-06-19 18:50 | NUR ---
Pt refused insulin coverage after dinner, stating she didn't need it. Discussed the importance of sick day blood sugar management and protocol, pt still refused.
[2020-06-19] MEDS: enoxaparin 40mg/0.4ml syringe SQ SCH (18:53)
[2020-06-19] MEDS: [UNRECOGNIZED DRUG - REMARK] PO NR (19:00)
[2020-06-19 20:00] VITALS: BP 139/80
[2020-06-19] MEDS: insulin glargine (Lantus) pen - multi-dose SQ SCH (21:48)
[2020-06-20] VITALS: BP 133/83
[2020-06-20] MEDS: vancomycin/NS 1 GM ADD-VANTAGE 250 ML IV SCH
[2020-06-20] MEDS: morphine 2 MG/ML inj. syringe IV PRN (01:31)
[2020-06-20] MEDS: lactulose 20gm/30ml cup PO SCH ×5 (02:00→19:54)
--- NOTE | 2020-06-20 02:15 | NUR ---
Pt refused lactulose stating that she "only takes it during the day and that she doesn't want to poop all night."
[2020-06-20] MEDS: HYDROcodone/acetaminophen 10/325mg tab PO PRN ×3 (03:55→14:12)
[2020-06-20 05:29] LABS: ALANINE AMINOTRANSFERASE 39 U/L (12-78); ALBUMIN 1.7 G/DL (3.4-5.0); ALBUMIN/GLOBULIN RATIO 0.3 (1.1-1.5); ALKALINE PHOSPHATASE 169 IU/L (46-116); ANION GAP 5 (8-16); ASPARTATE AMINO TRANSFERASE 56 U/L (10-37); BILIRUBIN,TOTAL 1.5 MG/DL (0.1-1.0); BLOOD UREA NITROGEN 15 MG/DL (7-18); BUN/CREATININE RATIO 20.5 (6.6-38.0); CALCIUM 7.6 MG/DL (8.5-10.1); CHLORIDE 100 MMOL/L (99-107); CREATININE 0.73 MG/DL (0.40-0.90); GLUCOSE 239 MG/DL (70-104); MAGNESIUM 1.4 MG/DL (1.5-2.4); POTASSIUM 4.1 MMOL/L (3.5-5.1); SODIUM 132 MMOL/L (135-145); TOTAL CARBON DIOXIDE 27.3 MMOL/L (24-32); TOTAL PROTEIN 7.1 G/DL (6.4-8.2); eGFR 81 ML/MIN
[2020-06-20 05:37] LABS: EOSINOPHILS # (AUTO) 0.1 X10'3 (0-0.9); LYMPHOCYTES # (AUTO) 0.5 X10'3 (1.1-4.8); MEAN PLATELET VOLUME 7.4 FL (7.4-10.4); MONOCYTES # (AUTO) 0.7 X10'3 (0-0.9); PLATELET COUNT 135 X10'3 (140-440); RED CELL DISTRIBUTION WIDTH 18.4 % (11.5-14.5)
[2020-06-20 05:40] LABS: EOSINOPHILS % (AUTO) 1.4 % (0-6); HEMOGLOBIN 10.4 g/dl (12.0-16.0); LYMPHOCYTES % (AUTO) 10.9 % (21-51); MEAN CORPUSCULAR HEMOGLOBIN 30.3 PG (27.0-31.0); MEAN CORPUSCULAR HGB CONC 33.7 g/dL (33.0-36.5); MONOCYTES % (AUTO) 15.3 % (2-12); NEUTROPHILS # (AUTO) 3.4 X10'3 (1.8-7.7); NEUTROPHILS % (AUTO) 71.4 % (42-75); RED BLOOD COUNT 3.44 X10'6 (4.20-5.60); WHITE BLOOD COUNT 4.8 X10'3 (4.5-11.0)
--- NOTE | 2020-06-20 06:30 | NUR ---
Problems reprioritized. Patient report given, questions answered & plan of care reviewed with Rere KWONG.
--- NOTE | 2020-06-20 06:35 | NUR ---
Patient in room YANETH 358. I have received report from Nevin Jones RN and had the opportunity to ask questions and assume patient care.
[2020-06-20 07:17] VITALS: BP 131/77
[2020-06-20] MEDS: furosemide 40mg tablet PO SCH (08:26)
[2020-06-20] MEDS: spironolactone 50 MG tablet PO SCH (08:27)
[2020-06-20] MEDS: magnesium Cl slow-release 64mg tablet PO PRN (08:28)
[2020-06-20] MEDS: CefTRIAXone 2gm/D5W 50ml BAG 50 ML IV SCH (08:29)
[2020-06-20] MEDS: K and/or MAG REPLACEMENT MC SCH ×2 (08:39→20:35)
[2020-06-20] MEDS: miconazole nitrate 2% 45gm VAG cream VG SCH (09:11)
[2020-06-20 09:26] LABS: TOTAL CELLS COUNTED 100
[2020-06-20 09:27] LABS: ANISOCYTOSIS 2+; PLATELET ESTIMATE DECREASED; POLYCHROMASIA 1+; TOXIC VACUOLATION FEW
--- NOTE | 2020-06-20 09:39 | NUR ---
PAGER ID: [phone] MESSAGE: Swapna Rajan [id number] High Anxiety, can I get an Ativan order? Rere [phone]
[2020-06-20] MEDS: insulin Lispro (HumaLOG) vial - multi-dose SQ SCH ×3 (09:45→22:34)
--- NOTE | 2020-06-20 09:49 | NUR ---
Patient with high anxiety this morning, "yelling help, please help me. I can't help it." When answering the patients call she states "I don't know what I need, I'm afraid." Pagedeven CARRANZA for Ativan order, not yet received. Will continue to educate and encourage patient that she is safe and that we are here for her. [place] given for pain.
[2020-06-20] MEDS ORDERED: VANCOMYCIN LEVEL IV ONE (10:30)
[2020-06-20 10:40] VITALS: BP 119/72
[2020-06-20] MEDS: [UNRECOGNIZED DRUG - REMARK] PO NR (10:46)
[2020-06-20 11:13] VITALS: BP 110/66
[2020-06-20] MEDS ORDERED: albumin (human) 25% 100 ML IV solution IV ONE (11:35)
[2020-06-20] MEDS: LORazepam 2 mg/ml vial IV PRN ×2 (11:50→16:05)
[2020-06-20 12:18] VITALS: BP 110/66
--- NOTE | 2020-06-20 12:20 | NUR ---
Updated on patients condition by phone.
--- NOTE | 2020-06-20 12:57 | NUR ---
Patient in room YANETH 358. I have received report from Rere KWONG and had the opportunity to ask questions and assume patient care.
--- NOTE | 2020-06-20 14:21 | NUR ---
reviewed doctor of nursing practice charting
[2020-06-20] MEDS ORDERED: hydrocortisone acetate 25mg rectal suppository RC PRN (15:05)
--- NOTE | 2020-06-20 15:20 | NUR ---
Spoke with on the phone, updated him on her current status. Patient is currently resting after being given [place] 10 for pain. Naif will call back later this evening.
--- NOTE | 2020-06-20 17:14 | NUR ---
Student documentation: I have reviewed interventions, assessments performed and documented by Carlita QUIROZ for [facility]. Student Medication Administration: For medication-pass' in the time frame of 0600 to 1830, all medication were reviewed, dispensed, administered and documented per hospital policy by Carlita QUIROZ for [facility].
--- NOTE | 2020-06-20 17:56 | NUR ---
Problems reprioritized. Patient report given, questions answered & plan of care reviewed with Rere KWONG.
[2020-06-20 18:00] VITALS: BP 114/76
--- NOTE | 2020-06-20 18:04 | NUR ---
Problems reprioritized. Patient report given, questions answered & plan of care reviewed with Serafin Villalobos RN.
--- NOTE | 2020-06-20 18:05 | NUR ---
Problems reprioritized. Patient report given, questions answered & plan of care reviewed with Serafin KWONG.
[2020-06-20] MEDS: lactobacillus rhamnosus 10,000 MMU CELLS/CAPSULE PO SCH (19:55)
[2020-06-20] MEDS: enoxaparin 40mg/0.4ml syringe SQ SCH (19:55)
[2020-06-20] MEDS: insulin glargine (Lantus) pen - multi-dose SQ SCH (22:33)
[2020-06-20] MEDS ORDERED: VANCOmycin 1250MG/NS 250ml Bag 250 ML IV SCH (23:00)
[2020-06-21 00:15] VITALS: BP 117/79
[2020-06-21] MEDS: lactulose 20gm/30ml cup PO SCH ×4 (02:00→19:28)
[2020-06-21] MEDS: LORazepam 2 mg/ml vial IV PRN ×2 (02:31→22:04)
[2020-06-21] MEDS: morphine 2 MG/ML inj. syringe IV PRN ×3 (03:52→19:35)
[2020-06-21 03:54] LABS: EOSINOPHILS # (AUTO) 0.1 X10'3 (0-0.9); EOSINOPHILS % (AUTO) 1.8 % (0-6); LYMPHOCYTES # (AUTO) 0.7 X10'3 (1.1-4.8); LYMPHOCYTES % (AUTO) 15.4 % (21-51); MEAN CORPUSCULAR HEMOGLOBIN 29.9 PG (27.0-31.0); MEAN CORPUSCULAR HGB CONC 33.2 g/dL (33.0-36.5); MEAN CORPUSCULAR VOLUME 90.1 FL (78-98); MEAN PLATELET VOLUME 7.2 FL (7.4-10.4); MONOCYTES # (AUTO) 0.7 X10'3 (0-0.9); NEUTROPHILS # (AUTO) 2.8 X10'3 (1.8-7.7); NEUTROPHILS % (AUTO) 64.8 % (42-75); PLATELET COUNT 120 X10'3 (140-440); RED BLOOD COUNT 3.33 X10'6 (4.20-5.60); RED CELL DISTRIBUTION WIDTH 17.9 % (11.5-14.5); WHITE BLOOD COUNT 4.4 X10'3 (4.5-11.0)
[2020-06-21 04:19] LABS: ALANINE AMINOTRANSFERASE 32 U/L (12-78); ALBUMIN/GLOBULIN RATIO 0.4 (1.1-1.5); ALKALINE PHOSPHATASE 162 IU/L (46-116); ANION GAP 1 (8-16); ASPARTATE AMINO TRANSFERASE 47 U/L (10-37); BILIRUBIN,TOTAL 1.1 MG/DL (0.1-1.0); BLOOD UREA NITROGEN 17 MG/DL (7-18); BUN/CREATININE RATIO 19.5 (6.6-38.0); CALCIUM 7.9 MG/DL (8.5-10.1); CHLORIDE 101 MMOL/L (99-107); CREATININE 0.87 MG/DL (0.40-0.90); GLUCOSE 307 MG/DL (70-104); MAGNESIUM 1.4 MG/DL (1.5-2.4); POTASSIUM 4.1 MMOL/L (3.5-5.1); SODIUM 132 MMOL/L (135-145); TOTAL CARBON DIOXIDE 29.7 MMOL/L (24-32); TOTAL PROTEIN 7.1 G/DL (6.4-8.2); eGFR 66 ML/MIN
[2020-06-21 07:00] VITALS: BP 127/81
[2020-06-21 07:36] LABS: ANISOCYTOSIS 1+; PLATELET ESTIMATE DECREASED; POLYCHROMASIA FEW; TOTAL CELLS COUNTED 100
[2020-06-21 07:37] LABS: ELLIPTOCYTES FEW; TOXIC GRANULATION 1+
[2020-06-21 08:00] VITALS: BP 122/76
[2020-06-21] MEDS: K and/or MAG REPLACEMENT MC SCH ×2 (08:00→20:00)
[2020-06-21] MEDS: miconazole nitrate 2% 45gm VAG cream VG SCH ×2 (08:00→19:42)
--- NOTE | 2020-06-21 08:38 | NUR ---
Patient in room YANETH 358. I have received report from Serafin KWONG and had the opportunity to ask questions and assume patient care.
[2020-06-21] MEDS: lactobacillus rhamnosus 10,000 MMU CELLS/CAPSULE PO SCH ×2 (08:57→19:28)
[2020-06-21] MEDS: furosemide 40mg tablet PO SCH (08:57)
[2020-06-21] MEDS: CefTRIAXone 2gm/D5W 50ml BAG 50 ML IV SCH (08:58)
[2020-06-21] MEDS: spironolactone 50 MG tablet PO SCH (08:58)
[2020-06-21] MEDS: insulin Lispro (HumaLOG) vial - multi-dose SQ SCH ×4 (09:22→22:01)
--- NOTE | 2020-06-21 11:25 | NUR ---
patient awoke and started yelling . medicated with Ativan for anxiety and [place] for pain 06/02.with result. Dressing to right hip changed purulent drainage observed. VSS. Refused to work with PT. Lab reported that patient has MDRO in wound and blood cultures . seen by Dr Conde. . Antibiotics changed see note. will continue to monitor.
--- NOTE | 2020-06-21 16:45 | NUR ---
patient refused lactulose in am. DR Decker aware. More education given to patient about the importance of taking the lactulose for her ammonia level. Patient agreed to take 1400 hr dose. Administered. Patient tearful, and yelling at times. Much time spent with patient reassuring her with empathetic listening and repositioning her for comfort. patient refused to work with PT. All cares given to patient.
[2020-06-21] MEDS: HYDROcodone/acetaminophen 10/325mg tab PO PRN (17:09)
[2020-06-21] MEDS: meropenem inj 1 GM in normal saline 100ml IV soln 100 ML IV SCH (17:10)
--- NOTE | 2020-06-21 18:06 | NUR ---
BM x2. appeared more settled. report given to Beba KWONG
[2020-06-21 18:30] VITALS: BP 126/79
--- NOTE | 2020-06-21 18:45 | NUR ---
Patient in room YANETH 358. I have received report from Roselyn KWONG and had the opportunity to ask questions and assume patient care.
--- NOTE | 2020-06-21 19:00 | NUR ---
Pt yelling loudly, found standing at edge of bed. inc large amt stool. Pt sat on BS with x2 assist. Bed alarm was not on Addendum: 06/21/20 at 2119 by Mike Caal RN Amended: Links added.
[2020-06-21] MEDS: enoxaparin 40mg/0.4ml syringe SQ SCH (19:30)
[2020-06-21] MEDS: magnesium Cl slow-release 64mg tablet PO PRN (21:39)
[2020-06-21] MEDS: insulin glargine (Lantus) pen - multi-dose SQ SCH (22:02)
[2020-06-21 23:30] VITALS: BP 126/74
[2020-06-22] VITALS (22 sets, daily range): BP systolic 99–145; BP diastolic 52–108
[2020-06-22] MEDS: meropenem inj 1 GM in normal saline 100ml IV soln 100 ML IV SCH ×3 (00:04→16:00)
[2020-06-22] MEDS: morphine 2 MG/ML inj. syringe IV PRN (00:06)
[2020-06-22] MEDS: lactulose 20gm/30ml cup PO SCH ×4 (01:13→20:00)
[2020-06-22] MEDS: HYDROcodone/acetaminophen 10/325mg tab PO PRN (01:13)
[2020-06-22 04:54] LABS: BASOPHILS % (AUTO) 0.8 % (0-1); EOSINOPHILS # (AUTO) 0.1 X10'3 (0-0.9); EOSINOPHILS % (AUTO) 2.1 % (0-6); HEMATOCRIT 29.1 % (35.0-45.0); HEMOGLOBIN 9.9 g/dl (12.0-16.0); LYMPHOCYTES # (AUTO) 0.9 X10'3 (1.1-4.8); LYMPHOCYTES % (AUTO) 16.3 % (21-51); MEAN CORPUSCULAR HEMOGLOBIN 30.7 PG (27.0-31.0); MEAN CORPUSCULAR HGB CONC 33.9 g/dL (33.0-36.5); MEAN CORPUSCULAR VOLUME 90.4 FL (78-98); MEAN PLATELET VOLUME 7.3 FL (7.4-10.4); MONOCYTES # (AUTO) 0.9 X10'3 (0-0.9); MONOCYTES % (AUTO) 17.2 % (2-12); NEUTROPHILS # (AUTO) 3.4 X10'3 (1.8-7.7); NEUTROPHILS % (AUTO) 63.6 % (42-75); PLATELET COUNT 134 X10'3 (140-440); RED BLOOD COUNT 3.23 X10'6 (4.20-5.60); RED CELL DISTRIBUTION WIDTH 18.4 % (11.5-14.5); WHITE BLOOD COUNT 5.3 X10'3 (4.5-11.0)
[2020-06-22 05:10] LABS: ALANINE AMINOTRANSFERASE 32 U/L (12-78); ALBUMIN 1.9 G/DL (3.4-5.0); ALBUMIN/GLOBULIN RATIO 0.4 (1.1-1.5); ALKALINE PHOSPHATASE 165 IU/L (46-116); ANION GAP 3 (8-16); ASPARTATE AMINO TRANSFERASE 46 U/L (10-37); BILIRUBIN,TOTAL 0.9 MG/DL (0.1-1.0); BLOOD UREA NITROGEN 15 MG/DL (7-18); BUN/CREATININE RATIO 21.7 (6.6-38.0); CALCIUM 8.4 MG/DL (8.5-10.1); CHLORIDE 102 MMOL/L (99-107); CREATININE 0.69 MG/DL (0.40-0.90); GLUCOSE 180 MG/DL (70-104); MAGNESIUM 1.8 MG/DL (1.5-2.4); POTASSIUM 3.7 MMOL/L (3.5-5.1); SODIUM 135 MMOL/L (135-145); TOTAL CARBON DIOXIDE 30.2 MMOL/L (24-32); eGFR 86 ML/MIN
[2020-06-22] MEDS: LORazepam 2 mg/ml vial IV PRN (05:14)
--- NOTE | 2020-06-22 06:15 | NUR ---
Problems reprioritized. Patient report given, questions answered & plan of care reviewed with [place] KWONG.
[2020-06-22 07:49] LABS: TOTAL CELLS COUNTED 100
[2020-06-22 07:50] LABS: ELLIPTOCYTES FEW; PLATELET ESTIMATE DECREASED; POLYCHROMASIA FEW
[2020-06-22] MEDS: furosemide 40mg tablet PO SCH (07:59)
[2020-06-22] MEDS: lactobacillus rhamnosus 10,000 MMU CELLS/CAPSULE PO SCH ×2 (07:59→20:00)
[2020-06-22] MEDS: spironolactone 50 MG tablet PO SCH (08:00)
[2020-06-22] MEDS: K and/or MAG REPLACEMENT MC SCH ×2 (08:00→20:00)
[2020-06-22] MEDS ORDERED: VANCOMYCIN LEVEL IV ONE (10:30)
[2020-06-22] MEDS ORDERED: ceFAZolin 1000mg inj ONE ×2 (14:18→17:25)
[2020-06-22] MEDS ORDERED: tobramycin sulfate 1.2gm vial TP ONE (14:25)
[2020-06-22] MEDS: vancomycin 1,000mg inj ONE ×2 (15:04→15:05)
[2020-06-22] MEDS ORDERED: tobramycin sulfate 1.2gm vial ONE (15:39)
--- NOTE | 2020-06-22 16:00 | NUR ---
GAVE PATIENT REPORT TO SURVEYOR CHAIN HELPER. ABX SENT WITH PATIENT AND PATIENT SPECIFIC MEDS ARE INCLUDED WITH CHART BECAUSE PATIENT WILL BE TRANSFERRED TO [facility] AFTER SURGERY.
--- NOTE | 2020-06-22 16:10 | NUR ---
Student documentation: I have reviewed all interventions, assessments performed and documented by Kimberly QUIROZ from [facility]. Student Medication Administration: For medications-passed in the time frame of 1200 to 1800, all medication were reviewed, dispensed, administered and documented per hospital policy by Kimberly QUIROZ from [facility].
[2020-06-22] MEDS ORDERED: sevoflurane 250ml liquid IH ONE (16:45)
[2020-06-22] MEDS ORDERED: midazolam 2 mg/2 ml injection ONE (16:50)
[2020-06-22] MEDS ORDERED: fentaNYL/PF 50MCG/1 ML 2ML syringe ONE (16:50)
[2020-06-22] MEDS ORDERED: ketamine 50mg/5ml syringe ONE ×2 (16:51→16:52)
--- NOTE | 2020-06-22 17:10 | NUR ---
REPORT CALLED TO MADELIN LEONE RN. Addendum: 06/22/20 at 1711 by [place] Galindo RN PATIENT WILL BE GOING TO 4012A AFTER SURGERY
--- NOTE | 2020-06-22 18:03 | NUR ---
Received from OR via surgical bed, accompanied by Anesthesiologist Emmanuel and report given by Anesthesiolgist. VS WNL, extended IV remains in upper right arm. Wound vac to right lateral thigh suction to 175 per MD order at bedside, serosang drainage in cannister, lots of air bubbles, MD states okay to change cannister prior to going upstairs, mask to 10L, IVF LR at 100cc/hr.
[2020-06-22] MEDS ORDERED: glycopyrrolate 0.2mg/ml inj ONE (18:26)
[2020-06-22] MEDS ORDERED: rocuronium 10mg/ml inj IV ONE (18:26)
[2020-06-22] MEDS ORDERED: ondansetron/PF 4mg/2ml inj ONE (18:26)
[2020-06-22] MEDS ORDERED: neostigmine methylsulfate 1 MG/ML 10ml vial ONE (18:26)
[2020-06-22] MEDS ORDERED: meperidine/PF 25mg/ml syringe IV PRN ×2 (18:40)
[2020-06-22] MEDS ORDERED: morphine 4 MG/ML inj SYRINge IV PRN (18:40)
[2020-06-22] MEDS ORDERED: morphine 2 MG/ML inj. syringe IV PRN (18:40)
[2020-06-22] MEDS ORDERED: proCHLORperazine 10 MG/2 ml inj IV PRN (18:40)
[2020-06-22] MEDS ORDERED: ringers solution, lacted 1,000 ML IV SCH (18:40)
[2020-06-22] MEDS ORDERED: ondansetron/PF 4mg/2ml inj IV PRN (18:40)
--- NOTE | 2020-06-22 18:40 | NUR ---
Report given to Rebecca KWONG, patient still in OR/Recovery.
[2020-06-22] MEDS: meperidine/PF 25mg/ml syringe IV PRN ×2 (18:46→18:58)
--- NOTE | 2020-06-22 19:00 | NUR ---
Cannister to wound vac changed, will document output
--- NOTE | 2020-06-22 19:23 | NUR ---
Report called to receiving nurse. Transferred via bed to room 4012. Belongings sent from surgical room to room 4012. Special Issues communicated to receiving nurse ELENITA Fernandez by phone. BLL call light within reach, wound vac in place at 175mmHg per MD orders. Chart at bedside. RN at bedside to assume care.
[2020-06-22] MEDS: enoxaparin 40mg/0.4ml syringe SQ SCH (20:00)
[2020-06-22] MEDS: insulin glargine (Lantus) pen - multi-dose SQ SCH (23:09)
[2020-06-23] MEDS: meropenem inj 1 GM in normal saline 100ml IV soln 100 ML IV SCH ×3 (00:18→16:26)
[2020-06-23 00:26] VITALS: BP 112/59
[2020-06-23 02:00] VITALS: BP 112/59
[2020-06-23] MEDS: lactulose 20gm/30ml cup PO SCH ×4 (02:30→21:36)
[2020-06-23] MEDS: HYDROcodone/acetaminophen 10/325mg tab PO PRN ×4 (03:07→19:03)
--- NOTE | 2020-06-23 06:00 | NUR ---
Patient refused vital signs. Addendum: 06/23/20 at 0644 by Alicia Miller RN Amended: Links added.
[2020-06-23 07:07] LABS: BASOPHILS % (AUTO) 0.6 % (0-1); EOSINOPHILS # (AUTO) 0.1 X10'3 (0-0.9); EOSINOPHILS % (AUTO) 0.7 % (0-6); HEMATOCRIT 26.7 % (35.0-45.0); LYMPHOCYTES # (AUTO) 0.8 X10'3 (1.1-4.8); LYMPHOCYTES % (AUTO) 11.1 % (21-51); MEAN CORPUSCULAR HEMOGLOBIN 30.6 PG (27.0-31.0); MEAN CORPUSCULAR HGB CONC 33.7 g/dL (33.0-36.5); MEAN CORPUSCULAR VOLUME 90.8 FL (78-98); MEAN PLATELET VOLUME 7.2 FL (7.4-10.4); MONOCYTES # (AUTO) 0.8 X10'3 (0-0.9); MONOCYTES % (AUTO) 10.3 % (2-12); NEUTROPHILS # (AUTO) 5.7 X10'3 (1.8-7.7); NEUTROPHILS % (AUTO) 77.3 % (42-75); PLATELET COUNT 152 X10'3 (140-440); RED BLOOD COUNT 2.94 X10'6 (4.20-5.60); WHITE BLOOD COUNT 7.3 X10'3 (4.5-11.0)
[2020-06-23 07:33] LABS: ALANINE AMINOTRANSFERASE 32 U/L (12-78); ALBUMIN 1.8 G/DL (3.4-5.0); ALBUMIN/GLOBULIN RATIO 0.4 (1.1-1.5); ALKALINE PHOSPHATASE 154 IU/L (46-116); ANION GAP 5 (8-16); ASPARTATE AMINO TRANSFERASE 41 U/L (10-37); BILIRUBIN,TOTAL 1.6 MG/DL (0.1-1.0); BLOOD UREA NITROGEN 15 MG/DL (7-18); BUN/CREATININE RATIO 18.5 (6.6-38.0); CALCIUM 8.1 MG/DL (8.5-10.1); CHLORIDE 99 MMOL/L (99-107); CREATININE 0.81 MG/DL (0.40-0.90); GLUCOSE 203 MG/DL (70-104); MAGNESIUM 1.4 MG/DL (1.5-2.4); POTASSIUM 4.3 MMOL/L (3.5-5.1); SODIUM 133 MMOL/L (135-145); TOTAL CARBON DIOXIDE 29.4 MMOL/L (24-32); TOTAL PROTEIN 6.7 G/DL (6.4-8.2); eGFR 72 ML/MIN
[2020-06-23] MEDS: lactobacillus rhamnosus 10,000 MMU CELLS/CAPSULE PO SCH ×2 (07:41→21:36)
[2020-06-23] MEDS: furosemide 40mg tablet PO SCH (07:42)
[2020-06-23] MEDS: spironolactone 50 MG tablet PO SCH (07:42)
[2020-06-23] MEDS: K and/or MAG REPLACEMENT MC SCH ×2 (08:00→20:00)
[2020-06-23] MEDS: ipratropium/albuterol 3ml nebule NEB PRN (08:56)
[2020-06-23] MEDS: insulin Lispro (HumaLOG) vial - multi-dose SQ SCH ×3 (09:01→19:01)
[2020-06-23] MEDS ORDERED: potassium CL 10mEq/100ml bag 100 ML IV PRN (09:25)
[2020-06-23] MEDS ORDERED: potassium Cl 20 mEq SR tablet PO PRN ×2 (09:25)
[2020-06-23] MEDS ORDERED: magnesium 4gm in 100ml NS 100 ML IV PRN (09:25)
[2020-06-23] MEDS: magnesium Cl slow-release 64mg tablet PO PRN ×2 (09:53→21:36)
[2020-06-23 10:00] VITALS: BP 103/65
[2020-06-23] MEDS: miconazole nitrate 2% 45gm VAG cream VG SCH (11:41)
--- NOTE | 2020-06-23 14:30 | NUR ---
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 S/p R hip hardware head and liner exchange PO 75-100% avg carb controlled meals w/ double proteins TIDWM meeting needs. LBM 06/21. Receiving electrolyte replacements per protocol. No nutrition concerns at this time. Will continue to monitor. Rec: 1. continue carb controlled diet; double proteins TIDWM 2. routine bowel care 3. wt per rx Addendum: 06/23/20 at [address] Amended: Links added.
[2020-06-23 18:00] VITALS: BP 108/60
--- NOTE | 2020-06-23 18:00 | NUR ---
RECEIVED REPORT FROM DONAVON KWONG AND ASSUMED PATIENT CARE
--- NOTE | 2020-06-23 18:33 | NUR ---
Problems reprioritized. Patient report given, questions answered & plan of care reviewed with Carlita KWONG.
[2020-06-23] MEDS: insulin glargine (Lantus) pen - multi-dose SQ SCH (21:00)
[2020-06-23] MEDS: dextrose ORAL solution 15 GM/59 ML bottle PO PRN (21:35)
[2020-06-23] MEDS: enoxaparin 40mg/0.4ml syringe SQ SCH (21:36)
[2020-06-23] MEDS: LORazepam 2 mg/ml vial IV PRN (21:42)
[2020-06-23] MEDS: morphine 2 MG/ML inj. syringe IV PRN (21:43)
[2020-06-23 22:00] VITALS: BP 124/77
[2020-06-24] MEDS: meropenem inj 1 GM in normal saline 100ml IV soln 100 ML IV SCH ×4 (00:03→23:48)
[2020-06-24] MEDS: lactulose 20gm/30ml cup PO SCH ×4 (01:58→21:18)
[2020-06-24] MEDS: LORazepam 2 mg/ml vial IV PRN ×3 (03:12→21:19)
[2020-06-24] MEDS: morphine 2 MG/ML inj. syringe IV PRN ×2 (03:12→11:29)
[2020-06-24 05:30] LABS: BASOPHILS # (AUTO) 0.1 X10'3 (0-0.2); BASOPHILS % (AUTO) 0.9 % (0-1); EOSINOPHILS # (AUTO) 0.1 X10'3 (0-0.9); EOSINOPHILS % (AUTO) 1.7 % (0-6); HEMATOCRIT 26.5 % (35.0-45.0); LYMPHOCYTES # (AUTO) 1.1 X10'3 (1.1-4.8); LYMPHOCYTES % (AUTO) 13.2 % (21-51); MEAN CORPUSCULAR HEMOGLOBIN 30.8 PG (27.0-31.0); MEAN CORPUSCULAR HGB CONC 33.8 g/dL (33.0-36.5); MEAN PLATELET VOLUME 7.1 FL (7.4-10.4); MONOCYTES # (AUTO) 0.9 X10'3 (0-0.9); MONOCYTES % (AUTO) 10.8 % (2-12); NEUTROPHILS % (AUTO) 73.4 % (42-75); PLATELET COUNT 160 X10'3 (140-440); RED BLOOD COUNT 2.91 X10'6 (4.20-5.60); RED CELL DISTRIBUTION WIDTH 18.5 % (11.5-14.5); WHITE BLOOD COUNT 8.2 X10'3 (4.5-11.0)
[2020-06-24 05:57] LABS: ALBUMIN 1.8 G/DL (3.4-5.0); ANION GAP -1 (8-16); BLOOD UREA NITROGEN 16 MG/DL (7-18); BUN/CREATININE RATIO 17.2 (6.6-38.0); CALCIUM 8.8 MG/DL (8.5-10.1); CHLORIDE 100 MMOL/L (99-107); CREATININE 0.93 MG/DL (0.40-0.90); MAGNESIUM 1.6 MG/DL (1.5-2.4); POTASSIUM 4.8 MMOL/L (3.5-5.1); SODIUM 132 MMOL/L (135-145); TOTAL CARBON DIOXIDE 32.6 MMOL/L (24-32); eGFR 61 ML/MIN
[2020-06-24 06:00] VITALS: BP 124/69
[2020-06-24 06:14] LABS: GLUCOSE 206 MG/DL (70-104)
--- NOTE | 2020-06-24 06:48 | NUR ---
Patient in room ORTHO 4010. I have received report from Carlita and had the opportunity to ask questions and assume patient care.
[2020-06-24] MEDS: K and/or MAG REPLACEMENT MC SCH ×2 (07:18→20:00)
[2020-06-24] MEDS: miconazole nitrate 2% 45gm VAG cream VG SCH (08:00)
[2020-06-24] MEDS: spironolactone 50 MG tablet PO SCH (09:25)
[2020-06-24] MEDS: lactobacillus rhamnosus 10,000 MMU CELLS/CAPSULE PO SCH ×2 (09:25→21:19)
[2020-06-24] MEDS: furosemide 40mg tablet PO SCH (09:25)
[2020-06-24 10:00] VITALS: BP 116/72
[2020-06-24] MEDS: insulin Lispro (HumaLOG) vial - multi-dose SQ SCH ×3 (10:19→18:53)
[2020-06-24 18:00] VITALS: BP 119/71
--- NOTE | 2020-06-24 18:16 | NUR ---
Problems reprioritized. Patient report given, questions answered & plan of care reviewed with
--- NOTE | 2020-06-24 18:42 | NUR ---
Patient in room ORTHO 4012. I have received report from SACHI KWONG and had the opportunity to ask questions and assume patient care.
[2020-06-24] MEDS: enoxaparin 40mg/0.4ml syringe SQ SCH (21:19)
[2020-06-24] MEDS: insulin glargine (Lantus) pen - multi-dose SQ SCH (21:39)
[2020-06-24 22:00] VITALS: BP 99/62
[2020-06-24] MEDS: HYDROcodone/acetaminophen 10/325mg tab PO PRN (22:26)
[2020-06-25] MEDS: lactulose 20gm/30ml cup PO SCH ×4 (03:46→20:18)
[2020-06-25] MEDS: HYDROcodone/acetaminophen 10/325mg tab PO PRN ×5 (03:46→21:11)
[2020-06-25 06:00] VITALS: BP 112/75
--- NOTE | 2020-06-25 06:25 | NUR ---
Patient in room ORTHO 4012. I have received report from Micaela KWONG and had the opportunity to ask questions and assume patient care.
--- NOTE | 2020-06-25 06:29 | NUR ---
Patient in room ORTHO 4012. I have received report from Micaela KWONG and had the opportunity to ask questions and assume patient care.
--- NOTE | 2020-06-25 06:49 | NUR ---
Patient in room ORTHO 4009. I have received report from Nidia and had the opportunity to ask questions and assume patient care.
[2020-06-25] MEDS: K and/or MAG REPLACEMENT MC SCH ×2 (08:00→20:00)
[2020-06-25] MEDS: insulin Lispro (HumaLOG) vial - multi-dose SQ SCH ×2 (09:31→13:11)
[2020-06-25] MEDS: lactobacillus rhamnosus 10,000 MMU CELLS/CAPSULE PO SCH ×2 (09:32→20:18)
[2020-06-25] MEDS: furosemide 40mg tablet PO SCH (09:32)
[2020-06-25] MEDS: spironolactone 50 MG tablet PO SCH (09:32)
[2020-06-25] MEDS: miconazole nitrate 2% 45gm VAG cream VG SCH (09:33)
[2020-06-25] MEDS: meropenem inj 1 GM in normal saline 100ml IV soln 100 ML IV SCH ×2 (09:34→16:36)
--- NOTE | 2020-06-25 09:34 | NUR ---
Insulin being given by nursing assistants teacher under their profile, 2 RN checks with charge nurse and myself.
[2020-06-25 10:00] VITALS: BP 112/69
--- NOTE | 2020-06-25 13:11 | NUR ---
Insulin being given by community health nursing director under their profile, 2 RN checks with charge nurse and myself.
--- NOTE | 2020-06-25 13:46 | NUR ---
Student documentation: I have reviewed all interventions, assessments performed and documented by Carlita QUIROZ with [facility] . Student Medication Administration: For all medication-pass' in the time frame of 0600 to 1830, all medications were reviewed, dispensed, administered and documented per hospital policy by Carlita QUIROZ with [facility].
[2020-06-25 18:00] VITALS: BP 112/66
--- NOTE | 2020-06-25 18:00 | NUR ---
Patient in room ORTHO 4012. I have received report from Rere KWONG and had the opportunity to ask questions and assume patient care. Addendum: 06/25/20 at 1922 by Kimberly Vidal RN Amended: Links added.
--- NOTE | 2020-06-25 19:15 | NUR ---
Problems reprioritized. Patient report given, questions answered & plan of care reviewed with Liz KWONG. Addendum: 06/25/20 at 1922 by Kimberly Vidal RN Amended: Links added.
--- NOTE | 2020-06-25 19:19 | NUR ---
Patients states she ate all her meal but no meal ticket is found. Unable to cover the carbs due to count and see what was on dinner tray. BS 75.
[2020-06-25] MEDS: enoxaparin 40mg/0.4ml syringe SQ SCH (20:18)
[2020-06-25] MEDS: insulin glargine (Lantus) pen - multi-dose SQ SCH (21:16)
[2020-06-25 22:00] VITALS: BP 110/62
[2020-06-26] MEDS: meropenem inj 1 GM in normal saline 100ml IV soln 100 ML IV SCH ×3 (00:34→17:01)
[2020-06-26] MEDS: lactulose 20gm/30ml cup PO SCH ×4 (02:28→21:49)
[2020-06-26] MEDS: HYDROcodone/acetaminophen 10/325mg tab PO PRN ×5 (02:28→22:46)
[2020-06-26 06:00] VITALS: BP 109/69
--- NOTE | 2020-06-26 06:53 | NUR ---
Problems reprioritized. Patient report given, questions answered & plan of care reviewed with Marika KWONG.
[2020-06-26] MEDS: furosemide 40mg tablet PO SCH (07:45)
[2020-06-26] MEDS: lactobacillus rhamnosus 10,000 MMU CELLS/CAPSULE PO SCH ×2 (07:45→21:49)
[2020-06-26] MEDS: miconazole nitrate 2% 45gm VAG cream VG SCH (07:46)
[2020-06-26] MEDS: spironolactone 50 MG tablet PO SCH (07:46)
[2020-06-26] MEDS: LORazepam 0.5 MG tablet PO PRN ×3 (07:46→22:46)
[2020-06-26] MEDS: K and/or MAG REPLACEMENT MC SCH ×2 (08:00→20:00)
[2020-06-26 10:00] VITALS: BP 117/79
--- NOTE | 2020-06-26 10:34 | NUR ---
PAGER ID: [phone] MESSAGE: [phone] Karina Rajan Do you want a PT Eval ordered with wbat or have me call Dr. Beltran Hairston [phone]
[2020-06-26] MEDS: insulin Lispro (HumaLOG) vial - multi-dose SQ SCH ×2 (13:46→19:12)
--- NOTE | 2020-06-26 17:08 | NUR ---
FROM LIANE Addendum: 06/26/20 at 1708 by Marika Singh RN Amended: Links added.
[2020-06-26 18:00] VITALS: BP 118/70
--- NOTE | 2020-06-26 18:40 | NUR ---
Problems reprioritized. Patient report given, questions answered & plan of care reviewed with Rebecca KWONG.
[2020-06-26] MEDS: dextrose ORAL solution 15 GM/59 ML bottle PO PRN ×2 (21:27→21:47)
[2020-06-26] MEDS: enoxaparin 40mg/0.4ml syringe SQ SCH (21:50)
[2020-06-26 22:00] VITALS: BP 133/67
[2020-06-27] MEDS: meropenem inj 1 GM in normal saline 100ml IV soln 100 ML IV SCH ×3 (00:31→17:56)
[2020-06-27] MEDS: insulin glargine (Lantus) pen - multi-dose SQ SCH ×2 (00:45→22:24)
[2020-06-27] MEDS: lactulose 20gm/30ml cup PO SCH ×4 (02:00→22:22)
[2020-06-27] MEDS: LORazepam 0.5 MG tablet PO PRN ×2 (05:25→09:36)
[2020-06-27] MEDS: HYDROcodone/acetaminophen 10/325mg tab PO PRN ×4 (05:25→23:05)
[2020-06-27 06:00] VITALS: BP 108/66
[2020-06-27] MEDS: miconazole nitrate 2% 45gm VAG cream VG SCH (08:00)
[2020-06-27] MEDS: K and/or MAG REPLACEMENT MC SCH ×2 (08:00→20:00)
[2020-06-27] MEDS: spironolactone 50 MG tablet PO SCH (08:30)
--- NOTE | 2020-06-27 09:29 | NUR ---
PAGER ID: [phone] MESSAGE: [phone] Karina Rajan Do you want any CBC, CMP and maybe a fluid restriction? Marika [phone]
[2020-06-27] MEDS: furosemide 40mg tablet PO SCH (09:35)
[2020-06-27] MEDS: lactobacillus rhamnosus 10,000 MMU CELLS/CAPSULE PO SCH ×2 (09:36→22:21)
[2020-06-27] MEDS: insulin Lispro (HumaLOG) vial - multi-dose SQ SCH ×2 (09:55→19:03)
--- NOTE | 2020-06-27 15:26 | NUR ---
I was in the middle of discharging a patient, Karina was yelling "I NEED HELP, SOMEBODY HELP ME" I went in at 1430 to see what was needed she wanted to sit up. I explained that the doctor ordered NWB on her hip. She stated she understood, after I explained I would help sit her up when I was done with my discharge. I have discharged the patient, came back to help, Mrs. Rajan and she was out of bed sitting in a recliner. She stated "she walked there by grabbing onto things" Physical Therapy was notified and patient was put back to bed safely with assistance.
[2020-06-27 16:41] LABS: ALBUMIN 1.8 G/DL (3.4-5.0); ANION GAP -1 (8-16); BLOOD UREA NITROGEN 20 MG/DL (7-18); BUN/CREATININE RATIO 23.5 (6.6-38.0); CALCIUM 8.9 MG/DL (8.5-10.1); CHLORIDE 99 MMOL/L (99-107); CREATININE 0.85 MG/DL (0.40-0.90); GLUCOSE 219 MG/DL (70-104); POTASSIUM 4.7 MMOL/L (3.5-5.1); SODIUM 130 MMOL/L (135-145); TOTAL CARBON DIOXIDE 32.1 MMOL/L (24-32); eGFR 68 ML/MIN
[2020-06-27 17:02] LABS: EOSINOPHILS # (AUTO) 0.1 X10'3 (0-0.9); HEMOGLOBIN 9.1 g/dl (12.0-16.0); LYMPHOCYTES # (AUTO) 0.8 X10'3 (1.1-4.8); NEUTROPHILS # (AUTO) 4.4 X10'3 (1.8-7.7); WHITE BLOOD COUNT 5.9 X10'3 (4.5-11.0)
[2020-06-27 17:04] LABS: BASOPHILS % (AUTO) 0.8 % (0-1); EOSINOPHILS % (AUTO) 1.6 % (0-6); LYMPHOCYTES % (AUTO) 13.4 % (21-51); MEAN CORPUSCULAR HEMOGLOBIN 30.8 PG (27.0-31.0); MEAN CORPUSCULAR HGB CONC 33.7 g/dL (33.0-36.5); MEAN CORPUSCULAR VOLUME 91.3 FL (78-98); MEAN PLATELET VOLUME 7.2 FL (7.4-10.4); MONOCYTES # (AUTO) 0.6 X10'3 (0-0.9); MONOCYTES % (AUTO) 10.7 % (2-12); NEUTROPHILS % (AUTO) 73.5 % (42-75); PLATELET COUNT 155 X10'3 (140-440); RED BLOOD COUNT 2.96 X10'6 (4.20-5.60)
[2020-06-27 18:00] VITALS: BP 98/65
[2020-06-27 22:00] VITALS: BP 89/58
[2020-06-27] MEDS: enoxaparin 40mg/0.4ml syringe SQ SCH (22:22)
[2020-06-28] MEDS: meropenem inj 1 GM in normal saline 100ml IV soln 100 ML IV SCH ×3 (00:21→17:22)
[2020-06-28] MEDS: HYDROcodone/acetaminophen 10/325mg tab PO PRN ×4 (03:59→21:17)
[2020-06-28] MEDS: lactulose 20gm/30ml cup PO SCH ×4 (03:59→21:20)
[2020-06-28 06:00] VITALS: BP 98/62
[2020-06-28] MEDS: K and/or MAG REPLACEMENT MC SCH ×2 (08:00→20:00)
[2020-06-28] MEDS: insulin Lispro (HumaLOG) vial - multi-dose SQ SCH ×2 (09:55→19:33)
[2020-06-28] MEDS: lactobacillus rhamnosus 10,000 MMU CELLS/CAPSULE PO SCH ×2 (09:56→21:20)
[2020-06-28] MEDS: spironolactone 50 MG tablet PO SCH (09:56)
[2020-06-28] MEDS: furosemide 40mg tablet PO SCH (09:56)
[2020-06-28] MEDS: LORazepam 0.5 MG tablet PO PRN ×2 (09:57→21:17)
[2020-06-28 10:00] VITALS: BP 96/40
--- NOTE | 2020-06-28 12:00 | NUR ---
Reassessment: Pt PO 90-100% avg meals w/ double proteins TIDWM meeting needs. LBM 06/27 receiving lactulose. No nutrition concerns at this time. Will continue to monitor. Rec: 1. continue carb controlled diet; double proteins TIDWM 2. routine bowel care 3. wt per rx Addendum: 06/28/20 at [address] Amended: Links added.
[2020-06-28 18:00] VITALS: BP 107/60
--- NOTE | 2020-06-28 18:14 | NUR ---
RECEIVED REPORT FROM PATRICK KWONG AND ASSUMED PATIENT CARE
--- NOTE | 2020-06-28 18:15 | NUR ---
Gave report to Carlita KWONG.
[2020-06-28] MEDS: miconazole nitrate 2% 45gm VAG cream VG SCH (21:00)
[2020-06-28] MEDS: enoxaparin 40mg/0.4ml syringe SQ SCH (21:17)
[2020-06-28] MEDS: insulin glargine (Lantus) pen - multi-dose SQ SCH (21:20)
[2020-06-28 22:00] VITALS: BP 101/66
[2020-06-29] MEDS: lactulose 20gm/30ml cup PO SCH ×4 (01:01→20:15)
[2020-06-29] MEDS: meropenem inj 1 GM in normal saline 100ml IV soln 100 ML IV SCH ×3 (01:01→16:37)
[2020-06-29] MEDS: LORazepam 0.5 MG tablet PO PRN ×2 (02:37→20:17)
[2020-06-29 05:20] LABS: BASOPHILS % (AUTO) 0.5 % (0-1); EOSINOPHILS % (AUTO) 0.5 % (0-6); HEMATOCRIT 28.4 % (35.0-45.0); HEMOGLOBIN 9.4 g/dl (12.0-16.0); LYMPHOCYTES # (AUTO) 0.6 X10'3 (1.1-4.8); LYMPHOCYTES % (AUTO) 8.5 % (21-51); MEAN CORPUSCULAR HEMOGLOBIN 30.4 PG (27.0-31.0); MEAN CORPUSCULAR HGB CONC 33.2 g/dL (33.0-36.5); MEAN CORPUSCULAR VOLUME 91.6 FL (78-98); MONOCYTES # (AUTO) 0.5 X10'3 (0-0.9); MONOCYTES % (AUTO) 7.8 % (2-12); NEUTROPHILS # (AUTO) 5.4 X10'3 (1.8-7.7); NEUTROPHILS % (AUTO) 82.7 % (42-75); PLATELET COUNT 152 X10'3 (140-440); RED CELL DISTRIBUTION WIDTH 18.9 % (11.5-14.5); WHITE BLOOD COUNT 6.5 X10'3 (4.5-11.0)
[2020-06-29 05:49] LABS: ANION GAP 3 (8-16); BLOOD UREA NITROGEN 22 MG/DL (7-18); BUN/CREATININE RATIO 27.5 (6.6-38.0); CALCIUM 8.6 MG/DL (8.5-10.1); CHLORIDE 98 MMOL/L (99-107); SODIUM 133 MMOL/L (135-145); TOTAL CARBON DIOXIDE 31.9 MMOL/L (24-32); eGFR 73 ML/MIN
[2020-06-29 05:51] LABS: GLUCOSE 177 MG/DL (70-104)
[2020-06-29 06:00] VITALS: BP 130/68
--- NOTE | 2020-06-29 06:00 | NUR ---
Patient in room ORTHO 4012. I have received report from Carlita KWONG and had the opportunity to ask questions and assume patient care.
--- NOTE | 2020-06-29 06:23 | NUR ---
REPORT GIVEN TO MADELIN KWONG
[2020-06-29] MEDS: K and/or MAG REPLACEMENT MC SCH ×2 (08:00→20:00)
[2020-06-29 08:56] LABS: ANISOCYTOSIS 2+; PLATELET ESTIMATE NORMAL
[2020-06-29 08:57] LABS: POLYCHROMASIA FEW; SCHISTOCYTES FEW
[2020-06-29] MEDS: lactobacillus rhamnosus 10,000 MMU CELLS/CAPSULE PO SCH ×2 (09:03→20:15)
[2020-06-29] MEDS: spironolactone 50 MG tablet PO SCH (09:03)
[2020-06-29] MEDS: furosemide 40mg tablet PO SCH (09:04)
[2020-06-29] MEDS: insulin Lispro (HumaLOG) vial - multi-dose SQ SCH ×2 (09:11→20:14)
[2020-06-29] MEDS ORDERED: morphine 2 MG/ML inj. syringe IV PRN (09:30)
[2020-06-29 10:00] VITALS: BP 94/50
[2020-06-29] MEDS: HYDROcodone/acetaminophen 10/325mg tab PO PRN ×2 (10:13→20:17)
[2020-06-29] MEDS: LORazepam 2 mg/ml vial IV PRN (12:03)
[2020-06-29] MEDS: dextrose ORAL solution 15 GM/59 ML bottle PO PRN (12:29)
--- NOTE | 2020-06-29 18:42 | NUR ---
Problems reprioritized. Patient report given, questions answered & plan of care reviewed with Helen KWONG.
--- NOTE | 2020-06-29 18:50 | NUR ---
Patient in room ORTHO 4012. I have received report from SEAFORD and had the opportunity to ask questions and assume patient care.
[2020-06-29 19:00] VITALS: BP 129/73
[2020-06-29] MEDS: enoxaparin 40mg/0.4ml syringe SQ SCH (20:16)
[2020-06-29] MEDS: miconazole nitrate 2% 45gm VAG cream VG SCH (21:00)
[2020-06-29 23:00] VITALS: BP 139/79
[2020-06-29] MEDS: insulin glargine (Lantus) pen - multi-dose SQ SCH (23:05)
[2020-06-30] MEDS: meropenem inj 1 GM in normal saline 100ml IV soln 100 ML IV SCH ×3 (00:45→16:22)
[2020-06-30] MEDS: LORazepam 0.5 MG tablet PO PRN (00:46)
[2020-06-30] MEDS: HYDROcodone/acetaminophen 10/325mg tab PO PRN (00:46)
[2020-06-30] MEDS: lactulose 20gm/30ml cup PO SCH ×4 (01:02→20:00)
--- NOTE | 2020-06-30 02:00 | NUR ---
PATIENT PULLED WOUND VAC OUT. WET TO DRY DRESSING DONE TO RIGHT HIP WOUND.
[2020-06-30 06:00] VITALS: BP 94/56
--- NOTE | 2020-06-30 06:30 | NUR ---
Problems reprioritized. Patient report given, questions answered & plan of care reviewed with JUAN KWONG.
[2020-06-30] MEDS: K and/or MAG REPLACEMENT MC SCH ×2 (08:00→19:44)
[2020-06-30] MEDS: furosemide 40mg tablet PO SCH (08:00)
[2020-06-30] MEDS: lactobacillus rhamnosus 10,000 MMU CELLS/CAPSULE PO SCH ×2 (08:00→19:45)
[2020-06-30] MEDS: spironolactone 50 MG tablet PO SCH (08:30)
[2020-06-30 10:00] VITALS: BP 97/51
--- NOTE | 2020-06-30 12:00 | NUR ---
Student documentation: I have reviewed all interventions, assessments performed and documented by Chiquis Talbot. Student Medication Administration: For this medication-pass time frame, all medication were reviewed, dispensed, administered and documented per hospital policy by Chiquis Talbot.
[2020-06-30] MEDS: ipratropium/albuterol 3ml nebule NEB PRN ×2 (12:25→18:06)
[2020-06-30 12:53] LABS: BASOPHILS % (AUTO) 0.5 % (0-1); EOSINOPHILS % (AUTO) 0.3 % (0-6); HEMATOCRIT 30.5 % (35.0-45.0); LYMPHOCYTES # (AUTO) 0.6 X10'3 (1.1-4.8); MEAN CORPUSCULAR HEMOGLOBIN 29.7 PG (27.0-31.0); MEAN CORPUSCULAR HGB CONC 32.6 g/dL (33.0-36.5); MEAN CORPUSCULAR VOLUME 90.9 FL (78-98); MEAN PLATELET VOLUME 6.9 FL (7.4-10.4); MONOCYTES # (AUTO) 0.5 X10'3 (0-0.9); MONOCYTES % (AUTO) 8.5 % (2-12); NEUTROPHILS # (AUTO) 5.1 X10'3 (1.8-7.7); NEUTROPHILS % (AUTO) 80.7 % (42-75); PLATELET COUNT 180 X10'3 (140-440); RED BLOOD COUNT 3.36 X10'6 (4.20-5.60); RED CELL DISTRIBUTION WIDTH 18.9 % (11.5-14.5); WHITE BLOOD COUNT 6.4 X10'3 (4.5-11.0)
[2020-06-30 12:56] LABS: ABG BASE EXCESS 5.9 mmol/L (-2.0-2.0); ABG HCO3 29.2 mmol/L (22.0-26.0); ABG OXYGEN SATURATION 91.5 % (94-97); ABG PCO2 (T) 37.3 mmHg (32.0-45.0); ABG PO2 (T) 62.7 mmHg (75.0-100.0); ALLEN'S TEST POSITIVE; FLOW 1 L/min; FMetHb 0.2 % (0.0-1.5); FO2Hb 90.4 % (94-97); TOTAL HEMOGLOBIN 10.9 G/dl (12.0-16.0)
[2020-06-30 13:08] LABS: ALANINE AMINOTRANSFERASE 56 U/L (12-78); ALBUMIN 2.2 G/DL (3.4-5.0); ALBUMIN/GLOBULIN RATIO 0.4 (1.1-1.5); ALKALINE PHOSPHATASE 198 IU/L (46-116); ANION GAP 2 (8-16); ASPARTATE AMINO TRANSFERASE 68 U/L (10-37); BLOOD UREA NITROGEN 23 MG/DL (7-18); BUN/CREATININE RATIO 27.7 (6.6-38.0); CHLORIDE 102 MMOL/L (99-107); CREATININE 0.83 MG/DL (0.40-0.90); GLUCOSE 245 MG/DL (70-104); POTASSIUM 4.7 MMOL/L (3.5-5.1); SODIUM 132 MMOL/L (135-145); TOTAL CARBON DIOXIDE 27.7 MMOL/L (24-32); TOTAL PROTEIN 8.3 G/DL (6.4-8.2); eGFR 70 ML/MIN
[2020-06-30 13:46] LABS: PLATELET ESTIMATE NORMAL
[2020-06-30 13:47] LABS: ANISOCYTOSIS 2+; POLYCHROMASIA FEW; SCHISTOCYTES FEW
[2020-06-30] MEDS: Lactulose Enema **for rectal use only RC PRN ×4 (14:31→20:37)
[2020-06-30 17:00] VITALS: BP 139/75
--- NOTE | 2020-06-30 18:33 | NUR ---
Problems reprioritized. Patient report given, questions answered & plan of care reviewed with ELENITA GONSALES.
[2020-06-30] MEDS: enoxaparin 40mg/0.4ml syringe SQ SCH (19:48)
[2020-06-30 20:00] VITALS: BP 148/83
--- NOTE | 2020-06-30 20:20 | NUR ---
Unable to wake up and is non-responsive, will give rectal Lactulose. Ammonia is down to 62. Pharmacy aware and will prepare dose. Addendum: 06/30/20 at 2025 by Ro Allen RN Amended: Links added.
[2020-06-30] MEDS: miconazole nitrate 2% 45gm VAG cream VG SCH (21:00)
[2020-06-30] MEDS: insulin glargine (Lantus) pen - multi-dose SQ SCH (21:57)
[2020-06-30 22:00] VITALS: BP 144/89
[2020-07-01] MEDS: meropenem inj 1 GM in normal saline 100ml IV soln 100 ML IV SCH ×3 (00:30→16:06)
[2020-07-01] MEDS: lactulose 20gm/30ml cup PO SCH ×4 (01:57→21:06)
[2020-07-01 02:00] VITALS: BP 129/74
--- NOTE | 2020-07-01 04:00 | NUR ---
Pt was found to have pushed out rectal tube and removed her wick. Bed change and repositioned. Addendum: 07/01/20 at 0443 by Ro Allen RN Amended: Links added.
[2020-07-01 06:00] VITALS: BP 132/79
[2020-07-01 06:09] LABS: BASOPHILS % (AUTO) 0.7 % (0-1); EOSINOPHILS % (AUTO) 0.2 % (0-6); HEMATOCRIT 30.9 % (35.0-45.0); HEMOGLOBIN 10.3 g/dl (12.0-16.0); LYMPHOCYTES # (AUTO) 0.8 X10'3 (1.1-4.8); MEAN CORPUSCULAR HGB CONC 33.3 g/dL (33.0-36.5); MONOCYTES # (AUTO) 0.7 X10'3 (0-0.9); NEUTROPHILS % (AUTO) 76.1 % (42-75); PLATELET COUNT 191 X10'3 (140-440); RED BLOOD COUNT 3.43 X10'6 (4.20-5.60); WHITE BLOOD COUNT 6.5 X10'3 (4.5-11.0)
--- NOTE | 2020-07-01 06:15 | NUR ---
Problems reprioritized. Patient report given, questions answered & plan of care reviewed with Tammie KWONG. Addendum: 07/01/20 at 0617 by Ro Allen RN Amended: Links added.
[2020-07-01 06:27] LABS: ALBUMIN 2.2 G/DL (3.4-5.0); ANION GAP 7 (8-16); BLOOD UREA NITROGEN 22 MG/DL (7-18); BUN/CREATININE RATIO 30.1 (6.6-38.0); CALCIUM 8.7 MG/DL (8.5-10.1); CHLORIDE 105 MMOL/L (99-107); CREATININE 0.73 MG/DL (0.40-0.90); GLUCOSE 164 MG/DL (70-104); POTASSIUM 3.9 MMOL/L (3.5-5.1); SODIUM 136 MMOL/L (135-145); TOTAL CARBON DIOXIDE 24.4 MMOL/L (24-32); eGFR 81 ML/MIN
--- NOTE | 2020-07-01 06:47 | NUR ---
Patient in room ORTHO 4012. I have received report from ELENITA Starr and had the opportunity to ask questions and assume patient care.
[2020-07-01] MEDS: K and/or MAG REPLACEMENT MC SCH ×2 (08:00→20:00)
[2020-07-01] MEDS: lactobacillus rhamnosus 10,000 MMU CELLS/CAPSULE PO SCH ×2 (09:14→21:06)
[2020-07-01] MEDS: spironolactone 50 MG tablet PO SCH (09:14)
[2020-07-01] MEDS: furosemide 40mg tablet PO SCH (09:14)
[2020-07-01] MEDS: insulin Lispro (HumaLOG) vial - multi-dose SQ SCH (09:17)
[2020-07-01 11:00] VITALS: BP 134/89
--- NOTE | 2020-07-01 15:30 | NUR ---
wound vac DC'd D/T loss of suction/seal and wound contamination with urine. Wet to moist dressing placed. Will continue to monitor.
--- NOTE | 2020-07-01 17:21 | NUR ---
Dressing changed D/T stool contamination.
[2020-07-01 18:00] VITALS: BP 150/94
--- NOTE | 2020-07-01 18:29 | NUR ---
Problems reprioritized. Patient report given, questions answered & plan of care reviewed with Jayshree Hill RN.
[2020-07-01] MEDS: enoxaparin 40mg/0.4ml syringe SQ SCH (21:06)
[2020-07-01] MEDS: insulin glargine (Lantus) pen - multi-dose SQ SCH (21:10)
[2020-07-01] MEDS: miconazole nitrate 2% 45gm VAG cream VG SCH (21:14)
[2020-07-01 22:00] VITALS: BP 133/78
[2020-07-02] MEDS: meropenem inj 1 GM in normal saline 100ml IV soln 100 ML IV SCH ×3 (00:35→16:35)
[2020-07-02] MEDS: lactulose 20gm/30ml cup PO SCH ×4 (01:46→20:53)
[2020-07-02] MEDS: HYDROcodone/acetaminophen 10/325mg tab PO PRN (01:47)
[2020-07-02 06:30] VITALS: BP 117/73
--- NOTE | 2020-07-02 06:54 | NUR ---
Report given to Demario KWONG.
--- NOTE | 2020-07-02 06:55 | NUR ---
Patient in room ORTHO 4012. I have received report from Caitlyn KWONG and had the opportunity to ask questions and assume patient care.
[2020-07-02] MEDS: K and/or MAG REPLACEMENT MC SCH ×2 (08:00→20:00)
[2020-07-02] MEDS: lactobacillus rhamnosus 10,000 MMU CELLS/CAPSULE PO SCH ×2 (09:15→20:53)
[2020-07-02] MEDS: spironolactone 50 MG tablet PO SCH (09:15)
[2020-07-02] MEDS: furosemide 40mg tablet PO SCH (09:16)
[2020-07-02] MEDS: insulin Lispro (HumaLOG) vial - multi-dose SQ SCH ×3 (09:49→19:04)
[2020-07-02 10:00] VITALS: BP 105/66
--- NOTE | 2020-07-02 14:00 | NUR ---
Patient slightly confused today but cooperative, follows instruction. Side rails x 4 restraint order discontinued at this time as there were no indication for restraint at this time
[2020-07-02 18:00] VITALS: BP 101/70
--- NOTE | 2020-07-02 18:36 | NUR ---
Problems reprioritized. Patient report given, questions answered & plan of care reviewed with Chiquis Segovia RN.
--- NOTE | 2020-07-02 18:52 | NUR ---
Patient in room ORTHO 4012. I have received report from ELENITA Orantes and had the opportunity to ask questions and assume patient care. Addendum: 07/02/20 at 1852 by Pallavi Barrientos RN Amended: Links added.
[2020-07-02] MEDS: enoxaparin 40mg/0.4ml syringe SQ SCH (20:54)
[2020-07-02] MEDS: miconazole nitrate 2% 45gm VAG cream VG SCH (21:00)
[2020-07-02] MEDS: insulin glargine (Lantus) pen - multi-dose SQ SCH (21:19)
[2020-07-02 22:00] VITALS: BP 130/81
[2020-07-02] MEDS: LORazepam 0.5 MG tablet PO PRN (23:05)
[2020-07-03] MEDS: meropenem inj 1 GM in normal saline 100ml IV soln 100 ML IV SCH ×4 (01:25→23:25)
[2020-07-03] MEDS: lactulose 20gm/30ml cup PO SCH ×4 (01:25→20:16)
[2020-07-03 06:00] VITALS: BP 117/77
--- NOTE | 2020-07-03 06:29 | NUR ---
Problems reprioritized. Patient report given, questions answered & plan of care reviewed with ELENITA Jernigan.
--- NOTE | 2020-07-03 06:33 | NUR ---
Patient in room ORTHO 4012. I have received report from Chiquis and had the opportunity to ask questions and assume patient care.
[2020-07-03] MEDS: K and/or MAG REPLACEMENT MC SCH ×2 (08:00→20:00)
[2020-07-03] MEDS: HYDROcodone/acetaminophen 10/325mg tab PO PRN ×2 (09:11→14:19)
[2020-07-03] MEDS: lactobacillus rhamnosus 10,000 MMU CELLS/CAPSULE PO SCH ×2 (09:13→20:16)
[2020-07-03] MEDS: spironolactone 50 MG tablet PO SCH (09:13)
[2020-07-03] MEDS: furosemide 40mg tablet PO SCH (09:13)
[2020-07-03] MEDS: insulin Lispro (HumaLOG) vial - multi-dose SQ SCH ×3 (09:48→19:34)
[2020-07-03 10:00] VITALS: BP 95/57
[2020-07-03 18:00] VITALS: BP 115/76
--- NOTE | 2020-07-03 18:35 | NUR ---
Patient in room ORTHO 4012. I have received report from Marleny KWONG and had the opportunity to ask questions and assume patient care.
[2020-07-03] MEDS: enoxaparin 40mg/0.4ml syringe SQ SCH (20:17)
[2020-07-03] MEDS: miconazole nitrate 2% 45gm VAG cream VG SCH (21:00)
[2020-07-03] MEDS: insulin glargine (Lantus) pen - multi-dose SQ SCH (21:47)
[2020-07-03 22:00] VITALS: BP 113/73
[2020-07-04] MEDS: lactulose 20gm/30ml cup PO SCH ×4 (01:37→20:32)
[2020-07-04] MEDS: HYDROcodone/acetaminophen 10/325mg tab PO PRN ×3 (01:38→15:02)
[2020-07-04 06:00] VITALS: BP 95/74
--- NOTE | 2020-07-04 06:30 | NUR ---
Problems reprioritized. Patient report given, questions answered & plan of care reviewed with Marleny KWONG.
[2020-07-04] MEDS: furosemide 40mg tablet PO SCH (08:00)
[2020-07-04] MEDS: K and/or MAG REPLACEMENT MC SCH ×2 (08:00→20:00)
[2020-07-04 08:01] LABS: BASOPHILS # (AUTO) 0.1 X10'3 (0-0.2); BASOPHILS % (AUTO) 1.3 % (0-1); EOSINOPHILS # (AUTO) 0.1 X10'3 (0-0.9); EOSINOPHILS % (AUTO) 3.2 % (0-6); HEMATOCRIT 27.6 % (35.0-45.0); HEMOGLOBIN 9.3 g/dl (12.0-16.0); LYMPHOCYTES # (AUTO) 0.8 X10'3 (1.1-4.8); LYMPHOCYTES % (AUTO) 19.6 % (21-51); MEAN CORPUSCULAR HEMOGLOBIN 30.9 PG (27.0-31.0); MEAN CORPUSCULAR HGB CONC 33.9 g/dL (33.0-36.5); MEAN CORPUSCULAR VOLUME 91.1 FL (78-98); MONOCYTES # (AUTO) 0.6 X10'3 (0-0.9); MONOCYTES % (AUTO) 15.2 % (2-12); NEUTROPHILS # (AUTO) 2.4 X10'3 (1.8-7.7); NEUTROPHILS % (AUTO) 60.7 % (42-75); PLATELET COUNT 148 X10'3 (140-440); RED BLOOD COUNT 3.03 X10'6 (4.20-5.60); RED CELL DISTRIBUTION WIDTH 17.3 % (11.5-14.5)
[2020-07-04 08:37] LABS: TOTAL CELLS COUNTED 100
[2020-07-04 08:39] LABS: ANISOCYTOSIS 1+
[2020-07-04] MEDS: spironolactone 50 MG tablet PO SCH (08:39)
[2020-07-04] MEDS: lactobacillus rhamnosus 10,000 MMU CELLS/CAPSULE PO SCH ×2 (08:39→20:32)
[2020-07-04 08:40] LABS: PLATELET ESTIMATE NORMAL; POLYCHROMASIA FEW
[2020-07-04] MEDS: meropenem inj 1 GM in normal saline 100ml IV soln 100 ML IV SCH ×2 (08:40→15:02)
[2020-07-04 08:41] LABS: ELLIPTOCYTES FEW
[2020-07-04] MEDS: insulin Lispro (HumaLOG) vial - multi-dose SQ SCH ×3 (09:01→19:23)
[2020-07-04 09:05] LABS: ALANINE AMINOTRANSFERASE 49 U/L (12-78); ALBUMIN/GLOBULIN RATIO 0.3 (1.1-1.5); ALKALINE PHOSPHATASE 162 IU/L (46-116); ANION GAP 3 (8-16); ASPARTATE AMINO TRANSFERASE 60 U/L (10-37); BILIRUBIN,TOTAL 0.8 MG/DL (0.1-1.0); BLOOD UREA NITROGEN 27 MG/DL (7-18); BUN/CREATININE RATIO 23.7 (6.6-38.0); CALCIUM 8.3 MG/DL (8.5-10.1); CHLORIDE 100 MMOL/L (99-107); CREATININE 1.14 MG/DL (0.40-0.90); GLUCOSE 203 MG/DL (70-104); POTASSIUM 4.4 MMOL/L (3.5-5.1); SODIUM 132 MMOL/L (135-145); eGFR 48 ML/MIN
[2020-07-04 11:00] VITALS: BP 110/62
[2020-07-04] MEDS ORDERED: lactulose 20gm/30ml cup PO ONE (12:30)
[2020-07-04 18:00] VITALS: BP 109/73
--- NOTE | 2020-07-04 18:09 | NUR ---
Problems reprioritized. Patient report given, questions answered & plan of care reviewed with
[2020-07-04] MEDS: enoxaparin 40mg/0.4ml syringe SQ SCH (20:32)
[2020-07-04] MEDS: insulin glargine (Lantus) pen - multi-dose SQ SCH (20:39)
[2020-07-04] MEDS: miconazole nitrate 2% 45gm VAG cream VG SCH (20:55)
--- NOTE | 2020-07-04 20:56 | NUR ---
Administered monistat to the external as the patient states during administration that it is painful. Did not want inserted.
[2020-07-04 22:00] VITALS: BP 93/75
[2020-07-05] MEDS: meropenem inj 1 GM in normal saline 100ml IV soln 100 ML IV SCH ×3 (00:15→17:26)
[2020-07-05] MEDS: LORazepam 0.5 MG tablet PO PRN ×2 (00:18→21:51)
[2020-07-05] MEDS: HYDROcodone/acetaminophen 10/325mg tab PO PRN ×2 (00:18→10:22)
[2020-07-05] MEDS ORDERED: diphenhydrAMINE 25mg capsule PO PRN (01:25)
--- NOTE | 2020-07-05 01:26 | NUR ---
Patient c/o itching; only rectal suppository available. MD samayoaayed oral benadryl.
[2020-07-05] MEDS: lactulose 20gm/30ml cup PO SCH ×4 (03:07→19:42)
[2020-07-05 06:00] VITALS: BP 96/73
--- NOTE | 2020-07-05 06:27 | NUR ---
Problems reprioritized. Patient report given, questions answered & plan of care reviewed with ELENITA Castellanos.
--- NOTE | 2020-07-05 06:27 | NUR ---
Patient in room ORTHO 4012. I have received report from Jen. Rayray RN and had the opportunity to ask questions and assume patient care.
[2020-07-05] MEDS: K and/or MAG REPLACEMENT MC SCH ×2 (08:00→19:41)
[2020-07-05] MEDS: spironolactone 50 MG tablet PO SCH (08:52)
[2020-07-05] MEDS: lactobacillus rhamnosus 10,000 MMU CELLS/CAPSULE PO SCH ×2 (08:52→19:42)
[2020-07-05] MEDS: furosemide 40mg tablet PO SCH (08:53)
--- NOTE | 2020-07-05 09:45 | NUR ---
Wound RN at bedside to put on new wound vac, patient tolerating well. Wound RN reports unable to place SANDI wrap or foam tape on top of the wound vac dressing due to the placement of the wound on the hip-placed hip wrap on R hip and informed pt that, according to her PA, "this was her last wound vac."
[2020-07-05 10:00] VITALS: BP 95/69
--- NOTE | 2020-07-05 10:00 | NUR ---
Patient very sleepy and fatigued this am, and due to wound vac placement, pt did not eat breakfast until 1000, will reassess blood glucose at 1200.
--- NOTE | 2020-07-05 12:09 | NUR ---
F/u: Pt PO mostly 75-100% meals w/ double proteins TID; occasional refusal overall meeting needs. LBM 07/04; ammonia 103 receiving lactulose. Will continue to monitor. Rec: 1. continue carb controlled diet; double proteins TIDWM 2. routine bowel care 3. wt per rx Addendum: 07/05/20 at [address] Amended: Links added.
[2020-07-05 12:54] VITALS: BP 100/68
[2020-07-05] MEDS: insulin Lispro (HumaLOG) vial - multi-dose SQ SCH ×2 (14:04→19:44)
[2020-07-05 18:00] VITALS: BP 98/65
[2020-07-05] MEDS: HYDROcodone/acetaminophen 5mg/325mg tablet PO PRN (18:05)
--- NOTE | 2020-07-05 19:05 | NUR ---
Problems reprioritized. Patient report given, questions answered & plan of care reviewed with ELENITA Betancourt.
[2020-07-05] MEDS: enoxaparin 40mg/0.4ml syringe SQ SCH (19:43)
[2020-07-05] MEDS: miconazole nitrate 2% 45gm VAG cream VG SCH (19:47)
[2020-07-05] MEDS: insulin glargine (Lantus) pen - multi-dose SQ SCH (21:43)
[2020-07-05 22:00] VITALS: BP 123/81
[2020-07-06] MEDS: meropenem inj 1 GM in normal saline 100ml IV soln 100 ML IV SCH ×4 (01:10→23:44)
[2020-07-06] MEDS: lactulose 20gm/30ml cup PO SCH ×4 (01:10→19:16)
[2020-07-06] MEDS: HYDROcodone/acetaminophen 10/325mg tab PO PRN ×4 (03:23→23:44)
[2020-07-06 06:00] VITALS: BP 106/75
[2020-07-06] MEDS: K and/or MAG REPLACEMENT MC SCH ×2 (08:00→19:03)
[2020-07-06] MEDS: spironolactone 50 MG tablet PO SCH (08:08)
[2020-07-06] MEDS: lactobacillus rhamnosus 10,000 MMU CELLS/CAPSULE PO SCH ×2 (08:10→19:16)
[2020-07-06] MEDS: furosemide 40mg tablet PO SCH (08:10)
[2020-07-06 08:41] VITALS: BP 117/80
[2020-07-06] MEDS: insulin Lispro (HumaLOG) vial - multi-dose SQ SCH ×2 (09:44→19:23)
[2020-07-06 10:00] VITALS: BP 106/70
--- NOTE | 2020-07-06 11:31 | NUR ---
Student documentation: I have reviewed all interventions, assessments performed and [facility] Student Medication Administration: For this medication-pass time frame, all medication were reviewed, dispensed, administered and documented per hospital policy by [facility]len[facility] HY[facility].
--- NOTE | 2020-07-06 16:08 | NUR ---
I attempted to wake patient up as I just told her we were going to start a new IV a few minutes ago, She said she is "going to F'n sleep and leave me the F alone." I told her I would leave her alone, I told the nurse Balbina what happened.
--- NOTE | 2020-07-06 16:45 | NUR ---
Student documentation: I have reviewed assessment performed and documented by Caity Mccarthy SN [facility].
[2020-07-06 18:00] VITALS: BP 98/78
[2020-07-06] MEDS: enoxaparin 40mg/0.4ml syringe SQ SCH (19:17)
[2020-07-06] MEDS: miconazole nitrate 2% 45gm VAG cream VG SCH (21:00)
[2020-07-06] MEDS: LORazepam 0.5 MG tablet PO PRN (21:15)
[2020-07-06] MEDS: insulin glargine (Lantus) pen - multi-dose SQ SCH (21:16)
[2020-07-06 22:00] VITALS: BP 84/59
[2020-07-07] MEDS: lactulose 20gm/30ml cup PO SCH ×4 (02:36→19:30)
[2020-07-07 06:00] VITALS: BP 99/68
--- NOTE | 2020-07-07 06:45 | NUR ---
Report given to Patria KWONG.
[2020-07-07] MEDS: K and/or MAG REPLACEMENT MC SCH ×2 (08:00→19:31)
[2020-07-07] MEDS: insulin Lispro (HumaLOG) vial - multi-dose SQ SCH ×3 (09:39→19:30)
[2020-07-07] MEDS: furosemide 40mg tablet PO SCH (09:46)
[2020-07-07] MEDS: lactobacillus rhamnosus 10,000 MMU CELLS/CAPSULE PO SCH ×2 (09:46→19:31)
[2020-07-07] MEDS: meropenem inj 1 GM in normal saline 100ml IV soln 100 ML IV SCH ×3 (09:46→23:57)
[2020-07-07] MEDS: LORazepam 0.5 MG tablet PO PRN ×2 (09:49→16:21)
[2020-07-07] MEDS: HYDROcodone/acetaminophen 10/325mg tab PO PRN ×4 (09:49→23:57)
[2020-07-07] MEDS: spironolactone 50 MG tablet PO SCH (09:49)
[2020-07-07 10:00] VITALS: BP 104/71
--- NOTE | 2020-07-07 11:30 | NUR ---
total wound vac output at cannister change was 460
--- NOTE | 2020-07-07 12:02 | NUR ---
Student documentation: I have reviewed all interventions, assessments performed and [facility] Student Medication Administration: For this medication-pass time frame, all medication were reviewed, dispensed, administered and documented per hospital policy by [facility]leny HYDE [facility].
[2020-07-07 18:00] VITALS: BP 105/74
--- NOTE | 2020-07-07 18:31 | NUR ---
Patient in room ORTHO 4012. I have received report from Patria KWONG and had the opportunity to ask questions and assume patient care.
[2020-07-07] MEDS: enoxaparin 40mg/0.4ml syringe SQ SCH (19:32)
[2020-07-07] MEDS: miconazole nitrate 2% 45gm VAG cream VG SCH (21:00)
[2020-07-07] MEDS: insulin glargine (Lantus) pen - multi-dose SQ SCH (21:37)
[2020-07-07 22:00] VITALS: BP 122/63
[2020-07-08] MEDS: LORazepam 0.5 MG tablet PO PRN (01:58)
[2020-07-08] MEDS: lactulose 20gm/30ml cup PO SCH ×4 (01:58→19:08)
[2020-07-08] MEDS: HYDROcodone/acetaminophen 10/325mg tab PO PRN (05:55)
[2020-07-08 06:00] VITALS: BP 122/72
--- NOTE | 2020-07-08 06:35 | NUR ---
Patient in room ORTHO 4012. I have received report from [facility] and had the opportunity to ask questions and assume patient care.
--- NOTE | 2020-07-08 06:39 | NUR ---
Problems reprioritized. Patient report given, questions answered & plan of care reviewed with Lola KWONG.
[2020-07-08] MEDS: K and/or MAG REPLACEMENT MC SCH ×2 (08:00→19:03)
[2020-07-08] MEDS: insulin Lispro (HumaLOG) vial - multi-dose SQ SCH ×3 (08:41→19:06)
[2020-07-08] MEDS: lactobacillus rhamnosus 10,000 MMU CELLS/CAPSULE PO SCH ×2 (08:52→19:08)
[2020-07-08] MEDS: furosemide 40mg tablet PO SCH (08:53)
[2020-07-08] MEDS: spironolactone 50 MG tablet PO SCH (08:56)
[2020-07-08] MEDS: meropenem inj 1 GM in normal saline 100ml IV soln 100 ML IV SCH ×2 (08:59→17:30)
[2020-07-08 10:00] VITALS: BP 107/48
--- NOTE | 2020-07-08 11:41 | NUR ---
Pt is refusing lab draw, will attempt again
[2020-07-08 12:59] LABS: BASOPHILS # (AUTO) 0.1 X10'3 (0-0.2); EOSINOPHILS # (AUTO) 0.1 X10'3 (0-0.9); HEMATOCRIT 27.4 % (35.0-45.0); MONOCYTES # (AUTO) 0.7 X10'3 (0-0.9)
[2020-07-08 13:00] LABS: BASOPHILS % (AUTO) 1.3 % (0-1); EOSINOPHILS % (AUTO) 2.7 % (0-6); LYMPHOCYTES # (AUTO) 0.7 X10'3 (1.1-4.8); LYMPHOCYTES % (AUTO) 15.7 % (21-51); MEAN CORPUSCULAR HEMOGLOBIN 29.9 PG (27.0-31.0); MEAN CORPUSCULAR HGB CONC 32.9 g/dL (33.0-36.5); MEAN CORPUSCULAR VOLUME 90.7 FL (78-98); MEAN PLATELET VOLUME 7.1 FL (7.4-10.4); MONOCYTES % (AUTO) 16.2 % (2-12); NEUTROPHILS # (AUTO) 2.7 X10'3 (1.8-7.7); NEUTROPHILS % (AUTO) 64.1 % (42-75); PLATELET COUNT 154 X10'3 (140-440); RED BLOOD COUNT 3.02 X10'6 (4.20-5.60); RED CELL DISTRIBUTION WIDTH 17.3 % (11.5-14.5); WHITE BLOOD COUNT 4.3 X10'3 (4.5-11.0)
[2020-07-08 13:18] LABS: ALANINE AMINOTRANSFERASE 54 U/L (12-78); ALBUMIN 1.9 G/DL (3.4-5.0); ALBUMIN/GLOBULIN RATIO 0.3 (1.1-1.5); ALKALINE PHOSPHATASE 162 IU/L (46-116); ANION GAP 4 (8-16); ASPARTATE AMINO TRANSFERASE 70 U/L (10-37); BILIRUBIN,TOTAL 0.6 MG/DL (0.1-1.0); BLOOD UREA NITROGEN 27 MG/DL (7-18); BUN/CREATININE RATIO 27.6 (6.6-38.0); CALCIUM 8.6 MG/DL (8.5-10.1); CHLORIDE 96 MMOL/L (99-107); CREATININE 0.98 MG/DL (0.40-0.90); GLUCOSE 126 MG/DL (70-104); SODIUM 129 MMOL/L (135-145); TOTAL CARBON DIOXIDE 29.4 MMOL/L (24-32); TOTAL PROTEIN 7.5 G/DL (6.4-8.2); eGFR 58 ML/MIN
[2020-07-08 13:58] LABS: TOTAL CELLS COUNTED 100
[2020-07-08 14:00] LABS: ANISOCYTOSIS 1+; ELLIPTOCYTES FEW; POLYCHROMASIA FEW
[2020-07-08 14:01] LABS: LARGE PLATELETS FEW; PLATELET ESTIMATE NORMAL
[2020-07-08] MEDS ORDERED: ringers solution, lacted 1,000 ML IV ONE (14:05)
[2020-07-08 18:00] VITALS: BP 114/73
--- NOTE | 2020-07-08 18:15 | NUR ---
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 Pt has been getting up and walking around her room and has been reminded by numerous staff that she is to be NWB. Pt refuses to comply.
--- NOTE | 2020-07-08 18:26 | NUR ---
Problems reprioritized. Patient report given, questions answered & plan of care reviewed with Jayshree Haney
--- NOTE | 2020-07-08 19:00 | NUR ---
Discovered that patient had gotten up to [facility] and her wound vac fell to the floor per the patient tech aide. Soon after that the wound vac made an alarm noise and it would not allow me to push any buttons or fix the machine; even unplugging the machine and trying to turn it off would not stop the alarm and would not allow me to have the machine function as ordered. Since we only have a two hour window to fix the machine or have to take the machine off the wound I replaced the wound vac with another wound vac machine. I will call [facility] when I have time and it safe to do so.
[2020-07-08] MEDS: enoxaparin 40mg/0.4ml syringe SQ SCH (19:08)
--- NOTE | 2020-07-08 19:09 | NUR ---
Her wound vac machine was alarming and would not shut off and the dressing and tubing appeared to be fine without issues. I was told that the machine had fallen when she ambulated to the [facility]. I replaced the wound vac with a new machine and put the correct settings in the machine and had it verified with the pt's nurse. The machine is running and I asked that Jayshree RN monitors the machine to make sure it does not alarm.
--- NOTE | 2020-07-08 20:00 | NUR ---
Security was called because patient has a floor nurse and is declining to give it to me; she had asked me to dry her floor nurse out and I informed her that she could not have a floor nurse in the room due to safety with oxygen in the hospital. She started swearing at me; I informed her that I was going to call security.
[2020-07-08] MEDS: miconazole nitrate 2% 45gm VAG cream VG SCH (21:00)
[2020-07-08] MEDS: insulin glargine (Lantus) pen - multi-dose SQ SCH (21:00)
--- NOTE | 2020-07-08 21:00 | NUR ---
Called Hospitalist to clarify Lantus orders, as the dose she gets is 51 units and patient will be NPO after midnight. HS blood sugar was 89. She was eating a juanito pudding and drinking a pepsi at time of accucheck. stated to only give 16 units of Lantus tonight.
[2020-07-08] MEDS ORDERED: insulin glargine (Lantus) pen - multi-dose SQ ONE (21:25)
[2020-07-08] MEDS: nystatin 15 GM powder TP SCH (21:38)
[2020-07-08 22:00] VITALS: BP 122/70
[2020-07-09] VITALS (23 sets, daily range): BP systolic 86–177; BP diastolic 53–74
[2020-07-09] MEDS: meropenem inj 1 GM in normal saline 100ml IV soln 100 ML IV SCH ×3 (00:24→17:55)
[2020-07-09] MEDS: LORazepam 0.5 MG tablet PO PRN ×2 (00:29→03:01)
--- NOTE | 2020-07-09 01:59 | NUR ---
I called [facility] to report that I placed patient on new wound vac since the previous machine was not working since it fell on the ground. The machine would not turn on or shut off so new machine was placed on 07/08.
[2020-07-09] MEDS: lactulose 20gm/30ml cup PO SCH ×4 (02:00→19:21)
[2020-07-09 06:04] LABS: PARTIAL THROMBOPLASTIN TIME 31 SECONDS (22-32)
[2020-07-09 06:13] LABS: ALANINE AMINOTRANSFERASE 51 U/L (12-78); ALBUMIN 1.8 G/DL (3.4-5.0); ALBUMIN/GLOBULIN RATIO 0.3 (1.1-1.5); ALKALINE PHOSPHATASE 147 IU/L (46-116); ANION GAP 3 (8-16); ASPARTATE AMINO TRANSFERASE 62 U/L (10-37); BILIRUBIN,TOTAL 0.6 MG/DL (0.1-1.0); BLOOD UREA NITROGEN 30 MG/DL (7-18); BUN/CREATININE RATIO 33.3 (6.6-38.0); CALCIUM 8.4 MG/DL (8.5-10.1); CHLORIDE 98 MMOL/L (99-107); GLUCOSE 163 MG/DL (70-104); POTASSIUM 4.8 MMOL/L (3.5-5.1); SODIUM 129 MMOL/L (135-145); TOTAL CARBON DIOXIDE 28.3 MMOL/L (24-32); TOTAL PROTEIN 7.2 G/DL (6.4-8.2); eGFR 63 ML/MIN
[2020-07-09 06:14] LABS: BASOPHILS % (AUTO) 1.3 % (0-1); EOSINOPHILS # (AUTO) 0.1 X10'3 (0-0.9); HEMATOCRIT 25.5 % (35.0-45.0); HEMOGLOBIN 8.5 g/dl (12.0-16.0); LYMPHOCYTES # (AUTO) 0.6 X10'3 (1.1-4.8); LYMPHOCYTES % (AUTO) 17.8 % (21-51); MEAN CORPUSCULAR HGB CONC 33.5 g/dL (33.0-36.5); MEAN CORPUSCULAR VOLUME 89.8 FL (78-98); MEAN PLATELET VOLUME 6.9 FL (7.4-10.4); MONOCYTES # (AUTO) 0.5 X10'3 (0-0.9); MONOCYTES % (AUTO) 15.7 % (2-12); NEUTROPHILS % (AUTO) 62.2 % (42-75); PLATELET COUNT 127 X10'3 (140-440); RED BLOOD COUNT 2.84 X10'6 (4.20-5.60); RED CELL DISTRIBUTION WIDTH 17.4 % (11.5-14.5); WHITE BLOOD COUNT 3.2 X10'3 (4.5-11.0)
--- NOTE | 2020-07-09 06:39 | NUR ---
Problems reprioritized. Patient report given, questions answered & plan of care reviewed with ELENITA España.
[2020-07-09 07:34] LABS: PLATELET ESTIMATE DECREASED; POIKILOCYTOSIS FEW; POLYCHROMASIA FEW
[2020-07-09] MEDS: lactobacillus rhamnosus 10,000 MMU CELLS/CAPSULE PO SCH ×2 (07:34→19:21)
[2020-07-09] MEDS: HYDROcodone/acetaminophen 10/325mg tab PO PRN ×2 (07:34→19:21)
[2020-07-09 07:35] LABS: ANISOCYTOSIS 1+
[2020-07-09] MEDS: nystatin 15 GM powder TP SCH ×3 (08:00→20:44)
[2020-07-09] MEDS ORDERED: tobramycin sulfate 1.2gm vial ONE (08:00)
[2020-07-09] MEDS: furosemide 40mg tablet PO SCH (08:00)
[2020-07-09] MEDS: K and/or MAG REPLACEMENT MC SCH ×2 (08:00→19:21)
[2020-07-09] MEDS: spironolactone 50 MG tablet PO SCH (08:30)
[2020-07-09] MEDS ORDERED: HYDROmorphone inj. 0.5 MG/0.5 ML DISP.SYRIN IV ONE (09:35)
[2020-07-09] MEDS: insulin Lispro (HumaLOG) vial - multi-dose SQ SCH (10:18)
[2020-07-09] MEDS ORDERED: vancomycin 1,000mg inj ONE (11:35)
[2020-07-09] MEDS ORDERED: sevoflurane 250ml liquid IH ONE (12:50)
[2020-07-09] MEDS ORDERED: phenylephrine 10mg/ml inj. ONE (12:50)
[2020-07-09] MEDS ORDERED: MIDAZolam 5mg/5ml vial ONE (13:07)
[2020-07-09] MEDS ORDERED: fentaNYL/PF 50MCG/1 ML 2ML syringe ONE ×3 (13:07→13:39)
[2020-07-09] MEDS ORDERED: albumin (Human) 5% 250ml 250 ML IV ONE (13:10)
[2020-07-09] MEDS ORDERED: rocuronium 10mg/ml inj IV ONE (13:10)
[2020-07-09] MEDS ORDERED: etomidate 2mg/ml inj. ONE (13:10)
[2020-07-09] MEDS ORDERED: ceFAZolin 1000mg inj ONE (13:11)
[2020-07-09] MEDS ORDERED: glycopyrrolate 0.2mg/ml inj ONE (13:39)
[2020-07-09] MEDS ORDERED: neostigmine methylsulfate 1 MG/ML 10ml vial ONE (13:39)
[2020-07-09] MEDS ORDERED: morphine 2 MG/ML inj. syringe IV PRN (13:45)
[2020-07-09] MEDS ORDERED: labetalol 20mg/4ml (5mg/ml) syringe IV PRN (13:45)
[2020-07-09] MEDS ORDERED: ondansetron/PF 4mg/2ml inj IV PRN (13:45)
[2020-07-09] MEDS ORDERED: morphine 4 MG/ML inj SYRINge IV PRN (13:45)
[2020-07-09] MEDS ORDERED: fentaNYL/PF 50MCG/1 ML 2ML syringe IV PRN ×2 (13:45)
[2020-07-09] MEDS ORDERED: ringers solution, lacted 1,000 ML IV SCH (13:45)
[2020-07-09] MEDS ORDERED: hydrALAZINE 20mg/ml inj. IV PRN (13:45)
[2020-07-09] MEDS ORDERED: ondansetron/PF 4mg/2ml inj ONE (13:49)
--- NOTE | 2020-07-09 15:00 | NUR ---
Received from OR via BED, accompanied by Anesthesiologist DR FLORES-- and report given by Anesthesiolgist. PATIENT WAKING UP, NO S/S PAIN, V/S WNL, NEUROVASCULAR CHECKS INTACT, 20G PIV LUE, SCD ON, WV TO RIGHT HIP AT 125 CONTINOUS SUCTION WITH NO LEAKS DETECTED , AND 2 HV PLACED DEEPER IN TISSUE TO RIGHT HIP WITH MINIMAL RED OUTPUT SO FAR. F/C DRAINING CLEAR YELLOW URINE.
--- NOTE | 2020-07-09 15:30 | NUR ---
received report from Hayden in recovery. expecting pt to 9012
--- NOTE | 2020-07-09 16:40 | NUR ---
PATIENT STILL SLEEPY BUT WAKES UP WHEN SPOKEN TO OR NUDGED AND ORIENTED BACK TO BASELINE, SHE DENIES PAIN, V/S WNL, NEUROVASCULAR CHECKS INTACT, 20G PIV LUE, SCD ON, WV TO RIGHT HIP AT 125 CONTINOUS SUCTION WITH NO LEAKS DETECTED , AND 2 HV PLACED DEEPER IN TISSUE TO RIGHT HIP WITH MINIMAL RED OUTPUT SO FAR. F/C DRAINING CLEAR YELLOW URINE. PATIENT TAKEN TO 4008 WITH ALL BELONGINGS AND HOOKED UP TO MONITORS IN ROOM AND REPORT GIVEN TO DARLIN KWONG WHO HAS TAKEN OVER PATIENT CARE.
--- NOTE | 2020-07-09 17:45 | NUR ---
doppler pulses Addendum: 07/09/20 at 1832 by Justyna Araya RN Amended: Links added.
[2020-07-09] MEDS: enoxaparin 40mg/0.4ml syringe SQ SCH (19:21)
[2020-07-09] MEDS: miconazole nitrate 2% 45gm VAG cream VG SCH (20:44)
[2020-07-09] MEDS: insulin glargine (Lantus) pen - multi-dose SQ SCH (21:08)
[2020-07-10] MEDS: meropenem inj 1 GM in normal saline 100ml IV soln 100 ML IV SCH ×3 (00:33→16:04)
[2020-07-10] MEDS: HYDROcodone/acetaminophen 10/325mg tab PO PRN ×6 (01:25→22:31)
[2020-07-10] MEDS: lactulose 20gm/30ml cup PO SCH ×4 (01:25→19:29)
[2020-07-10 02:00] VITALS: BP 100/62
[2020-07-10] MEDS: LORazepam 0.5 MG tablet PO PRN ×3 (04:44→22:29)
[2020-07-10 06:00] VITALS: BP 107/77
--- NOTE | 2020-07-10 06:44 | NUR ---
Report given to Nany KWONG.
--- NOTE | 2020-07-10 06:45 | NUR ---
Patient in room ORTHO 4008. I have received report from Jayshree Scott RN and had the opportunity to ask questions and assume patient care.
[2020-07-10] MEDS: furosemide 40mg tablet PO SCH (09:01)
[2020-07-10] MEDS: lactobacillus rhamnosus 10,000 MMU CELLS/CAPSULE PO SCH ×2 (09:01→19:42)
[2020-07-10] MEDS: spironolactone 50 MG tablet PO SCH (09:02)
[2020-07-10] MEDS: insulin Lispro (HumaLOG) vial - multi-dose SQ SCH ×2 (09:07→20:42)
[2020-07-10] MEDS: nystatin 15 GM powder TP SCH ×2 (09:22→20:00)
[2020-07-10 09:26] LABS: ALANINE AMINOTRANSFERASE 61 U/L (12-78); ALBUMIN 2.1 G/DL (3.4-5.0); ALBUMIN/GLOBULIN RATIO 0.4 (1.1-1.5); ALKALINE PHOSPHATASE 145 IU/L (46-116); ANION GAP 6 (8-16); ASPARTATE AMINO TRANSFERASE 101 U/L (10-37); BILIRUBIN,TOTAL 0.9 MG/DL (0.1-1.0); BLOOD UREA NITROGEN 23 MG/DL (7-18); BUN/CREATININE RATIO 27.1 (6.6-38.0); CALCIUM 8.5 MG/DL (8.5-10.1); CHLORIDE 100 MMOL/L (99-107); CREATININE 0.85 MG/DL (0.40-0.90); GLUCOSE 168 MG/DL (70-104); MAGNESIUM 1.5 MG/DL (1.5-2.4); POTASSIUM 4.7 MMOL/L (3.5-5.1); SODIUM 131 MMOL/L (135-145); TOTAL CARBON DIOXIDE 24.8 MMOL/L (24-32); TOTAL PROTEIN 7.6 G/DL (6.4-8.2); eGFR 68 ML/MIN
[2020-07-10] MEDS: K and/or MAG REPLACEMENT MC SCH ×2 (09:43→20:00)
[2020-07-10 10:36] LABS: EOSINOPHILS # (AUTO) 0.1 X10'3 (0-0.9); EOSINOPHILS % (AUTO) 2.4 % (0-6); HEMOGLOBIN 8.9 g/dl (12.0-16.0); LYMPHOCYTES % (AUTO) 10.5 % (21-51); MEAN PLATELET VOLUME 6.9 FL (7.4-10.4); MONOCYTES # (AUTO) 0.4 X10'3 (0-0.9); NEUTROPHILS # (AUTO) 3.3 X10'3 (1.8-7.7)
[2020-07-10 10:38] LABS: BASOPHILS % (AUTO) 1.1 % (0-1); HEMATOCRIT 26.9 % (35.0-45.0); LYMPHOCYTES # (AUTO) 0.4 X10'3 (1.1-4.8); MEAN CORPUSCULAR HEMOGLOBIN 29.8 PG (27.0-31.0); MEAN CORPUSCULAR VOLUME 90.3 FL (78-98); MONOCYTES % (AUTO) 8.8 % (2-12); NEUTROPHILS % (AUTO) 77.2 % (42-75); PLATELET COUNT 148 X10'3 (140-440); RED BLOOD COUNT 2.98 X10'6 (4.20-5.60); RED CELL DISTRIBUTION WIDTH 17.3 % (11.5-14.5); WHITE BLOOD COUNT 4.2 X10'3 (4.5-11.0)
[2020-07-10 11:00] VITALS: BP 104/63
[2020-07-10 14:00] VITALS: BP 128/65
--- NOTE | 2020-07-10 18:00 | NUR ---
Patient in room ORTHO 4008. I have received report from Nany KWONG and had the opportunity to ask questions and assume patient care.
--- NOTE | 2020-07-10 18:10 | NUR ---
Problems reprioritized. Patient report given, questions answered & plan of care reviewed with ELENITA Patton.
[2020-07-10] MEDS: enoxaparin 40mg/0.4ml syringe SQ SCH (19:41)
[2020-07-10] MEDS: insulin glargine (Lantus) pen - multi-dose SQ SCH (21:00)
[2020-07-10] MEDS: miconazole nitrate 2% 45gm VAG cream VG SCH (21:00)
[2020-07-10 22:00] VITALS: BP 110/61
--- NOTE | 2020-07-10 23:08 | NUR ---
took patients blood sugar at 2245 it was 37, gave her 2 bottles of Dex4 waited 15 minutes to [place] [address]. Talked with Tiffanie Valentine asked if he wanted me to give lantus and he said to skip gabriela newby.
[2020-07-11] MEDS: meropenem inj 1 GM in normal saline 100ml IV soln 100 ML IV SCH ×3 (00:06→15:00)
[2020-07-11] MEDS: dextrose ORAL solution 15 GM/59 ML bottle PO PRN (00:11)
--- NOTE | 2020-07-11 00:31 | NUR ---
checked blood glucose at 0015 it was 56 gave her dex4 and a sandwich took blood glucose again at 0030 and it was 98
[2020-07-11] MEDS: lactulose 20gm/30ml cup PO SCH ×4 (03:52→19:37)
--- NOTE | 2020-07-11 05:58 | NUR ---
Patty Diaz looked at her hemovac and said it looked fine, she wasnt worried about it
[2020-07-11 06:00] VITALS: BP 103/64
--- NOTE | 2020-07-11 06:32 | NUR ---
Problems reprioritized. Patient report given, questions answered & plan of care reviewed with Elvis KWONG.
[2020-07-11 06:36] LABS: BASOPHILS % (AUTO) 0.8 % (0-1); EOSINOPHILS # (AUTO) 0.1 X10'3 (0-0.9); EOSINOPHILS % (AUTO) 2.6 % (0-6); HEMATOCRIT 27.9 % (35.0-45.0); HEMOGLOBIN 9.4 g/dl (12.0-16.0); LYMPHOCYTES # (AUTO) 0.6 X10'3 (1.1-4.8); MEAN CORPUSCULAR HGB CONC 33.5 g/dL (33.0-36.5); MEAN CORPUSCULAR VOLUME 89.5 FL (78-98); MEAN PLATELET VOLUME 6.7 FL (7.4-10.4); MONOCYTES # (AUTO) 0.4 X10'3 (0-0.9); MONOCYTES % (AUTO) 10.4 % (2-12); NEUTROPHILS % (AUTO) 71.2 % (42-75); PLATELET COUNT 136 X10'3 (140-440); RED BLOOD COUNT 3.12 X10'6 (4.20-5.60); RED CELL DISTRIBUTION WIDTH 16.8 % (11.5-14.5); WHITE BLOOD COUNT 4.2 X10'3 (4.5-11.0)
[2020-07-11 07:04] LABS: ALANINE AMINOTRANSFERASE 57 U/L (12-78); ALBUMIN 2.2 G/DL (3.4-5.0); ALBUMIN/GLOBULIN RATIO 0.4 (1.1-1.5); ALKALINE PHOSPHATASE 157 IU/L (46-116); ANION GAP 7 (8-16); ASPARTATE AMINO TRANSFERASE 73 U/L (10-37); BLOOD UREA NITROGEN 22 MG/DL (7-18); BUN/CREATININE RATIO 22.9 (6.6-38.0); CALCIUM 8.5 MG/DL (8.5-10.1); CHLORIDE 101 MMOL/L (99-107); CREATININE 0.96 MG/DL (0.40-0.90); GLUCOSE 158 MG/DL (70-104); MAGNESIUM 1.5 MG/DL (1.5-2.4); POTASSIUM 4.9 MMOL/L (3.5-5.1); SODIUM 135 MMOL/L (135-145); TOTAL CARBON DIOXIDE 26.9 MMOL/L (24-32); eGFR 59 ML/MIN
[2020-07-11] MEDS: spironolactone 50 MG tablet PO SCH (07:50)
[2020-07-11] MEDS: lactobacillus rhamnosus 10,000 MMU CELLS/CAPSULE PO SCH ×2 (07:50→19:37)
[2020-07-11] MEDS: furosemide 40mg tablet PO SCH (07:52)
[2020-07-11] MEDS: HYDROcodone/acetaminophen 10/325mg tab PO PRN ×4 (07:55→22:22)
[2020-07-11] MEDS: nystatin 15 GM powder TP SCH ×2 (07:59→20:00)
[2020-07-11] MEDS: K and/or MAG REPLACEMENT MC SCH ×2 (08:00→20:00)
[2020-07-11] MEDS: LORazepam 0.5 MG tablet PO PRN ×3 (08:40→21:28)
[2020-07-11] MEDS: insulin Lispro (HumaLOG) vial - multi-dose SQ SCH ×3 (08:40→19:37)
[2020-07-11 10:00] VITALS: BP 90/56
[2020-07-11 18:00] VITALS: BP 110/77
--- NOTE | 2020-07-11 18:23 | NUR ---
Problems reprioritized. Patient report given, questions answered & plan of care reviewed with ELENITA Martell.
[2020-07-11] MEDS: enoxaparin 40mg/0.4ml syringe SQ SCH (19:40)
[2020-07-11 22:00] VITALS: BP 112/69
--- NOTE | 2020-07-11 22:04 | NUR ---
Spoke with MD Valentine regarding patient Lantus dose, received order to administer 50 units tonight.
[2020-07-11] MEDS: miconazole nitrate 2% 45gm VAG cream VG SCH (22:06)
[2020-07-11] MEDS: insulin glargine (Lantus) pen - multi-dose SQ SCH (22:22)
[2020-07-12] MEDS: meropenem inj 1 GM in normal saline 100ml IV soln 100 ML IV SCH ×3 (00:12→16:02)
[2020-07-12] MEDS: lactulose 20gm/30ml cup PO SCH ×4 (02:06→19:48)
[2020-07-12 06:00] VITALS: BP 83/50
[2020-07-12 06:39] LABS: BASOPHILS % (AUTO) 0.9 % (0-1); EOSINOPHILS # (AUTO) 0.1 X10'3 (0-0.9); EOSINOPHILS % (AUTO) 2.7 % (0-6); HEMATOCRIT 23.9 % (35.0-45.0); HEMOGLOBIN 8.1 g/dl (12.0-16.0); LYMPHOCYTES # (AUTO) 0.6 X10'3 (1.1-4.8); LYMPHOCYTES % (AUTO) 13.8 % (21-51); MEAN CORPUSCULAR HEMOGLOBIN 30.3 PG (27.0-31.0); MEAN CORPUSCULAR HGB CONC 33.9 g/dL (33.0-36.5); MEAN CORPUSCULAR VOLUME 89.5 FL (78-98); MONOCYTES # (AUTO) 0.5 X10'3 (0-0.9); MONOCYTES % (AUTO) 11.9 % (2-12); NEUTROPHILS % (AUTO) 70.7 % (42-75); PLATELET COUNT 116 X10'3 (140-440); RED BLOOD COUNT 2.67 X10'6 (4.20-5.60); RED CELL DISTRIBUTION WIDTH 16.9 % (11.5-14.5); WHITE BLOOD COUNT 4.3 X10'3 (4.5-11.0)
[2020-07-12 07:07] LABS: ALANINE AMINOTRANSFERASE 50 U/L (12-78); ALBUMIN/GLOBULIN RATIO 0.4 (1.1-1.5); ALKALINE PHOSPHATASE 136 IU/L (46-116); ANION GAP 6 (8-16); ASPARTATE AMINO TRANSFERASE 57 U/L (10-37); BILIRUBIN,TOTAL 0.7 MG/DL (0.1-1.0); BLOOD UREA NITROGEN 26 MG/DL (7-18); BUN/CREATININE RATIO 25.2 (6.6-38.0); CALCIUM 8.8 MG/DL (8.5-10.1); CHLORIDE 102 MMOL/L (99-107); CREATININE 1.03 MG/DL (0.40-0.90); GLUCOSE 157 MG/DL (70-104); MAGNESIUM 1.6 MG/DL (1.5-2.4); SODIUM 134 MMOL/L (135-145); TOTAL CARBON DIOXIDE 26.1 MMOL/L (24-32); TOTAL PROTEIN 7.3 G/DL (6.4-8.2); eGFR 54 ML/MIN
[2020-07-12] MEDS: K and/or MAG REPLACEMENT MC SCH ×2 (08:00→20:00)
[2020-07-12] MEDS: lactobacillus rhamnosus 10,000 MMU CELLS/CAPSULE PO SCH ×2 (09:52→19:48)
[2020-07-12] MEDS: furosemide 40mg tablet PO SCH (09:52)
[2020-07-12] MEDS: spironolactone 50 MG tablet PO SCH (09:52)
[2020-07-12] MEDS: nystatin 15 GM powder TP SCH ×2 (09:53→19:51)
[2020-07-12] MEDS: HYDROcodone/acetaminophen 10/325mg tab PO PRN ×2 (11:07→17:57)
[2020-07-12] MEDS: insulin Lispro (HumaLOG) vial - multi-dose SQ SCH ×2 (13:42→19:47)
--- NOTE | 2020-07-12 15:52 | NUR ---
f/u 07/12: Pt PO 75-100% avg meals meeting needs w/ double proteins. LBM 07/11. Ammonia 140 receiving lactulose Q6. Prior NPO for OR diet active; BARBER d/w RN regarding cancelling IF MD agreeable since PO at this time post-op. No nutrition concerns at this time. Will continue to monitor. Rec: 1. continue carb controlled diet; double proteins TIDWM 2. routine bowel care; routine lactulose per MD 3. wt per rx Addendum: 07/12/20 at [address] Amended: Links added.
[2020-07-12 18:00] VITALS: BP 98/69
--- NOTE | 2020-07-12 18:05 | NUR ---
Patient in room ORTHO 4008. I have received report from ELENITA Rouse and had the opportunity to ask questions and assume patient care.
[2020-07-12] MEDS: enoxaparin 40mg/0.4ml syringe SQ SCH (19:49)
[2020-07-12] MEDS: miconazole nitrate 2% 45gm VAG cream VG SCH (20:46)
[2020-07-12] MEDS: insulin glargine (Lantus) pen - multi-dose SQ SCH (21:01)
[2020-07-12] MEDS: LORazepam 0.5 MG tablet PO PRN (21:02)
[2020-07-12 22:00] VITALS: BP 98/58
--- NOTE | 2020-07-12 22:03 | NUR ---
Pt rolled over in bed and pulled out one hemovac. Covered with 4x4 and tegaderm.
[2020-07-13] MEDS: meropenem inj 1 GM in normal saline 100ml IV soln 100 ML IV SCH ×4 (01:51→23:58)
[2020-07-13] MEDS: lactulose 20gm/30ml cup PO SCH ×4 (01:55→19:49)
--- NOTE | 2020-07-13 05:13 | NUR ---
Pt pulled IV out. Refusing new IV at this time.
--- NOTE | 2020-07-13 06:19 | NUR ---
Patient in room ORTHO 4008. I have received report from Nisa KWONG and had the opportunity to ask questions and assume patient care.
--- NOTE | 2020-07-13 06:40 | NUR ---
Problems reprioritized. Patient report given, questions answered & plan of care reviewed with ELENITA Mckenzie.
[2020-07-13 06:58] LABS: EOSINOPHILS # (AUTO) 0.1 X10'3 (0-0.9); EOSINOPHILS % (AUTO) 2.6 % (0-6); HEMATOCRIT 24.5 % (35.0-45.0); HEMOGLOBIN 8.1 g/dl (12.0-16.0); LYMPHOCYTES # (AUTO) 0.4 X10'3 (1.1-4.8); LYMPHOCYTES % (AUTO) 10.5 % (21-51); MEAN CORPUSCULAR HEMOGLOBIN 29.3 PG (27.0-31.0); MEAN CORPUSCULAR HGB CONC 32.9 g/dL (33.0-36.5); MEAN CORPUSCULAR VOLUME 89.1 FL (78-98); MEAN PLATELET VOLUME 6.8 FL (7.4-10.4); MONOCYTES # (AUTO) 0.4 X10'3 (0-0.9); MONOCYTES % (AUTO) 12.1 % (2-12); NEUTROPHILS # (AUTO) 2.7 X10'3 (1.8-7.7); NEUTROPHILS % (AUTO) 73.8 % (42-75); PLATELET COUNT 140 X10'3 (140-440); RED BLOOD COUNT 2.75 X10'6 (4.20-5.60); RED CELL DISTRIBUTION WIDTH 16.6 % (11.5-14.5); WHITE BLOOD COUNT 3.6 X10'3 (4.5-11.0)
[2020-07-13 06:59] VITALS: BP 106/68
[2020-07-13 07:08] LABS: ALANINE AMINOTRANSFERASE 48 U/L (12-78); ALBUMIN 1.9 G/DL (3.4-5.0); ALBUMIN/GLOBULIN RATIO 0.4 (1.1-1.5); ALKALINE PHOSPHATASE 136 IU/L (46-116); ANION GAP 1 (8-16); ASPARTATE AMINO TRANSFERASE 52 U/L (10-37); BILIRUBIN,TOTAL 0.6 MG/DL (0.1-1.0); BLOOD UREA NITROGEN 30 MG/DL (7-18); BUN/CREATININE RATIO 33.3 (6.6-38.0); CALCIUM 8.7 MG/DL (8.5-10.1); CHLORIDE 104 MMOL/L (99-107); GLUCOSE 169 MG/DL (70-104); MAGNESIUM 1.7 MG/DL (1.5-2.4); POTASSIUM 4.7 MMOL/L (3.5-5.1); SODIUM 136 MMOL/L (135-145); TOTAL CARBON DIOXIDE 30.6 MMOL/L (24-32); TOTAL PROTEIN 7.3 G/DL (6.4-8.2); eGFR 63 ML/MIN
[2020-07-13] MEDS: furosemide 40mg tablet PO SCH (07:58)
[2020-07-13] MEDS: lactobacillus rhamnosus 10,000 MMU CELLS/CAPSULE PO SCH ×2 (07:58→19:49)
[2020-07-13] MEDS: spironolactone 50 MG tablet PO SCH (07:58)
[2020-07-13] MEDS: K and/or MAG REPLACEMENT MC SCH ×2 (08:00→19:49)
[2020-07-13] MEDS: nystatin 15 GM powder TP SCH ×2 (08:06→19:50)
[2020-07-13] MEDS: insulin Lispro (HumaLOG) vial - multi-dose SQ SCH ×2 (09:27→19:48)
[2020-07-13] MEDS ORDERED: morphine 2 MG/ML inj. syringe IV STA (10:28)
[2020-07-13 12:27] VITALS: BP 112/74
--- NOTE | 2020-07-13 15:23 | NUR ---
Patient was eating her lunch during medication administration time for insulin, was unable to cover at this time will resume at level 4 of the protocol at dinner.
[2020-07-13 18:00] VITALS: BP 104/63
[2020-07-13] MEDS ORDERED: bacitracin 15gm ointment TP ONE (18:00)
--- NOTE | 2020-07-13 18:47 | NUR ---
Problems reprioritized. Patient report given, questions answered & plan of care reviewed with Pooja KWONG.
--- NOTE | 2020-07-13 19:00 | NUR ---
Patient in room ORTHO 4008. I have received report from oJnah KWONG and had the opportunity to ask questions and assume patient care.
[2020-07-13] MEDS: enoxaparin 40mg/0.4ml syringe SQ SCH (19:49)
[2020-07-13] MEDS: miconazole nitrate 2% 45gm VAG cream VG SCH (21:00)
[2020-07-13 22:00] VITALS: BP 117/65
[2020-07-13] MEDS: insulin glargine (Lantus) pen - multi-dose SQ SCH (22:45)
[2020-07-14] MEDS: lactulose 20gm/30ml cup PO SCH ×4 (01:21→19:15)
[2020-07-14] MEDS: LORazepam 0.5 MG tablet PO PRN ×2 (01:21→20:11)
--- NOTE | 2020-07-14 04:53 | NUR ---
Patient pulled out her Garcia. I placed a new Garcia 16 kyrgyz. Pale yellow urine present on insertion. 10cc was inserted into the balloon. Leg strap secured to leg. Patient is resting comfortably at this time.
[2020-07-14 06:00] VITALS: BP 100/67
--- NOTE | 2020-07-14 06:33 | NUR ---
Problems reprioritized. Patient report given, questions answered & plan of care reviewed with Judith KWONG.
[2020-07-14 07:16] LABS: BASOPHILS % (AUTO) 1.1 % (0-1); EOSINOPHILS # (AUTO) 0.1 X10'3 (0-0.9); HEMATOCRIT 25.7 % (35.0-45.0); HEMOGLOBIN 8.6 g/dl (12.0-16.0); LYMPHOCYTES # (AUTO) 0.5 X10'3 (1.1-4.8); MEAN CORPUSCULAR HEMOGLOBIN 29.4 PG (27.0-31.0); MEAN CORPUSCULAR HGB CONC 33.5 g/dL (33.0-36.5); MEAN CORPUSCULAR VOLUME 87.9 FL (78-98); MEAN PLATELET VOLUME 6.8 FL (7.4-10.4); MONOCYTES # (AUTO) 0.4 X10'3 (0-0.9); MONOCYTES % (AUTO) 9.9 % (2-12); NEUTROPHILS # (AUTO) 2.8 X10'3 (1.8-7.7); PLATELET COUNT 167 X10'3 (140-440); RED BLOOD COUNT 2.92 X10'6 (4.20-5.60); RED CELL DISTRIBUTION WIDTH 16.7 % (11.5-14.5); WHITE BLOOD COUNT 3.9 X10'3 (4.5-11.0)
[2020-07-14 07:29] LABS: ALANINE AMINOTRANSFERASE 49 U/L (12-78); ALBUMIN 2.1 G/DL (3.4-5.0); ALBUMIN/GLOBULIN RATIO 0.4 (1.1-1.5); ALKALINE PHOSPHATASE 146 IU/L (46-116); ANION GAP 5 (8-16); ASPARTATE AMINO TRANSFERASE 54 U/L (10-37); BILIRUBIN,TOTAL 0.8 MG/DL (0.1-1.0); BLOOD UREA NITROGEN 26 MG/DL (7-18); BUN/CREATININE RATIO 31.7 (6.6-38.0); CALCIUM 9.3 MG/DL (8.5-10.1); CHLORIDE 104 MMOL/L (99-107); CREATININE 0.82 MG/DL (0.40-0.90); GLUCOSE 121 MG/DL (70-104); MAGNESIUM 1.6 MG/DL (1.5-2.4); POTASSIUM 4.2 MMOL/L (3.5-5.1); SODIUM 135 MMOL/L (135-145); TOTAL CARBON DIOXIDE 26.1 MMOL/L (24-32); TOTAL PROTEIN 7.9 G/DL (6.4-8.2); eGFR 71 ML/MIN
[2020-07-14] MEDS: K and/or MAG REPLACEMENT MC SCH ×2 (08:00→19:02)
[2020-07-14] MEDS: nystatin 15 GM powder TP SCH ×2 (08:00→19:15)
[2020-07-14] MEDS: meropenem inj 1 GM in normal saline 100ml IV soln 100 ML IV SCH ×3 (09:08→23:12)
[2020-07-14 10:00] VITALS: BP 134/80
[2020-07-14] MEDS: spironolactone 50 MG tablet PO SCH (11:38)
[2020-07-14] MEDS: furosemide 40mg tablet PO SCH (11:39)
[2020-07-14] MEDS: lactobacillus rhamnosus 10,000 MMU CELLS/CAPSULE PO SCH ×2 (11:39→19:14)
--- NOTE | 2020-07-14 12:13 | NUR ---
Patients states she wants to leave AMA. Patient states she has a ride. I strongly advised her that it is a very bad idea because she has a bad infection and she needs IV antibiotics until 08/02/20. I notified Dr. Decker.
[2020-07-14] MEDS: insulin Lispro (HumaLOG) vial - multi-dose SQ SCH ×2 (14:47→18:54)
[2020-07-14] MEDS: HYDROcodone/acetaminophen 10/325mg tab PO PRN ×3 (15:09→23:36)
--- NOTE | 2020-07-14 15:36 | NUR ---
PAGER ID: [phone] MESSAGE: RE: [id number] Fahad Vazquez MRI/MRA negative. No acute infarction. They faxed up preliminary report. MADELIN [phone]
[2020-07-14 18:00] VITALS: BP 102/77
--- NOTE | 2020-07-14 18:14 | NUR ---
Problems reprioritized. Patient report given, questions answered & plan of care reviewed with Pepper KWONG.
[2020-07-14] MEDS: enoxaparin 40mg/0.4ml syringe SQ SCH (19:15)
[2020-07-14] MEDS: miconazole nitrate 2% 45gm VAG cream VG SCH (20:12)
[2020-07-14] MEDS: insulin glargine (Lantus) pen - multi-dose SQ SCH (21:08)
[2020-07-14 22:00] VITALS: BP 104/64
[2020-07-15] MEDS: lactulose 20gm/30ml cup PO SCH ×4 (02:00→20:05)
[2020-07-15 06:00] VITALS: BP 91/51
[2020-07-15 06:19] LABS: BASOPHILS # (AUTO) 0.1 X10'3 (0-0.2); BASOPHILS % (AUTO) 1.7 % (0-1); EOSINOPHILS # (AUTO) 0.1 X10'3 (0-0.9); HEMATOCRIT 24.7 % (35.0-45.0); HEMOGLOBIN 8.3 g/dl (12.0-16.0); LYMPHOCYTES # (AUTO) 0.7 X10'3 (1.1-4.8); LYMPHOCYTES % (AUTO) 23.5 % (21-51); MEAN CORPUSCULAR HEMOGLOBIN 29.5 PG (27.0-31.0); MEAN CORPUSCULAR HGB CONC 33.6 g/dL (33.0-36.5); MEAN CORPUSCULAR VOLUME 87.6 FL (78-98); MEAN PLATELET VOLUME 6.7 FL (7.4-10.4); MONOCYTES # (AUTO) 0.4 X10'3 (0-0.9); MONOCYTES % (AUTO) 14.6 % (2-12); NEUTROPHILS # (AUTO) 1.6 X10'3 (1.8-7.7); NEUTROPHILS % (AUTO) 55.2 % (42-75); PLATELET COUNT 168 X10'3 (140-440); RED BLOOD COUNT 2.82 X10'6 (4.20-5.60); RED CELL DISTRIBUTION WIDTH 16.3 % (11.5-14.5)
--- NOTE | 2020-07-15 06:30 | NUR ---
Patient in room ORTHO 4008. I have received report from [facility] and had the opportunity to ask questions and assume patient care.
--- NOTE | 2020-07-15 06:33 | NUR ---
Problems reprioritized. Patient report given, questions answered & plan of care reviewed with Lola KWONG.
[2020-07-15 06:34] LABS: ALANINE AMINOTRANSFERASE 50 U/L (12-78); ALBUMIN 1.9 G/DL (3.4-5.0); ALBUMIN/GLOBULIN RATIO 0.4 (1.1-1.5); ALKALINE PHOSPHATASE 131 IU/L (46-116); ANION GAP 3 (8-16); ASPARTATE AMINO TRANSFERASE 59 U/L (10-37); BILIRUBIN,TOTAL 0.8 MG/DL (0.1-1.0); BLOOD UREA NITROGEN 28 MG/DL (7-18); BUN/CREATININE RATIO 31.8 (6.6-38.0); CALCIUM 8.9 MG/DL (8.5-10.1); CHLORIDE 105 MMOL/L (99-107); CREATININE 0.88 MG/DL (0.40-0.90); GLUCOSE 93 MG/DL (70-104); MAGNESIUM 1.9 MG/DL (1.5-2.4); POTASSIUM 4.2 MMOL/L (3.5-5.1); SODIUM 137 MMOL/L (135-145); TOTAL CARBON DIOXIDE 29.2 MMOL/L (24-32); TOTAL PROTEIN 7.3 G/DL (6.4-8.2); eGFR 65 ML/MIN
[2020-07-15] MEDS: K and/or MAG REPLACEMENT MC SCH ×2 (08:00→20:00)
[2020-07-15 08:29] LABS: TOTAL CELLS COUNTED 100
[2020-07-15 08:30] LABS: ANISOCYTOSIS 1+; PLATELET ESTIMATE NORMAL; POLYCHROMASIA FEW
[2020-07-15 08:32] LABS: ELLIPTOCYTES FEW; SCHISTOCYTES FEW
[2020-07-15] MEDS: insulin Lispro (HumaLOG) vial - multi-dose SQ SCH ×3 (09:32→18:46)
--- NOTE | 2020-07-15 09:32 | NUR ---
Calculated insulin dosage with student Darryn Pereira from [facility]. Second RN Ramón Gonzalez, reviewed insulin administration/calculation
[2020-07-15] MEDS: lactobacillus rhamnosus 10,000 MMU CELLS/CAPSULE PO SCH ×2 (09:35→20:05)
[2020-07-15] MEDS: spironolactone 50 MG tablet PO SCH (09:35)
[2020-07-15] MEDS: nystatin 15 GM powder TP SCH ×2 (09:36→20:06)
[2020-07-15] MEDS: furosemide 40mg tablet PO SCH (09:36)
[2020-07-15] MEDS: meropenem inj 1 GM in normal saline 100ml IV soln 100 ML IV SCH ×3 (09:36→23:59)
[2020-07-15 10:00] VITALS: BP 103/69
[2020-07-15] MEDS: HYDROcodone/acetaminophen 10/325mg tab PO PRN ×2 (15:12→21:09)
[2020-07-15 18:00] VITALS: BP 102/73
--- NOTE | 2020-07-15 18:21 | NUR ---
Problems reprioritized. Patient report given, questions answered & plan of care reviewed with Pallavi.
--- NOTE | 2020-07-15 18:31 | NUR ---
Patient in room ORTHO 4008. I have received report from ELENITA Turner and had the opportunity to ask questions and assume patient care. Addendum: 07/15/20 at 1831 by Pallavi Barrientos RN Amended: Links added.
[2020-07-15] MEDS: enoxaparin 40mg/0.4ml syringe SQ SCH (20:06)
[2020-07-15] MEDS: miconazole nitrate 2% 45gm VAG cream VG SCH (21:00)
[2020-07-15] MEDS: insulin glargine (Lantus) pen - multi-dose SQ SCH (21:14)
[2020-07-15 22:00] VITALS: BP 101/61
[2020-07-16] MEDS: lactulose 20gm/30ml cup PO SCH ×4 (01:17→19:39)
[2020-07-16] MEDS: HYDROcodone/acetaminophen 10/325mg tab PO PRN ×5 (01:21→21:17)
[2020-07-16 06:00] VITALS: BP 99/57
--- NOTE | 2020-07-16 06:10 | NUR ---
Patient in room ORTHO 4008. I have received report from Chiquis Gonzalez RN and had the opportunity to ask questions and assume patient care.
--- NOTE | 2020-07-16 06:41 | NUR ---
Problems reprioritized. Patient report given, questions answered & plan of care reviewed with ELENITA Ayon.
[2020-07-16] MEDS: K and/or MAG REPLACEMENT MC SCH ×2 (07:07→20:00)
[2020-07-16] MEDS: furosemide 40mg tablet PO SCH (08:00)
[2020-07-16] MEDS: spironolactone 50 MG tablet PO SCH (08:01)
[2020-07-16] MEDS: lactobacillus rhamnosus 10,000 MMU CELLS/CAPSULE PO SCH ×2 (08:01→19:39)
[2020-07-16] MEDS: meropenem inj 1 GM in normal saline 100ml IV soln 100 ML IV SCH ×3 (08:01→23:27)
[2020-07-16] MEDS: insulin Lispro (HumaLOG) vial - multi-dose SQ SCH ×2 (08:23→19:38)
[2020-07-16 10:00] VITALS: BP 103/68
[2020-07-16] MEDS: acetaminophen 325mg tablet PO PRN (13:59)
[2020-07-16 18:00] VITALS: BP 105/63
--- NOTE | 2020-07-16 18:25 | NUR ---
Patient in room ORTHO 4008. I have received report from Nany KWONG and had the opportunity to ask questions and assume patient care.
--- NOTE | 2020-07-16 18:30 | NUR ---
Problems reprioritized. Patient report given, questions answered & plan of care reviewed with ELENITA Calderon.
[2020-07-16] MEDS: enoxaparin 40mg/0.4ml syringe SQ SCH (19:40)
[2020-07-16] MEDS: LORazepam 0.5 MG tablet PO PRN (20:51)
[2020-07-16] MEDS: miconazole nitrate 2% 45gm VAG cream VG SCH (21:00)
[2020-07-16] MEDS: insulin glargine (Lantus) pen - multi-dose SQ SCH (21:03)
[2020-07-16] MEDS: mag hydrox/Alum hydrox/simeth 30ml oral suspension PO PRN (21:16)
[2020-07-16 22:00] VITALS: BP 103/64
[2020-07-17] MEDS: lactulose 20gm/30ml cup PO SCH ×4 (02:00→19:19)
[2020-07-17] MEDS: HYDROcodone/acetaminophen 10/325mg tab PO PRN ×3 (04:42→23:27)
[2020-07-17 05:52] LABS: BASOPHILS # (AUTO) 0.1 X10'3 (0-0.2); BASOPHILS % (AUTO) 1.2 % (0-1); EOSINOPHILS # (AUTO) 0.1 X10'3 (0-0.9); EOSINOPHILS % (AUTO) 2.4 % (0-6); HEMATOCRIT 29.2 % (35.0-45.0); HEMOGLOBIN 9.9 g/dl (12.0-16.0); LYMPHOCYTES # (AUTO) 0.9 X10'3 (1.1-4.8); LYMPHOCYTES % (AUTO) 20.2 % (21-51); MEAN CORPUSCULAR HEMOGLOBIN 30.2 PG (27.0-31.0); MEAN CORPUSCULAR HGB CONC 33.9 g/dL (33.0-36.5); MEAN PLATELET VOLUME 7.1 FL (7.4-10.4); MONOCYTES # (AUTO) 0.5 X10'3 (0-0.9); MONOCYTES % (AUTO) 10.9 % (2-12); NEUTROPHILS # (AUTO) 2.9 X10'3 (1.8-7.7); NEUTROPHILS % (AUTO) 65.3 % (42-75); PLATELET COUNT 175 X10'3 (140-440); RED BLOOD COUNT 3.28 X10'6 (4.20-5.60); WHITE BLOOD COUNT 4.4 X10'3 (4.5-11.0)
[2020-07-17 06:00] VITALS: BP 111/72
--- NOTE | 2020-07-17 06:20 | NUR ---
Student documentation: I have reviewed and agree with all interventions, assessments performed and documented by Judith QUIROZ. Student Medication Administration: For this medication-pass time frame, all medication were reviewed, dispensed, administered and documented per hospital policy by Judith QUIROZ.
--- NOTE | 2020-07-17 06:20 | NUR ---
Problems reprioritized. Patient report given, questions answered & plan of care reviewed with Jessica KWONG.
--- NOTE | 2020-07-17 06:38 | NUR ---
Patient in room ORTHO 4008. I have received report from ELENITA Calderon and had the opportunity to ask questions and assume patient care.
[2020-07-17 06:40] LABS: CHLORIDE 100 MMOL/L (99-107); POTASSIUM 5.2 MMOL/L (3.5-5.1); SODIUM 130 MMOL/L (135-145)
[2020-07-17 07:36] LABS: ALANINE AMINOTRANSFERASE 59 U/L (12-78); ALBUMIN 2.1 G/DL (3.4-5.0); ALBUMIN/GLOBULIN RATIO 0.3 (1.1-1.5); ALKALINE PHOSPHATASE 144 IU/L (46-116); ANION GAP 11 (8-16); ASPARTATE AMINO TRANSFERASE 83 U/L (10-37); BILIRUBIN,TOTAL 0.7 MG/DL (0.1-1.0); BLOOD UREA NITROGEN 28 MG/DL (7-18); BUN/CREATININE RATIO 33.7 (6.6-38.0); CALCIUM 8.4 MG/DL (8.5-10.1); CREATININE 0.83 MG/DL (0.40-0.90); GLUCOSE 164 MG/DL (70-104); TOTAL CARBON DIOXIDE 18.9 MMOL/L (24-32); TOTAL PROTEIN 8.4 G/DL (6.4-8.2); eGFR 70 ML/MIN
[2020-07-17] MEDS: K and/or MAG REPLACEMENT MC SCH ×2 (08:00→20:00)
[2020-07-17] MEDS: meropenem inj 1 GM in normal saline 100ml IV soln 100 ML IV SCH ×3 (08:16→23:28)
[2020-07-17] MEDS: furosemide 40mg tablet PO SCH (08:17)
[2020-07-17] MEDS: lactobacillus rhamnosus 10,000 MMU CELLS/CAPSULE PO SCH ×2 (08:17→19:19)
[2020-07-17] MEDS: spironolactone 50 MG tablet PO SCH (08:29)
[2020-07-17 10:00] VITALS: BP 112/74
--- NOTE | 2020-07-17 10:00 | NUR ---
Informed MD of patient elevated K of 5.2 and holding Aldactone due to this. MD peter.
[2020-07-17] MEDS: insulin Lispro (HumaLOG) vial - multi-dose SQ SCH ×3 (10:24→19:18)
[2020-07-17] MEDS: dextrose ORAL solution 15 GM/59 ML bottle PO PRN (17:37)
--- NOTE | 2020-07-17 17:37 | NUR ---
pts BS 58, advised pts RN, Jessica, she will provide pt with dextrose and f/u in 15 min
--- NOTE | 2020-07-17 18:28 | NUR ---
Problems reprioritized. Patient report given, questions answered & plan of care reviewed with ELENITA Sim.
--- NOTE | 2020-07-17 18:45 | NUR ---
Patient in room ORTHO 4012. I have received report from Jessica, RN and Chiquis RN and had the opportunity to ask questions and assume patient care.
[2020-07-17] MEDS: enoxaparin 40mg/0.4ml syringe SQ SCH (19:19)
[2020-07-17] MEDS: miconazole nitrate 2% 45gm VAG cream VG SCH (21:00)
[2020-07-17] MEDS: insulin glargine (Lantus) pen - multi-dose SQ SCH (22:01)
[2020-07-17 23:00] VITALS: BP 99/66
[2020-07-17] MEDS: LORazepam 0.5 MG tablet PO PRN (23:27)
[2020-07-18] MEDS: acetaminophen 325mg tablet PO PRN (02:24)
[2020-07-18] MEDS: lactulose 20gm/30ml cup PO SCH ×4 (02:24→19:31)
[2020-07-18] MEDS: LORazepam 0.5 MG tablet PO PRN ×2 (04:04→19:31)
[2020-07-18] MEDS: HYDROcodone/acetaminophen 10/325mg tab PO PRN ×2 (04:05→14:57)
[2020-07-18 05:42] VITALS: BP 114/71
[2020-07-18 06:00] VITALS: BP 102/61
--- NOTE | 2020-07-18 06:23 | NUR ---
Problems reprioritized. Patient report given, questions answered & plan of care reviewed with ELENITA Beal.
--- NOTE | 2020-07-18 06:37 | NUR ---
Patient in room ORTHO 4008. I have received report from Chiquis Nunn and had the opportunity to ask questions and assume patient care.
[2020-07-18] MEDS: lactobacillus rhamnosus 10,000 MMU CELLS/CAPSULE PO SCH ×2 (08:00→19:31)
[2020-07-18] MEDS: K and/or MAG REPLACEMENT MC SCH ×2 (08:00→20:00)
[2020-07-18] MEDS: spironolactone 50 MG tablet PO SCH (08:30)
[2020-07-18] MEDS: meropenem inj 1 GM in normal saline 100ml IV soln 100 ML IV SCH ×2 (09:01→16:37)
[2020-07-18] MEDS: furosemide 40mg tablet PO SCH (09:02)
[2020-07-18 09:46] LABS: BASOPHILS # (AUTO) 0.1 X10'3 (0-0.2); BASOPHILS % (AUTO) 1.9 % (0-1); EOSINOPHILS # (AUTO) 0.1 X10'3 (0-0.9); EOSINOPHILS % (AUTO) 2.5 % (0-6); HEMATOCRIT 26.2 % (35.0-45.0); HEMOGLOBIN 8.6 g/dl (12.0-16.0); LYMPHOCYTES # (AUTO) 0.7 X10'3 (1.1-4.8); LYMPHOCYTES % (AUTO) 18.3 % (21-51); MEAN CORPUSCULAR HEMOGLOBIN 28.9 PG (27.0-31.0); MEAN CORPUSCULAR HGB CONC 33.1 g/dL (33.0-36.5); MEAN CORPUSCULAR VOLUME 87.5 FL (78-98); MEAN PLATELET VOLUME 7.1 FL (7.4-10.4); MONOCYTES # (AUTO) 0.3 X10'3 (0-0.9); MONOCYTES % (AUTO) 9.5 % (2-12); NEUTROPHILS # (AUTO) 2.4 X10'3 (1.8-7.7); NEUTROPHILS % (AUTO) 67.8 % (42-75); PLATELET COUNT 168 X10'3 (140-440); RED BLOOD COUNT 2.99 X10'6 (4.20-5.60); WHITE BLOOD COUNT 3.6 X10'3 (4.5-11.0)
[2020-07-18 10:01] LABS: ANION GAP 7 (8-16); BLOOD UREA NITROGEN 27 MG/DL (7-18); BUN/CREATININE RATIO 35.5 (6.6-38.0); CHLORIDE 102 MMOL/L (99-107); CREATININE 0.76 MG/DL (0.40-0.90); GLUCOSE 95 MG/DL (70-104); POTASSIUM 4.6 MMOL/L (3.5-5.1); SODIUM 136 MMOL/L (135-145); TOTAL CARBON DIOXIDE 26.6 MMOL/L (24-32)
[2020-07-18 10:02] LABS: ALANINE AMINOTRANSFERASE 57 U/L (12-78); ALBUMIN/GLOBULIN RATIO 0.4 (1.1-1.5); ALKALINE PHOSPHATASE 137 IU/L (46-116); ASPARTATE AMINO TRANSFERASE 69 U/L (10-37); BILIRUBIN,TOTAL 0.5 MG/DL (0.1-1.0); CALCIUM 8.5 MG/DL (8.5-10.1); TOTAL PROTEIN 7.6 G/DL (6.4-8.2); eGFR 77 ML/MIN
[2020-07-18 11:59] VITALS: BP 95/54
--- NOTE | 2020-07-18 18:10 | NUR ---
Patient in room ORTHO 4008. I have received report from ELENITA Beal and had the opportunity to ask questions and assume patient care.
--- NOTE | 2020-07-18 18:41 | NUR ---
Problems reprioritized. Patient report given, questions answered & plan of care reviewed with Nisa KWONG.
[2020-07-18] MEDS: insulin Lispro (HumaLOG) vial - multi-dose SQ SCH (19:29)
[2020-07-18] MEDS: enoxaparin 40mg/0.4ml syringe SQ SCH (19:30)
[2020-07-18] MEDS: HYDROcodone/acetaminophen 5mg/325mg tablet PO PRN (19:31)
[2020-07-18] MEDS: miconazole nitrate 2% 45gm VAG cream VG SCH (21:00)
[2020-07-18] MEDS: insulin glargine (Lantus) pen - multi-dose SQ SCH (21:24)
[2020-07-18 22:00] VITALS: BP 120/75
[2020-07-19] MEDS: meropenem inj 1 GM in normal saline 100ml IV soln 100 ML IV SCH ×3 (00:06→15:57)
[2020-07-19] MEDS: lactulose 20gm/30ml cup PO SCH ×4 (01:23→22:21)
[2020-07-19] MEDS: LORazepam 0.5 MG tablet PO PRN (01:23)
[2020-07-19] MEDS: HYDROcodone/acetaminophen 10/325mg tab PO PRN ×2 (02:01→22:56)
[2020-07-19 06:00] VITALS: BP 95/54
--- NOTE | 2020-07-19 06:27 | NUR ---
Problems reprioritized. Patient report given, questions answered & plan of care reviewed with ELENITA Rooney.
--- NOTE | 2020-07-19 06:48 | NUR ---
Patient in room ORTHO 4008. I have received report from ELENITA Paula and had the opportunity to ask questions and assume patient care.
[2020-07-19 07:05] LABS: BASOPHILS % (AUTO) 1.5 % (0-1); EOSINOPHILS # (AUTO) 0.1 X10'3 (0-0.9); EOSINOPHILS % (AUTO) 3.2 % (0-6); HEMATOCRIT 23.8 % (35.0-45.0); LYMPHOCYTES # (AUTO) 0.7 X10'3 (1.1-4.8); MEAN CORPUSCULAR HEMOGLOBIN 29.5 PG (27.0-31.0); MEAN CORPUSCULAR HGB CONC 33.5 g/dL (33.0-36.5); MEAN CORPUSCULAR VOLUME 87.9 FL (78-98); MEAN PLATELET VOLUME 6.9 FL (7.4-10.4); MONOCYTES # (AUTO) 0.4 X10'3 (0-0.9); MONOCYTES % (AUTO) 13.1 % (2-12); NEUTROPHILS # (AUTO) 2.1 X10'3 (1.8-7.7); NEUTROPHILS % (AUTO) 62.2 % (42-75); PLATELET COUNT 160 X10'3 (140-440); RED BLOOD COUNT 2.71 X10'6 (4.20-5.60); RED CELL DISTRIBUTION WIDTH 16.1 % (11.5-14.5); WHITE BLOOD COUNT 3.3 X10'3 (4.5-11.0)
[2020-07-19 07:17] LABS: ALANINE AMINOTRANSFERASE 55 U/L (12-78); ALBUMIN 1.9 G/DL (3.4-5.0); ALBUMIN/GLOBULIN RATIO 0.4 (1.1-1.5); ALKALINE PHOSPHATASE 134 IU/L (46-116); ANION GAP 5 (8-16); ASPARTATE AMINO TRANSFERASE 70 U/L (10-37); BILIRUBIN,TOTAL 0.7 MG/DL (0.1-1.0); BLOOD UREA NITROGEN 25 MG/DL (7-18); BUN/CREATININE RATIO 27.2 (6.6-38.0); CALCIUM 7.7 MG/DL (8.5-10.1); CHLORIDE 101 MMOL/L (99-107); CREATININE 0.92 MG/DL (0.40-0.90); GLUCOSE 63 MG/DL (70-104); POTASSIUM 3.6 MMOL/L (3.5-5.1); SODIUM 133 MMOL/L (135-145); TOTAL CARBON DIOXIDE 27.3 MMOL/L (24-32); TOTAL PROTEIN 7.1 G/DL (6.4-8.2); eGFR 62 ML/MIN
[2020-07-19] MEDS: K and/or MAG REPLACEMENT MC SCH ×2 (08:00→20:00)
[2020-07-19] MEDS: furosemide 40mg tablet PO SCH (08:23)
[2020-07-19] MEDS: spironolactone 50 MG tablet PO SCH (08:23)
[2020-07-19] MEDS: lactobacillus rhamnosus 10,000 MMU CELLS/CAPSULE PO SCH ×2 (08:24→19:25)
[2020-07-19] MEDS: HYDROcodone/acetaminophen 5mg/325mg tablet PO PRN ×2 (08:31→16:51)
[2020-07-19] MEDS: insulin Lispro (HumaLOG) vial - multi-dose SQ SCH ×3 (09:45→19:25)
--- NOTE | 2020-07-19 13:01 | NUR ---
Reassessment: Pt PO 75-100% avg meals meeting needs w/ double protein TIDWM. Frequent daily BM's receiving lactulose. No nutrition concerns at this time. Will continue to monitor. Rec: 1. continue carb controlled diet; double proteins TIDWM 2. routine bowel care; routine lactulose per MD 3. wt per rx Addendum: 07/19/20 at [address] Amended: Links added.
[2020-07-19 18:00] VITALS: BP 101/66
--- NOTE | 2020-07-19 18:09 | NUR ---
Problems reprioritized. Patient report given, questions answered & plan of care reviewed with ELENITA Castro.
[2020-07-19] MEDS: enoxaparin 40mg/0.4ml syringe SQ SCH (19:26)
[2020-07-19] MEDS: miconazole nitrate 2% 45gm VAG cream VG SCH (21:00)
[2020-07-19 22:00] VITALS: BP 104/46
[2020-07-19] MEDS: insulin glargine (Lantus) pen - multi-dose SQ SCH (22:21)
[2020-07-19] MEDS: mag hydrox/Alum hydrox/simeth 30ml oral suspension PO PRN (23:01)
[2020-07-20] MEDS: lactulose 20gm/30ml cup PO SCH ×4 (02:00→20:51)
[2020-07-20] MEDS: HYDROcodone/acetaminophen 10/325mg tab PO PRN ×2 (05:10→17:39)
[2020-07-20 06:00] VITALS: BP 98/63
[2020-07-20 06:47] LABS: BASOPHILS % (AUTO) 1.3 % (0-1); EOSINOPHILS # (AUTO) 0.1 X10'3 (0-0.9); EOSINOPHILS % (AUTO) 2.3 % (0-6); HEMATOCRIT 26.7 % (35.0-45.0); HEMOGLOBIN 8.9 g/dl (12.0-16.0); LYMPHOCYTES # (AUTO) 0.7 X10'3 (1.1-4.8); LYMPHOCYTES % (AUTO) 18.6 % (21-51); MEAN CORPUSCULAR HEMOGLOBIN 28.8 PG (27.0-31.0); MEAN CORPUSCULAR HGB CONC 33.3 g/dL (33.0-36.5); MEAN CORPUSCULAR VOLUME 86.6 FL (78-98); MEAN PLATELET VOLUME 6.9 FL (7.4-10.4); MONOCYTES # (AUTO) 0.5 X10'3 (0-0.9); NEUTROPHILS # (AUTO) 2.3 X10'3 (1.8-7.7); NEUTROPHILS % (AUTO) 63.8 % (42-75); PLATELET COUNT 171 X10'3 (140-440); RED BLOOD COUNT 3.09 X10'6 (4.20-5.60); RED CELL DISTRIBUTION WIDTH 16.2 % (11.5-14.5); WHITE BLOOD COUNT 3.7 X10'3 (4.5-11.0)
--- NOTE | 2020-07-20 07:00 | NUR ---
Patient in room ORTHO 4008. I have received report from December and had the opportunity to ask questions and assume patient care.
[2020-07-20 07:02] LABS: ALANINE AMINOTRANSFERASE 59 U/L (12-78); ALBUMIN 2.2 G/DL (3.4-5.0); ALBUMIN/GLOBULIN RATIO 0.4 (1.1-1.5); ALKALINE PHOSPHATASE 153 IU/L (46-116); ANION GAP 3 (8-16); ASPARTATE AMINO TRANSFERASE 76 U/L (10-37); BILIRUBIN,TOTAL 0.6 MG/DL (0.1-1.0); BLOOD UREA NITROGEN 29 MG/DL (7-18); BUN/CREATININE RATIO 31.2 (6.6-38.0); CALCIUM 8.2 MG/DL (8.5-10.1); CHLORIDE 99 MMOL/L (99-107); CREATININE 0.93 MG/DL (0.40-0.90); POTASSIUM 4.2 MMOL/L (3.5-5.1); SODIUM 129 MMOL/L (135-145); TOTAL CARBON DIOXIDE 26.9 MMOL/L (24-32); TOTAL PROTEIN 8.1 G/DL (6.4-8.2); eGFR 61 ML/MIN
[2020-07-20 07:04] LABS: GLUCOSE 169 MG/DL (70-104)
[2020-07-20] MEDS: K and/or MAG REPLACEMENT MC SCH ×2 (07:31→20:00)
[2020-07-20] MEDS: spironolactone 50 MG tablet PO SCH (08:13)
[2020-07-20] MEDS: meropenem inj 1 GM in normal saline 100ml IV soln 100 ML IV SCH ×4 (08:13→15:55)
[2020-07-20] MEDS: lactobacillus rhamnosus 10,000 MMU CELLS/CAPSULE PO SCH ×2 (08:14→20:51)
[2020-07-20] MEDS: LORazepam 0.5 MG tablet PO PRN ×2 (08:14→21:12)
[2020-07-20] MEDS: furosemide 40mg tablet PO SCH (08:14)
[2020-07-20] MEDS: insulin Lispro (HumaLOG) vial - multi-dose SQ SCH ×2 (09:30→19:26)
[2020-07-20 10:00] VITALS: BP 98/59
[2020-07-20 18:00] VITALS: BP 108/62
--- NOTE | 2020-07-20 18:22 | NUR ---
Problems reprioritized. Patient report given, questions answered & plan of care reviewed with Mitzi.
[2020-07-20] MEDS: enoxaparin 40mg/0.4ml syringe SQ SCH (20:52)
[2020-07-20] MEDS: miconazole nitrate 2% 45gm VAG cream VG SCH (21:00)
[2020-07-20 22:00] VITALS: BP 112/73
[2020-07-20] MEDS: insulin glargine (Lantus) pen - multi-dose SQ SCH (22:00)
[2020-07-21] MEDS: meropenem inj 1 GM in normal saline 100ml IV soln 100 ML IV SCH ×3 (00:39→16:15)
[2020-07-21] MEDS: lactulose 20gm/30ml cup PO SCH ×5 (03:10→19:40)
[2020-07-21] MEDS: HYDROcodone/acetaminophen 10/325mg tab PO PRN ×2 (03:10→21:02)
[2020-07-21] MEDS: LORazepam 0.5 MG tablet PO PRN ×2 (05:06→21:02)
[2020-07-21 06:00] VITALS: BP 102/58
--- NOTE | 2020-07-21 06:05 | NUR ---
Patient in room ORTHO 4008. I have received report from [place] and had the opportunity to ask questions and assume patient care.
[2020-07-21 06:34] LABS: BASOPHILS # (AUTO) 0.1 X10'3 (0-0.2); EOSINOPHILS # (AUTO) 0.1 X10'3 (0-0.9); HEMATOCRIT 24.6 % (35.0-45.0); LYMPHOCYTES # (AUTO) 0.6 X10'3 (1.1-4.8); MEAN CORPUSCULAR VOLUME 86.7 FL (78-98); NEUTROPHILS # (AUTO) 2.2 X10'3 (1.8-7.7); RED BLOOD COUNT 2.84 X10'6 (4.20-5.60)
[2020-07-21 06:36] LABS: BASOPHILS % (AUTO) 2.3 % (0-1); EOSINOPHILS % (AUTO) 3.1 % (0-6); HEMOGLOBIN 8.2 g/dl (12.0-16.0); LYMPHOCYTES % (AUTO) 17.7 % (21-51); MEAN CORPUSCULAR HEMOGLOBIN 28.8 PG (27.0-31.0); MEAN CORPUSCULAR HGB CONC 33.2 g/dL (33.0-36.5); MEAN PLATELET VOLUME 7.1 FL (7.4-10.4); MONOCYTES # (AUTO) 0.4 X10'3 (0-0.9); MONOCYTES % (AUTO) 12.9 % (2-12); PLATELET COUNT 142 X10'3 (140-440); RED CELL DISTRIBUTION WIDTH 16.2 % (11.5-14.5); WHITE BLOOD COUNT 3.4 X10'3 (4.5-11.0)
[2020-07-21 06:42] LABS: ALANINE AMINOTRANSFERASE 59 U/L (12-78); ALBUMIN/GLOBULIN RATIO 0.4 (1.1-1.5); ALKALINE PHOSPHATASE 136 IU/L (46-116); ANION GAP 3 (8-16); ASPARTATE AMINO TRANSFERASE 77 U/L (10-37); BILIRUBIN,TOTAL 0.6 MG/DL (0.1-1.0); BLOOD UREA NITROGEN 30 MG/DL (7-18); BUN/CREATININE RATIO 34.9 (6.6-38.0); CALCIUM 8.3 MG/DL (8.5-10.1); CHLORIDE 102 MMOL/L (99-107); CREATININE 0.86 MG/DL (0.40-0.90); GLUCOSE 182 MG/DL (70-104); POTASSIUM 4.2 MMOL/L (3.5-5.1); SODIUM 132 MMOL/L (135-145); TOTAL CARBON DIOXIDE 27.3 MMOL/L (24-32); TOTAL PROTEIN 7.5 G/DL (6.4-8.2); eGFR 67 ML/MIN
[2020-07-21] MEDS: lactobacillus rhamnosus 10,000 MMU CELLS/CAPSULE PO SCH ×2 (07:59→19:58)
[2020-07-21] MEDS: furosemide 40mg tablet PO SCH (08:00)
[2020-07-21] MEDS: K and/or MAG REPLACEMENT MC SCH ×2 (08:00→19:48)
[2020-07-21 08:05] VITALS: BP 94/71
[2020-07-21] MEDS: spironolactone 50 MG tablet PO SCH (08:06)
[2020-07-21] MEDS: insulin Lispro (HumaLOG) vial - multi-dose SQ SCH ×3 (09:18→19:01)
[2020-07-21 10:00] VITALS: BP 110/69
--- NOTE | 2020-07-21 16:29 | NUR ---
PAGER ID: [phone] MESSAGE: Lola Pedersen on ortho, Ms. Rajan in [phone] wishes to have her dukes removed, please advise, thank you
[2020-07-21 18:00] VITALS: BP 95/64
--- NOTE | 2020-07-21 18:15 | NUR ---
Problems reprioritized. Patient report given, questions answered & plan of care reviewed with Jayshree Haney
--- NOTE | 2020-07-21 19:27 | NUR ---
patient has had 8 large loose BMs today. will hold lactulose tonight. aware.
[2020-07-21] MEDS: miconazole nitrate 2% 45gm VAG cream VG SCH (19:31)
[2020-07-21] MEDS: enoxaparin 40mg/0.4ml syringe SQ SCH (19:58)
[2020-07-21] MEDS: insulin glargine (Lantus) pen - multi-dose SQ SCH (21:11)
[2020-07-21 22:00] VITALS: BP 95/55
[2020-07-22] MEDS: meropenem inj 1 GM in normal saline 100ml IV soln 100 ML IV SCH ×3 (00:04→17:42)
--- NOTE | 2020-07-22 01:23 | NUR ---
reviewed and agree with SRN assessment.
[2020-07-22] MEDS: LORazepam 0.5 MG tablet PO PRN ×3 (02:05→15:13)
[2020-07-22] MEDS: HYDROcodone/acetaminophen 10/325mg tab PO PRN ×4 (02:05→17:53)
[2020-07-22 06:00] VITALS: BP 101/79
[2020-07-22] MEDS: furosemide 40mg tablet PO SCH ×2 (08:00→08:09)
[2020-07-22] MEDS: K and/or MAG REPLACEMENT MC SCH ×2 (08:00→20:00)
[2020-07-22] MEDS: lactulose 20gm/30ml cup PO SCH ×3 (08:09→20:11)
[2020-07-22] MEDS: lactobacillus rhamnosus 10,000 MMU CELLS/CAPSULE PO SCH ×2 (08:09→20:11)
[2020-07-22] MEDS: spironolactone 50 MG tablet PO SCH ×2 (08:09→08:30)
[2020-07-22] MEDS: insulin Lispro (HumaLOG) vial - multi-dose SQ SCH ×3 (08:15→18:39)
[2020-07-22 09:23] LABS: MAGNESIUM 1.7 MG/DL (1.5-2.4); POTASSIUM 4.1 MMOL/L (3.5-5.1)
[2020-07-22 12:39] VITALS: BP 85/58
[2020-07-22 18:00] VITALS: BP 93/52
--- NOTE | 2020-07-22 18:20 | NUR ---
Patient in room ORTHO 4008. I have received report from Patria KWONG and had the opportunity to ask questions and assume patient care.
--- NOTE | 2020-07-22 18:30 | NUR ---
agree with assessments and interventions of SN Zara Meneses
[2020-07-22] MEDS: enoxaparin 40mg/0.4ml syringe SQ SCH (20:12)
[2020-07-22] MEDS: miconazole nitrate 2% 45gm VAG cream VG SCH (20:18)
[2020-07-22] MEDS: insulin glargine (Lantus) pen - multi-dose SQ SCH (21:09)
[2020-07-22 22:00] VITALS: BP 114/62
[2020-07-23] MEDS: meropenem inj 1 GM in normal saline 100ml IV soln 100 ML IV SCH ×3 (00:22→16:17)
[2020-07-23] MEDS: lactulose 20gm/30ml cup PO SCH ×4 (01:37→20:00)
[2020-07-23] MEDS: LORazepam 0.5 MG tablet PO PRN ×2 (05:03→19:22)
[2020-07-23] MEDS: HYDROcodone/acetaminophen 10/325mg tab PO PRN ×3 (05:03→19:22)
[2020-07-23 06:00] VITALS: BP 112/67
--- NOTE | 2020-07-23 06:00 | NUR ---
Patient in room ORTHO 4008. I have received report from [facility] and had the opportunity to ask questions and assume patient care.
--- NOTE | 2020-07-23 06:14 | NUR ---
Problems reprioritized. Patient report given, questions answered & plan of care reviewed with Lola KWONG.
--- NOTE | 2020-07-23 06:20 | NUR ---
Patient in room ORTHO 4008. I have received report from [facility] and had the opportunity to ask questions and assume patient care.
[2020-07-23] MEDS: furosemide 40mg tablet PO SCH (07:45)
[2020-07-23] MEDS: lactobacillus rhamnosus 10,000 MMU CELLS/CAPSULE PO SCH ×2 (07:45→19:20)
[2020-07-23] MEDS: spironolactone 50 MG tablet PO SCH (07:45)
[2020-07-23] MEDS: K and/or MAG REPLACEMENT MC SCH ×2 (08:00→20:00)
[2020-07-23] MEDS: insulin Lispro (HumaLOG) vial - multi-dose SQ SCH ×3 (09:01→19:20)
[2020-07-23 09:58] VITALS: BP 107/46
[2020-07-23 18:00] VITALS: BP 91/46
--- NOTE | 2020-07-23 18:24 | NUR ---
Problems reprioritized. Patient report given, questions answered & plan of care reviewed with Jayshree Haney
[2020-07-23] MEDS: enoxaparin 40mg/0.4ml syringe SQ SCH (19:21)
[2020-07-23] MEDS: miconazole nitrate 2% 45gm VAG cream VG SCH (21:00)
[2020-07-23] MEDS: insulin glargine (Lantus) pen - multi-dose SQ SCH (21:00)
[2020-07-23 22:00] VITALS: BP 110/68
[2020-07-24] MEDS: meropenem inj 1 GM in normal saline 100ml IV soln 100 ML IV SCH ×3 (00:23→16:49)
[2020-07-24] MEDS: HYDROcodone/acetaminophen 10/325mg tab PO PRN ×2 (00:23→12:13)
[2020-07-24] MEDS: LORazepam 0.5 MG tablet PO PRN (00:23)
[2020-07-24] MEDS: lactulose 20gm/30ml cup PO SCH ×5 (02:00→22:18)
--- NOTE | 2020-07-24 06:23 | NUR ---
Problems reprioritized. Patient report given, questions answered & plan of care reviewed with ELENITA Farmer.
[2020-07-24] MEDS: furosemide 40mg tablet PO SCH (07:58)
[2020-07-24] MEDS: spironolactone 50 MG tablet PO SCH (07:58)
[2020-07-24] MEDS: lactobacillus rhamnosus 10,000 MMU CELLS/CAPSULE PO SCH ×2 (07:58→20:00)
[2020-07-24] MEDS: K and/or MAG REPLACEMENT MC SCH ×2 (08:00→20:00)
--- NOTE | 2020-07-24 08:34 | NUR ---
Page Sent promotional table spacer PAGER ID: [phone] MESSAGE: [phone] Rajan, Karina Can I get a add on ammonia level test. Last date it was done was 07/14 and shes very sleepy today not the normal ernesto, #[phone] Marleny
[2020-07-24 10:00] VITALS: BP 121/64
[2020-07-24] MEDS: insulin Lispro (HumaLOG) vial - multi-dose SQ SCH ×2 (10:44→14:04)
--- NOTE | 2020-07-24 16:26 | NUR ---
Page Sent promotional table spacer PAGER ID: [phone] MESSAGE: [phone] Satinder, Karina Ammonia was 131 She is loopy Can I give a extra dose of lactulose. #[phone] Marleny (97 character message out of a maximum of 240)
[2020-07-24 18:00] VITALS: BP 104/67
--- NOTE | 2020-07-24 18:20 | NUR ---
Problems reprioritized. Patient report given, questions answered & plan of care reviewed with Gladys KWONG.
[2020-07-24] MEDS: enoxaparin 40mg/0.4ml syringe SQ SCH (20:00)
[2020-07-24] MEDS: miconazole nitrate 2% 45gm VAG cream VG SCH (21:00)
[2020-07-24] MEDS ORDERED: magnesium Cl slow-release 64mg tablet PO PRN (21:50)
[2020-07-24] MEDS ORDERED: magnesium 4gm in 100ml NS 100 ML IV PRN (21:50)
[2020-07-24] MEDS ORDERED: potassium CL 10mEq/100ml bag 100 ML IV PRN (21:50)
[2020-07-24] MEDS ORDERED: potassium Cl 20 mEq SR tablet PO PRN ×2 (21:50)
[2020-07-24 22:00] VITALS: BP 88/56
[2020-07-24] MEDS: insulin glargine (Lantus) pen - multi-dose SQ SCH (22:30)
--- NOTE | 2020-07-24 22:30 | NUR ---
per Dr. Mortensen hold lantus dose for tonight.
--- NOTE | 2020-07-24 23:00 | NUR ---
pt refused to take lactulose orally,given rectally mixed with 50 ml saline per Linda pharmacist.
[2020-07-25] MEDS: meropenem inj 1 GM in normal saline 100ml IV soln 100 ML IV SCH ×4 (00:34→23:16)
[2020-07-25] MEDS: lactulose 20gm/30ml cup PO SCH ×5 (01:57→23:15)
[2020-07-25 06:54] VITALS: BP 123/71
[2020-07-25 07:03] LABS: BASOPHILS % (AUTO) 1.2 % (0-1); EOSINOPHILS # (AUTO) 0.1 X10'3 (0-0.9); HEMATOCRIT 27.7 % (35.0-45.0); HEMOGLOBIN 9.3 g/dl (12.0-16.0); LYMPHOCYTES # (AUTO) 0.5 X10'3 (1.1-4.8); LYMPHOCYTES % (AUTO) 15.3 % (21-51); MEAN CORPUSCULAR HEMOGLOBIN 29.3 PG (27.0-31.0); MEAN CORPUSCULAR HGB CONC 33.4 g/dL (33.0-36.5); MEAN CORPUSCULAR VOLUME 87.6 FL (78-98); MEAN PLATELET VOLUME 7.4 FL (7.4-10.4); MONOCYTES # (AUTO) 0.2 X10'3 (0-0.9); MONOCYTES % (AUTO) 7.9 % (2-12); NEUTROPHILS # (AUTO) 2.3 X10'3 (1.8-7.7); NEUTROPHILS % (AUTO) 73.6 % (42-75); PLATELET COUNT 154 X10'3 (140-440); RED BLOOD COUNT 3.17 X10'6 (4.20-5.60); RED CELL DISTRIBUTION WIDTH 16.1 % (11.5-14.5); WHITE BLOOD COUNT 3.1 X10'3 (4.5-11.0)
[2020-07-25 07:13] LABS: ALANINE AMINOTRANSFERASE 77 U/L (12-78); ALBUMIN 2.3 G/DL (3.4-5.0); ALBUMIN/GLOBULIN RATIO 0.4 (1.1-1.5); ALKALINE PHOSPHATASE 160 IU/L (46-116); ANION GAP 7 (8-16); ASPARTATE AMINO TRANSFERASE 97 U/L (10-37); BILIRUBIN,TOTAL 0.8 MG/DL (0.1-1.0); BLOOD UREA NITROGEN 32 MG/DL (7-18); CALCIUM 8.6 MG/DL (8.5-10.1); CHLORIDE 106 MMOL/L (99-107); GLUCOSE 204 MG/DL (70-104); MAGNESIUM 1.9 MG/DL (1.5-2.4); PHOSPHORUS 3.5 MG/DL (2.3-4.5); POTASSIUM 3.7 MMOL/L (3.5-5.1); SODIUM 139 MMOL/L (135-145); TOTAL CARBON DIOXIDE 26.4 MMOL/L (24-32); TOTAL PROTEIN 8.5 G/DL (6.4-8.2); eGFR 73 ML/MIN
[2020-07-25] MEDS: furosemide 40mg tablet PO SCH (07:55)
[2020-07-25] MEDS: spironolactone 50 MG tablet PO SCH (07:55)
[2020-07-25] MEDS: lactobacillus rhamnosus 10,000 MMU CELLS/CAPSULE PO SCH ×2 (07:55→19:41)
[2020-07-25] MEDS: K and/or MAG REPLACEMENT MC SCH ×4 (08:00→20:00)
[2020-07-25 10:00] VITALS: BP 119/61
[2020-07-25] MEDS: insulin Lispro (HumaLOG) vial - multi-dose SQ SCH ×2 (10:04→19:40)
[2020-07-25] MEDS: HYDROcodone/acetaminophen 10/325mg tab PO PRN ×2 (10:17→19:42)
[2020-07-25] MEDS: LORazepam 0.5 MG tablet PO PRN ×2 (10:48→19:42)
--- NOTE | 2020-07-25 18:10 | NUR ---
Patient in room ORTHO 4008. I have received report from ELENITA Morley and had the opportunity to ask questions and assume patient care.
[2020-07-25] MEDS: enoxaparin 40mg/0.4ml syringe SQ SCH (19:41)
[2020-07-25] MEDS: mag hydrox/Alum hydrox/simeth 30ml oral suspension PO PRN (19:41)
[2020-07-25] MEDS: miconazole nitrate 2% 45gm VAG cream VG SCH (21:00)
[2020-07-25] MEDS: insulin glargine (Lantus) pen - multi-dose SQ SCH (21:38)
[2020-07-25 22:00] VITALS: BP 132/70
[2020-07-26] MEDS: HYDROcodone/acetaminophen 10/325mg tab PO PRN ×3 (01:10→19:36)
[2020-07-26] MEDS: LORazepam 0.5 MG tablet PO PRN ×3 (01:10→19:36)
[2020-07-26 06:00] VITALS: BP 102/62
--- NOTE | 2020-07-26 06:27 | NUR ---
Problems reprioritized. Patient report given, questions answered & plan of care reviewed with ELENITA Rouse.
[2020-07-26 06:42] LABS: ALANINE AMINOTRANSFERASE 67 U/L (12-78); ALBUMIN 2.1 G/DL (3.4-5.0); ALBUMIN/GLOBULIN RATIO 0.4 (1.1-1.5); ALKALINE PHOSPHATASE 167 IU/L (46-116); ANION GAP 6 (8-16); ASPARTATE AMINO TRANSFERASE 79 U/L (10-37); BILIRUBIN,TOTAL 0.6 MG/DL (0.1-1.0); BLOOD UREA NITROGEN 29 MG/DL (7-18); BUN/CREATININE RATIO 31.5 (6.6-38.0); CALCIUM 8.4 MG/DL (8.5-10.1); CHLORIDE 103 MMOL/L (99-107); CREATININE 0.92 MG/DL (0.40-0.90); GLUCOSE 147 MG/DL (70-104); MAGNESIUM 1.8 MG/DL (1.5-2.4); PHOSPHORUS 3.6 MG/DL (2.3-4.5); SODIUM 135 MMOL/L (135-145); TOTAL CARBON DIOXIDE 26.5 MMOL/L (24-32); TOTAL PROTEIN 7.5 G/DL (6.4-8.2); eGFR 62 ML/MIN
[2020-07-26 06:53] LABS: BASOPHILS % (AUTO) 1.2 % (0-1); EOSINOPHILS # (AUTO) 0.2 X10'3 (0-0.9); EOSINOPHILS % (AUTO) 4.3 % (0-6); HEMATOCRIT 24.3 % (35.0-45.0); LYMPHOCYTES # (AUTO) 0.7 X10'3 (1.1-4.8); LYMPHOCYTES % (AUTO) 17.8 % (21-51); MEAN CORPUSCULAR HEMOGLOBIN 28.3 PG (27.0-31.0); MEAN CORPUSCULAR HGB CONC 32.7 g/dL (33.0-36.5); MEAN CORPUSCULAR VOLUME 86.6 FL (78-98); MEAN PLATELET VOLUME 7.4 FL (7.4-10.4); MONOCYTES # (AUTO) 0.5 X10'3 (0-0.9); MONOCYTES % (AUTO) 12.5 % (2-12); NEUTROPHILS # (AUTO) 2.5 X10'3 (1.8-7.7); NEUTROPHILS % (AUTO) 64.2 % (42-75); PLATELET COUNT 148 X10'3 (140-440); RED BLOOD COUNT 2.81 X10'6 (4.20-5.60); RED CELL DISTRIBUTION WIDTH 15.9 % (11.5-14.5); WHITE BLOOD COUNT 3.8 X10'3 (4.5-11.0)
[2020-07-26] MEDS: K and/or MAG REPLACEMENT MC SCH ×4 (08:00→20:00)
[2020-07-26] MEDS: insulin Lispro (HumaLOG) vial - multi-dose SQ SCH ×2 (09:57→19:35)
[2020-07-26] MEDS: spironolactone 50 MG tablet PO SCH (10:19)
[2020-07-26] MEDS: lactobacillus rhamnosus 10,000 MMU CELLS/CAPSULE PO SCH ×2 (10:19→19:35)
[2020-07-26] MEDS: furosemide 40mg tablet PO SCH (10:19)
[2020-07-26] MEDS: meropenem inj 1 GM in normal saline 100ml IV soln 100 ML IV SCH ×2 (10:20→19:35)
[2020-07-26] MEDS: lactulose 20gm/30ml cup PO SCH ×2 (10:22→22:53)
--- NOTE | 2020-07-26 12:33 | NUR ---
Reassessment: Pt PO 75-100% avg meals meeting needs w/ double protein TIDWM. Frequent daily BM's receiving lactulose. No nutrition concerns at this time. Will continue to monitor. Rec: 1. continue carb controlled diet; double proteins TIDWM 2. bowel care per rx; routine lactulose per MD 3. wt per rx Addendum: 07/26/20 at [address] Amended: Links added.
--- NOTE | 2020-07-26 15:19 | NUR ---
Patient is incontinent of urine on bed, impulsive and standing without waiting for staff to help. Argumentative when told to ask for help and use call light. Patient is emotional and very time demanding.
[2020-07-26 18:00] VITALS: BP 121/69
--- NOTE | 2020-07-26 18:05 | NUR ---
Patient in room ORTHO 4008. I have received report from ELENITA Rouse and had the opportunity to ask questions and assume patient care.
[2020-07-26] MEDS: enoxaparin 40mg/0.4ml syringe SQ SCH (19:35)
[2020-07-26] MEDS: miconazole nitrate 2% 45gm VAG cream VG SCH (21:00)
[2020-07-26] MEDS: insulin glargine (Lantus) pen - multi-dose SQ SCH (21:22)
[2020-07-27] MEDS: meropenem inj 1 GM in normal saline 100ml IV soln 100 ML IV SCH ×3 (00:53→18:31)
[2020-07-27 06:35] LABS: BASOPHILS # (AUTO) 0.1 X10'3 (0-0.2); EOSINOPHILS # (AUTO) 0.1 X10'3 (0-0.9); EOSINOPHILS % (AUTO) 3.6 % (0-6); HEMATOCRIT 23.8 % (35.0-45.0); HEMOGLOBIN 7.9 g/dl (12.0-16.0); LYMPHOCYTES # (AUTO) 0.6 X10'3 (1.1-4.8); LYMPHOCYTES % (AUTO) 20.6 % (21-51); MEAN CORPUSCULAR HEMOGLOBIN 28.6 PG (27.0-31.0); MEAN CORPUSCULAR HGB CONC 33.3 g/dL (33.0-36.5); MEAN CORPUSCULAR VOLUME 85.9 FL (78-98); MEAN PLATELET VOLUME 7.2 FL (7.4-10.4); MONOCYTES # (AUTO) 0.4 X10'3 (0-0.9); MONOCYTES % (AUTO) 14.1 % (2-12); NEUTROPHILS # (AUTO) 1.9 X10'3 (1.8-7.7); NEUTROPHILS % (AUTO) 59.7 % (42-75); PLATELET COUNT 143 X10'3 (140-440); RED BLOOD COUNT 2.77 X10'6 (4.20-5.60); RED CELL DISTRIBUTION WIDTH 15.7 % (11.5-14.5); WHITE BLOOD COUNT 3.1 X10'3 (4.5-11.0)
[2020-07-27 07:18] LABS: ALANINE AMINOTRANSFERASE 68 U/L (12-78); ALBUMIN/GLOBULIN RATIO 0.4 (1.1-1.5); ALKALINE PHOSPHATASE 148 IU/L (46-116); ANION GAP 5 (8-16); ASPARTATE AMINO TRANSFERASE 76 U/L (10-37); BILIRUBIN,TOTAL 0.6 MG/DL (0.1-1.0); BLOOD UREA NITROGEN 33 MG/DL (7-18); BUN/CREATININE RATIO 45.2 (6.6-38.0); CALCIUM 9.2 MG/DL (8.5-10.1); CHLORIDE 105 MMOL/L (99-107); CREATININE 0.73 MG/DL (0.40-0.90); GLUCOSE 86 MG/DL (70-104); MAGNESIUM 1.8 MG/DL (1.5-2.4); PHOSPHORUS 5.1 MG/DL (2.3-4.5); POTASSIUM 4.7 MMOL/L (3.5-5.1); SODIUM 137 MMOL/L (135-145); TOTAL CARBON DIOXIDE 27.4 MMOL/L (24-32); TOTAL PROTEIN 7.3 G/DL (6.4-8.2); eGFR 81 ML/MIN
[2020-07-27] MEDS: K and/or MAG REPLACEMENT MC SCH ×4 (07:40→20:00)
[2020-07-27] MEDS: lactulose 20gm/30ml cup PO SCH ×2 (07:53→18:31)
[2020-07-27] MEDS: lactobacillus rhamnosus 10,000 MMU CELLS/CAPSULE PO SCH ×2 (07:54→21:16)
[2020-07-27] MEDS: spironolactone 50 MG tablet PO SCH (07:54)
[2020-07-27] MEDS: furosemide 40mg tablet PO SCH (07:54)
[2020-07-27] MEDS: LORazepam 0.5 MG tablet PO PRN (08:06)
[2020-07-27] MEDS: HYDROcodone/acetaminophen 10/325mg tab PO PRN ×2 (08:06→19:09)
[2020-07-27] MEDS: insulin Lispro (HumaLOG) vial - multi-dose SQ SCH ×3 (08:14→18:59)
--- NOTE | 2020-07-27 17:20 | NUR ---
Spoke with Nicole in wound care regarding wound vac over retention sutures per Dr Gong. He is aware it will not be placed until tomorrow am.
[2020-07-27 18:00] VITALS: BP 136/67
[2020-07-27] MEDS: miconazole nitrate 2% 45gm VAG cream VG SCH (21:00)
[2020-07-27] MEDS: insulin glargine (Lantus) pen - multi-dose SQ SCH (21:16)
[2020-07-27] MEDS: enoxaparin 40mg/0.4ml syringe SQ SCH (21:16)
[2020-07-27 22:00] VITALS: BP 133/99
[2020-07-28] MEDS: meropenem inj 1 GM in normal saline 100ml IV soln 100 ML IV SCH ×2 (00:43→08:03)
[2020-07-28] MEDS: lactulose 20gm/30ml cup PO SCH ×2 (00:44→08:03)
[2020-07-28] MEDS: HYDROcodone/acetaminophen 10/325mg tab PO PRN ×2 (01:49→08:04)
[2020-07-28 06:00] VITALS: BP 116/65
[2020-07-28 06:24] LABS: BASOPHILS # (AUTO) 0.1 X10'3 (0-0.2); BASOPHILS % (AUTO) 1.9 % (0-1); EOSINOPHILS # (AUTO) 0.1 X10'3 (0-0.9); EOSINOPHILS % (AUTO) 4.1 % (0-6); HEMATOCRIT 25.5 % (35.0-45.0); HEMOGLOBIN 8.4 g/dl (12.0-16.0); LYMPHOCYTES # (AUTO) 0.7 X10'3 (1.1-4.8); LYMPHOCYTES % (AUTO) 20.7 % (21-51); MEAN CORPUSCULAR HEMOGLOBIN 28.4 PG (27.0-31.0); MEAN CORPUSCULAR HGB CONC 33.2 g/dL (33.0-36.5); MEAN CORPUSCULAR VOLUME 85.5 FL (78-98); MEAN PLATELET VOLUME 7.3 FL (7.4-10.4); MONOCYTES # (AUTO) 0.4 X10'3 (0-0.9); MONOCYTES % (AUTO) 13.4 % (2-12); NEUTROPHILS # (AUTO) 1.9 X10'3 (1.8-7.7); NEUTROPHILS % (AUTO) 59.9 % (42-75); PLATELET COUNT 143 X10'3 (140-440); RED BLOOD COUNT 2.98 X10'6 (4.20-5.60); RED CELL DISTRIBUTION WIDTH 15.7 % (11.5-14.5); WHITE BLOOD COUNT 3.2 X10'3 (4.5-11.0)
--- NOTE | 2020-07-28 06:37 | NUR ---
Patient in room ORTHO 4008. I have received report from Carlita from surgical and had the opportunity to ask questions and assume patient care.
[2020-07-28 06:51] LABS: ALANINE AMINOTRANSFERASE 67 U/L (12-78); ALBUMIN 2.2 G/DL (3.4-5.0); ALBUMIN/GLOBULIN RATIO 0.4 (1.1-1.5); ALKALINE PHOSPHATASE 163 IU/L (46-116); ANION GAP 5 (8-16); ASPARTATE AMINO TRANSFERASE 80 U/L (10-37); BILIRUBIN,TOTAL 0.6 MG/DL (0.1-1.0); BLOOD UREA NITROGEN 36 MG/DL (7-18); BUN/CREATININE RATIO 46.8 (6.6-38.0); CALCIUM 8.6 MG/DL (8.5-10.1); CHLORIDE 101 MMOL/L (99-107); CREATININE 0.77 MG/DL (0.40-0.90); GLUCOSE 129 MG/DL (70-104); MAGNESIUM 1.7 MG/DL (1.5-2.4); PHOSPHORUS 4.6 MG/DL (2.3-4.5); POTASSIUM 4.1 MMOL/L (3.5-5.1); SODIUM 132 MMOL/L (135-145); TOTAL CARBON DIOXIDE 26.2 MMOL/L (24-32); TOTAL PROTEIN 7.9 G/DL (6.4-8.2); eGFR 76 ML/MIN
[2020-07-28] MEDS: K and/or MAG REPLACEMENT MC SCH ×2 (07:19)
[2020-07-28] MEDS: furosemide 40mg tablet PO SCH (08:03)
[2020-07-28] MEDS: lactobacillus rhamnosus 10,000 MMU CELLS/CAPSULE PO SCH (08:03)
[2020-07-28] MEDS: spironolactone 50 MG tablet PO SCH (08:04)
[2020-07-28] MEDS ORDERED: LORazepam 1 MG tablet PO PRN (08:40)
[2020-07-28] MEDS: insulin Lispro (HumaLOG) vial - multi-dose SQ SCH (08:57)
[2020-07-28 10:00] VITALS: BP 97/55
--- NOTE | 2020-07-28 15:05 | NUR ---
Problems reprioritized. Patient report given, questions answered & plan of care reviewed with Denita from [employer].
--- NOTE | 2020-07-28 16:52 | NUR ---
Safe DC with [email or web address] tech personnel. All personal items with patient or sent with patients . Educated patient on diabetic survival skills, wound vac and infection control.
== END 2020-07-28 16:00 | DRG 792 ==
LOC: ER 17:01 → ED HOLD 20:47 → SUR 3N 22:42 → PACU 06-22 17:43 → ORTHO 4S 06-22 19:50
PROVIDERS: ADMIT Family Medicine; ATTEND Internal Medicine
PROC: 0W9G3ZZ Drainage of Peritoneal Cavity, Percutaneous Approach (ICD-10-PCS; 2020-06-20)
PROC: 0SU909Z Supplement Right Hip Joint with Liner, Open Approach (ICD-10-PCS; 2020-06-22)
PROC: 0SP909Z Removal of Liner from Right Hip Joint, Open Approach (ICD-10-PCS; principal; 2020-06-22 16:45)
PROC: 0SRA0JZ Replacement of Right Hip Joint, Acetabular Surface with Synthetic Substitute, Open Approach (ICD-10-PCS; 2020-07-09)
PROC: 0SPA0JZ Removal of Synthetic Substitute from Right Hip Joint, Acetabular Surface, Open Approach (ICD-10-PCS; 2020-07-09)
DX: T81.31XA Disruption of external operation (surgical) wound, not elsewhere classified, initial encounter (principal); A41.59 Other Gram-negative sepsis; E11.51 Type 2 diabetes mellitus with diabetic peripheral angiopathy without gangrene; E11.621 Type 2 diabetes mellitus with foot ulcer; E11.65 Type 2 diabetes mellitus with hyperglycemia; E88.09 Other disorders of plasma-protein metabolism, not elsewhere classified; E89.0 Postprocedural hypothyroidism; F31.9 Bipolar disorder, unspecified; J44.9 Chronic obstructive pulmonary disease, unspecified; K72.90 Hepatic failure, unspecified without coma; K74.60 Unspecified cirrhosis of liver; L02.419 Cutaneous abscess of limb, unspecified; L03.115 Cellulitis of right lower limb; L97.409 Non-pressure chronic ulcer of unspecified heel and midfoot with unspecified severity; R18.8 Other ascites; R32 Unspecified urinary incontinence; Z96.641 Presence of right artificial hip joint; B19.20 Unspecified viral hepatitis C without hepatic coma; E87.1 Hypo-osmolality and hyponatremia; D64.9 Anemia, unspecified; K64.8 Other hemorrhoids; Y83.9 Surgical procedure, unspecified as the cause of abnormal reaction of the patient, or of later complication, without mention of misadventure at the time of the procedure; W18.39XA Other fall on same level, initial encounter; Y93.89 Activity, other specified; Y92.89 Other specified places as the place of occurrence of the external cause; Y99.8 Other external cause status; Z82.49 Family history of ischemic heart disease and other diseases of the circulatory system; Z83.3 Family history of diabetes mellitus; Z85.850 Personal history of malignant neoplasm of thyroid; Z90.49 Acquired absence of other specified parts of digestive tract; Z91.19 Patient's noncompliance with other medical treatment and regimen
CPT/HCPCS: 36415; 36600; 49083; 70450; 71045; 73502; 73701; 76705; 76937; 80048; 80053; 80202; 81001; 82140; 82803; 82948; 83036; 83605; 83735; 84100; 84132; 84145; 85007; 85008; 85018; 85025; 85610; 85651; 85730; 86140; 87040; 87070; 87077; 87081; 87186; 93971; 94640; 94760; 96360; 97110; 97116; 97161; 97530; 97535; 99285; A4215; A4618; A6258; A6449; A6550; A7000; C1713; C1758; C1776; G0378; J0690; J0696; J1170; J1650; J1815; J2060; J2175; J2185; J2250; J2270; J2370; J2405; J2710; J3010; J3260; J3370; J3490; J7030; P9045; P9047; Q9967

== ENCOUNTER 2020-08-15 15:17 | Inpatient (IN) | payer MEDICAID ==
[~2020-08-15] VITALS: Ht 170.2 cm; Wt 93.7 kg
[~2020-08-15 15:17] MED LIST changes: -LACT1CAP26 PO; -LEVO500T89 PO; -RIFA550T PO; -SPIR100T PO
[2020-08-15 16:42] LABS: BASOPHILS # (AUTO) 0.1 X10'3 (0-0.2); BASOPHILS % (AUTO) 1.1 % (0-1); EOSINOPHILS % (AUTO) 0.1 % (0-6); HEMOGLOBIN 9.2 g/dl (12.0-16.0); LYMPHOCYTES # (AUTO) 0.4 X10'3 (1.1-4.8); LYMPHOCYTES % (AUTO) 4.6 % (21-51); MEAN CORPUSCULAR HEMOGLOBIN 28.5 PG (27.0-31.0); MEAN CORPUSCULAR HGB CONC 33.9 g/dL (33.0-36.5); MEAN PLATELET VOLUME 7.2 FL (7.4-10.4); MONOCYTES # (AUTO) 0.8 X10'3 (0-0.9); MONOCYTES % (AUTO) 8.8 % (2-12); NEUTROPHILS # (AUTO) 7.6 X10'3 (1.8-7.7); NEUTROPHILS % (AUTO) 85.4 % (42-75); PLATELET COUNT 167 X10'3 (140-440); RED BLOOD COUNT 3.22 X10'6 (4.20-5.60); WHITE BLOOD COUNT 8.9 X10'3 (4.5-11.0)
[2020-08-15 16:51] LABS: ALANINE AMINOTRANSFERASE 40 U/L (12-78); ALBUMIN 2.1 G/DL (3.4-5.0); ALBUMIN/GLOBULIN RATIO 0.4 (1.1-1.5); ALKALINE PHOSPHATASE 159 IU/L (46-116); ANION GAP 6 (8-16); ASPARTATE AMINO TRANSFERASE 43 U/L (10-37); BILIRUBIN,TOTAL 1.9 MG/DL (0.1-1.0); BLOOD UREA NITROGEN 19 MG/DL (7-18); CALCIUM 8.6 MG/DL (8.5-10.1); CHLORIDE 103 MMOL/L (99-107); CREATININE 0.76 MG/DL (0.40-0.90); ETHANOL < 0.010 GM/DL (0.0-0.010); GLUCOSE 194 MG/DL (70-104); POTASSIUM 4.4 MMOL/L (3.5-5.1); SODIUM 134 MMOL/L (135-145); TOTAL CARBON DIOXIDE 25.1 MMOL/L (24-32); TOTAL PROTEIN 7.5 G/DL (6.4-8.2); eGFR 77 ML/MIN
[2020-08-15] MEDS ORDERED: lactulose 20gm/30ml cup PO ONE (17:05)
[2020-08-15] MEDS ORDERED: CefTRIAXone 2gm/D5W 50ml BAG 50 ML IV ONE (17:10)
[2020-08-15 17:24] LABS: ANISOCYTOSIS 1+; BURR CELLS FEW; ELLIPTOCYTES 1+; PLATELET ESTIMATE NORMAL; POIKILOCYTOSIS 1+; POLYCHROMASIA 1+; SCHISTOCYTES FEW; SPHEROCYTES FEW; TEAR DROP CELLS FEW; TOTAL CELLS COUNTED 100
[2020-08-15 17:25] LABS: ROULEAUX 1+
[2020-08-15] MEDS ORDERED: potassium CL 10mEq/100ml bag 100 ML IV PRN ×2 (17:25)
[2020-08-15] MEDS ORDERED: magnesium 4gm in 100ml NS 100 ML IV PRN (17:25)
[2020-08-15] MEDS ORDERED: potassium Cl 20 mEq SR tablet PO PRN (17:25)
[2020-08-15] MEDS ORDERED: magnesium 2GM in 50ml NS 50 ML IV PRN (17:25)
[2020-08-15] MEDS ORDERED: ondansetron/PF 4mg/2ml inj IV PRN (17:25)
[2020-08-15] MEDS ORDERED: LORazepam 2 mg/ml vial IV ONE (17:40)
[2020-08-15] MEDS ORDERED: furosemide 10 MG/1 ML 10ml inj IV ONE (17:40)
[2020-08-15 17:55] LABS: CLARITY,URINE CLOUDY (Clear); GLUCOSE, URINE NEGATIVE (Neg); KETONES,URINE NEGATIVE (Neg); LEUKOCYTE ESTERASE ,URINE NEGATIVE (Neg); NITRITES, URINE NEGATIVE (Neg); OCCULT BLOOD,URINE MODERATE (Neg); PROTEIN,URINE TRACE mg/dl (Neg)
[2020-08-15 17:58] LABS: COLOR,URINE DARK YELLOW (Yellow); UA COLLECTION TYPE FOLEY CATH
[2020-08-15] MEDS: vancomycin/NS 1 GM ADD-VANTAGE 250 ML IV SCH (18:00)
[2020-08-15 18:02] LABS: BACTERIA,URINE 4+ /HPF (Neg); RBC,URINE 0-2 /HPF (0-2); SQUAMOUS EPITHELIAL CELL,UR MANY /LPF (FEW); WBC,URINE 0-4 /HPF (0-4)
[2020-08-15 18:03] LABS: WBC CLUMPS,URINE FEW /HPF (NEGATIVE)
--- NOTE | 2020-08-15 19:40 | NUR ---
PT ARRIVED FROM ER. PT IS SEDATED. CALL LIGHT GIVEN. PICTURE TAKEN. PLACED TABS ALARM. RECEIVED REPORT FROM ELENITA MEJIA PRIOR TO PT'S ARRIVAL.
[2020-08-15] MEDS: K and/or MAG REPLACEMENT MC SCH (20:00)
[2020-08-15 20:05] VITALS: BP 157/37
[2020-08-15] MEDS: cefepime 1GM/NS ADD-VANTAGE 100 ML IV SCH (23:55)
[2020-08-16] MEDS: vancomycin/NS 1 GM ADD-VANTAGE 250 ML IV SCH ×2 (05:48→18:34)
[2020-08-16 06:00] VITALS: BP 119/71
--- NOTE | 2020-08-16 06:22 | NUR ---
DR. HAAS NOTIFIED OF POSITIVE BLOOD CULTURE. NO NEW ORDER RECEIVED.
--- NOTE | 2020-08-16 06:40 | NUR ---
Patient in room ORTHO 4007. I have received report from ELENITA Marsh and had the opportunity to ask questions and assume patient care.
[2020-08-16 06:46] LABS: BASOPHILS % (AUTO) 0.5 % (0-1); EOSINOPHILS % (AUTO) 0.6 % (0-6); HEMATOCRIT 26.7 % (35.0-45.0); HEMOGLOBIN 8.8 g/dl (12.0-16.0); LYMPHOCYTES # (AUTO) 0.5 X10'3 (1.1-4.8); LYMPHOCYTES % (AUTO) 8.3 % (21-51); MEAN CORPUSCULAR HEMOGLOBIN 27.5 PG (27.0-31.0); MEAN CORPUSCULAR HGB CONC 32.9 g/dL (33.0-36.5); MEAN CORPUSCULAR VOLUME 83.6 FL (78-98); MEAN PLATELET VOLUME 7.3 FL (7.4-10.4); MONOCYTES # (AUTO) 0.9 X10'3 (0-0.9); NEUTROPHILS # (AUTO) 4.7 X10'3 (1.8-7.7); NEUTROPHILS % (AUTO) 76.6 % (42-75); PLATELET COUNT 152 X10'3 (140-440); RED BLOOD COUNT 3.19 X10'6 (4.20-5.60); RED CELL DISTRIBUTION WIDTH 18.3 % (11.5-14.5); WHITE BLOOD COUNT 6.1 X10'3 (4.5-11.0)
[2020-08-16 07:08] LABS: ALANINE AMINOTRANSFERASE 43 U/L (12-78); ALBUMIN/GLOBULIN RATIO 0.4 (1.1-1.5); ALKALINE PHOSPHATASE 139 IU/L (46-116); ANION GAP 8 (8-16); ASPARTATE AMINO TRANSFERASE 41 U/L (10-37); BLOOD UREA NITROGEN 19 MG/DL (7-18); BUN/CREATININE RATIO 22.6 (6.6-38.0); CALCIUM 8.6 MG/DL (8.5-10.1); CHLORIDE 105 MMOL/L (99-107); CREATININE 0.84 MG/DL (0.40-0.90); GLUCOSE 187 MG/DL (70-104); MAGNESIUM 1.6 MG/DL (1.5-2.4); POTASSIUM 3.5 MMOL/L (3.5-5.1); SODIUM 139 MMOL/L (135-145); TOTAL CARBON DIOXIDE 26.5 MMOL/L (24-32); TOTAL PROTEIN 7.5 G/DL (6.4-8.2); eGFR 69 ML/MIN
[2020-08-16] MEDS: K and/or MAG REPLACEMENT MC SCH ×2 (08:00→20:00)
[2020-08-16] MEDS: cefepime 1GM/NS ADD-VANTAGE 100 ML IV SCH ×3 (08:13→23:25)
--- NOTE | 2020-08-16 08:26 | NUR ---
Page Sent PAGER ID: [phone] MESSAGE: SHEYLA 5199-RE: PANCHITO MORALES 4007...PT ALOC, AMONIA LEVEL 41, CAN WE START LACTULOSE?
--- NOTE | 2020-08-16 08:32 | NUR ---
DR DIOR ADVISED ABOUT POSITIVE BLOOD CULTURES
[2020-08-16 09:00] VITALS: BP 128/76
[2020-08-16] MEDS: lactulose 20gm/30ml cup PO SCH ×2 (09:12→21:39)
[2020-08-16] MEDS ORDERED: MESSAGE TO PHARMACY PO ONE (09:45)
[2020-08-16] MEDS ORDERED: glucagon, human recombinant 1mg kit SUBCUT PRN (09:45)
[2020-08-16] MEDS ORDERED: dextrose ORAL solution 15 GM/59 ML bottle PO PRN ×2 (09:45)
[2020-08-16] MEDS ORDERED: dextrose 50%-water 50ml dispensing syringe IV PRN ×2 (09:45)
[2020-08-16] MEDS: furosemide 10 MG/1 ML 10ml inj IV SCH ×2 (10:12→21:40)
--- NOTE | 2020-08-16 10:53 | NUR ---
DM Consult: Pt admit w/ ALOC found down at home on feces covered garbage per EMR. AOx2 at this time w/ hx DM and A1C 8.3 May this year. Pending social media community manager consult at this time per EMR. Pt is NPO and also not appropriate for DM ed at this time given DX. Will monitor for education needs this admit. Addendum: 08/16/20 at [address] Amended: Links added. Addendum: 08/16/20 at [address] DM Consult: Pt admit w/ ALOC found down at home on feces covered garbage per EMR. AOx1 at this time w/ hx DM and A1C 8.3 May this year. Pending social media community manager consult at this time per EMR. Pt is NPO and also not appropriate for DM ed at this time given DX. Will monitor for education needs this admit.
[2020-08-16] MEDS: insulin Lispro (HumaLOG) vial - multi-dose SQ SCH ×2 (14:14→18:36)
--- NOTE | 2020-08-16 15:45 | NUR ---
Page Sent PAGER ID: [phone] MESSAGE: SHEYLA 5199-RE: PANCHITO MORALES [phone]...PT C/O PAIN IN HIP AND ABD, CAN I GET AN ORDER OF PAIN MEDICATION?
[2020-08-16] MEDS ORDERED: VANCOMYCIN LEVEL IV ONE (17:30)
[2020-08-16 18:00] VITALS: BP 97/58
--- NOTE | 2020-08-16 18:27 | NUR ---
Problems reprioritized. Patient report given, questions answered & plan of care reviewed with ELENITA PIERCE.
[2020-08-16] MEDS: traMADol 50MG tablet PO PRN ×2 (18:35→23:25)
[2020-08-16] MEDS: lactobacillus rhamnosus 10,000 MMU CELLS/CAPSULE PO SCH (21:39)
[2020-08-16] MEDS: nystatin 15 GM powder TP SCH (21:39)
[2020-08-16] MEDS: insulin glargine (Lantus) pen - multi-dose SQ SCH (21:42)
[2020-08-16 22:00] VITALS: BP 91/56
[2020-08-17] VITALS (7 sets, daily range): BP systolic 95–115; BP diastolic 53–66
[2020-08-17] MEDS: traMADol 50MG tablet PO PRN ×4 (04:10→19:47)
[2020-08-17] MEDS: vancomycin/NS 1 GM ADD-VANTAGE 250 ML IV SCH ×2 (06:07→18:20)
--- NOTE | 2020-08-17 06:39 | NUR ---
reported to days. noted pt has tabs alarm on. doesn't use call light. anticipate paracentesis today, and wound vac placement.
[2020-08-17 07:11] LABS: BASOPHILS % (AUTO) 0.8 % (0-1); EOSINOPHILS # (AUTO) 0.1 X10'3 (0-0.9); EOSINOPHILS % (AUTO) 2.8 % (0-6); HEMATOCRIT 22.9 % (35.0-45.0); HEMOGLOBIN 7.8 g/dl (12.0-16.0); LYMPHOCYTES # (AUTO) 0.4 X10'3 (1.1-4.8); LYMPHOCYTES % (AUTO) 9.2 % (21-51); MEAN CORPUSCULAR HEMOGLOBIN 28.3 PG (27.0-31.0); MEAN CORPUSCULAR HGB CONC 33.9 g/dL (33.0-36.5); MEAN CORPUSCULAR VOLUME 83.5 FL (78-98); MEAN PLATELET VOLUME 7.1 FL (7.4-10.4); MONOCYTES # (AUTO) 0.7 X10'3 (0-0.9); MONOCYTES % (AUTO) 15.6 % (2-12); NEUTROPHILS # (AUTO) 3.3 X10'3 (1.8-7.7); NEUTROPHILS % (AUTO) 71.6 % (42-75); PLATELET COUNT 124 X10'3 (140-440); RED BLOOD COUNT 2.74 X10'6 (4.20-5.60); RED CELL DISTRIBUTION WIDTH 18.5 % (11.5-14.5); WHITE BLOOD COUNT 4.6 X10'3 (4.5-11.0)
[2020-08-17 07:35] LABS: ALANINE AMINOTRANSFERASE 37 U/L (12-78); ALBUMIN 1.7 G/DL (3.4-5.0); ALBUMIN/GLOBULIN RATIO 0.3 (1.1-1.5); ALKALINE PHOSPHATASE 115 IU/L (46-116); ANION GAP 2 (8-16); ASPARTATE AMINO TRANSFERASE 36 U/L (10-37); BILIRUBIN,TOTAL 1.2 MG/DL (0.1-1.0); BLOOD UREA NITROGEN 20 MG/DL (7-18); BUN/CREATININE RATIO 26.7 (6.6-38.0); CALCIUM 8.1 MG/DL (8.5-10.1); CHLORIDE 100 MMOL/L (99-107); CREATININE 0.75 MG/DL (0.40-0.90); GLUCOSE 146 MG/DL (70-104); MAGNESIUM 1.4 MG/DL (1.5-2.4); POTASSIUM 3.1 MMOL/L (3.5-5.1); SODIUM 131 MMOL/L (135-145); TOTAL CARBON DIOXIDE 28.8 MMOL/L (24-32); TOTAL PROTEIN 6.6 G/DL (6.4-8.2); eGFR 78 ML/MIN
[2020-08-17] MEDS: K and/or MAG REPLACEMENT MC SCH ×2 (08:00→19:47)
[2020-08-17] MEDS: nystatin 15 GM powder TP SCH ×3 (08:00→21:51)
[2020-08-17] MEDS: potassium Cl 20 mEq SR tablet PO PRN ×3 (09:21→19:47)
[2020-08-17 09:52] LABS: ANISOCYTOSIS 3+; PLATELET ESTIMATE DECREASED
[2020-08-17 09:53] LABS: HYPOCHROMASIA 1+
[2020-08-17] MEDS: furosemide 10 MG/1 ML 10ml inj IV SCH ×2 (10:42→19:48)
[2020-08-17] MEDS: lactobacillus rhamnosus 10,000 MMU CELLS/CAPSULE PO SCH ×2 (10:43→19:47)
[2020-08-17] MEDS: cefepime 1GM/NS ADD-VANTAGE 100 ML IV SCH ×2 (10:43→17:39)
[2020-08-17] MEDS: lactulose 20gm/30ml cup PO SCH ×2 (10:43→19:47)
[2020-08-17] MEDS: insulin Lispro (HumaLOG) vial - multi-dose SQ SCH ×3 (13:50→21:48)
[2020-08-17] MEDS ORDERED: VANCOMYCIN LEVEL IV ONE ×2 (17:30)
--- NOTE | 2020-08-17 17:31 | NUR ---
PAGER ID: [phone] MESSAGE: Dr. Griffin patient Karina Rajan's would like to talk to you if you can call him, # [phone]. Thank you, Machelle 4122
--- NOTE | 2020-08-17 18:38 | NUR ---
Problems reprioritized. Patient report given, questions answered & plan of care reviewed with Pooja KWONG.
--- NOTE | 2020-08-17 18:42 | NUR ---
Patient in room ORTHO 4007. I have received report from Marika KWONG and had the opportunity to ask questions and assume patient care.
[2020-08-17] MEDS: magnesium Cl slow-release 64mg tablet PO PRN (21:47)
[2020-08-17] MEDS: insulin glargine (Lantus) pen - multi-dose SQ SCH (21:49)
[2020-08-18] MEDS: cefepime 1GM/NS ADD-VANTAGE 100 ML IV SCH ×3 (00:14→15:12)
[2020-08-18] MEDS: traMADol 50MG tablet PO PRN ×4 (00:14→21:39)
[2020-08-18] MEDS: vancomycin/NS 1 GM ADD-VANTAGE 250 ML IV SCH (05:30)
--- NOTE | 2020-08-18 06:25 | NUR ---
Problems reprioritized. Patient report given, questions answered & plan of care reviewed with Roselyn KWONG.
--- NOTE | 2020-08-18 06:45 | NUR ---
Patient in room ORTHO 4007. I have received report from josé miguel KWONG and had the opportunity to ask questions and assume patient care.
[2020-08-18 07:00] VITALS: BP 93/53
[2020-08-18] MEDS: lactulose 20gm/30ml cup PO SCH ×2 (07:24→19:35)
[2020-08-18] MEDS: lactobacillus rhamnosus 10,000 MMU CELLS/CAPSULE PO SCH ×2 (07:25→19:35)
[2020-08-18] MEDS: furosemide 10 MG/1 ML 10ml inj IV SCH ×2 (07:25→19:35)
[2020-08-18 08:00] VITALS: BP 103/65
[2020-08-18] MEDS: K and/or MAG REPLACEMENT MC SCH ×2 (08:00→20:00)
[2020-08-18] MEDS: nystatin 15 GM powder TP SCH ×3 (08:00→19:38)
[2020-08-18 08:15] LABS: EOSINOPHILS # (AUTO) 0.2 X10'3 (0-0.9); EOSINOPHILS % (AUTO) 4.2 % (0-6); HEMATOCRIT 24.2 % (35.0-45.0); HEMOGLOBIN 8.2 g/dl (12.0-16.0); LYMPHOCYTES # (AUTO) 0.6 X10'3 (1.1-4.8); LYMPHOCYTES % (AUTO) 11.9 % (21-51); MEAN CORPUSCULAR HEMOGLOBIN 28.2 PG (27.0-31.0); MEAN PLATELET VOLUME 7.3 FL (7.4-10.4); MONOCYTES # (AUTO) 0.7 X10'3 (0-0.9); MONOCYTES % (AUTO) 14.9 % (2-12); NEUTROPHILS # (AUTO) 3.3 X10'3 (1.8-7.7); PLATELET COUNT 130 X10'3 (140-440); RED BLOOD COUNT 2.92 X10'6 (4.20-5.60); RED CELL DISTRIBUTION WIDTH 18.1 % (11.5-14.5); WHITE BLOOD COUNT 4.8 X10'3 (4.5-11.0)
[2020-08-18 08:30] LABS: ALANINE AMINOTRANSFERASE 36 U/L (12-78); ALBUMIN 1.7 G/DL (3.4-5.0); ALBUMIN/GLOBULIN RATIO 0.3 (1.1-1.5); ALKALINE PHOSPHATASE 126 IU/L (46-116); ANION GAP 4 (8-16); ASPARTATE AMINO TRANSFERASE 36 U/L (10-37); BILIRUBIN,TOTAL 0.9 MG/DL (0.1-1.0); BLOOD UREA NITROGEN 23 MG/DL (7-18); BUN/CREATININE RATIO 29.5 (6.6-38.0); CALCIUM 7.4 MG/DL (8.5-10.1); CHLORIDE 99 MMOL/L (99-107); CREATININE 0.78 MG/DL (0.40-0.90); GLUCOSE 224 MG/DL (70-104); MAGNESIUM 1.4 MG/DL (1.5-2.4); POTASSIUM 3.5 MMOL/L (3.5-5.1); SODIUM 132 MMOL/L (135-145); TOTAL CARBON DIOXIDE 29.2 MMOL/L (24-32); TOTAL PROTEIN 6.7 G/DL (6.4-8.2); eGFR 75 ML/MIN
[2020-08-18] MEDS: insulin Lispro (HumaLOG) vial - multi-dose SQ SCH ×3 (09:32→19:28)
[2020-08-18 10:00] VITALS: BP 102/60
[2020-08-18] MEDS: magnesium Cl slow-release 64mg tablet PO PRN (15:12)
--- NOTE | 2020-08-18 15:36 | NUR ---
patient compliant with all care. seen by Dr win, BM x1. mg low see labs began replacement.
[2020-08-18] MEDS: VANCOmycin 1250MG/NS 250ml Bag 250 ML IV SCH (16:49)
--- NOTE | 2020-08-18 17:58 | NUR ---
tearful at times states she usually is cooking thanksgiving dinner at this time. Talked with Naif and with Dr mora. Ativan ordered for anxiety prn.
[2020-08-18 18:00] VITALS: BP 99/54
--- NOTE | 2020-08-18 18:02 | NUR ---
temp of 100.8 was documented on wrong patient
--- NOTE | 2020-08-18 18:31 | NUR ---
Problems reprioritized. Patient report given, questions answered & plan of care reviewed with Gladys KWONG.
[2020-08-18] MEDS: insulin glargine (Lantus) pen - multi-dose SQ SCH (21:37)
[2020-08-18 22:00] VITALS: BP 97/55
[2020-08-18] MEDS: LORazepam 0.5 MG tablet PO PRN (22:23)
[2020-08-19] MEDS: cefepime 1GM/NS ADD-VANTAGE 100 ML IV SCH ×2 (00:02→07:43)
[2020-08-19] MEDS: traMADol 50MG tablet PO PRN ×5 (01:46→21:31)
[2020-08-19] MEDS: VANCOmycin 1250MG/NS 250ml Bag 250 ML IV SCH (05:01)
[2020-08-19 05:12] VITALS: BP 111/61
[2020-08-19 07:02] LABS: BASOPHILS # (AUTO) 0.1 X10'3 (0-0.2); EOSINOPHILS # (AUTO) 0.2 X10'3 (0-0.9); EOSINOPHILS % (AUTO) 3.8 % (0-6); HEMATOCRIT 26.5 % (35.0-45.0); HEMOGLOBIN 8.8 g/dl (12.0-16.0); LYMPHOCYTES # (AUTO) 0.5 X10'3 (1.1-4.8); LYMPHOCYTES % (AUTO) 10.1 % (21-51); MEAN CORPUSCULAR HEMOGLOBIN 27.7 PG (27.0-31.0); MEAN CORPUSCULAR HGB CONC 33.3 g/dL (33.0-36.5); MEAN CORPUSCULAR VOLUME 83.2 FL (78-98); MEAN PLATELET VOLUME 7.2 FL (7.4-10.4); MONOCYTES # (AUTO) 0.7 X10'3 (0-0.9); MONOCYTES % (AUTO) 12.4 % (2-12); NEUTROPHILS # (AUTO) 3.9 X10'3 (1.8-7.7); NEUTROPHILS % (AUTO) 72.7 % (42-75); PLATELET COUNT 142 X10'3 (140-440); RED BLOOD COUNT 3.18 X10'6 (4.20-5.60); RED CELL DISTRIBUTION WIDTH 18.1 % (11.5-14.5); WHITE BLOOD COUNT 5.4 X10'3 (4.5-11.0)
[2020-08-19 07:21] LABS: ANION GAP 3 (8-16); BLOOD UREA NITROGEN 22 MG/DL (7-18); CHLORIDE 97 MMOL/L (99-107); CREATININE 0.92 MG/DL (0.40-0.90); GLUCOSE 262 MG/DL (70-104); POTASSIUM 3.1 MMOL/L (3.5-5.1); SODIUM 131 MMOL/L (135-145); TOTAL CARBON DIOXIDE 31.2 MMOL/L (24-32)
[2020-08-19 07:22] LABS: ALANINE AMINOTRANSFERASE 37 U/L (12-78); ALBUMIN 1.8 G/DL (3.4-5.0); ALBUMIN/GLOBULIN RATIO 0.3 (1.1-1.5); ALKALINE PHOSPHATASE 143 IU/L (46-116); ASPARTATE AMINO TRANSFERASE 41 U/L (10-37); BILIRUBIN,TOTAL 0.9 MG/DL (0.1-1.0); BUN/CREATININE RATIO 23.9 (6.6-38.0); CALCIUM 7.5 MG/DL (8.5-10.1); MAGNESIUM 1.4 MG/DL (1.5-2.4); TOTAL PROTEIN 7.1 G/DL (6.4-8.2); eGFR 62 ML/MIN
[2020-08-19] MEDS ORDERED: potassium CL 10mEq/100ml bag 100 ML IV PRN ×2 (07:40)
[2020-08-19] MEDS ORDERED: potassium Cl 20 mEq SR tablet PO PRN (07:40)
[2020-08-19] MEDS: furosemide 10 MG/1 ML 10ml inj IV SCH ×2 (07:43→19:37)
[2020-08-19] MEDS: lactulose 20gm/30ml cup PO SCH ×3 (07:43→19:38)
[2020-08-19] MEDS: lactobacillus rhamnosus 10,000 MMU CELLS/CAPSULE PO SCH ×3 (07:43→19:38)
[2020-08-19] MEDS: K and/or MAG REPLACEMENT MC SCH ×3 (08:00→19:38)
--- NOTE | 2020-08-19 08:41 | NUR ---
TRIED TO SCAN PATIENTS IDENTIFICATION BAND 9 TIMES. ORDERED NEW BAND. UNABLE TO ADMIN MEDS PRESENTLY.
[2020-08-19] MEDS: potassium Cl 20 mEq SR tablet PO PRN ×3 (08:48→21:31)
[2020-08-19] MEDS: nystatin 15 GM powder TP SCH ×3 (08:49→19:47)
[2020-08-19] MEDS: insulin Lispro (HumaLOG) vial - multi-dose SQ SCH ×3 (09:34→18:32)
[2020-08-19 10:00] VITALS: BP 99/61
[2020-08-19] MEDS ORDERED: levoFLOXACIN 500mg tablet PO SCH (11:00)
--- NOTE | 2020-08-19 11:30 | NUR ---
spoke with dr amezquita, he is in patient's room.
[2020-08-19] MEDS: linezolid 600mg tablet PO SCH ×2 (13:12→19:47)
--- NOTE | 2020-08-19 15:25 | NUR ---
Initial: Pt admit with hepatic encephalopathy with a right hip infection, wound VAC currently in place. Pt receiving Zyvox, low tyramine nutrition therapy education deferred at this time until pt more stable, currently documented as A/O x 3. Pt s/p paracentesis 08/17 with 3.1L fluid removed per report. Pt on a CHO controlled diet documented with mostly 100% PO intake while receiving double protein TID meeting estimated nutrient needs. LBM 08/19. Documented with diarrhea, likely r/t Lactulose. No further nutrition intervention implemented at this time. Will continue to follow. Recommendations: 1) Continue CHO controlled diet 2) Double eggs q breakfast, double meat BIDLD 3) Bowel care per rx 4) Scaled weights per rx Addendum: 08/19/20 at [address] Amended: Links added.
[2020-08-19 18:00] VITALS: BP 114/68
--- NOTE | 2020-08-19 18:16 | NUR ---
Problems reprioritized. Patient report given, questions answered & plan of care reviewed with Meghana KWONG.
--- NOTE | 2020-08-19 18:22 | NUR ---
Patient in room ORTHO 4007. I have received report from Judith KWONG and had the opportunity to ask questions and assume patient care.
[2020-08-19] MEDS: LORazepam 0.5 MG tablet PO PRN (19:50)
[2020-08-19] MEDS: insulin glargine (Lantus) pen - multi-dose SQ SCH (21:11)
[2020-08-19 22:00] VITALS: BP 100/69
[2020-08-20] MEDS: LORazepam 0.5 MG tablet PO PRN ×2 (03:18→19:35)
[2020-08-20] MEDS: traMADol 50MG tablet PO PRN ×4 (03:18→19:35)
[2020-08-20] MEDS ORDERED: VANCOMYCIN LEVEL IV ONE (04:30)
[2020-08-20 05:39] LABS: BASOPHILS % (AUTO) 0.7 % (0-1); EOSINOPHILS # (AUTO) 0.2 X10'3 (0-0.9); EOSINOPHILS % (AUTO) 3.1 % (0-6); HEMATOCRIT 25.3 % (35.0-45.0); HEMOGLOBIN 8.6 g/dl (12.0-16.0); LYMPHOCYTES # (AUTO) 0.7 X10'3 (1.1-4.8); LYMPHOCYTES % (AUTO) 11.4 % (21-51); MEAN CORPUSCULAR HGB CONC 33.9 g/dL (33.0-36.5); MEAN CORPUSCULAR VOLUME 82.6 FL (78-98); MEAN PLATELET VOLUME 7.2 FL (7.4-10.4); MONOCYTES # (AUTO) 0.7 X10'3 (0-0.9); MONOCYTES % (AUTO) 11.2 % (2-12); NEUTROPHILS # (AUTO) 4.3 X10'3 (1.8-7.7); NEUTROPHILS % (AUTO) 73.6 % (42-75); PLATELET COUNT 135 X10'3 (140-440); RED BLOOD COUNT 3.07 X10'6 (4.20-5.60); RED CELL DISTRIBUTION WIDTH 18.2 % (11.5-14.5); WHITE BLOOD COUNT 5.8 X10'3 (4.5-11.0)
[2020-08-20 05:46] LABS: ALANINE AMINOTRANSFERASE 38 U/L (12-78); ALBUMIN 1.7 G/DL (3.4-5.0); ALBUMIN/GLOBULIN RATIO 0.3 (1.1-1.5); ALKALINE PHOSPHATASE 126 IU/L (46-116); ANION GAP 1 (8-16); ASPARTATE AMINO TRANSFERASE 41 U/L (10-37); BILIRUBIN,TOTAL 1.2 MG/DL (0.1-1.0); BLOOD UREA NITROGEN 25 MG/DL (7-18); BUN/CREATININE RATIO 29.1 (6.6-38.0); CALCIUM 7.9 MG/DL (8.5-10.1); CHLORIDE 99 MMOL/L (99-107); CREATININE 0.86 MG/DL (0.40-0.90); GLUCOSE 188 MG/DL (70-104); MAGNESIUM 1.4 MG/DL (1.5-2.4); POTASSIUM 3.3 MMOL/L (3.5-5.1); SODIUM 133 MMOL/L (135-145); TOTAL CARBON DIOXIDE 33.5 MMOL/L (24-32); TOTAL PROTEIN 6.9 G/DL (6.4-8.2); eGFR 67 ML/MIN
[2020-08-20 06:00] VITALS: BP 88/57
--- NOTE | 2020-08-20 06:36 | NUR ---
Problems reprioritized. Patient report given, questions answered & plan of care reviewed with polo KWONG.
[2020-08-20] MEDS: K and/or MAG REPLACEMENT MC SCH ×2 (08:45→19:39)
[2020-08-20] MEDS: insulin Lispro (HumaLOG) vial - multi-dose SQ SCH ×3 (08:57→19:23)
[2020-08-20] MEDS: lactulose 20gm/30ml cup PO SCH ×2 (08:57→19:19)
[2020-08-20] MEDS: furosemide 10 MG/1 ML 10ml inj IV SCH ×2 (08:57→19:20)
[2020-08-20] MEDS: lactobacillus rhamnosus 10,000 MMU CELLS/CAPSULE PO SCH ×2 (08:57→19:19)
[2020-08-20] MEDS: linezolid 600mg tablet PO SCH ×2 (08:58→19:41)
[2020-08-20] MEDS: sulfamethoxazole/trimethoprim DS (800/160mg) tablet PO SCH ×2 (08:59→19:19)
[2020-08-20] MEDS: nystatin 15 GM powder TP SCH ×3 (09:14→19:36)
--- NOTE | 2020-08-20 09:49 | NUR ---
Paged for echo
[2020-08-20 10:00] VITALS: BP 100/62
--- NOTE | 2020-08-20 10:37 | NUR ---
Prior to 60mg of lasix given. Addendum: 08/20/20 at 1038 by Marika Singh RN Amended: Links added.
[2020-08-20] MEDS: potassium Cl 20 mEq SR tablet PO PRN (17:56)
[2020-08-20 18:00] VITALS: BP 112/60
--- NOTE | 2020-08-20 18:13 | NUR ---
Problems reprioritized. Patient report given, questions answered & plan of care reviewed with Jayshree Guo RN.
[2020-08-20] MEDS: insulin glargine (Lantus) pen - multi-dose SQ SCH (21:44)
[2020-08-20 22:00] VITALS: BP 104/71
[2020-08-21] MEDS: LORazepam 0.5 MG tablet PO PRN ×2 (02:19→20:54)
[2020-08-21] MEDS: traMADol 50MG tablet PO PRN ×4 (02:20→21:27)
[2020-08-21 06:00] VITALS: BP 117/70
[2020-08-21 06:15] LABS: MAGNESIUM 1.7 MG/DL (1.5-2.4)
--- NOTE | 2020-08-21 06:22 | NUR ---
Problems reprioritized. Patient report given, questions answered & plan of care reviewed with ELENITA Carver.
--- NOTE | 2020-08-21 06:25 | NUR ---
Patient in room ORTHO 4007. I have received report from ELENITA BHATIA and had the opportunity to ask questions and assume patient care.
[2020-08-21] MEDS: K and/or MAG REPLACEMENT MC SCH ×2 (08:00→20:00)
[2020-08-21] MEDS: lactobacillus rhamnosus 10,000 MMU CELLS/CAPSULE PO SCH ×2 (08:35→20:55)
[2020-08-21] MEDS: sulfamethoxazole/trimethoprim DS (800/160mg) tablet PO SCH ×2 (08:35→20:55)
[2020-08-21] MEDS: lactulose 20gm/30ml cup PO SCH ×2 (08:36→20:00)
[2020-08-21] MEDS: linezolid 600mg tablet PO SCH ×2 (08:36→20:55)
[2020-08-21] MEDS: furosemide 10 MG/1 ML 10ml inj IV SCH (08:42)
[2020-08-21] MEDS: insulin Lispro (HumaLOG) vial - multi-dose SQ SCH ×3 (08:48→18:52)
[2020-08-21 11:00] VITALS: BP 112/63
[2020-08-21] MEDS: nystatin 15 GM powder TP SCH ×3 (13:00→20:57)
[2020-08-21 15:26] LABS: POTASSIUM 3.4 MMOL/L (3.5-5.1)
--- NOTE | 2020-08-21 18:30 | NUR ---
Patient in room ORTHO 4007. I have received report from JUAN and had the opportunity to ask questions and assume patient care.
--- NOTE | 2020-08-21 18:31 | NUR ---
Problems reprioritized. Patient report given, questions answered & plan of care reviewed with ELENITA BASS.
--- NOTE | 2020-08-21 19:15 | NUR ---
PT REFUSING IV RESTART AT THIS TIME
--- NOTE | 2020-08-21 20:50 | NUR ---
PT HAVING PANIC ATTACK: SCREAMING "I CAN'T BREATHE" "I AM AFRAID" OXYGEN SATURATIONS 93% RA, PT REFUSING OXYGEN. PT REASSURED BY STAFF, ATIVAN PO GIVEN. PT ASSISTED TO RECLINER VIA STEADY LIFT. PT MORE CALM, RESTING, WATCHING TV. WILL CONTINUE TO MONITOR.
[2020-08-21] MEDS: furosemide 40mg tablet PO SCH (20:54)
[2020-08-21] MEDS: OLANZapine 2.5MG tablet PO SCH (20:55)
[2020-08-21 21:07] VITALS: BP 117/70
[2020-08-21] MEDS: insulin glargine (Lantus) pen - multi-dose SQ SCH (21:18)
[2020-08-21 22:00] VITALS: BP 118/68
--- NOTE | 2020-08-22 05:19 | NUR ---
PT CONTINUES TO REFUSE IV RE-INSERTION. STATES, "I'LL WAIT UNTIL DAYLIGHT."
[2020-08-22 06:00] VITALS: BP 110/66
--- NOTE | 2020-08-22 06:00 | NUR ---
Patient in room ORTHO 4007. I have received report from Amy KWONG and had the opportunity to ask questions and assume patient care.
--- NOTE | 2020-08-22 06:32 | NUR ---
Problems reprioritized. Patient report given, questions answered & plan of care reviewed with SG.
[2020-08-22] MEDS: lactulose 20gm/30ml cup PO SCH ×2 (07:30→19:51)
[2020-08-22] MEDS: furosemide 40mg tablet PO SCH ×2 (07:30→19:51)
[2020-08-22] MEDS: traMADol 50MG tablet PO PRN ×3 (07:30→23:33)
[2020-08-22] MEDS: sulfamethoxazole/trimethoprim DS (800/160mg) tablet PO SCH ×2 (07:30→19:51)
[2020-08-22] MEDS: lactobacillus rhamnosus 10,000 MMU CELLS/CAPSULE PO SCH ×2 (07:31→19:51)
[2020-08-22] MEDS: OLANZapine 2.5MG tablet PO SCH ×2 (07:31→19:51)
[2020-08-22] MEDS: linezolid 600mg tablet PO SCH ×2 (07:36→19:58)
[2020-08-22] MEDS: K and/or MAG REPLACEMENT MC SCH ×2 (08:00→19:41)
[2020-08-22] MEDS: nystatin 15 GM powder TP SCH ×3 (08:00→21:00)
[2020-08-22] MEDS: insulin Lispro (HumaLOG) vial - multi-dose SQ SCH ×3 (09:15→18:49)
[2020-08-22 09:59] LABS: BASOPHILS % (AUTO) 0.8 % (0-1); EOSINOPHILS # (AUTO) 0.1 X10'3 (0-0.9); EOSINOPHILS % (AUTO) 2.1 % (0-6); HEMATOCRIT 25.9 % (35.0-45.0); HEMOGLOBIN 8.5 g/dl (12.0-16.0); LYMPHOCYTES # (AUTO) 0.7 X10'3 (1.1-4.8); LYMPHOCYTES % (AUTO) 13.4 % (21-51); MEAN CORPUSCULAR HEMOGLOBIN 27.3 PG (27.0-31.0); MEAN CORPUSCULAR HGB CONC 32.7 g/dL (33.0-36.5); MEAN CORPUSCULAR VOLUME 83.4 FL (78-98); MEAN PLATELET VOLUME 7.2 FL (7.4-10.4); MONOCYTES # (AUTO) 0.4 X10'3 (0-0.9); NEUTROPHILS # (AUTO) 3.7 X10'3 (1.8-7.7); NEUTROPHILS % (AUTO) 74.7 % (42-75); PLATELET COUNT 151 X10'3 (140-440); RED CELL DISTRIBUTION WIDTH 18.3 % (11.5-14.5); WHITE BLOOD COUNT 4.9 X10'3 (4.5-11.0)
[2020-08-22 10:00] VITALS: BP 103/62
[2020-08-22 10:16] LABS: ALANINE AMINOTRANSFERASE 42 U/L (12-78); ALBUMIN 1.7 G/DL (3.4-5.0); ALBUMIN/GLOBULIN RATIO 0.3 (1.1-1.5); ALKALINE PHOSPHATASE 140 IU/L (46-116); ANION GAP 2 (8-16); ASPARTATE AMINO TRANSFERASE 55 U/L (10-37); BILIRUBIN,TOTAL 0.7 MG/DL (0.1-1.0); BLOOD UREA NITROGEN 23 MG/DL (7-18); BUN/CREATININE RATIO 23.2 (6.6-38.0); CALCIUM 7.6 MG/DL (8.5-10.1); CHLORIDE 97 MMOL/L (99-107); CREATININE 0.99 MG/DL (0.40-0.90); GLUCOSE 299 MG/DL (70-104); POTASSIUM 3.2 MMOL/L (3.5-5.1); SODIUM 133 MMOL/L (135-145); TOTAL PROTEIN 6.9 G/DL (6.4-8.2); eGFR 57 ML/MIN
--- NOTE | 2020-08-22 11:53 | NUR ---
WOUND VAC EDUCATION PROVIDED BY WOUND CARE 1. Patient instructed to call the Wound Center or their Home Health Agency immediately if: * They notice a change in the color or amount of the fluid in the canister. * Their wound looks more red than usual or has a foul smell. * The skin around their wound looks reddened or irritated. * The dressing feels loose or appears to be loose. * They experience any increase or changes in their pain. * The alarm will not turn off. 2. Patient instructed that they should not be disconnected from suction for more than 2 hours at a time. * If they are not able to get the suction back on, they need to remove the dressing and take all of the foam out of the wound. * Then moisten sterile gauze with normal saline and place on/in the wound. * Change the dressing once a day until arrangements have been made to replace the wound vac dressing. 3. Patient instructed to turn the wound vac machine OFF and call 911 or go to the ED immediately if their canister fills rapidly with blood. 4. If any of these occur while in the hospital tell a nurse immediately. Addendum: 08/22/20 at 1153 by Ronnell Donaldson RN Amended: Links added.
[2020-08-22] MEDS ORDERED: potassium CL 10mEq/100ml bag 100 ML IV PRN (12:05)
[2020-08-22] MEDS ORDERED: magnesium 4gm in 100ml NS 100 ML IV PRN (12:05)
[2020-08-22] MEDS ORDERED: magnesium Cl slow-release 64mg tablet PO PRN (12:05)
[2020-08-22] MEDS ORDERED: potassium Cl 20 mEq SR tablet PO PRN ×2 (12:05)
[2020-08-22 18:00] VITALS: BP 113/73
--- NOTE | 2020-08-22 18:40 | NUR ---
Problems reprioritized. Patient report given, questions answered & plan of care reviewed with Mary.
[2020-08-22 22:00] VITALS: BP 132/72
[2020-08-22] MEDS: insulin glargine (Lantus) pen - multi-dose SQ SCH (22:18)
[2020-08-22] MEDS: LORazepam 0.5 MG tablet PO PRN (23:33)
[2020-08-23] MEDS: traMADol 50MG tablet PO PRN ×3 (04:16→20:25)
--- NOTE | 2020-08-23 06:43 | NUR ---
REPORT GIVEN TO ELENITA BETTENCOURT.
[2020-08-23 06:57] LABS: ALBUMIN 1.9 G/DL (3.4-5.0); ANION GAP 4 (8-16); BLOOD UREA NITROGEN 25 MG/DL (7-18); BUN/CREATININE RATIO 24.3 (6.6-38.0); CHLORIDE 97 MMOL/L (99-107); CREATININE 1.03 MG/DL (0.40-0.90); GLUCOSE 192 MG/DL (70-104); HEMATOCRIT 28.3 % (35.0-45.0); HEMOGLOBIN 9.5 g/dl (12.0-16.0); MEAN CORPUSCULAR HEMOGLOBIN 27.7 PG (27.0-31.0); MEAN CORPUSCULAR HGB CONC 33.4 g/dL (33.0-36.5); MEAN CORPUSCULAR VOLUME 82.9 FL (78-98); MEAN PLATELET VOLUME 7.1 FL (7.4-10.4); PLATELET COUNT 187 X10'3 (140-440); POTASSIUM 3.8 MMOL/L (3.5-5.1); RED BLOOD COUNT 3.41 X10'6 (4.20-5.60); RED CELL DISTRIBUTION WIDTH 18.2 % (11.5-14.5); SODIUM 133 MMOL/L (135-145); TOTAL CARBON DIOXIDE 32.1 MMOL/L (24-32); WHITE BLOOD COUNT 6.3 X10'3 (4.5-11.0); eGFR 54 ML/MIN
[2020-08-23] MEDS: K and/or MAG REPLACEMENT MC SCH ×2 (08:00→20:00)
[2020-08-23] MEDS: furosemide 40mg tablet PO SCH ×2 (08:00→08:18)
[2020-08-23] MEDS: nystatin 15 GM powder TP SCH ×3 (08:00→21:00)
[2020-08-23] MEDS: lactobacillus rhamnosus 10,000 MMU CELLS/CAPSULE PO SCH ×2 (08:18→20:19)
[2020-08-23] MEDS: linezolid 600mg tablet PO SCH ×2 (08:18→20:19)
[2020-08-23] MEDS: OLANZapine 2.5MG tablet PO SCH ×3 (08:18→20:19)
[2020-08-23] MEDS: sulfamethoxazole/trimethoprim DS (800/160mg) tablet PO SCH ×2 (08:18→20:19)
[2020-08-23] MEDS: lactulose 20gm/30ml cup PO SCH ×2 (08:19→20:19)
[2020-08-23] MEDS: insulin Lispro (HumaLOG) vial - multi-dose SQ SCH ×3 (09:42→20:12)
--- NOTE | 2020-08-23 11:43 | NUR ---
F/u 08/23: Pt written KENNETH/rayray eds w/ BARBER contact information placed in pt chart. Addendum: 08/23/20 at [address] Amended: Links added.
[2020-08-23 18:00] VITALS: BP 108/66
--- NOTE | 2020-08-23 18:16 | NUR ---
Problems reprioritized. Patient report given, questions answered & plan of care reviewed with
--- NOTE | 2020-08-23 18:40 | NUR ---
Patient in room ORTHO 4007. I have received report from Marleny KWONG and had the opportunity to ask questions and assume patient care.
[2020-08-23] MEDS: LORazepam 0.5 MG tablet PO PRN (20:23)
[2020-08-23 22:00] VITALS: BP 138/80
[2020-08-23] MEDS: insulin glargine (Lantus) pen - multi-dose SQ SCH (22:36)
[2020-08-24] MEDS: traMADol 50MG tablet PO PRN (04:08)
[2020-08-24] MEDS: LORazepam 0.5 MG tablet PO PRN (04:09)
[2020-08-24 06:00] VITALS: BP 106/64
--- NOTE | 2020-08-24 06:25 | NUR ---
Problems reprioritized. Patient report given, questions answered & plan of care reviewed with Judith KWONG.
[2020-08-24 06:55] LABS: HEMOGLOBIN 8.6 g/dl (12.0-16.0); MEAN CORPUSCULAR HEMOGLOBIN 27.4 PG (27.0-31.0); MEAN CORPUSCULAR HGB CONC 33.2 g/dL (33.0-36.5); MEAN CORPUSCULAR VOLUME 82.6 FL (78-98); MEAN PLATELET VOLUME 6.6 FL (7.4-10.4); PLATELET COUNT 178 X10'3 (140-440); RED BLOOD COUNT 3.16 X10'6 (4.20-5.60); RED CELL DISTRIBUTION WIDTH 18.5 % (11.5-14.5); WHITE BLOOD COUNT 4.6 X10'3 (4.5-11.0)
[2020-08-24 07:11] LABS: ALBUMIN 1.7 G/DL (3.4-5.0); ANION GAP 3 (8-16); BLOOD UREA NITROGEN 22 MG/DL (7-18); BUN/CREATININE RATIO 25.9 (6.6-38.0); CALCIUM 8.1 MG/DL (8.5-10.1); CHLORIDE 102 MMOL/L (99-107); CREATININE 0.85 MG/DL (0.40-0.90); GLUCOSE 86 MG/DL (70-104); POTASSIUM 3.5 MMOL/L (3.5-5.1); SODIUM 137 MMOL/L (135-145); eGFR 68 ML/MIN
[2020-08-24] MEDS: sulfamethoxazole/trimethoprim DS (800/160mg) tablet PO SCH (07:58)
[2020-08-24] MEDS: linezolid 600mg tablet PO SCH (07:58)
[2020-08-24] MEDS: lactulose 20gm/30ml cup PO SCH (07:58)
[2020-08-24] MEDS: lactobacillus rhamnosus 10,000 MMU CELLS/CAPSULE PO SCH (07:58)
[2020-08-24] MEDS ORDERED: furosemide 40mg tablet PO SCH (08:00)
[2020-08-24] MEDS: K and/or MAG REPLACEMENT MC SCH (08:00)
[2020-08-24] MEDS: nystatin 15 GM powder TP SCH ×2 (08:00→13:00)
[2020-08-24] MEDS: insulin Lispro (HumaLOG) vial - multi-dose SQ SCH (09:20)
[2020-08-24 10:00] VITALS: BP 117/68
--- NOTE | 2020-08-24 12:37 | NUR ---
Reassessment: Pt PO 75-100% avg carb controlled diet w/ double proteins meeting healing needs. LBM 08/23 receiving lactulose. No nutrition concerns at this time. Will continue to monitor. Recommendations: 1) Continue CHO controlled diet 2) Double eggs q breakfast, double meat BIDLD 3) Bowel care per rx 4) Scaled weights per rx Addendum: 08/24/20 at [address] Amended: Links added.
--- NOTE | 2020-08-24 13:58 | NUR ---
WOC at bedside, no surgery today. Dr Gong gave her orders to replace the wound vac.
[2020-08-24] MEDS ORDERED: BACDS PO (16:21)
[2020-08-24] MEDS ORDERED: LINE600T14 PO (16:21)
[2020-08-24] MEDS ORDERED: LACT1CAP26 PO (16:21)
[2020-08-24] MEDS ORDERED: OLAN2.5T28 PO (16:21)
[2020-08-24] MEDS ORDERED: FURO40TA4 PO (16:21)
[2020-08-24] MEDS ORDERED: LACT10SO32 PO (16:21)
--- NOTE | 2020-08-24 17:24 | NUR ---
Patient discharged home today to . All discharge instructions given to patient and questions answered. All belongings sent with patient. Prescriptions called into [facility] on [facility]. Wound vac removed and new dressing applied; wet to dry packing with ABD dressing and tape. IV removed with canula intact.
== END 2020-08-24 17:11 | disposition home or self-care (01) | DRG 720 ==
LOC: ER 15:18 → ED HOLD 17:22 → ORTHO 4S 19:34
PROVIDERS: ADMIT Internal Medicine; ATTEND Internal Medicine
PROC: 0W9G3ZZ Drainage of Peritoneal Cavity, Percutaneous Approach (ICD-10-PCS; principal; 2020-08-17)
DX: A41.01 Sepsis due to Methicillin susceptible Staphylococcus aureus (principal); B18.2 Chronic viral hepatitis C; B95.2 Enterococcus as the cause of diseases classified elsewhere; D64.9 Anemia, unspecified; E87.1 Hypo-osmolality and hyponatremia; E89.0 Postprocedural hypothyroidism; F10.20 Alcohol dependence, uncomplicated; J44.9 Chronic obstructive pulmonary disease, unspecified; K72.90 Hepatic failure, unspecified without coma; L03.115 Cellulitis of right lower limb; R62.7 Adult failure to thrive; Z16.21 Resistance to vancomycin; Z79.4 Long term (current) use of insulin; Z85.850 Personal history of malignant neoplasm of thyroid; Z87.440 Personal history of urinary (tract) infections; Z96.641 Presence of right artificial hip joint; F12.90 Cannabis use, unspecified, uncomplicated; Z51.5 Encounter for palliative care; I73.9 Peripheral vascular disease, unspecified; Z88.8 Allergy status to other drugs, medicaments and biological substances; Z88.0 Allergy status to penicillin; F32.9 Major depressive disorder, single episode, unspecified; N39.0 Urinary tract infection, site not specified; B96.1 Klebsiella pneumoniae [K. pneumoniae] as the cause of diseases classified elsewhere
CPT/HCPCS: 36415; 49083; 71045; 76937; 80048; 80053; 80202; 80320; 81001; 82140; 82948; 83605; 83735; 84132; 84145; 85007; 85008; 85025; 85027; 85610; 87040; 87077; 87081; 87088; 87186; 87635; 93005; 93308; 97110; 97116; 97162; 97530; 97535; 99285; C9803; G0378; J0692; J0696; J1815; J1940; J2060; J3370

== ENCOUNTER 2020-09-08 01:36 | Inpatient (IN) | payer MEDICAID ==
[2020-09-08] VITALS (16 sets, daily range): BP systolic 86–144; BP diastolic 29–65
[~2020-09-08] VITALS: Ht 167.6 cm; Wt 96.4 kg
[~2020-09-08 01:36] MED LIST changes: -ALBU17AE26 IH; -ARIP2TAB37 PO; +BACDS PO; -FURO-150 PO; +FURO40TA4 PO; +LACT10SO32 PO; -LACT10SO74 PO; +LACT1CAP26 PO; +LINE600T14 PO; +OLAN2.5T28 PO
[2020-09-08] MEDS ORDERED: lactulose 20gm/30ml cup PO ONE (01:40)
[2020-09-08 02:13] LABS: BASOPHILS % (AUTO) 0.2 % (0-1); EOSINOPHILS # (AUTO) 0.1 X10'3 (0-0.9); EOSINOPHILS % (AUTO) 4.4 % (0-6); HEMATOCRIT 29.3 % (35.0-45.0); HEMOGLOBIN 9.2 g/dl (12.0-16.0); LYMPHOCYTES # (AUTO) 0.4 X10'3 (1.1-4.8); LYMPHOCYTES % (AUTO) 15.3 % (21-51); MEAN CORPUSCULAR HEMOGLOBIN 27.2 PG (27.0-31.0); MEAN CORPUSCULAR HGB CONC 31.5 g/dL (33.0-36.5); MEAN CORPUSCULAR VOLUME 86.3 FL (78-98); MEAN PLATELET VOLUME 8.9 FL (7.4-10.4); MONOCYTES # (AUTO) 0.4 X10'3 (0-0.9); MONOCYTES % (AUTO) 14.2 % (2-12); NEUTROPHILS # (AUTO) 1.9 X10'3 (1.8-7.7); NEUTROPHILS % (AUTO) 65.9 % (42-75); RED CELL DISTRIBUTION WIDTH 20.1 % (11.5-14.5); WHITE BLOOD COUNT 2.9 X10'3 (4.5-11.0)
[2020-09-08 02:24] LABS: PLATELET COUNT 64 X10'3 (140-440)
[2020-09-08 02:32] LABS: ALKALINE PHOSPHATASE 173 IU/L (46-116); BILIRUBIN,TOTAL 2.4 MG/DL (0.1-1.0); ETHANOL < 0.010 GM/DL (0.0-0.010); GLUCOSE 123 MG/DL (70-104); MAGNESIUM 2.4 MG/DL (1.5-2.4)
[2020-09-08 02:51] LABS: ALANINE AMINOTRANSFERASE 61 U/L (12-78); ALBUMIN 1.8 G/DL (3.4-5.0); ALBUMIN/GLOBULIN RATIO 0.3 (1.1-1.5); ANION GAP 21 (8-16); ANISOCYTOSIS 3+; ASPARTATE AMINO TRANSFERASE 83 U/L (10-37); BLOOD UREA NITROGEN 96 MG/DL (7-18); BUN/CREATININE RATIO 32.4 (6.6-38.0); CALCIUM 8.3 MG/DL (8.5-10.1); CHLORIDE 98 MMOL/L (99-107); CREATININE 2.96 MG/DL (0.40-0.90); PLATELET ESTIMATE DECREASED; POTASSIUM 4.8 MMOL/L (3.5-5.1); SODIUM 133 MMOL/L (135-145); TOTAL CELLS COUNTED 100; TOTAL PROTEIN 7.5 G/DL (6.4-8.2); eGFR 16 ML/MIN
[2020-09-08 02:52] LABS: ELLIPTOCYTES 1+
[2020-09-08 03:02] LABS: TOTAL CARBON DIOXIDE 14.1 MMOL/L (24-32)
[2020-09-08 03:03] LABS: LACTIC SEPSIS 14.1 MMOL/L (0.4-2.0)
[2020-09-08] MEDS ORDERED: CefTRIAXone/D5W-Rocephin 1gm 50 ML IV ONE (03:05)
[2020-09-08] MEDS ORDERED: normal saline 1000ML IV soln IVB ONE (03:10)
[2020-09-08 03:31] LABS: ABG HCO3 10.4 mmol/L (22.0-26.0); ABG OXYGEN SATURATION 94.4 % (94-97); ABG PCO2 (T) 25.6 mmHg (32.0-45.0); ABG PO2 (T) 86.9 mmHg (75.0-100.0); ALLEN'S TEST Modified; FCOHb 0.9 % (0.0-3.9); FMetHb 0.2 % (0.0-1.5); FO2Hb 93.4 % (94-97); PATIENT TEMPERATURE 36.4; TOTAL HEMOGLOBIN 9.9 G/dl (12.0-16.0)
[2020-09-08] MEDS ORDERED: normal saline 1000ML IV soln IV ONE (03:45)
[2020-09-08 04:16] LABS: CLARITY,URINE CLEAR (Clear); COLOR,URINE YELLOW (Yellow); GLUCOSE, URINE NEGATIVE (Neg); KETONES,URINE NEGATIVE (Neg); LEUKOCYTE ESTERASE ,URINE SMALL (Neg); NITRITES, URINE NEGATIVE (Neg); OCCULT BLOOD,URINE MODERATE (Neg); PROTEIN,URINE 100 mg/dl (Neg)
[2020-09-08 04:18] LABS: UA COLLECTION TYPE FOLEY CATH
[2020-09-08 04:21] LABS: BACTERIA,URINE 4+ /HPF (Neg); WBC,URINE 0-4 /HPF (0-4)
[2020-09-08 04:24] LABS: SQUAMOUS EPITHELIAL CELL,UR FEW /LPF (FEW)
[2020-09-08 04:31] LABS: URINE AMPHETAMINE SCREEN POSITIVE (Neg); URINE BARBITUATE SCREEN NEGATIVE (Neg); URINE BENZODIAZEPINES SCREEN NEGATIVE (Neg); URINE CANNABINOID SCREEN POSITIVE (Neg); URINE COCAINE SCREEN NEGATIVE (Neg); URINE METHADONE SCREEN NEGATIVE (Neg); URINE OPIATE SCREEN NEGATIVE (Neg); URINE PHENCYCLIDINE SCREEN NEGATIVE (Neg)
[2020-09-08] MEDS ORDERED: insulin Lispro (HumaLOG) vial - multi-dose SQ SCH (06:30)
[2020-09-08] MEDS ORDERED: MESSAGE TO PHARMACY PO ONE (06:30)
[2020-09-08] MEDS ORDERED: glucagon, human recombinant 1mg kit SUBCUT PRN (06:30)
[2020-09-08] MEDS ORDERED: ondansetron/PF 4mg/2ml inj IV PRN (06:30)
[2020-09-08] MEDS ORDERED: acetaminophen 325mg tablet PO PRN ×2 (06:30)
[2020-09-08] MEDS ORDERED: dextrose ORAL solution 15 GM/59 ML bottle PO PRN ×2 (06:30)
[2020-09-08] MEDS ORDERED: ipratropium/albuterol 3ml nebule NEB PRN ×2 (06:30→15:25)
--- NOTE | 2020-09-08 06:30 | NUR ---
PATIENT HALLUCINATING,PER NOC PATIENT AHS BEEN HALLUCIANTING,YELLING "HELP ME",
--- NOTE | 2020-09-08 06:36 | NUR ---
september aware about patient's lactic 16.0.
[2020-09-08] MEDS: sodium bicarbonate (8.4%) inj. 150 MEQ in dextrose 5%-water 1,000 ML IV SCH ×3 (07:23→20:05)
--- NOTE | 2020-09-08 07:27 | NUR ---
LINNETTE TO SEPT[employer]BER PHOTO OPTICS TECHNICIAN,MADE AWARE THAT PT NEEDS A CENTRAL LINE, TO PLACE ONE SOON HE CAN.
[2020-09-08] MEDS ORDERED: linezolid 600mg/300ml PREMIX 300 ML IV SCH (08:00)
[2020-09-08] MEDS: famotidine 20mg tablet PO SCH ×2 (08:00→20:00)
[2020-09-08] MEDS: levoFLOXACIN-Levaquin 250mg/D5 50 ML IV SCH (08:25)
[2020-09-08 08:27] LABS: PARTIAL THROMBOPLASTIN TIME 40 SECONDS (22-32)
[2020-09-08 08:31] LABS: ALANINE AMINOTRANSFERASE 64 U/L (12-78); ALBUMIN 1.7 G/DL (3.4-5.0); ALBUMIN/GLOBULIN RATIO 0.3 (1.1-1.5); ALKALINE PHOSPHATASE 167 IU/L (46-116); ANION GAP 29 (8-16); ASPARTATE AMINO TRANSFERASE 104 U/L (10-37); BILIRUBIN,TOTAL 2.2 MG/DL (0.1-1.0); BLOOD UREA NITROGEN 95 MG/DL (7-18); BUN/CREATININE RATIO 32.1 (6.6-38.0); CALCIUM 8.3 MG/DL (8.5-10.1); CHLORIDE 99 MMOL/L (99-107); CREATININE 2.96 MG/DL (0.40-0.90); MAGNESIUM 2.4 MG/DL (1.5-2.4); SODIUM 137 MMOL/L (135-145); TOTAL PROTEIN 6.9 G/DL (6.4-8.2); eGFR 16 ML/MIN
[2020-09-08 08:36] LABS: GLUCOSE 22 MG/DL (70-104)
[2020-09-08 08:37] LABS: TOTAL CARBON DIOXIDE 8.7 MMOL/L (24-32)
[2020-09-08] MEDS: dextrose 50%-water 50ml dispensing syringe IV PRN ×3 (08:41→17:46)
[2020-09-08] MEDS: metroNIDAZOLE-Flagyl 500mg/NS 100 ML IV SCH ×2 (09:22→17:49)
[2020-09-08] MEDS ORDERED: albumin (human) 25% 100 ML IV solution IV ONE (09:25)
--- NOTE | 2020-09-08 09:57 | NUR ---
SPOKE TO DR. LEWIS,MADE AWARE THAT PATIENT IS YELLING,HYPERVENTILATING AND HALLUCINATING,ATIVAN 10MGIV AND TO PAGE PICC RN.
[2020-09-08] MEDS ORDERED: LORazepam 2 mg/ml vial IV STA (09:58)
--- NOTE | 2020-09-08 09:59 | NUR ---
DR. FAYE AWARE ABOUT PATIENT'S LACTIC 18.6
[2020-09-08 10:12] LABS: ALBUMIN 1.8 G/DL (3.4-5.0); ANION GAP 27 (8-16); CALCIUM 8.1 MG/DL (8.5-10.1); CHLORIDE 101 MMOL/L (99-107); CREATININE 3.05 MG/DL (0.40-0.90); POTASSIUM 5.3 MMOL/L (3.5-5.1); SODIUM 134 MMOL/L (135-145); eGFR 16 ML/MIN
[2020-09-08 10:14] LABS: BLOOD UREA NITROGEN 93 MG/DL (7-18); BUN/CREATININE RATIO 30.5 (6.6-38.0)
[2020-09-08 10:17] LABS: GLUCOSE 48 MG/DL (70-104)
[2020-09-08 10:18] LABS: TOTAL CARBON DIOXIDE 6.5 MMOL/L (24-32)
--- NOTE | 2020-09-08 10:36 | NUR ---
CALLED DR. LEWIS MADE AWRE THAT PATIENT COULD BENEFIT FROM BIPAP,TELEPHONE ORDER OBTAINED,ALSO MADE AWARE THAT PATIENT'S BG IS DOWN TO 48MG/DL,MD ORDERED TO KEEP PUSHING D50 NEEDED.
--- NOTE | 2020-09-08 11:20 | NUR ---
PATIENT STARTED ON BIPAP.
--- NOTE | 2020-09-08 12:23 | NUR ---
REGGIEITANTONY ON BIPAP SATING 96% RR 16 AT THIS TIME.PERIO CARE DONE,DRESSING CHANGED TO WOUND ON LEFT HIP.STILL AWATING FOR DR. LEWIS TO COME SEE PT.WE WILL MONITOR.
[2020-09-08] MEDS ORDERED: fentaNYL/PF 50MCG/1 ML 2ML syringe IV PRN ×3 (13:10→15:25)
[2020-09-08 13:50] LABS: ABG BASE EXCESS -26.6 mmol/L (-2.0-2.0); ABG HCO3 4.2 mmol/L (22.0-26.0); ABG PCO2 (T) 20.3 mmHg (32.0-45.0); ABG PO2 (T) 161.6 mmHg (75.0-100.0); ALLEN'S TEST POSITIVE; FCOHb 0.5 % (0.0-3.9); FMetHb 0.4 % (0.0-1.5); FO2Hb 97.1 % (94-97); PEEP 5 cm H2O; RESPIRATORY RATE 20 b/min; TIDAL VOLUME 350 mL; TOTAL HEMOGLOBIN 9.8 G/dl (12.0-16.0)
--- NOTE | 2020-09-08 14:23 | NUR ---
called Dr. Wilson bp 89/42mmhg,RN requested levophed,MD said to have picc RN place a picc,made MD aware picc RN cannot do it down in ed,MD said why can't they bring the patient to icu then,made aware that as of the moment there is no icu bed per CN. ordered NS 1L bolus.
--- NOTE | 2020-09-08 14:32 | NUR ---
UNABLE TO USE FENTANYL DRIP,PER PHARMACY IT CAUSES SEROTONIN SYNDROME IF USE WITH ZYVOX.
--- NOTE | 2020-09-08 14:33 | NUR ---
BOLUS 1L NS GOING AT THIS TIME.
[2020-09-08] MEDS: midazolam 100mg in NS 100ml 100 ML IV PRN (14:34)
[2020-09-08] MEDS ORDERED: MORPHINE/PF 100 MG in NS 100ml IV IV SCH (14:45)
[2020-09-08] MEDS ORDERED: morphine 10mg/ml inj. 100 MG in normal saline 100ml IV soln 90 ML IV SCH (14:45)
--- NOTE | 2020-09-08 15:02 | NUR ---
DR. LEWIS AT BEDSIDE PLACING CENTRAL LINE.
--- NOTE | 2020-09-08 15:04 | NUR ---
DR. LEWIS AWARE THAT PATIENT'S BLOOD CULTURE IS NEGATIVE REYNA IN ALL 3 BOTTLES,ORDERED TO [facility].
[2020-09-08] MEDS: NORepinephrine 8 MG in NS 250ml IV soln IV SCH ×2 (15:11→20:05)
[2020-09-08] MEDS ORDERED: midazolam 100mg in NS 100ml 100 ML IV PRN (15:25)
[2020-09-08] MEDS ORDERED: FENTANYL-0.9 % NACL/PF 100 ML IV PRN (15:25)
[2020-09-08] MEDS ORDERED: midazolam 2 mg/2 ml injection IV ONE (15:25)
[2020-09-08] MEDS ORDERED: FURO40TA4 PO (15:34)
[2020-09-08] MEDS ORDERED: LINE600T11 PO (15:35)
[2020-09-08] MEDS: FENTANYL-0.9 % NACL/PF 100 ML IV PRN (15:35)
[2020-09-08] MEDS ORDERED: LACT10SO74 PO (15:35)
[2020-09-08] MEDS ORDERED: BACDS PO (15:36)
[2020-09-08] MEDS ORDERED: INSU100I31 SQ (15:39)
--- NOTE | 2020-09-08 16:17 | NUR ---
PT TO CT.
--- NOTE | 2020-09-08 16:33 | NUR ---
pt returns from ct
--- NOTE | 2020-09-08 17:30 | NUR ---
Patient arrived to floor intubated/sedated and placed on bedside monitor and ventilator. Levophed, bicarb drip, fent, versed transfusing
--- NOTE | 2020-09-08 17:48 | NUR ---
500ML BROWN GASTRIC CONTENT OUT FROM OG.
--- NOTE | 2020-09-08 18:24 | NUR ---
Problems reprioritized. Patient report given, questions answered & plan of care reviewed with Pooja KWONG.
[2020-09-08 19:36] LABS: ABG BASE EXCESS -28.7 mmol/L (-2.0-2.0); ABG HCO3 4.3 mmol/L (22.0-26.0); ABG OXYGEN SATURATION 94.4 % (94-97); ABG PCO2 (T) 27.3 mmHg (32.0-45.0); ABG PO2 (T) 104.2 mmHg (75.0-100.0); ALLEN'S TEST POSITIVE; FMetHb 0.4 % (0.0-1.5); FO2Hb 93.1 % (94-97); PEEP 5 cm H2O; RESPIRATORY RATE 20 b/min; TOTAL HEMOGLOBIN 8.8 G/dl (12.0-16.0)
[2020-09-08] MEDS: ipratropium/albuterol 3ml nebule NEB SCH ×2 (19:39→23:49)
[2020-09-08 20:39] LABS: AMYLASE,BODY FLUID 9 U/L; GLUCOSE,BODY FLUID 83 MG/DL; LDH,BODY FLUID 86 U/L
[2020-09-08] MEDS ORDERED: insulin glargine (Lantus) pen - multi-dose SQ SCH (21:00)
[2020-09-08 21:41] LABS: BF RBC COUNT 387 /CU MM; BF WBC COUNT 60 /CU MM (0-1000); BFAPPEAR CLEAR; BFCOLOR STRAW; BFVOLUME 25 ML; LYMPHOCYTES,BODY FLUID 58 %; NEUTROPHILS,BODY FLUID 39 %
[2020-09-08 21:42] LABS: MONOCYTES,BODY FLUID 3 %
--- NOTE | 2020-09-08 22:59 | NUR ---
[id number] 1830:Patient in room CICU 2011. I have received report from Shayne KWONG and had the opportunity to ask questions and assume patient care. Patient hypotensive, tachypneic, respirations labored on ventilator. Titrating Levophed to keep MAP greater than 60. 1914: Dr. Wilson at bedside, fluid drawn from abdomen, sample sent to lab. 2011: Adilene Castañeda at bedside, orders received, will continue to monitor. 2231: Dr. Robertson at bedside, update given. Titrating Levophed to keep MAP greater than 60. Addendum: 09/08/20 at 2313 by Pooja Owens RN Amended: Links added.
[2020-09-09] VITALS (12 sets, daily range): BP systolic 79–140; BP diastolic 14–62
--- NOTE | 2020-09-09 00:15 | NUR ---
Patient's significant other Naif here after being updated and told to come see patient in the morning due to patient's condition by [facility]. Update given, told to call in the morning and to also be available by phone for MD to update prior to coming to hospital.
[2020-09-09] MEDS: meropenem inj 1 GM in normal saline 100ml IV soln 100 ML IV SCH ×2 (00:41→07:45)
[2020-09-09] MEDS: metroNIDAZOLE-Flagyl 500mg/NS 100 ML IV SCH ×2 (01:24→08:04)
--- NOTE | 2020-09-09 02:55 | NUR ---
AM lab and critical values called to [facility]. Orders received.
[2020-09-09 03:21] LABS: BASOPHILS # (AUTO) 0.1 X10'3 (0-0.2); HEMOGLOBIN 7.3 g/dl (12.0-16.0)
[2020-09-09] MEDS: ipratropium/albuterol 3ml nebule NEB SCH ×3 (03:21→10:48)
[2020-09-09 03:22] LABS: BASOPHILS % (AUTO) 0.3 % (0-1); EOSINOPHILS # (AUTO) 0.5 X10'3 (0-0.9); EOSINOPHILS % (AUTO) 2.3 % (0-6); HEMATOCRIT 26.4 % (35.0-45.0); LYMPHOCYTES % (AUTO) 9.1 % (21-51); MEAN CORPUSCULAR HEMOGLOBIN 27.7 PG (27.0-31.0); MEAN CORPUSCULAR HGB CONC 27.7 g/dL (33.0-36.5); MEAN CORPUSCULAR VOLUME 99.8 FL (78-98); MONOCYTES # (AUTO) 1.5 X10'3 (0-0.9); MONOCYTES % (AUTO) 6.9 % (2-12); NEUTROPHILS # (AUTO) 18.2 X10'3 (1.8-7.7); NEUTROPHILS % (AUTO) 81.4 % (42-75); PLATELET COUNT 77 X10'3 (140-440); RED BLOOD COUNT 2.65 X10'6 (4.20-5.60); RED CELL DISTRIBUTION WIDTH 20.9 % (11.5-14.5); WHITE BLOOD COUNT 22.3 X10'3 (4.5-11.0)
[2020-09-09 03:45] LABS: ALANINE AMINOTRANSFERASE 421 U/L (12-78); ALBUMIN 2.1 G/DL (3.4-5.0); ALKALINE PHOSPHATASE 181 IU/L (46-116); ANION GAP 30 (8-16); CALCIUM 7.6 MG/DL (8.5-10.1); CHLORIDE 100 MMOL/L (99-107); CREATININE 3.16 MG/DL (0.40-0.90); MAGNESIUM 2.7 MG/DL (1.5-2.4); SODIUM 136 MMOL/L (135-145); eGFR 15 ML/MIN
[2020-09-09 03:47] LABS: PARTIAL THROMBOPLASTIN TIME 96 SECONDS (22-32)
[2020-09-09 03:50] LABS: BLOOD UREA NITROGEN 90 MG/DL (7-18); PHOSPHORUS 13.1 MG/DL (2.3-4.5); TOTAL PROTEIN 6.1 G/DL (6.4-8.2)
[2020-09-09 03:59] LABS: POTASSIUM 6.6 MMOL/L (3.5-5.1); TOTAL CARBON DIOXIDE 6.2 MMOL/L (24-32); TOTAL CELLS COUNTED 100
[2020-09-09 04:00] LABS: ALBUMIN/GLOBULIN RATIO 0.5 (1.1-1.5); ANISOCYTOSIS 3+; GLUCOSE 24 MG/DL (70-104); MICROCYTOSIS 2+; PLATELET ESTIMATE DECREASED; POIKILOCYTOSIS 2+
[2020-09-09 04:01] LABS: ACANTHOCYTES 3+; ELLIPTOCYTES 2+; SCHISTOCYTES 1+
[2020-09-09] MEDS ORDERED: calcium chloride inj. 1,000 MG in normal saline 100ml IV soln 100 ML IV ONE (04:05)
[2020-09-09] MEDS ORDERED: calcium chloride 100 MG/1 ML inj IV ONE (04:08)
[2020-09-09] MEDS ORDERED: sodium polystyrene sulfonate 15gm/60ml oral suspension PO ONE (04:15)
[2020-09-09] MEDS ORDERED: dextrose 50%-water 50ml dispensing syringe IV ONE (04:15)
[2020-09-09] MEDS ORDERED: sodium bicarbonate (8.4%) 1 mEq/ml syringe IV ONE (04:15)
[2020-09-09] MEDS ORDERED: insulin regular, human U-100 3ml vial - multi-dose IV ONE (04:15)
[2020-09-09] MEDS: midazolam 100mg in NS 100ml 100 ML IV PRN (04:16)
[2020-09-09] MEDS: FENTANYL-0.9 % NACL/PF 100 ML IV PRN (04:16)
[2020-09-09] MEDS ORDERED: phytonadione inj. 5 MG in normal saline 100ml IV soln 100 ML IV ONE (04:30)
[2020-09-09 04:42] LABS: ASPARTATE AMINO TRANSFERASE 3235 U/L (10-37)
[2020-09-09 04:45] LABS: BUN/CREATININE RATIO 28.5 (6.6-38.0)
[2020-09-09] MEDS: NORepinephrine 8 MG in NS 250ml IV soln IV SCH ×2 (05:00→07:06)
[2020-09-09 05:05] LABS: OXYGEN SATURATION (MIXED VEN) 92.7 % (60-80)
[2020-09-09 05:21] LABS: ABG BASE EXCESS -26.2 mmol/L (-2.0-2.0); ABG HCO3 6.2 mmol/L (22.0-26.0); ABG OXYGEN SATURATION 98.1 % (94-97); ABG PO2 (T) 124.9 mmHg (75.0-100.0); ALLEN'S TEST POSITIVE; FMetHb 0.4 % (0.0-1.5); FO2Hb 96.7 % (94-97); PATIENT TEMPERATURE 34.3; PEEP 5 cm H2O; RESPIRATORY RATE 20 b/min; TIDAL VOLUME 350 mL; TOTAL HEMOGLOBIN 7.4 G/dl (12.0-16.0)
--- NOTE | 2020-09-09 06:30 | NUR ---
Problems reprioritized. Patient report given, questions answered & plan of care reviewed with Mary Jo KWONG.
--- NOTE | 2020-09-09 06:35 | NUR ---
Patient in room CICU 2011. I have received report from Pooja KWONG and had the opportunity to ask questions and assume patient care.
[2020-09-09] MEDS ORDERED: NORepinephrine inj. 32 MG in normal saline 250ml IV soln 218 ML IV SCH ×2 (06:40→12:55)
[2020-09-09] MEDS: famotidine 20mg tablet PO SCH (06:55)
[2020-09-09] MEDS: levoFLOXACIN-Levaquin 250mg/D5 50 ML IV SCH (07:05)
--- NOTE | 2020-09-09 07:15 | NUR ---
Patient has converted to AFib; aware
--- NOTE | 2020-09-09 07:20 | NUR ---
Patient maxed on Levo; changed to quad strength and spoke with Dr. Wilson who ordered Vasopressin
[2020-09-09] MEDS: dextrose 50%-water 50ml dispensing syringe IV PRN ×3 (07:52→12:35)
[2020-09-09] MEDS ORDERED: pantoprazole 40 MG vial IV SCH (08:00)
[2020-09-09] MEDS: sodium bicarbonate (8.4%) inj. 150 MEQ in dextrose 5%-water 1,000 ML IV SCH (08:11)
[2020-09-09] MEDS ORDERED: vasopressin inj. 40 UNIT in normal saline 50ml IV soln 38 ML IV SCH (08:40)
--- NOTE | 2020-09-09 10:00 | NUR ---
Patient converted to SVT and is maintaining; aware
--- NOTE | 2020-09-09 11:43 | NUR ---
Received phone call from Naif Jorgensen, patient's ; he is coming in to see and speak with Dr. Wilson
[2020-09-09 11:48] LABS: ALBUMIN,BODY FLUID < 0.6 G/DL
[2020-09-09] MEDS ORDERED: sodium bicarbonate (8.4%) 1 mEq/ml syringe ONE (12:48)
--- NOTE | 2020-09-09 13:37 | NUR ---
[facility] called; reference #[id number]
--- NOTE | 2020-09-09 13:44 | NUR ---
1240 Patient's arrived to bedside and asked why we weren't doing anything. Attempted to explain to him that we were ventilating patient, giving her antibiotics, giving her maximum blood pressure support as well. Mr. Jorgensen stated that we weren't doing enough for her and asked why she wasn't getting better. Attempted to explain to him that we were doing everything that we could to help her recover and he stated that "we had sent her home to with the wrong antibiotics" and that this was "all our fault." At this time Dr. Wilson was on his way to the bedside to speak with the patient's . Patient's reached the patient's bedside to hold her hand and stated "I'm here, baby" at which point (124) patient became asystolic and after a femoral pulse check, CPR was initiated. Dr. Wilson came to bedside by 124 at which point the first vial of Epi was pushed. Dr. Wilson explained to patient's that there was little else that could be done and that we were doing everything in our power to help her; however at this point patient's began to yell and cry that if we didn't bring her back he was going to seek commercial real estate paralegal. Patient began cursing and yelling at staff while they were doing CPR. Due to concerns that the patient's situation was going to deteriorate, this RN had prepped the room and the Zoll was already connected as well as the bedboard being behind the patient already. CPR continued for the next 10 minutes, interrupted only for pulse checks and as Dr. Wilson used the Ultrasound so that he could demonstrate to patient's family that the heart itself was no longer beating and that it was time to withdraw care. Patient family began yelling and cursing again demanding that we keep doing CPR and "shock her". Dr. Wilson obliged on the CPR but explained that with no underlying rhythm that shocking was not going to help, until 1257 when he explained again to patient's that there was nothing further we could do as there was no pulse and it was time to stop. Patient began yelling again, threatening staff and Dr. Wilson that we would all be sued. Natalie KWONG, nursing home management supervisor, Christofer RN, ICU Director, and Niurka from Acute Care Registered Nurse all at the bedside to try to after school counselor and console patient's , however he was becoming progressively more and more agitated and needed to be escorted out of the hospital by security. After determining that this was not a cable television technician's case, ETT was removed by RT with this RN at the bedside and Christi Jade was called. Mr. Jorgensen's contact information was give to Christi Jade so that they may be able to contact him regarding post mortem care and decisions as Mr. Jorgensen was no longer at the bedside to ask when this RN called. Patient to be released to Christi when they arrive, no belongings found in room.
[2020-09-09] MEDS ORDERED: mineral oil/petrolatum ophthal oint EACHEYE SCH ×2 (14:00→20:00)
--- NOTE | 2020-09-09 14:55 | NUR ---
Kike and Magaly took patient
[2020-09-10] MEDS ORDERED: lactulose 20gm/30ml cup PO PRN (06:30)
== END 2020-09-09 12:00 | disposition expired | DRG 720 ==
LOC: ER 01:36 → ED HOLD 06:30 → CICU 2S 17:33
PROVIDERS: ADMIT Internal Medicine Critical Care Medicine; ATTEND Internal Medicine Critical Care Medicine
PROC: 02HV33Z Insertion of Infusion Device into Superior Vena Cava, Percutaneous Approach (ICD-10-PCS; principal; 2020-09-08)
PROC: 5A1935Z Respiratory Ventilation, Less than 24 Consecutive Hours (ICD-10-PCS; 2020-09-08)
PROC: 0BH17EZ Insertion of Endotracheal Airway into Trachea, Via Natural or Artificial Opening (ICD-10-PCS; 2020-09-08)
DX: A41.59 Other Gram-negative sepsis (principal); R62.7 Adult failure to thrive; B19.20 Unspecified viral hepatitis C without hepatic coma; E11.9 Type 2 diabetes mellitus without complications; E87.2 Acidosis; F31.9 Bipolar disorder, unspecified; G93.40 Encephalopathy, unspecified; I46.9 Cardiac arrest, cause unspecified; J96.00 Acute respiratory failure, unspecified whether with hypoxia or hypercapnia; K74.60 Unspecified cirrhosis of liver; K72.90 Hepatic failure, unspecified without coma; N17.9 Acute kidney failure, unspecified; R65.21 Severe sepsis with septic shock; Z20.828 Contact with and (suspected) exposure to other viral communicable diseases; Z96.641 Presence of right artificial hip joint; Z82.49 Family history of ischemic heart disease and other diseases of the circulatory system; Z83.3 Family history of diabetes mellitus; Z86.14 Personal history of Methicillin resistant Staphylococcus aureus infection; Z72.0 Tobacco use; Z88.0 Allergy status to penicillin; Z88.8 Allergy status to other drugs, medicaments and biological substances
CPT/HCPCS: 36415; 36600; 70450; 71045; 73564; 74176; 76937; 80048; 80053; 80305; 80320; 81001; 82042; 82140; 82150; 82803; 82810; 82945; 82948; 83605; 83615; 83735; 84100; 84132; 84145; 85007; 85018; 85025; 85610; 85730; 86885; 86900; 86901; 87040; 87070; 87077; 87081; 87088; 87186; 87635; 89051; 92950; 93005; 94002; 94003; 94640; 94660; 94760; 94799; 96365; 99285; C9113; C9803; G0378; J0696; J1815; J1956; J2020; J2060; J2185; J3010; J3430; J3490; J7030; J7050; P9047